=== PATIENT | female | born 1955 | race Caucasian/White ===

== ENCOUNTER 2020-09-07 07:11 | Outpatient (REF) | payer MEDICARE, SELFPAY | END 2020-09-07 07:12 | disposition home or self-care (01) | LOC: HO.LAB 07:11 | PROVIDERS: Visit Provider Internal Medicine | DX: Z20.828 Contact with and (suspected) exposure to other viral communicable diseases (principal) | CPT/HCPCS: 87635 ==

== ENCOUNTER 2020-09-17 12:29 | Outpatient (REF) | payer MEDICARE, SELFPAY ==
[2020-09-17 14:19] LABS: Alanine Aminotransferase 13 U/L (0-31); Anion Gap 12 (12-20); Aspartate Amino Transferase 14 U/L (5-31); Blood Urea Nitrogen 17 mg/dL (9-16); Calcium 8.6 mg/dL (8.4-10.2); Carbon Dioxide 29 mmol/L (22-29); Chloride 105 mmol/L (96-108); Cholesterol 187 mg/dL; Estimated Glomerular Filt Rate > 60; Glucose Fasting 91 mg/dL (60-99); HDL Cholesterol 54 mg/dL; LDL Cholesterol Calculated 118 mg/dl; Potassium 4.9 mmol/l (3.3-5.1); Sodium 141 mmol/L (135-145); Triglycerides 76 mg/dL
[2020-09-17 14:41] LABS: Vitamin D 25-OH Total 24.5 ng/mL (>30)
== END 2020-09-17 12:30 | disposition home or self-care (01) ==
LOC: HO.HMGCLDS 12:29
PROVIDERS: PCP Internal Medicine; Visit Provider Internal Medicine
DX: E78.5 Hyperlipidemia, unspecified (principal); R73.01 Impaired fasting glucose; Z78.0 Asymptomatic menopausal state
CPT/HCPCS: 80048; 80061; 82306; 84450; 84460

== ENCOUNTER 2020-10-18 06:07 | Outpatient (REF) | payer MEDICARE, SELFPAY | END 2020-10-18 06:08 | disposition home or self-care (01) | LOC: HO.LAB 06:07 | PROVIDERS: Visit Provider Internal Medicine | DX: Z20.828 Contact with and (suspected) exposure to other viral communicable diseases (principal) | CPT/HCPCS: C9803; U0003 ==

== ENCOUNTER 2020-11-03 06:34 | Outpatient (REF) | payer MEDICARE, SELFPAY | END 2020-11-03 06:35 | disposition home or self-care (01) | LOC: HO.LAB 06:34 | PROVIDERS: PCP Internal Medicine; Visit Provider Internal Medicine | DX: Z20.828 Contact with and (suspected) exposure to other viral communicable diseases (principal) | CPT/HCPCS: C9803; U0003 ==

== ENCOUNTER → 2020-11-08 13:00 | Outpatient (BNVA) | payer MEDICARE, SELFPAY | PROVIDERS: PCP Internal Medicine; Visit Provider Internal Medicine Cardiovascular Disease | DX: I10 Essential (primary) hypertension (principal) | CPT/HCPCS: 93005; 99212 ==

== ENCOUNTER 2020-12-02 10:37 | Outpatient (REF) | payer MEDICARE, SELFPAY | END 2020-12-02 10:38 | disposition home or self-care (01) | LOC: HO.LAB 10:37 | PROVIDERS: Visit Provider Nurse Practitioner Family | DX: J06.9 Acute upper respiratory infection, unspecified (principal); Z20.822 Contact with and (suspected) exposure to COVID-19 | CPT/HCPCS: 36415; U0003 ==

== ENCOUNTER 2021-04-12 11:03 | Outpatient (REF) | payer MEDICARE, SELFPAY ==
[2021-04-12 14:43] LABS: Alanine Aminotransferase 23 U/L (0-31); Anion Gap 13 (12-20); Aspartate Amino Transferase 16 U/L (5-31); Blood Urea Nitrogen 16 mg/dL (9-16); Calcium 9.1 mg/dL (8.4-10.2); Carbon Dioxide 27 mmol/L (22-29); Chloride 105 mmol/L (96-108); Cholesterol 186 mg/dL; Estimated Glomerular Filt Rate > 60; Glucose Fasting 101 mg/dL (60-99); HDL Cholesterol 52 mg/dL; LDL Cholesterol Calculated 117 mg/dl; Potassium 4.6 mmol/L (3.3-5.1); Sodium 140 mmol/L (135-145); Triglycerides 86 mg/dL
[2021-04-12 14:49] LABS: Vitamin D 25-OH Total 35.1 ng/mL (>30)
== END 2021-04-12 11:04 | disposition home or self-care (01) ==
LOC: HO.HMGCLDS 11:03
PROVIDERS: PCP Internal Medicine; Visit Provider Internal Medicine
DX: R73.01 Impaired fasting glucose (principal); E55.9 Vitamin D deficiency, unspecified; E66.01 Morbid (severe) obesity due to excess calories; E78.5 Hyperlipidemia, unspecified; I10 Essential (primary) hypertension; Z78.0 Asymptomatic menopausal state
CPT/HCPCS: 36415; 80048; 80061; 82306; 84450; 84460

== ENCOUNTER 2021-05-05 09:55 | Outpatient (REF) | payer MEDICARE, SELFPAY ==
--- NOTE | ~2021-05-05 | MM_ITS ---
EXAMINATION: MM SCREENING DIGITAL BREAST TOMOSYNTHESIS, BILATERAL CLINICAL INFORMATION: Screening. Asymptomatic. The lifetime risk of breast cancer based on the Tyrer-Cuzick Model is 5%. COMPARISON: Mammography: 09/26/2019, 07/29/2018, 06/05/2017 TECHNIQUE: Digital breast tomosynthesis is performed in both the craniocaudal and mediolateral oblique views along with computer-aided detection (CAD). Synthesized 2D images are generated from the tomosynthesis. FINDINGS: There are scattered areas of fibroglandular density (ACR BI-RADS breast composition Category b). Parenchymal pattern is similar to prior studies. There is no interval mass or architectural abnormality or abnormal calcifications. There is stable small lobulated asymmetry posterior outer right breast on CC view similar to prior studies. Linear stromal markings anterior upper outer left breast are also stable. The axilla and skin contours are unremarkable. No significant changes. MM/MM tomosynthesis screening BI IMPRESSION: No mammographic evidence of malignancy. ASSESSMENT: BI-RADS 2: Benign RECOMMENDATION: Routine annual mammography screening. This patient's information was entered into a reminder system with a target due date for their next mammogram.
== END 2021-05-05 09:56 | disposition home or self-care (01) ==
LOC: HO.MAMMO 09:55
PROVIDERS: Visit Provider Internal Medicine
DX: Z12.31 Encounter for screening mammogram for malignant neoplasm of breast (principal)
CPT/HCPCS: 77063; 77067

== ENCOUNTER 2021-09-29 11:48 | Outpatient (REF) | payer MEDICARE, SELFPAY ==
[2021-09-29 14:12] LABS: Estimated Average Glucose 105 mg/dL; Hemoglobin A1c % 5.3 %
[2021-09-29 14:17] LABS: Alanine Aminotransferase 17 U/L (0-31); Anion Gap 10 (12-20); Aspartate Amino Transferase 16 U/L (5-31); Blood Urea Nitrogen 14 mg/dL (9-16); Calcium 9.1 mg/dL (8.4-10.2); Carbon Dioxide 28 mmol/L (22-29); Chloride 104 mmol/L (96-108); Cholesterol 175 mg/dL; Estimated Glomerular Filt Rate > 60; Glucose Fasting 105 mg/dL (60-99); HDL Cholesterol 44 mg/dL; LDL Cholesterol Calculated 113 mg/dl; Potassium 4.6 mmol/L (3.3-5.1); Sodium 137 mmol/L (135-145); Triglycerides 92 mg/dL
[2021-09-29 14:38] LABS: Vitamin D 25-OH Total 26.9 ng/mL (>30)
== END 2021-09-29 11:49 | disposition home or self-care (01) ==
LOC: HO.HMGCX 11:48
PROVIDERS: PCP Internal Medicine; Visit Provider Internal Medicine
DX: E55.9 Vitamin D deficiency, unspecified (principal); E66.01 Morbid (severe) obesity due to excess calories; E78.5 Hyperlipidemia, unspecified; I10 Essential (primary) hypertension; R73.01 Impaired fasting glucose; Z78.0 Asymptomatic menopausal state
CPT/HCPCS: 36415; 80048; 80061; 82306; 83036; 84450; 84460

== ENCOUNTER → 2021-10-31 14:53 | Outpatient (BNVA) | payer MEDICARE, SELFPAY | PROVIDERS: PCP Internal Medicine; Referring Provider Internal Medicine; Visit Provider Internal Medicine Cardiovascular Disease | DX: I10 Essential (primary) hypertension (principal) | CPT/HCPCS: 93005; 99212 ==

== ENCOUNTER 2022-05-15 10:12 | Outpatient (REF) | payer MEDICARE, SELFPAY ==
[2022-05-15 12:32] LABS: Vitamin D 25-OH Total 35.7 ng/mL (>30)
[2022-05-15 12:34] LABS: Alanine Aminotransferase 17 U/L (0-31); Anion Gap 11 (12-20); Aspartate Amino Transferase 15 U/L (5-31); Blood Urea Nitrogen 18 mg/dL (9-16); Calcium 9.2 mg/dL (8.4-10.2); Carbon Dioxide 27 mmol/L (22-29); Chloride 108 mmol/L (96-108); Cholesterol 189 mg/dL; Estimated Glomerular Filt Rate > 60; Glucose Fasting 111 mg/dL (60-99); HDL Cholesterol 48 mg/dL; LDL Cholesterol Calculated 126 mg/dl; Potassium 4.7 mmol/L (3.3-5.1); Sodium 141 mmol/L (135-145); Triglycerides 75 mg/dL
== END 2022-05-15 10:13 | disposition home or self-care (01) ==
LOC: HO.HMGCLDS 10:12
PROVIDERS: PCP Internal Medicine; Visit Provider Internal Medicine
DX: E55.9 Vitamin D deficiency, unspecified (principal); E66.01 Morbid (severe) obesity due to excess calories; E78.5 Hyperlipidemia, unspecified; I10 Essential (primary) hypertension; R73.01 Impaired fasting glucose; Z78.0 Asymptomatic menopausal state
CPT/HCPCS: 36415; 80048; 80061; 82306; 84450; 84460

== ENCOUNTER 2022-05-30 15:22 | Outpatient (REF) | payer MEDICARE, SELFPAY ==
--- NOTE | ~2022-05-30 | MM_ITS ---
EXAMINATION: MM SCREENING DIGITAL BREAST TOMOSYNTHESIS, BILATERAL CLINICAL INFORMATION: Screening. Asymptomatic. The lifetime risk of breast cancer based on the Tyrer-Cuzick Model is 4%. COMPARISON: Mammography: 05/05/2021, 09/26/2019, 07/29/2018, 06/05/2017 TECHNIQUE: Digital breast tomosynthesis is performed in both the craniocaudal and mediolateral oblique views along with computer-aided detection (CAD). Synthesized 2D images are generated from the tomosynthesis. FINDINGS: There are scattered areas of fibroglandular density (ACR BI-RADS breast composition Category b). Parenchymal pattern is similar to prior studies. There is no significant mass or architectural abnormality or developing density. Smooth lobulated asymmetry posterior outer right breast is stable. There are also stable small smooth nodularity central right breast and retroareolar right breast. There are no abnormal calcifications. The axilla and skin contours are unremarkable. MM/MM tomosynthesis screening BI IMPRESSION: No significant changes from prior studies. ASSESSMENT: BI-RADS 2: Benign RECOMMENDATION: Routine annual mammography screening. This patient's information was entered into a reminder system with a target due date for their next mammogram.
== END 2022-05-30 15:23 | disposition home or self-care (01) ==
LOC: HO.MAMMO 15:22
PROVIDERS: Visit Provider Internal Medicine
DX: Z12.31 Encounter for screening mammogram for malignant neoplasm of breast (principal)
CPT/HCPCS: 77063; 77067

== ENCOUNTER 2022-06-20 13:51 | Outpatient (REF) | payer MEDICARE, SELFPAY ==
--- NOTE | ~2022-06-20 | US_ITS ---
EXAMINATION: US TARGETED RIGHT ARM ULTRASOUND CLINICAL INFORMATION: Lump, palpable and right upper arm. COMPARISON: None. TECHNIQUE: Targeted right upper arm ultrasound. FINDINGS: Targeted ultrasound evaluation to region of palpable lump as indicated by the patient was performed. No abnormal cystic or solid mass identified. No region of abnormal distal sound shadowing. No edematous change within the tissues is noted. US/US extremity nonvascular IMPRESSION: No ultrasound findings to correlate with question palpable lump right upper arm.
== END 2022-06-20 13:52 | disposition home or self-care (01) ==
LOC: HO.HMGCX 13:51
PROVIDERS: PCP Internal Medicine; Visit Provider Internal Medicine
DX: M79.89 Other specified soft tissue disorders (principal); R22.31 Localized swelling, mass and lump, right upper limb
CPT/HCPCS: 76882

== ENCOUNTER → 2022-07-31 10:03 | Outpatient (REF) | payer MEDICARE, SELFPAY | LOC: HO.SL 10:03 | PROVIDERS: PCP Internal Medicine; Visit Provider Psychiatry & Neurology Neurology | DX: G47.33 Obstructive sleep apnea (adult) (pediatric) (principal) | CPT/HCPCS: 95806 ==

== ENCOUNTER 2022-08-09 10:51 | Outpatient (REF) | payer MEDICARE, SELFPAY ==
[2022-08-09 14:19] LABS: Appearance Urine Turbid; Color Urine Yellow; Glucose Urine UA Negative (Negative); Leukocyte Esterase Urine Large (3+) (Negative); Nitrite Urine Negative (Negative); PH 5.5 (5.0-9.0); UMIC TRIGGER UACC YES; Urine Blood Large (3+) (Negative); Urine Ketones Negative (Negative); Urine Protein Trace mg/dL (Neg-Trace)
[2022-08-09 14:33] LABS: Bacteria Urine Trace (None Seen); Hyaline Casts Urine 0-2 /LPF (0-2); RBC Urine >20 /HPF (0-2); UACC Culture Trigger YES; WBC Urine >50 /HPF (0-5)
== END 2022-08-09 10:52 | disposition home or self-care (01) ==
LOC: HO.HMGCLDS 10:51
PROVIDERS: PCP Internal Medicine; Visit Provider Internal Medicine
DX: R30.0 Dysuria (principal)
CPT/HCPCS: 81001; 81003; 87086

== ENCOUNTER → 2022-11-01 14:57 | Outpatient (BNVA) | payer MEDICARE, SELFPAY | PROVIDERS: PCP Internal Medicine; Referring Provider Internal Medicine; Visit Provider Internal Medicine Cardiovascular Disease | DX: I10 Essential (primary) hypertension (principal); Z79.899 Other long term (current) drug therapy | CPT/HCPCS: 93005; 99212 ==

== ENCOUNTER 2023-01-11 11:56 | Outpatient (REF) | payer MEDICARE, SELFPAY ==
[2023-01-11 14:26] LABS: Appearance Urine Cloudy; Color Urine Yellow; Glucose Urine UA Negative (Negative); Leukocyte Esterase Urine Small (1+) (Negative); Nitrite Urine Negative (Negative); Specific Gravity - Urine 1.025 (1.005-1.025); UMIC TRIGGER UACC YES; Urine Blood Negative (Negative); Urine Ketones Negative (Negative); Urine Protein Negative (Neg-Trace)
[2023-01-11 14:36] LABS: Estimated Average Glucose 111 mg/dL; Hemoglobin A1c % 5.5 %
[2023-01-11 14:43] LABS: Bacteria Urine 1+ (None Seen); Hyaline Casts Urine 0-2 /LPF (0-2); RBC Urine >20 /HPF (0-2); UACC Culture Trigger YES
[2023-01-11 14:54] LABS: Alanine Aminotransferase 19 U/L (0-31); Anion Gap 12 (12-20); Aspartate Amino Transferase 16 U/L (5-31); Blood Urea Nitrogen 18 mg/dL (9-16); Calcium 9.1 mg/dL (8.4-10.2); Carbon Dioxide 29 mmol/L (22-29); Chloride 106 mmol/L (96-108); Cholesterol 194 mg/dL; Estimated Glomerular Filt Rate > 60; Glucose Fasting 106 mg/dL (60-99); HDL Cholesterol 49 mg/dL; LDL Cholesterol Calculated 121 mg/dl; Potassium 4.5 mmol/L (3.3-5.1); Sodium 142 mmol/L (135-145); Triglycerides 120 mg/dL
[2023-01-11 15:09] LABS: Vitamin D 25-OH Total 38.5 ng/mL (>30)
== END 2023-01-11 11:57 | disposition home or self-care (01) ==
LOC: HO.HMGCLDS 11:56
PROVIDERS: PCP Internal Medicine; Visit Provider Internal Medicine
DX: I10 Essential (primary) hypertension (principal); R73.01 Impaired fasting glucose; E78.5 Hyperlipidemia, unspecified; R30.0 Dysuria; N95.9 Unspecified menopausal and perimenopausal disorder
CPT/HCPCS: 36415; 80048; 80061; 81001; 82306; 83036; 84450; 84460; 87086

== ENCOUNTER 2023-06-05 14:52 | Outpatient (REF) | payer MEDICARE, SELFPAY ==
--- NOTE | ~2023-06-05 | MM_ITS ---
EXAMINATION: BONE DENSITOMETRY CLINICAL INDICATION: Menopause. COMPARISON: Baseline BD dated 08/27/2009. TECHNIQUE: Using a [employer] DXA System (software version: 13.1) manufactured by [employer], dual-energy x-ray absorptiometry was performed of the lumbar spine and left hip. The images are of good technical quality. Summary results are attached. FINDINGS: LEFT FEMUR, NECK: Current: BMD 0.821 g/cm2, Z-score -0.6, T-score -1.6, osteopenia. Baseline: BMD 1.036 g/cm2. LEFT FEMUR, TOTAL: Current: BMD 1.037 g/cm2, Z-score 0.9, T-score 0.2, normal, 8.5% decrease from baseline (<5% change is not significant). Baseline: BMD 1.133 g/cm2. AP SPINE L1-L4: Current: BMD 1.116 g/cm2, Z-score 0.0, T-score -0.5, normal, 3.8% decrease from baseline (<5% change is not significant). Baseline: BMD 1.160 g/cm2. IDENTIFIED RISK FACTORS: Menopause. HISTORY OF FRACTURE: None listed. MEDICATIONS: Multivitamin, vitamin D. MM/XR DEXA axial skeleton IMPRESSION: 1. DIAGNOSIS: Osteopenia based on the lowest T-score value of -1.6 in the femoral neck applying World Health Organization criteria. 2. 10-YEAR FRACTURE RISK PREDICTION, FRAX: Major osteoporotic fracture (clinical spine, forearm, hip or shoulder) 7.8%. Hip fracture 1.0%. 3. Treatment Recommendations: NOF guidelines recommend consideration for treatment in postmenopausal women and men age 50 and older presenting with the following: -A hip or vertebral (clinical or morphometric) fracture. -T-score less than or equal to -2.5 at the femoral neck or spine after appropriate evaluation to exclude secondary causes. -Low bone mass at the hip or spine and a 10-year fracture probability by FRAX of greater than or equal to 3% for hip fracture or greater than or equal to 20% for major osteoporotic fracture based on the [place] adapted WHO algorithm. 4. Other Recommendations: All treatment decisions require clinical judgment and consideration of individual patient factors, including patient preferences, comorbidities, previous drug use, risk factors not captured in the FRAX model (e.g. frailty, falls, vitamin D deficiency, increased bone turnover, interval significant decline in bone density) and possible under or overestimation of fracture risk by FRAX. Additional medical evaluation for secondary cause of low bone mineral density may be appropriate. FUTURE SCAN RECOMMENDATION: People with diagnosed cases of osteoporosis or at high risk for fracture should have regular bone mineral density tests. For patients eligible for Medicare, routine testing is allowed once every 2 years. The testing frequency can be increased to one year for patients who have rapidly progressing disease, those who are receiving or discontinuing medical therapy to restore bone mass, or have additional risk factors.
--- NOTE | ~2023-06-05 | MM_ITS ---
EXAMINATION: MM SCREENING DIGITAL BREAST TOMOSYNTHESIS, BILATERAL CLINICAL INFORMATION: Screening. Asymptomatic. The lifetime risk of breast cancer based on the Tyrer-Cuzick Model is 4%. COMPARISON: Mammography: This study is compared with prior exams dating back to 2018. TECHNIQUE: Digital breast tomosynthesis is performed in both the craniocaudal and mediolateral oblique views along with computer-aided detection (CAD). Synthesized 2D images are generated from the tomosynthesis. FINDINGS: There are scattered areas of fibroglandular density (ACR BI-RADS breast composition Category b). There are no significant masses, abnormal calcifications, or other abnormalities. MM/MM tomosynthesis screening BI IMPRESSION: No mammographic evidence of malignancy. ASSESSMENT: BI-RADS BI-RADS 1 - Negative RECOMMENDATION: Routine annual mammography screening. 1 year F/U This examination should not preclude the clinical evaluation of a suspicious palpable abnormality. This patient's information was entered into a reminder system with a target due date for their next mammogram.
== END 2023-06-05 14:53 | disposition home or self-care (01) ==
LOC: HO.MAMMO 14:52
PROVIDERS: PCP Internal Medicine; Visit Provider Internal Medicine
DX: Z12.31 Encounter for screening mammogram for malignant neoplasm of breast (principal); Z13.820 Encounter for screening for osteoporosis; Z78.0 Asymptomatic menopausal state
CPT/HCPCS: 77063; 77067; 77080

== ENCOUNTER → 2023-06-05 15:30 | Outpatient (BNV) | payer MEDICARE, SELFPAY | PROVIDERS: PCP Internal Medicine; Visit Provider Radiology Diagnostic Radiology | DX: Z12.31 Encounter for screening mammogram for malignant neoplasm of breast (principal) | CPT/HCPCS: 77063; 77067 ==

== ENCOUNTER 2023-07-26 08:13 | Outpatient (AMB) | payer MEDICARE, SELFPAY ==
--- NOTE | 2023-07-26 08:50 | MHC.OFFWIV ---
Intake Vital Signs 07/26/23 08:58 Height 5 ft 4 in Intake Visit Reasons: EST/UTI Intake Note: pt is here for c.o possible uti Patient Tobacco Use Status: Never used Tobacco Allergies No Known Allergies [No Known Allergies*] Allergy (Verified 07/26/23 08:59) Do you need a note to return to daycare/school/sports/work: Yes HPI HPI Comments History of Present Illness Details pt is here for c.o possible uti PFSH Medical History Allergic rhinitis Depression Dyslipidemia Essential hypertension GERD with esophagitis Impaired fasting glucose Menopause Mild intermittent asthma in adult without complication Morbid obesity Obstructive sleep apnea of adult Plantar fasciitis Vitamin D deficiency Surgical History No pertinent past surgical history Family History Father Lung cancer Unknown family medical history Mother HTN (hypertension) Hyperlipidemia Mental health disorder Brother Substance use disorder Sister Mental health disorder Son No problems noted. Son No problems noted. Social History Housing: House Alcohol intake: never Patient Tobacco Use Status: Never used Tobacco e-Cigarette/Vaping Use: Never Used service: No Current occupational status: unemployed Cognitive needs: No Hearing needs: No Vision needs: Yes Results AMB Urinalysis, Automated UA Leukoctes 500 Keira/uL Last Edit by Santiago Krueger CMA on 07/26/23 08:51 UA Nitrite Positive Last Edit by Santiago Krueger CMA on 07/26/23 08:51 UA Urobilinogen 8 mg/dL Last Edit by Santiago Krueger CMA on 07/26/23 08:51 UA Protein 15 mg/dL Last Edit by Santiago Krueger CMA on 07/26/23 08:51 UA pH 5.0 Last Edit by Santiago Krueger CMA on 07/26/23 08:51 UA Blood 0 Campos/uL Last Edit by Santiago Krueger CMA on 07/26/23 08:51 UA Specific [place] 1.025 Last Edit by Santiago Krueger CMA on 07/26/23 08:51 UA Ketone Positive Last Edit by Santiago Krueger CMA on 07/26/23 08:51 UA Bilirubin 4 mg/dL Last Edit by Santiago Krueger CMA on 07/26/23 08:51 UA Glucose 100 mg/dL Last Edit by Santiago Krueger CMA on 07/26/23 08:51 Results Reviewed Results Reviewed: Laboratory Last Values Urine pH (Auto) 5.0 07/26/23 08:50 Specific [place] (Auto) 1.025 07/26/23 08:50 Urine Protein (Auto) 15 mg/dL 07/26/23 08:50 Glucose (UA)(Auto) 100 mg/dL 07/26/23 08:50 Urine Ketones (Auto) Positive 07/26/23 08:50 Urine Blood (Auto) 0 Campos/uL 07/26/23 08:50 Urine Nitrite (Auto) Positive 07/26/23 08:50 Urine Bilirubin (Auto) 4 mg/dL 07/26/23 08:50 Urine Urobilinogen (Auto) 8 mg/dL 07/26/23 08:50 Leukocyte Esterase (Auto) 500 Keira/uL 07/26/23 08:50 Assessment & Plan Assessment & Plan (1) UTI (urinary tract infection): Code(s): N39.0 - Urinary tract infection, site not specified Plan patient left prior to assessment Orders: Orders AMB Urinalysis Automated Today Z13.9 - Encounter for screening, unspecified Coding Level of Care Code Left Without Being Seen Diagnoses UTI (urinary tract infection) N39.0
== END 2023-07-26 09:06 | disposition left against medical advice (07) ==
LOC: HO.HMGWI 08:13
PROVIDERS: PCP Internal Medicine
DX: N39.0 Urinary tract infection, site not specified (principal)
CPT/HCPCS: 81003

== ENCOUNTER 2023-12-11 08:14 | Outpatient (AMB) | payer MEDICARE, SELFPAY ==
[2023-12-11 08:20] VITALS: BP 134/90; PULSE 66; BMI 54.7
--- NOTE | 2023-12-11 08:20 | A.OFFVIS_ITS ---
Intake Vital Signs 12/11/23 08:20 Height 5 ft 4 in Weight 318 lb 12.615 oz BMI 54.7 BP 134/90 H Blood Pressure Location Rt brachial Position Sitting Pulse 66 Pulse Source Monitor Intake Visit Reasons: 1 yr fu (KM) Allergies No Known Allergies [No Known Allergies*] Allergy (Verified 12/11/23 08:23) Medication List - Last Reconciled 12/11/23 by Concha Pitts NOCTURNIST PHYSICIAN-C ascorbic acid (vitamin C) 500 mg PO DAILY atorvastatin 20 mg PO DAILY biotin 5000mg PO daily; cholecalciferol (vitamin D3) 100 mcg (2 x 50 mcg (2,000 unit)) PO DAILY citalopram 40 mg PO DAILY cyanocobalamin (vitamin B-12) 1,000 mcg PO DAILY docusate sodium 100 mg PO DAILY losartan 50 mg PO DAILY magnesium oxide 500 mg PO DAILY omega-3 fatty acids (Fish Oil Concentrate) 2,000 mg PO DAILY omeprazole 20 mg PO DAILY zinc acetate (Galzin) 50 mg PO DAILY HPI 1 yr fu (KM) HPI Details Yessy is a 68-year-old female past medical history of hypertension, hyperlipidemia, obesity, obstructive sleep apnea untreated, prior reports of chest discomfort who presents for follow-up. Today she reports that she has been doing generally well over the last year. She believe she has gained about 30 lb and is now working on weight loss. She has some mild shortness of breath with exertion. No shortness of breath at rest, no chest discomfort at rest or with activity. No heart palpitations, lightheadedness, presyncope, syncope, falls, PND, orthopnea or edema. Mostly sedentary. Takes meds as directed. [facility] Medical History Obstructive sleep apnea of adult Depression Plantar fasciitis GERD with esophagitis Mild intermittent asthma in adult without complication Allergic rhinitis Essential hypertension Impaired fasting glucose Dyslipidemia Morbid obesity Menopause Vitamin D deficiency Surgical History No pertinent past surgical history Family History Father Lung cancer Unknown family medical history Mother HTN (hypertension) Hyperlipidemia Mental health disorder Brother Substance use disorder Sister Mental health disorder Son No problems noted. Son No problems noted. Social History Housing: House Alcohol intake: never Patient Tobacco Use Status: Never used Tobacco e-Cigarette/Vaping Use: Never Used service: No Current occupational status: unemployed Cognitive needs: No Hearing needs: No Vision needs: Yes Review of Systems Const All systems reviewed & are unremarkable except as noted in HPI and below ENT Denies dizziness Card Denies chest pain, Denies chest pain at rest, Denies chest pain with activity, Denies rapid heart rate, Denies pedal edema, Denies edema, Denies leg edema, Denies lightheadedness, Denies palpitations, Denies dyspnea, Denies dyspnea on exertion and Denies orthopnea Resp Denies cough, Denies dyspnea and Denies dyspnea on exertion GI Denies hematochezia and Denies change in stool character Musc Denies abnormal gait, Denies limited range of motion, Denies muscle cramps, Denies muscle weakness, Denies numbness, Denies radiating pain into limb, Denies stiffness and Denies tingling Neuro Denies abnormal gait, Denies dizziness, Denies numbness and Denies tingling Endo Denies palpitations Physical Exam Vital Signs: Last Vital Signs Pulse 66 12/11/23 08:20 BP 134/90 H 12/11/23 08:20 BMI result Body Mass Index 54.7 Const General: cooperative, healthy appearing, comfortable and no acute distress Orientation/consciousness: patient oriented x3 Neck Neck: Yes normal visual inspection and Yes no JVD Resp Effort & Inspection: normal respiratory effort Auscultation: clear to auscultation bilaterally, no crackles, no rales, no rhonchi and no wheezes Cardio Jugular venous distension: no JVD Rate: regular rate Rhythm: regular rhythm Heart sounds: S1 normal heart sound present, S2 normal heart sound present, Murmur heart sound present and no rubs Neuro General: patient oriented x3 Extrem General: Yes normal to inspection and No no pedal edema Psych Appearance: grossly normal Mental Status: mental status grossly normal Speech and movement: Normal speech and movement present Office Procedures EKG Details: Today, read by me, normal sinus rhythm, no acute ST or T-wave abnormalities, QTC 394 milliseconds, rate 66 [id number], Complete Assessment & Plan Assessment & Plan (1) Essential hypertension: Code(s): I10 - Essential (primary) hypertension Plan: History of hypertension. Blood pressure mildly elevated today. Initially 134/90, recheck done by me . She tells me she has gained weight over the last year and is now actively working on weight loss. She is mostly sedentary. Reviewed low-salt diet, increasing physical activity and decreasing calorie intake. She is due for a visit with her PCP and plans to make an appointment. Will forward this note to her PCP. If blood pressure still elevated at next follow-up visit then losartan dose can be increased. At present can continue on losartan 50 mg daily. Labs done 12/2022 had shown creatinine 0.81, potassium 4.5. She is due for labs and again will obtain from her PCP. (2) Dyslipidemia: Code(s): E78.5 - Hyperlipidemia, unspecified Plan: History of hyperlipidemia. She has been on atorvastatin 20 mg daily. Labs done 01/11/2023 had shown LDL 121. [place] LDL goal less than 100 inpatient with no known history of CAD or diabetes. She is due for lipid profile. Lab orders are in the system. Patient reminded.. (3) Morbid obesity: Code(s): E66.01 - Morbid (severe) obesity due to excess calories Plan: Has gained weight over the last year. He is now working on weight loss. Suggested referral to the bariatric program, she is not interested at this time (4) Obstructive sleep apnea of adult: Comment: unable to tolerate CPAP Code(s): G47.33 - Obstructive sleep apnea (adult) (pediatric) Plan: Reported history of sleep apnea. Unable to tolerate CPAP (5) Murmur: Code(s): R01.1 - Cardiac murmur, unspecified Plan: Faint systolic murmur noted on examination. Last echocardiogram done 12/24/2018 showed EF 65-70%, normal RV, grade 1 diastolic dysfunction, aortic valve sclerosis. Will update echo to evaluate aortic valve and reassess EF. She does have some shortness of breath with activity which could be explained by her obesity. Plan Time spent on chart review, documentation, interview and assessment Orders: Orders CA echo transthoracic complete Today R01.1 - Cardiac murmur, unspecified Coding Level of Care Code Est Pt Level 4 (65550) Diagnoses Essential hypertension I10 Dyslipidemia E78.5 Morbid obesity E66.01 Obstructive sleep apnea of adult G47.33 Murmur R01.1 CPT Codes EKG - CPT: [id number], Complete ([id number]) Time Spent (min) 28
== END 2023-12-11 08:51 | disposition home or self-care (01) ==
PROVIDERS: PCP Internal Medicine; Visit Provider Nurse Practitioner Family
DX: I10 Essential (primary) hypertension (principal); E78.5 Hyperlipidemia, unspecified; E66.01 Morbid (severe) obesity due to excess calories; G47.33 Obstructive sleep apnea (adult) (pediatric); R01.1 Cardiac murmur, unspecified
CPT/HCPCS: 93010; 99214

== ENCOUNTER → 2023-12-11 08:14 | Outpatient (BNVA) | payer MEDICARE, SELFPAY | PROVIDERS: PCP Internal Medicine; Visit Provider Nurse Practitioner Family | DX: I10 Essential (primary) hypertension (principal); E78.5 Hyperlipidemia, unspecified; E66.01 Morbid (severe) obesity due to excess calories; Z68.43 Body mass index [BMI] 50.0-59.9, adult; G47.33 Obstructive sleep apnea (adult) (pediatric); R01.1 Cardiac murmur, unspecified; Z79.899 Other long term (current) drug therapy | CPT/HCPCS: 93005; 99212 ==

== ENCOUNTER → 2024-01-25 08:55 | Outpatient (REF) | payer MEDICARE, SELFPAY ==
--- NOTE | 2024-01-25 08:58 | CA_ITS ---
Transthoracic Echocardiogram Patient (Last, First, Middle): Yessy Dempsey J Gender: Female Date of : 1955 Age: 68 Procedure Date: 01/25/2024 Procedure Type: Transthoracic Echocardiogram Location: OP Height: 162.56 cm Weight: 140.62 kg BSA: 2.36 m2 Heart Rate: 59 bpm BP: 145 / 85 mmHg Fiber Glass Worker: ANTHONY Referring MD: Concha Pitts PICK UP TRUCK DRIVEREusebioC Symptoms: R01.1 - Cardiac murmur, unspecified Study Quality: Fair ECG Rhythm: Bradycardia Conclusions: - Normal left ventricular size and systolic function. There is mildly increased left ventricular wall thickness. The visually estimated ejection fraction is between 55-60%. - Normal right ventricular cavity size and systolic function. - There is mild aortic valve stenosis. Findings Left Ventricle Normal left ventricular size and systolic function. There is mildly increased left ventricular wall thickness. The visually estimated ejection fraction is between 55-60%. Abnormal diastolic function is noted. Spectral Doppler is indicative of an impaired relaxation filling pattern. E/E prime ratio is between 8 and 15 consistent with indeterminate filling pressures. Right Ventricle Normal right ventricular cavity size and systolic function. Atria The left atrium is likely dilated. The right atrium is normal in size. Aortic Valve There is a normal trileaflet aortic valve. There is mild calcification of the aortic valve. There is mild aortic valve stenosis. There is no aortic valve regurgitation. Mitral Valve The mitral valve appears normal. There is trace mitral valve regurgitation. There is no mitral valve stenosis. Pulmonic Valve The pulmonic valve is likely normal. Tricuspid Valve Normal tricuspid valve structure. There is no tricuspid valve regurgitation. Normal right atrial pressure. There is no evidence of pulmonary hypertension. Great Vessels There is mild dilatation of the ascending aorta measuring 3.40 cm. The visualized portions of the pulmonary artery and branches are normal. Venous The inferior vena cava is normal in size and collapses greater than 50% with inspiration. Pericardium/Pleural There is no evidence of pericardial effusion. Prior Study Comparison Changes noted compared to prior study dated: 12/24/2018. Mild aortic stenosis. Measurements 2D Linear Measurements IVSd: 1.08 0.6-0.9/0.6-1.0 cm LVIDd: 4.50 3.9-5.3/4.2-5.9 cm LVIDd Index: 1.91 2.4-3.2/2.2-3.1 cm/m2 LVIDs: 2.88 2.0-3.6 cm LVPWd: 0.92 0.7-1.1 cm LA Diam: 4.40 2.7-3.8/3.0-4.0 cm LAIDs Index: 1.86 1.5-2.3 cm/m2 LV Mass: 190.84 67-162/88-224 g LV Mass Index: 80.86 43-95/49-115 g/m2 LVOT Diam: 2.00 3.0+(-)1.3 cm 2D Systolic Function EF 4C: 65.90 >55% EF 2C: 65.20 >55% EF BiP: 65.40 >55% Mitral Valve MV Pk E: 1.02 MV PK A: 1.24 MV Decel Time: 216.00 E/A: 0.80 E'Lateral: 8.27 E'Medial: 7.62 E/E' Med: 13.40 E/E' Lat: 12.30 PHT: 63.00 MVA PHT: 3.49 Decel [place]: 4.73 Aortic Valve AoV Pk Hussain: 2.16 AoV Mn Hussain: 1.48 AoV VTI: 0.53 AoV Pk Grad: 19.00 Aov Mn Grad: 10.00 LACHELLE Cont.VTI: 2.43 LVOT LVOT Pk Hussain: 1.72 LVOT Mn Hussain: 1.20 LVOT VTI: 0.41 LVOT Pk Grad: 12.00 LVOT Mn Grad: 6.00 LVOT Diam: 2.00 LVOT Area: 3.14 Diastolic Function MV Pk E: 1.02 MV Pk A: 1.24 E/A: 0.80 E'Medial: 7.62 E/E' Med: 13.40 E' Laterial: 8.27 E/E' Lat: 12.30 Tricuspid Valve TR Pk Hussain: 2.17 TR Pk Grad: 19.00 RA Press: 3.00 RVSP: 22.00 Great Vessels Aorta Sinus of Valsalva: 3.00 2.0-3.5 cm Ao Asc: 3.40 2.1-3.4 cm Pulmonary Valve PV Pk Hussain: 0.91 Peak PV Grad: 3.00 Updated in Other Vendor System with Status of Final Noah Busch MD electronically signed on 01/26/2024 5:26:33 PM with status of Final
== END ==
LOC: HO.CARD 08:55
PROVIDERS: PCP Internal Medicine; Visit Provider Nurse Practitioner Family
DX: R01.1 Cardiac murmur, unspecified (principal); I10 Essential (primary) hypertension; R73.01 Impaired fasting glucose
CPT/HCPCS: 36415; 80048; 80061; 84450; 84460; 93306

== ENCOUNTER → 2024-01-25 08:58 | Outpatient (BNV) | payer MEDICARE, SELFPAY | PROVIDERS: PCP Internal Medicine; Visit Provider Internal Medicine Cardiovascular Disease | DX: I35.0 Nonrheumatic aortic (valve) stenosis (principal) | CPT/HCPCS: 93306 ==

== ENCOUNTER 2024-01-25 10:04 | Outpatient (REF) | payer MEDICARE, SELFPAY ==
[2024-01-25 14:04] LABS: Alanine Aminotransferase 17 U/L (0-31); Anion Gap 9 (12-20); Aspartate Amino Transferase 15 U/L (5-31); Blood Urea Nitrogen 18 mg/dL (9-16); Calcium 9.7 mg/dL (8.4-10.2); Carbon Dioxide 31 mmol/L (22-29); Chloride 107 mmol/L (96-108); Cholesterol 196 mg/dL (<200); Estimated Glomerular Filt Rate > 60; Glucose Fasting 107 mg/dL (60-99); HDL Cholesterol 51 mg/dL (>40); LDL Cholesterol Calculated 129 mg/dL (<100); Potassium 4.9 mmol/L (3.3-5.1); Sodium 142 mmol/L (135-145); Triglycerides 84 mg/dL (<150)
== END 2024-01-25 10:05 | disposition home or self-care (01) ==
LOC: HO.HMGCLDS 10:04
PROVIDERS: PCP Internal Medicine; Visit Provider Internal Medicine
DX: Z13.89 Encounter for screening for other disorder (principal)
CPT/HCPCS: 36415; 80048; 80061; 84450; 84460

== ENCOUNTER 2024-02-18 08:56 | Outpatient (AMB) | payer MEDICARE, SELFPAY ==
[2024-02-18 09:00] VITALS: BP 128/70; PULSE 64; O2SAT 96; BMI 55.1
--- NOTE | 2024-02-18 09:00 | AM.OFFVISMDC ---
Intake Vital Signs 02/18/24 09:00 Height 5 ft 4 in Weight 321 lb BMI 55.1 BP 128/70 Blood Pressure Location Lt radial Position Sitting Pulse 64 Pulse Source Pulse Oximeter Pulse Oximetry (%) 96 Oxygen Delivery Method Room Air Intake Visit Reasons: SWV G0439 Intake Note: Pt is here today for SWV: mammogram 06/05/23, bone density scan 06/05/23, colonoscopy 03/17/19 Allergies No Known Allergies [No Known Allergies*] Allergy (Verified 02/18/24 10:04) Medication List - Last Reconciled 02/18/24 by Divina Jaffe MD ascorbic acid (vitamin C) 500 mg PO DAILY atorvastatin 20 mg PO DAILY biotin 5000mg PO daily; cholecalciferol (vitamin D3) 100 mcg (2 x 50 mcg (2,000 unit)) PO DAILY citalopram 40 mg PO DAILY cyanocobalamin (vitamin B-12) 1,000 mcg PO DAILY docusate sodium 100 mg PO DAILY losartan 50 mg PO DAILY magnesium oxide 500 mg PO DAILY omega-3 fatty acids (Fish Oil Concentrate) 2,000 mg PO DAILY omeprazole 20 mg PO DAILY zinc acetate (Galzin) 50 mg PO DAILY HPI SWV G0439 HPI Details AWV ? 69 year old lady with history of hyperlipidemia, obstructive sleep apnea, morbid obesity, prediabetes, GERD with esophagitis, the depression, hypertension, presents for her ? Annual Wellness Visit, initial visit.? She is up-to-date with her screening mammogram done and bone density scan done 06/05/2023, the latter showing beginning osteopenia in left femoral neck, normal in lumbar spine and left femur. She had a screening colonoscopy done 03/17/[address] Will which showed presence of sigmoid diverticulosis and internal hemorrhoids, to be repeated again in 2028. Last Pap smear was done in 2018 which showed presence of atrophic vaginal mucosa negative for any intraepithelial lesion or malignancy, no further testing indicated. She is up-to-date with all her vaccinations except for RSV vaccine. Fasting lipids and fasting sugar were both checked 01/25/2024, with the latter showing prediabetes levels at 109 mg/dL. ? Medical / Social History Reviewed? Past Medical History ?Yes . ? [place] of Care / Care Team list updated ?Yes . ? Surgical/Hospitalization History ?Yes . ? Current Medications (including OTC and supplements) ?Yes . ? Family History ?Yes . ? Tobacco Control form ?Yes . ? AUDIT-C (Alcohol use) form ?Yes . ? Illicit drug use in Social History ?Yes . ? Current diagnosis of depression? ?Yes, , sees Dr. Sheila Alvarez ? Appropriate PHQ2/PHQ9 completed ?Yes . ? Data entered by ?[employer]ach and reviewed by provider ? Fall Risk ? Fall History? Have you had any falls with injury in the past year? ?No . ? Have you had two or more falls in the past year? ?No . ? Fall Risk Assessment: ?No falls in the past year . ? HRA filled out by the patient, reviewed by Provider and scanned. ? IPPE/AWV ? Balance? Romberg ?Yes . ? Tandem walk - unable to do ? Walk and Turn ?Yes . ? Rise from sit to stand ?Yes . ?Vision? Corrective lens ?Yes , already seen at [facility] ? Vision screen ? Up-to-date, ?Hearing? Whisper test ?pass . ?Written Plan?Completed. See Patient Documents-MOLST form completed on this visit, patient already had her healthcare proxy done, will provide a copy on next visit.? PFSH Medical History Obstructive sleep apnea of adult Depression Plantar fasciitis GERD with esophagitis Mild intermittent asthma in adult without complication Allergic rhinitis Essential hypertension Impaired fasting glucose Dyslipidemia Morbid obesity Menopause Vitamin D deficiency Surgical History No pertinent past surgical history Family History Father Lung cancer Unknown family medical history Mother HTN (hypertension) Hyperlipidemia Mental health disorder Brother Substance use disorder Sister Mental health disorder Son No problems noted. Son No problems noted. Social History Housing: House Alcohol intake: never Patient Tobacco Use Status: Never used Tobacco e-Cigarette/Vaping Use: Never Used service: No Current occupational status: unemployed Cognitive needs: No Hearing needs: No Vision needs: Yes Female Reproductive History Menstrual Menopause type: natural Questionnaire Medicare Wellness Checkup [age] What gender do you identify with?: female During the past 4 weeks, how much have you been bothered by emotional problems such as feeling anxious, depressed, irritable, sad or downhearted, and blue?: quite a bit During the past 4 weeks, has your physical & emotional health limited your social activities with family, friends, neighbors, or groups?: moderately During the past 4 weeks, how much bodily pain have you generally had?: very mild pain During the past 4 weeks, was someone available to help you if you needed & wanted help?: yes, as much as I wanted During the past 4 weeks, what was the hardest physical activity you could do for at least 2 minutes?: moderate Can you get to places out of walking distance without help? (For eg., can you travel alone on buses, taxis or drive your car?): Yes Can you go shopping for groceries or clothes without someone's help?: Yes Can you prepare your own meals?: Yes Can you do your housework without help?: Yes Because of any health problems, do you need the help of another person with your personal care needs such as eating, bathing, dressing or getting around the house?: No Can you handle your own money without help?: Yes During the past 4 weeks, how would you rate your health in general?: very good During the past 4 weeks how have things been going for you?: good & bad parts about equal Are you having difficulties driving your car?: no Do you always fasten your seat belt when you are in a car?: yes, usually During past 4 weeks, have you been bothered by the following: never: Falling or dizzy when standing up, Sexual problems?, Trouble eating well?, Teeth or denture problems?, Problems using the telephone? and Tiredness or fatigue? Have you fallen 2 or more times in the past year?: No Are you afraid of falling?: No Are you a smoker?: no During the past 4 weeks, how many drinks of wine, beer, or other alcoholic beverages did you have?: 1 drink or less per week Do you exercise for about 20 minutes 3 or more times a week?: no, I usually do not exercise this much Have you been given information to help with the following?: no: Hazards in your house that might hurt you? and no: Keeping track of your medications? How often do you have trouble taking medicines the way you have been told to take them?: I always take medicine as prescribed How confident are you that you can control & manage most of your health problems?: somewhat confident What is your race?: White Mini Mental State Exam (MMSE) Orientation What is the (year) (season) (date) (day) (month)?: year (2023), season (spring), date (02/18/24), day (sunday) and month (february) Where are we (state) (county) (town or city) (hospital) (floor)?: state ([place]), county ([place]), town or city ([place]) and hospital/clinic ([facility]) Score Score: 9 Activity of Daily Living Bathing - sponge bath, tub bath or shower: receives no assistance (gets in/out by self, if usual bathing means Dressing - getting clothes from closets & drawers, including inner/outer garments & fasteners.: gets clothes & gets completely dressed without help Toileting - going to the 'toilet room' for urine/bowel elimination & cleaning self/arranging clothes: goes to toilet room, cleans self, arranges clothes without help Transfer: moves in & out of bed and chair without help (may use support object) Continence: has occasional 'accidents' Feeding: feeds self without help Total Score: 0 Information obtained from: patient Using telephone: independent Traveling: independent Shopping: independent Preparing meals: independent Housework: independent Taking medicine: independent Managing money: independent PHQ-9 Over the last 2 weeks, how often have you been bothered by any of the following problems? 1. Little interest or pleasure in doing things: several days 2. Feeling down, depressed, or hopeless: several days 3. Trouble falling or staying asleep, or sleeping too much: several days 4. Feeling tired or having little energy: not at all 5. Poor appetite or overeating: more than half the days 6. Feeling bad about yourself - or that you are a failure or have let yourself or your family down: not at all 7. Trouble concentrating on things, such as reading the newspaper or watching television: several days 8. Moving or speaking so slowly that other people could have noticed. Or the opposite - being so fidgety or restless that you have been moving around a lot more than usual: not at all 9. Thoughts that you would be better off or of hurting yourself in some way: not at all Total score: 6 Depression Screening Interpretation: Positive (sees Dr Sheila Alvarez) Depression Screening Follow-up: Existing condition, In treatment and Community Mental Health Worker F/U Depression Screening Done: Yes 85525 - PHQ-9 Billing: Yes Source: Developed by Drs. Jason Gutierrez, Ty Schaefer and colleagues, with an educational rodrigue from [employer]. RAMANA-7 AMB Questionnaire RAMANA-7 Date RAMANA - 7 assessed: 02/18/24 Feeling nervous, anxious, or on edge: 1 = Several days Not being able to stop or control worryin = Several days Worrying too much about different things: 1 = Several days Trouble relaxin = Several days Being so restless that it is hard to sit still: 0 = Not at all Becoming easily annoyed or irritable: 0 = Not at all Feeling afraid as if something awful might happen: 1 = Several days Total RAMANA-7 score (0-4 normal; 5-9 mild; 10-14 moderate; 15-21 severe): 5 Source: Developed by Drs. Jason Gutierrez, Ty Schaefer and colleagues, with an educational rodrigue from [employer]. RAMANA-7 Assessment Billing RAMANA-7 Assessment Tool: RAMANA-7 Assessment 51700 Physical Exam Vital Signs: Last Vital Signs Pulse 64 02/18/24 09:00 BP 128/70 02/18/24 09:00 Pulse Ox 96 02/18/24 09:00 Oxygen Delivery Method Room Air 02/18/24 09:00 BMI result Body Mass Index 55.1 Immunizations pneumoc 20-jo ann conj-dip cr(PF) 0.5 mL IM syringe Performing Provider: Divina Jaffe MD [facility] Administered by: Shannan Jimenez CMA on 02/18/24 10:04 Dose Route Admin Location Dispensed Lot Number Expiration Date [facility] Transportation Planner 0.5 mL IM Left Deltoid 0.5 mL [id number] 02/18/24 4213-5949-84 Amanda Huff [employer] VIS Given Date VIS Provided VIS Publication Date 02/18/24 Single Vaccine 21 Eligibility Eligibility Date Funding Source Not VFC Eligible 02/18/24 Private Results Reviewed Results Reviewed: Name: Yessy Dempsey Age/Sex: 68/F : 1955 Unit#: [id number] Attend Dr: Divina Jaffe MD Re01/25/24 Status: DEP REF Location: [facility] Disch: SPEC : [id number] JOSR: 01/25/24-8 STATUS: COMP REQ : [id number] RECD: 01/25/24-[address]: Divina Jaffe MD COMP: 01/25/241404 ENTERED: 01/25/24-1006 [facility] [address]: ORDERED: Met Prof Fast, AST, ALT, Lipid Panel Test Result Flag Reference Sodium 142 135-145 mmol/L Potassium 4.9 3.3-5.1 mmol/L CL 107 96-108 mmol/L CO2 31 H 22-29 mmol/L Gap 9 L 12-20 BUN 18 H 9-16 mg/dL Creat 0.84 0.5-1.4 mg/dL EGFR > 60 NOTE: For -Iraqi individuals, multiply the result by 1.210. Chronic Kidney Disease: Estimated GFR < 60 mL/min/1.73m2 Severe Kidney Disease: Estimated GFR < 15 mL/min/1.73m2 FBS 107 H 60-99 mg/dL A fasting glucose from 100-125 mg/dl is considered impaired (pre-diabetes). CA 9.7 # 8.4-10.2 mg/dL AST (GOT) 15 5-31 U/L ALT (GPT) 17 0-31 U/L Triglyceride 84 <150 mg/dL Desirable Triglyceride: less than 150 mg/dL Borderline High Triglyceride 150-199 mg/dL High Triglyceride: 200-499 mg/dL Very High Triglyceride: greater than or equal to 5OO mg/dL Cholesterol 196 <200 mg/dL Desirable Cholesterol: less than 200 mg/dL Borderline High Cholesterol: 200-239 mg/dL High Cholesterol: greater than 239 mg/dL LDL Calculated 129 H <100 mg/dL Desirable LDL: less than 100 mg/dL Near Optimal/Above Optimal LDL: 110-129 mg/dL Borderline High LDL: 130-159 mg/dL High LDL: 160-189 mg/dL Very High LDL: greater than or equal to 190 mg/dL HDL 51 >40 mg/dL Desirable HDL: greater than 40 mg/dL Assessment & Plan Assessment & Plan (1) Encounter for initial annual wellness visit (AWV) in Medicare patient: Code(s): Z00.00 - Encounter for general adult medical examination without abnormal findings Plan: Medical wellness checklist reviewed, discussed with patient and updated. MOLST form completed today. Prevnar 20 given today. Up-to-date with all the rest of her vaccination (2) Essential hypertension: Code(s): I10 - Essential (primary) hypertension Plan: Blood pressure stable controlled, continue on losartan 50 mg daily (3) Dyslipidemia: Code(s): E78.5 - Hyperlipidemia, unspecified Plan: Currently on atorvastatin 20 mg daily, last fasting lipids are within normal limits (4) Depression: Comment: ff'd by Dr Prakash Code(s): F32.9 - Major depressive disorder, single episode, unspecified Qualifiers: Depression Type: major depressive disorder Major depression recurrence: recurrent Active/Remission status: remission status unspecified Qualified Code(s): F33.9 - Major depressive disorder, recurrent, unspecified Plan: Followed by psychiatry. Currently on citalopram 40 mg daily (5) GERD with esophagitis: Comment: EGD [place] [address] will Code(s): K21.00 - Gastro-esophageal reflux disease with esophagitis, without bleeding Qualifiers: Esophagitis bleeding: without hemorrhage Qualified Code(s): K21.00 - Gastro-esophageal reflux disease with esophagitis, without bleeding Plan: Continue with omeprazole 20 mg daily (6) Impaired fasting glucose: Code(s): R73.01 - Impaired fasting glucose Plan: Your fasting blood sugars elevated above 100 mg/dL. Impaired glucose metabolism increases your risk for developing diabetes mellitus type 2, as well as heart attack and stroke later on. Lifestyle changes at just weight loss, healthy eating habits, and regular exercise are important, and can prevent the progression to diabetes (7) Morbid obesity: Code(s): E66.01 - Morbid (severe) obesity due to excess calories Plan: Reinforced importance of following a healthy diet, getting regular exercise. (8) Obstructive sleep apnea of adult: Comment: unable to tolerate CPAP Code(s): G47.33 - Obstructive sleep apnea (adult) (pediatric) Plan: Patient has been diagnosed with sleep apnea but unable to tolerate CPAP, strongly advised to lose weight Orders: Orders Pneumococcal 20 Immunization Today Z23 - Encounter for immunization Quality Reporting (2019) Depression/Bipolar (159/160/161/177) PHQ-9: Total score: 6 Coding Level of Care Code Medicare First (G0438) Diagnoses Encounter for initial annual wellness visit (AWV) in Medicare patient Z00.00 Essential hypertension I10 Dyslipidemia E78.5 Recurrent major depressive disorder, remission status unspecified F33.9 Depression Type: major depressive disorder Major depression recurrence: recurrent Active/Remission status: remission status unspecified Gastroesophageal reflux disease with esophagitis without hemorrhage K21.00 Esophagitis bleeding: without hemorrhage Impaired fasting glucose R73.01 Morbid obesity E66.01 Obstructive sleep apnea of adult G47.33 CPT Codes Advance Care Planning - Time spent: 16-45 minutes ([id number]) Additional Codes RAMANA-7 Assessment Billing - RAMANA-7 Assessment Tool: RAMANA-7 Assessment 04338 ([id number]) Advance Care Planning Advance Care Planning discussion: Completed/Scanned Date of discussion: 02/18/24 Forms completed: Health Care Proxy (Already done, will provide a copy to put on medical rec) and MOLST Time spent: 16-45 minutes Actual minutes spent: 16
== END 2024-02-18 10:21 | disposition home or self-care (01) ==
PROVIDERS: PCP Internal Medicine; Visit Provider Internal Medicine
DX: Z00.00 Encounter for general adult medical examination without abnormal findings (principal); F33.9 Major depressive disorder, recurrent, unspecified; E66.01 Morbid (severe) obesity due to excess calories; Z23 Encounter for immunization; Z68.43 Body mass index [BMI] 50.0-59.9, adult; I10 Essential (primary) hypertension; E78.5 Hyperlipidemia, unspecified; K21.00 Gastro-esophageal reflux disease with esophagitis, without bleeding; R73.01 Impaired fasting glucose; G47.33 Obstructive sleep apnea (adult) (pediatric)
CPT/HCPCS: 90471; 90677; 99497; G0438

== ENCOUNTER 2024-03-22 11:35 | Outpatient (AMB) | payer MEDICARE, SELFPAY ==
[2024-03-22 11:53] VITALS: BP 130/80; PULSE 76; TEMP 36.8; O2SAT 97
--- NOTE | 2024-03-22 11:53 | AM.OFFWIN_ITS ---
Intake Vital Signs 03/22/24 11:53 Height 5 ft 4 in BP 130/80 Blood Pressure Location Rt brachial Position Sitting Pulse 76 Pulse Source Pulse Oximeter Temp 98.3 F Temp Source Oral Pulse Oximetry (%) 97 Intake Visit Reasons: EP blood blister/infection vaginal area Intake Note: pt is here for blood blisters and infection in vaginal area Patient Tobacco Use Status: Never used Tobacco Allergies No Known Allergies [No Known Allergies*] Allergy (Verified 03/22/24 12:19) Do you need a note to return to daycare/school/sports/work: No HPI HPI Comments History of Present Illness Details This is a 69-year-old female with a past medical history of hyperlipidemia, ARCHIE, GERD, hypertension and depression presenting for evaluation of a painful evolving lesion on her left labia. Patient states the lesion has been present for the past 1 week, was initially painful and becoming larger however started to bleed 2 days ago and decreased in size when palpated. Patient denies having any fevers, chills, abdominal pain, dysuria, urinary frequency or vaginal discharge and is not currently sexually active. Patient has not taken or applied any medication for treatment of this lesion. [facility] Medical History Obstructive sleep apnea of adult Depression Plantar fasciitis GERD with esophagitis Mild intermittent asthma in adult without complication Allergic rhinitis Essential hypertension Impaired fasting glucose Dyslipidemia Morbid obesity Menopause Vitamin D deficiency Surgical History No pertinent past surgical history Family History Father Lung cancer Unknown family medical history Mother HTN (hypertension) Hyperlipidemia Mental health disorder Brother Substance use disorder Sister Mental health disorder Son No problems noted. Son No problems noted. Social History Housing: House Alcohol intake: never Patient Tobacco Use Status: Never used Tobacco e-Cigarette/Vaping Use: Never Used service: No Current occupational status: unemployed Cognitive needs: No Hearing needs: No Vision needs: Yes Review of Systems Const All systems reviewed & are unremarkable except as noted in HPI and below Denies chills and Denies fever(s) GI Reports as per HPI, Reports no additional complaints and Denies abdominal pain Reports no additional complaints, Denies abnormal vaginal bleeding, Denies hematuria, Denies difficulty voiding, Reports genital lesions, Denies dysuria, Denies pelvic pain, Denies vaginal discharge, Denies vaginal dryness and Denies vaginal pruritus Musc Reports no additional complaints Psych Reports no additional complaints Physical Exam Const General: cooperative, comfortable, no acute distress and well developed Nutritional Appearance: obese Orientation/consciousness: patient oriented x3 Limitations: no limitations GI Palpation (GI): Soft to palpation, nontender, no guarding and not rigid Other: There is edema, excoriation and induration at the left Bartholins gland with minimal bloody discharge and no active fluctuance, purulence or drainage. General: Yes Bimanual renal exam normal bilaterally and Yes no CVA tenderness External Female Exam: external swelling, lesion (left Bartholin abscess) and No tender Back/Spine/Pelvis Back: no CVA tenderness Neuro General: patient oriented x3 Psych Appearance: grossly normal Mental Status: mental status grossly normal Insight: Good insight present (Psych) Judgement: Good judgement present (Psych) Assessment & Plan Assessment & Plan (1) Bartholin's gland abscess: Comment: Incision and drainage will be deferred at this time as there is no active fluctuance or surrounding erythema. Code(s): N75.1 - Abscess of Bartholin's gland Plan: Warm moist compresses 5 times daily, Bactrim b.i.d. x7 days. Patient is encouraged to follow up with her primary care provider in 10-14 days for a re- evaluation of this lesion. Medications: New sulfamethoxazole-trimethoprim 800-160 mg (Bactrim DS) 1 tab PO BID 14 tabs 0RF Coding Level of Care Code Est Pt Level 3 (93282) Diagnoses Bartholin's gland abscess N75.1 Time Spent (min) 25
== END 2024-03-22 12:44 | disposition home or self-care (01) ==
PROVIDERS: PCP Internal Medicine; Visit Provider Physician Assistant
DX: N75.1 Abscess of Bartholin's gland (principal)
CPT/HCPCS: 99213

== ENCOUNTER 2024-06-02 14:46 | Outpatient (AMB) | payer MEDICARE, SELFPAY ==
[2024-06-02 14:55] VITALS: BP 136/84; PULSE 73; TEMP 36.8; O2SAT 95; BMI 55.5
--- NOTE | 2024-06-02 14:55 | MHC.OFFWIV ---
Intake Vital Signs 06/02/24 14:55 Height 5 ft 4 in Weight 323 lb 2 oz BMI 55.5 BP 136/84 Blood Pressure Location Lt brachial Position Sitting Pulse 73 Pulse Source Pulse Oximeter Temp 98.2 F Temp Source Oral Pulse Oximetry (%) 95 Oxygen Delivery Method Room Air Intake Visit Reasons: EP UTI Patient Tobacco Use Status: Never used Tobacco Allergies No Known Allergies [No Known Allergies*] Allergy (Verified 06/02/24 14:58) Do you need a note to return to daycare/school/sports/work: No HPI HPI Comments History of Present Illness Details Patient presents to the walk-in today for sick visit Concern for UTI. For last 3-4 days has been suffering with urinary urgency, frequency and discomfort with urinating. Denies back pain or abdominal pain. Denies fevers, vaginal bleeding, nausea, vomiting, diarrhea PFSH Medical History Obstructive sleep apnea of adult Depression Plantar fasciitis GERD with esophagitis Mild intermittent asthma in adult without complication Allergic rhinitis Essential hypertension Impaired fasting glucose Dyslipidemia Morbid obesity Menopause Vitamin D deficiency Surgical History No pertinent past surgical history Family History Father Lung cancer Unknown family medical history Mother HTN (hypertension) Hyperlipidemia Mental health disorder Brother Substance use disorder Sister Mental health disorder Son No problems noted. Son No problems noted. Social History Housing: House Alcohol intake: never Patient Tobacco Use Status: Never used Tobacco e-Cigarette/Vaping Use: Never Used service: No Current occupational status: unemployed Cognitive needs: No Hearing needs: No Vision needs: Yes Review of Systems Const All systems reviewed & are unremarkable except as noted in HPI and below Physical Exam Vital Signs: Last Vital Signs Temp 98.2 F 06/02/24 14:55 Pulse 73 06/02/24 14:55 Pulse Ox 95 06/02/24 14:55 Oxygen Delivery Method Room Air 06/02/24 14:55 BMI result Body Mass Index 55.5 General: awake, alert, oriented. Answers questions appropriately. Fully engaged in examination. Skin: warm, dry, intact HEENT: Normocephalic. Hearing intact. Cardiac: External chest normal in appearance. Respiratory: No cough, audible wheezing or stridor. Abdomen: without gross distension. soft, nontender. no guarding. no CVA tenderness MS: No obvious swelling or deformities. Neurological: Oriented to person, place, time and situation. Thought process intact. No gait abnormalities appreciated. Psychiatric: Appropriate mood and affect. Good judgment and insight. Results Reviewed Results Reviewed: Urinalysis: 3+ leukocytes, positive nitrites Assessment & Plan Assessment & Plan (1) Urinary tract infection: Code(s): N39.0 - Urinary tract infection, site not specified Plan Take antibiotics and Pyridium as directed. Increase fluid intake. Return to clinic for new fever, back pain or if symptoms persist. Medications: New nitrofurantoin monohyd/m-cryst 100 mg (Macrobid) must administer with a meal/food 100 mg PO Q12H 5 days 10 caps 0RF phenazopyridine (Pyridium) 100 mg PO TID PRN 6 tabs 0RF pain Coding Level of Care Code Est Pt Level 3 (83715) Diagnoses Urinary tract infection N39.0
== END 2024-06-02 15:21 | disposition home or self-care (01) ==
PROVIDERS: PCP Internal Medicine; Visit Provider Registered Nurse Emergency
DX: N39.0 Urinary tract infection, site not specified (principal)
CPT/HCPCS: 99213

== ENCOUNTER 2024-06-16 14:43 | Outpatient (REF) | payer MEDICARE, SELFPAY ==
[2024-06-16 17:50] LABS: Appearance Urine Clear; Color Urine Orange; UMIC TRIGGER UACC YES; Urine Blood Negative (Negative)
[2024-06-16 18:16] LABS: Bacteria Urine 2+ (None Seen); Hyaline Casts Urine 0-2 /LPF (0-2); RBC Urine 0-2 /HPF (0-2); Squamous Epithelial Cell Urine 0-2 /HPF (0-2); UACC Culture Trigger YES
== END 2024-06-16 14:44 | disposition home or self-care (01) ==
LOC: HO.MAMMO 14:43
PROVIDERS: PCP Internal Medicine; Visit Provider Internal Medicine
DX: Z12.31 Encounter for screening mammogram for malignant neoplasm of breast (principal); N39.0 Urinary tract infection, site not specified
CPT/HCPCS: 77063; 77067; 81001; 87086

== ENCOUNTER → 2024-06-16 15:00 | Outpatient (BNV) | payer MEDICARE, SELFPAY | PROVIDERS: PCP Internal Medicine; Visit Provider Radiology Diagnostic Radiology | DX: Z12.31 Encounter for screening mammogram for malignant neoplasm of breast (principal) | CPT/HCPCS: 77063; 77067 ==

== ENCOUNTER 2024-06-30 08:58 | Outpatient (REF) | payer MEDICARE, SELFPAY ==
[2024-06-30 10:28] LABS: Appearance Urine Turbid; Color Urine Yellow; Glucose Urine UA Negative (Negative); Leukocyte Esterase Urine Large (3+) (Negative); Nitrite Urine Negative (Negative); UMIC TRIGGER UACC YES; Urine Blood Moderate (2+) (Negative); Urine Ketones Negative (Negative); Urine Protein Trace mg/dL (Neg-Trace)
[2024-06-30 10:52] LABS: UACC Culture Trigger YES; WBC Urine >50 /HPF (0-5)
[2024-06-30 10:53] LABS: Bacteria Urine 2+ (None Seen); Hyaline Casts Urine 0-2 /LPF (0-2)
== END 2024-06-30 08:59 | disposition home or self-care (01) ==
LOC: HO.HMGCLDS 08:58
PROVIDERS: PCP Internal Medicine; Visit Provider Internal Medicine
DX: R35.0 Frequency of micturition (principal); R30.0 Dysuria
CPT/HCPCS: 81001; 81003; 87086; 87088; 87186

== ENCOUNTER 2024-07-17 13:13 | Outpatient (AMB) | payer MEDICARE, SELFPAY ==
--- OUTSIDE RECORDS SUMMARY | 2024-07-17 13:15 | XMS_ITS | Patient Health Record ---
Author Organization [facility] Address [address] [place] [address] Care Team Providers Care Part Time Name Role Phone Alannah LUNDBERG, Divina Dowd Primary Care Provider Un available Black, Kimberly Unavailable [phone] PericaAndraesen Unavailable [phone] ALLERGIES No Known Allergies REASON FOR REFERRAL No Information MEDICATIONS Medication SIG (Take, Route, Frequency, Duration) Notes Start Date End Date Status Calcium 1 tab Oral for 14 days Not-Taking Zinc 50 MG 1 tablet Orally Once a day for 30 day(s) Active Fish Oil 1000 MG 1 capsule Orally Onc e a day for 30 day(s) Active Losartan Potassium 50 MG 1 tablet Orally Once a day for 30 day(s) Active Cozaar 50mg Not-Taki ng Magnesium 500 MG as directed Orally Active Citalopram & Diet Manage Prod 20mg Not-Taking Vitamin B12 Active Ciclopirox Olamine 0.77 % 1 application Externally Twice a day for 30 days 12/04/2019 Not-Taking Eye Drops Active Atorvastatin Calcium 20 MG as directed Orally Active Vitamin D3 50 MCG (1999 UT) as directed Orally Active Omeprazole 20 MG 1 capsule 30 minutes before morning meal Orally Once a day for 30 day(s) Active Biotin 5000 MCG 1 tablet Orally Once a day 11/05/2019 Active Docusate Sodium 100 MG 1 capsule as need ed Orally Once a day for 30 day(s) 11/05/2019 Active Vitamin C 1000 MG 1 tablet Orally Once a day for 30 day(s) Active Citalopram Hydrobromide 40 MG 0.5 tablet Orally Once a day for 30 day(s) Active Ipratropium [place] as needed Not-Taking IMMUNIZATIONS Vaccine Route Administration Date Status Comme nts COVID-19 Pfizer BioNTech Vaccine Unknown 02/24/2021 Administered Second Dose: 03/17/2021 SOCIAL HISTORY Tobacco Use: Social History Observation Description Date Details (start date - stop date) Former Smoker NA - NA Sex Assigned At : Social History Observation Description Sex Assigned At Unknown Tobacco Use/Smoking Question Answer Notes Are you a: former smoker Additional Findings: Tobacco Non-User Current no n-smoker Alcohol Screen Question Answer Notes Did you have a drink contain ing alcohol in the past year? Yes How often did you have a dri nk containing alcohol in the past year? Monthly or less (1 point) Points 1 Interpretation Negative Tobacco use other than smoking: Question Answer Notes Are you an other tobacco user? No PROBLEMS Problem Type ICD Code Onset Dates Problem Status W/U Status Risk SNOMED Code Notes Problem Non-pressure chronic ulcer of other part of right foot limited to breakdown of skin (L97.511) Active confirmed Non-pressur e ulcer lower limb (333700470) VITAL SIGNS Height 5ft 4 in in 01/16/2024 Weight 320 lbs 01/16/2024 BMI 54.92 kg/m2 01/16/2024 Encounters Encounter Location Date Provider Diagnosis [facility] [place] [address] [place] [address] 01/16/2024 Sara Perica Pain in left foot M79.672 ; Sprain of left foot, initial encounter S93.602A ; Bursitis of intermetatarsal bursa of left foot M77.52 and Metatarsalgia, left foot M77.42 ASSESSMENTS Encounter Date Diagnosis Assessment Notes Treatment Notes Treatment Clinical Notes 01/16/2024 Pain in left foot (ICD-10 - M79.672) 01/16/2024 Sprain of left foot, initial encounter (ICD-10 - S93.602A) 01/16/2024 Bursitis of intermetatarsal bursa of left foot (ICD-10 - M77.52) 01/16/2024 Metatarsalgia, left foot (ICD-10 - M77.42) PLAN OF TREATMENT Pending Test Test Name Order Date X ray : Foot, left 3V 01/16/2024 X ray : Foot, left 3V 08/16/2011 X ray : Foot, right 3V 10/31/2022 X ray : Foot, right 3V 08/16/2011 [id number] NAIL, 1-5 12/04/2019 Insurance Providers Payer Name Payer Address Payer Phone Subscriber Number Group Number Insured Name Patient Relationship to Insured Coverage Start Date Coverage End Date Medicare National [employer] [address] [place] [address] [id number] Yessy Dempsey Self - patient is the insured [employer] [address] [place] [address] [phone] [id number] Yessy Dempsey Self - patient is the insured MEDICAL (GENERAL) HISTORY Medical History History ICD Code measles hypertension chicken pox Cholesterol Anxiety Depression Mumps Psoriasis/eczema Psychiatric disorder Warts Arthritis Back,Hip,and Knee pain Numbness Reflux ( GERD) Stomach ulcer Surgical History Surgery Date(Month/Year) Hospitalization History Reason Date(Month/Year) bronchitis for a 5 day stay in [place], [place] 01/2012
--- OUTSIDE RECORDS SUMMARY | 2024-07-17 13:15 | XMS_ITS ---
Author Organization [facility] Address [address] [place] [phone] Care Team Providers Care Ux Designer Name Role Phone Alannah LUNDBERG, Divina Primary Care Provider Jason Lancaster Unavailable [phone] REASON FOR VISIT r/f request omeprazole Encounters Encounter Location Date Provider Diagnosis [facility] [address] [place] [phone] 01/31/2024 Jason Flaherty PLAN OF TREATMENT No Information
--- OUTSIDE RECORDS SUMMARY | 2024-07-17 13:15 | XMS_ITS ---
Author Organization [facility] Address [address] [place] [phone] Care Team Providers Care Propellant Charge Loader Name Role Phone Alannah LUNDBERG, Divina Primary Care Provider Jason Lancaster Unavailable [phone] REASON FOR VISIT 90 day supply of medicine MEDICATIONS Medication SIG (Take, Route, Fr equency, Duration) Notes Start Date End Date Status Omeprazole 20 MG TAKE 1 CAPSULE ONCE DAILY Orally Once a day for 90 days Active Encounters Encounter Location Date Provider Diagnosis [facility] [address] [place] [address] 01/31/2024 Jason Flaherty PLAN OF TREATMENT Medication Medication Name Sig Start Date Stop Date Notes Omeprazole 20 MG TAKE 1 CAPSULE ONCE DAILY Orally Once a day for 90 days
--- OUTSIDE RECORDS SUMMARY | 2024-07-17 13:15 | XMS_ITS ---
Author Organization [facility] Address [address] [place] [address] Care Team Providers Care Haulage Boss Name Role Phone Alannah LUNDBERG, Divina Dowd Primary Care Provider Un available Black, Kimberly Unavailable [phone] PericaSara Unavailable [phone] ALLERGIES No Known Allergies REASON FOR VISIT Pcp- 07/11, Foot pain MEDICATIONS Medication SIG (Take, Route, Frequency, Duration) Notes Start Date End Date Status Vitamin B12 Active Eye Drops Active Biotin 5000 MCG 1 tablet Orally Once a day 11/05/2019 Active Docusate Sodium 100 MG 1 capsule as need ed Orally Once a day for 30 day(s) 11/05/2019 Active Citalopram Hydrobromide 40 MG 0.5 tablet Orally Once a day for 30 day(s) Active Calcium 1 tab Oral for 14 days Not-Taking Cozaar 50mg Not-Taki ng Citalopram & Diet Manage Prod 20mg Not-Taking Vitamin C 1000 MG 1 tablet Orally Once a day for 30 day(s) Active Ipratropium [place] as needed Not-Taking Zinc 50 MG 1 tablet Orally Once a day for 30 day(s) Active Ciclopirox Olamine 0.77 % 1 application Externally Twice a day for 30 days 12/04/2019 Not-Taking Atorvastatin Calcium 20 MG as directed Orally Active Vitamin D3 50 MCG (2000 UT) as directed Orally Active Omeprazole 20 MG 1 capsule 30 minutes before morning meal Orally Once a day for 30 day(s) Active Fish Oil 1000 MG 1 capsule Orally Onc e a day for 30 day(s) Active Losartan Potassium 50 MG 1 tablet Orally Once a day for 30 day(s) Active Magnesium 500 MG as directed Orally Active SOCIAL HISTORY Tobacco Use: Social History Observation [...] Are you an other tobacco user? No VITAL SIGNS Height 5ft 4 in in 01/16/2024 Weight 320 lbs 01/16/2024 BMI 54.92 kg/m2 01/16/2024 Encounters Encounter Location Date Provider Diagnosis [facility] [place] [address] [place] [address] 01/16/2024 Sara Perica Pain in left foot [...] X ray : Foot, left 3V 01/16/2024 Next Appt Details Follow Up: prn, Reason: Progress Notes * Examination Category Sub-Category Detail Notes Neuroma Pain PALPATION: No interspace pa in noted on palpation, LEFT Neurological SENSORY: Neurological exa m reveals intact sensorium, pain sensation normal, vibration sensation intact, pinprick sensation is normal in the lower extremities, Pt denies, anesthesia, burning, paresthesia, tingling, B/L TINEL'S COMPRESSION: Negative tarsal shiva del, cristobal pedis, and medial calcaneal nerves, Left DEEP TENDON REFLEXES: Achilles, 2/4, B/L Dermatologic SKIN FINDINGS: Skin exam reveal s normal texture, elasticity, and turgor. There are no masses. The interspaces are clear Orthopedic MPJ PATHOLOGY: Pain, to plantar and lateral MPJ(s) , 5th , Pain on Metatarsal Palpation distal 1/3 shaft , 5th , LEFT MUSCLE STRENGTH: 5/5 all groups in a symmetrical fashion , B/L General Examination GENERAL APPEARANCE: Reveals a pleasant, alert, well- nourished, well-developed, well hydrated individual, who demonstrates proper attention to hygiene/body habitus, and is in no acute distress, Pt serves as own historian for office visit today ORIENTED: person, place, and t jessica V[facility] DP PULSES: 3/4, B/L PT PULSES: 3/4, B/L CAPILLARY FILL TIME: immediate, all digi ts, B/L SKIN TEMPERTURE GRADIENT OF THE LOWER EXTERMITIES: warm to cool, proximal to distal, B/L HAIR GROWTH/TEXTURE/ELASTICITY/TURGOR: n ormal, B/L EDEMA: absent, B/L PIGMENTATION: normal, B/L X-Rays - IMAGING REPORT Findings: normal b one and soft tissue density consistent for patients age and sex Fracture: Negative fractures i dentified Views: 3 views of Foot, AP, LAT, LO, LEFT Clinical Indication(s): Evaluate for Fra cture History and Physical Notes * HPI (History of Present Illness) Category Sub-Category Detail Notes Foot Pain Nature: aching , tendern ess Location: Outside, Forefoot, L EFT Duration: several weeks Onset: gradual , denies tra jann , unknown Course: worse Aggravated: standing , walking Treatments: rest/alter normal da bright activity , change in shoes
--- OUTSIDE RECORDS SUMMARY | 2024-07-17 13:16 | XMS_ITS | Patient Health Record ---
Author Organization [facility] Address [address] [place] [phone] Care Team Providers Care Global Cto Name Role Phone Alannah LUNDBERG, Divina Primary Care Provider Jason Lancaster Unavailable [phone] REASON FOR REFERRAL No Information MEDICATIONS Medication SIG (Take, Route, Frequency, Duration) Notes Start Date End Date Status Calcium + D3 600-200 MG-UNIT 1 tablet with a meal Orally Once a day for 30 day(s) Active Losartan Potassium 50 MG 1 tablet Orally Once a day for 30 day(s) Active Soothe 0.6-0.6 % 1 drop into affected eye as needed Ophthalmic prn Active Omeprazole 20 MG TAKE 1 CAPSULE ONCE DAILY Orally Once a day for 90 days Active Vitamin C 1000 MG 1 tablet Orally Once a day for 30 day(s) Active Ipratropium [place] HFA 17 MCG/ACT 2 puffs Inhalation prn Activ e Citalopram Hydrobromide 40 MG 0.5 tablet Orally Once a day Active Atorvastatin Calcium 10 MG 1 tablet Oral ly Once a day Active Fish Oil 1000 MG 1 capsule Orally Onc e a day for 30 day(s) Active Biotin 1000 MCG 1 tablet Orally Once a day Active Docusate Sodium 100 MG 1 capsule as need ed Orally Once a day Active Magnesium 100 MG 1 tablets with a emelia l Orally Once a day Active Zinc 50 MG 1 tablet Orally Once a day Active IMMUNIZATIONS Vaccine Route Administration Date Status Comme nts Influenza Unknown 08/27/2018 Administered Influenza Unknown 09/11/2018 Administered SOCIAL HISTORY Sex Assigned At : Social History Observation Description Sex Assigned At Unknown PROBLEMS Problem Type ICD Code Onset Dates Problem Status W/U Status Risk SNOMED Code Notes Problem Encounter for screening for malignant neoplasm of colon (Z12.11) Active confirmed 095421071 Problem Acute gastric ulcer without hemorrhage or perforation (K25.3) Active confirmed 01838419 Problem Gastroesophageal reflux disease, esophagitis presence not specified (K21.9) Active confirmed 417520983 Problem Erosive esophagitis (K22.10) Active confirmed 26046845 Problem Chest pain, unspecified type (R07.9) Active confirmed 80481634 Encounters Encounter Location Date Provider Diagnosis [facility] [address] [place] [phone] 01/31/2024 Jason Flaherty [facility] [address] [place] [phone] 01/31/2024 Jason Krystina [facility] [address] [place] [phone] 01/31/2024 Jason Flaherty PLAN OF TREATMENT Future Test Test Name Order Date UPPER GI ENDOSCOPY 12/04/2018 COLONOSCOPY 12/04/2018 Insurance Providers Payer Name Payer Address Payer Phone Subscriber Number Group Number Insured Name Patient Relationship to Insured Coverage Start Date Coverage End Date MEDICARE OF [place] [address] [place] [address] [id number] MEMO UREÑA Self - patient is the insured [employer] CLAIM[employer] [address] [place] [address] [id number] MEMO UREÑA Self - patient is the insured MEDICAL (GENERAL) HISTORY Medical History History ICD Code Colonoscopies 02-06-2000 and 03/2008 were both negative Anxiety HTN Elevated cholesterol Denies TX,DM,CVA,Lung disease,renal dise ase Having an ETT at [facility] [place] Sleep apnea--not using CPAP Pneumonia and bronchitis GERD-EGD in 02/2019--small hi atal hernia, small area of erosive esophagitis, small gastric ulcers, benign gastric polyps--- gastric biopsies were negative for H. pylori and there was no De La Paz's esophagus on esophageal biopsies--she was started on omeprazole at that time Negative screening colonoscopy in February 2019 Surgical History Surgery Date(Month/Year)
--- OUTSIDE RECORDS SUMMARY | 2024-07-17 13:16 | XMS_ITS ---
Author Organization [facility] Address [address] [place] [phone] Care Team Providers Care Wringer Operator Name Role Phone Alannah LUNDBERG, Divina Primary Care Provider Jason Lancaster Unavailable [phone] REASON FOR VISIT short term rx for Omeprazole MEDICATIONS Medication SIG (Take, Route, Fr equency, Duration) Notes Start Date End Date Status Omeprazole 20 MG TAKE 1 CAPSULE ONCE DAILY Orally Once a day for 14 days Active Encounters Encounter Location Date Provider Diagnosis [facility] [address] [place] [address] 01/31/2024 Jason Flaherty PLAN OF TREATMENT Medication Medication Name Sig Start Date Stop Date Notes Omeprazole 20 MG TAKE 1 CAPSULE ONCE DAILY Orally Once a day for 14 days
--- NOTE | 2024-07-17 13:44 | MHC.OFFWIV ---
Intake Vital Signs 07/17/24 13:50 Height 5 ft 4 in Weight 321 lb BMI 55.1 BP 124/80 Blood Pressure Location Rt brachial Position Sitting Pulse 80 Pulse Source Pulse Oximeter Pulse Oximetry (%) 97 Oxygen Delivery Method Room Air Intake Visit Reasons: EP UIT Intake Note: Patient here for discomfort when urinating, burning when urinating. Patient Tobacco Use Status: Never used Tobacco Allergies No Known Allergies [No Known Allergies*] Allergy (Verified 07/17/24 13:52) Do you need a note to return to daycare/school/sports/work: No HPI HPI Comments History of Present Illness Details Patient is a 69-year-old female complaining of a recurrent UTI. She states she has had 2 in the last few months and was treated and then told she was given the wrong number of days of treatment of the medication and she is upset about that because it was difficult to reach her PCP's office. She states she now has increased frequency and urgency and burning with urination but denies any fevers low back pain or blood in her urine. Records show she was prescribed nitrofurantoin 06/02/2024 for 5 days for UTI and cx grew e coli. She was then treated for a 2nd UTI on 06/30 and was given the same medication for 7 days for a UTI. [facility] Medical History Obstructive sleep apnea of adult Depression Plantar fasciitis GERD with esophagitis Mild intermittent asthma in adult without complication Allergic rhinitis Essential hypertension Impaired fasting glucose Dyslipidemia Morbid obesity Menopause Vitamin D deficiency Surgical History No pertinent past surgical history Family History Father Lung cancer Unknown family medical history Mother HTN (hypertension) Hyperlipidemia Mental health disorder Brother Substance use disorder Sister Mental health disorder Son No problems noted. Son No problems noted. Social History Housing: House Alcohol intake: never Patient Tobacco Use Status: Never used Tobacco e-Cigarette/Vaping Use: Never Used service: No Current occupational status: unemployed Cognitive needs: No Hearing needs: No Vision needs: Yes Review of Systems Const All systems reviewed & are unremarkable except as noted in HPI and below Physical Exam Vital Signs: Last Vital Signs Pulse 80 07/17/24 13:50 BP 124/80 07/17/24 13:50 Pulse Ox 97 07/17/24 13:50 Oxygen Delivery Method Room Air 07/17/24 13:50 BMI result Body Mass Index 55.1 Const General: cooperative, healthy appearing, comfortable, no acute distress and well developed Orientation/consciousness: patient oriented x3 Limitations: no limitations HEENT Head: Yes normal to inspection Ears: hearing grossly normal bilaterally General nose exam: Normal external nose present Face and sinus: Yes normal facial exam Eyes General: appearance normal, both eyes and all related structures Neck Neck: Yes normal visual inspection and Yes full ROM Resp Effort & Inspection: normal respiratory effort and able to speak in complete sentences GI Inspection: Yes normal to inspection Palpation (GI): Soft to palpation and nontender Skin General skin exam: no rashes or lesions noted Neuro General: patient oriented x3 Extrem General: Yes normal to inspection Results AMB Urinalysis, Automated UA Leukoctes 0 Keira/uL Last Edit by Anju Fernandes CCM on 07/17/24 13:58 UA Nitrite Negative Last Edit by Anju Fernandes [facility] on 07/17/24 13:58 UA Urobilinogen 0.2 mg/dL Last Edit by Anju Fernandes CCM on 07/17/24 13:58 UA Protein 0 mg/dL Last Edit by Anju Fernandes CCM on 07/17/24 13:58 UA pH 6.0 Last Edit by Anju Fernandes [facility] on 07/17/24 13:58 UA Blood 0 Campos/uL Last Edit by Anju Fernandes [facility] on 07/17/24 13:58 UA Specific [place] 1.015 Last Edit by Anju Fernandes CCM on 07/17/24 13:58 UA Ketone Negative Last Edit by Anju Fernandes CCM on 07/17/24 13:58 UA Bilirubin 0 mg/dL Last Edit by Anju Fernandes CCM on 07/17/24 13:58 UA Glucose 0 mg/dL Last Edit by Anju Fernandes [facility] on 07/17/24 13:58 Results Reviewed Results Reviewed: Laboratory Last Values Urine pH (Auto) 6.0 07/17/24 13:56 Specific [place] (Auto) 1.015 07/17/24 13:56 Urine Protein (Auto) 0 mg/dL 07/17/24 13:56 Glucose (UA)(Auto) 0 mg/dL 07/17/24 13:56 Urine Ketones (Auto) Negative 07/17/24 13:56 Urine Blood (Auto) 0 Campos/uL 07/17/24 13:56 Urine Nitrite (Auto) Negative 07/17/24 13:56 Urine Bilirubin (Auto) 0 mg/dL 07/17/24 13:56 Urine Urobilinogen (Auto) 0.2 mg/dL 07/17/24 13:56 Leukocyte Esterase (Auto) 0 Keira/uL 07/17/24 13:56 Assessment & Plan Assessment & Plan (1) Recurrent UTI: Code(s): N39.0 - Urinary tract infection, site not specified Plan Urinalysis negative for infection however we will send for culture as this is a recurrent UTI, the 3rd 1 in the last month. Sent Macrobid twice previously, we will send cefuroxime today. Gave red flag warning signs and when to go to the emergency department. Orders: Orders AMB Urinalysis Automated Today Z13.9 - Encounter for screening, unspecified Urine Culture Today N39.0 - Urinary tract infection, site not specified Medications: New cefuroxime axetil 500 mg PO Q12H 10 tabs 0RF Coding Level of Care Code Est Pt Level 4 (56451) Diagnoses Recurrent UTI N39.0
[2024-07-17 13:50] VITALS: BP 124/80; PULSE 80; O2SAT 97; BMI 55.1
== END 2024-07-17 14:28 | disposition home or self-care (01) ==
PROVIDERS: PCP Internal Medicine; Visit Provider Physician Assistant
DX: Z13.9 Encounter for screening, unspecified (principal); N39.0 Urinary tract infection, site not specified
CPT/HCPCS: 81003; 99214

== ENCOUNTER 2024-07-17 14:18 | Outpatient (REF) | payer MEDICARE, SELFPAY | END 2024-07-17 14:19 | disposition home or self-care (01) | LOC: HO.LAB 14:18 | PROVIDERS: Visit Provider Physician Assistant | DX: Z13.89 Encounter for screening for other disorder (principal) ==

== ENCOUNTER 2024-08-12 16:04 | Outpatient (REF) | payer MEDICARE, SELFPAY ==
[2024-08-12 17:08] LABS: Appearance Urine Clear; Color Urine Yellow; Glucose Urine UA Negative (Negative); Leukocyte Esterase Urine Moderate (2+) (Negative); Nitrite Urine Negative (Negative); PH 5.5 (5.0-9.0); Specific Gravity - Urine 1.025 (1.005-1.025); UMIC TRIGGER UACC YES; Urine Blood Negative (Negative); Urine Ketones Negative (Negative); Urine Protein Negative (Neg-Trace)
[2024-08-12 17:20] LABS: Bacteria Urine None Seen (None Seen); Hyaline Casts Urine 0-2 /LPF (0-2); RBC Urine 0-2 /HPF (0-2); Squamous Epithelial Cell Urine 0-2 /HPF (0-2); UACC Culture Trigger YES; WBC Urine >50 /HPF (0-5)
== END 2024-08-12 16:05 | disposition home or self-care (01) ==
LOC: HO.LAB 16:04
PROVIDERS: PCP Internal Medicine; Visit Provider Internal Medicine
DX: N39.0 Urinary tract infection, site not specified (principal)
CPT/HCPCS: 81001; 81003; 87086; 87088; 87186

== ENCOUNTER 2024-09-03 10:12 | Outpatient (AMB) | payer MEDICARE, SELFPAY ==
--- NOTE | 2024-09-03 10:18 | A.OFFPC_ITS ---
Vital Signs 09/03/24 10:21 Height 5 ft 4 in Weight 315 lb BMI 54.1 BP 120/60 Blood Pressure Location Lt brachial Position Sitting Pulse 64 Pulse Source Pulse Oximeter Pulse Oximetry (%) 97 Oxygen Delivery Method Room Air Intake Visit Reasons: 6m reschedule/recurring UTI issues wants ref. Intake Note: Patient is here to follow up on IFG, HTN, Dyslipidemia, recurring UTI issues wants referral. Coffee Blender Required: No Food Supervisor: Not Required per policy Accompanied by: Self / Same As Patient Allergies No Known Allergies [No Known Allergies*] Allergy (Verified 09/03/24 10:36) Medication List - Last Reconciled 09/03/24 by Divina Jaffe MD ascorbic acid (vitamin C) 500 mg PO DAILY atorvastatin 20 mg PO DAILY biotin 5000mg PO daily; cholecalciferol (vitamin D3) 100 mcg (2 x 50 mcg (2,000 unit)) PO DAILY citalopram 40 mg PO DAILY cyanocobalamin (vitamin B-12) 1,000 mcg PO DAILY docusate sodium 100 mg PO DAILY losartan 50 mg PO DAILY magnesium oxide 500 mg PO DAILY omega-3 fatty acids (Fish Oil Concentrate) 2,000 mg PO DAILY omeprazole 20 mg PO DAILY zinc acetate (Galzin) 50 mg PO DAILY Tobacco use date assessed: 09/03/24 Fall risk assessment: No Falls in past year Last assessed Fall Risk: 09/03/24 Dental Screening Dental Screen Date: 09/03/24 Did you have a dental visit in the last 12 months?: Yes Did you have a dental problem in the last 6 months where you did not have access to dental care?: No Was dental information given to patient?: Patient has dentist HPI 6m reschedule/recurring UTI issues wants ref. HPI Details 69 year old lady with history of hyperli pidemia, obstructive sleep apnea, morbid obesity, prediabetes, GERD with esophagitis, depression, and hypertension, here today for follow-up. She has been compliant with taking her medications, blood pressure today is within normal limits , controlled with losartan 50 mg daily.. She is due for a recheck on her lipids and fasting glucose. She also has been having frequent urinary tract infections and would like a referral to see a urologist. Has been having intermittent episodes of wheezing in the morning when she wakes up usually clears spontaneously and complains of intermittent coughing fits, which clears up when she takes a cough drop. [facility] Medical History (Updated 09/03/24 @ 10:46 by Divina Jaffe MD) Recurrent urinary tract infection SULLY (stress urinary incontinence, female) Obstructive sleep apnea of adult Depression Plantar fasciitis GERD with esophagitis Mild intermittent asthma in adult without complication Allergic rhinitis Essential hypertension Impaired fasting glucose Dyslipidemia Morbid obesity Menopause Vitamin D deficiency Surgical History No pertinent past surgical history Family History Father Lung cancer Unknown family medical history Mother HTN (hypertension) Hyperlipidemia Mental health disorder Brother Substance use disorder Sister Mental health disorder Son No problems noted. Son No problems noted. Social History Housing: House Alcohol intake: never Patient Tobacco Use Status: Never used Tobacco e-Cigarette/Vaping Use: Never Used Second Hand Smoke Exposure: No service: No Current occupational status: unemployed Cognitive needs: No Hearing needs: No Vision needs: Yes (Glasses) Questionnaire PHQ-9 Over the last 2 weeks, how often have you been bothered by any of the following problems? 1. Little interest or pleasure in doing things: several days 2. Feeling down, depressed, or hopeless: several days 3. Trouble falling or staying asleep, or sleeping too much: not at all 4. Feeling tired or having little energy: not at all 5. Poor appetite or overeating: more than half the days 6. Feeling bad about yourself - or that you are a failure or have let yourself or your family down: not at all 7. Trouble concentrating on things, such as reading the newspaper or watching television: not at all 8. Moving or speaking so slowly that other people could have noticed. Or the opposite - being so fidgety or restless that you have been moving around a lot more than usual: not at all 9. Thoughts that you would be better off or of hurting yourself in some way: not at all Total score: 4 Depression Screening Interpretation: Positive (Currently followed by Dr. Sheila redding) Depression Screening Follow-up: Existing condition, In treatment and Community Mental Health Worker F/U Depression Screening Done: Yes 53103 - PHQ-9 Billing: Yes Source: Developed by Drs. Jason Gutierrez, Ty Schaefer and colleagues, with an educational rodrigue from [employer]. Thrive Questionnaire Date Thrive assessed: 09/03/24 I am a: Patient What is your living situation today?: I have a steady place to live Within the past 12 months, did the food you bought not last and you didn't have the money to get more?: Never true Within the past 12 months, did you worry whether your food would run out before you got money to buy more?: Never true Do you have trouble paying for medicines?: No Do you have trouble getting transportation to medical appointments?: No Do you have trouble paying your heating and electricity bill?: No Do you have trouble taking care of your child, family member or friend?: No Do you have trouble with day-to-day activities such as bathing, preparing meals, shopping, managing finances, etc.?: No Are you interested in more education?: No Please select the resources that you would like help with: None Currently or been in a relationship where the following occur: No concerns reported THRIVE Score: 0 AUDIT C Alcohol Use Questionnaire (AUDIT-C) 1. How often do you have a drink containing alcohol?: Never 2. How many drinks containing alcohol do you have on a typical day when you are drinking?: 1 or 2 Total Score: 0 RAMANA-7 AMB Questionnaire RAMANA-7 Date RAMANA - 7 assessed: 09/03/24 Feeling nervous, anxious, or on edge: 0 = Not at all Not being able to stop or control worryin = Several days Worrying too much about different things: 1 = Several days Trouble relaxin = Several days Being so restless that it is hard to sit still: 0 = Not at all Becoming easily annoyed or irritable: 0 = Not at all Feeling afraid as if something awful might happen: 0 = Not at all Total RAMANA-7 score (0-4 normal; 5-9 mild; 10-14 moderate; 15-21 severe): 3 Source: Developed by Drs. Jason Gutierrez, Ty Schaefer and colleagues, with an educational rodrigue from [employer]. RAMANA-7 Assessment Billing RAMANA-7 Assessment Tool: RAMANA-7 Assessment 84365 (Followed by psychiatry) Review of Systems Const All systems reviewed & are unremarkable except as noted in HPI and below ENT Denies dizziness Card Denies chest pain, Denies chest pain at rest, Denies chest pain with activity, Denies rapid heart rate, Denies pedal edema, Denies edema, Denies leg edema, Denies lightheadedness, Denies palpitations, Denies dyspnea, Denies dyspnea on exertion and Denies orthopnea Resp Denies cough, Denies dyspnea and Denies dyspnea on exertion GI Denies hematochezia and Denies change in stool character Reports as per HPI Musc Denies abnormal gait, Denies limited range of motion, Denies muscle cramps, Denies muscle weakness, Denies numbness, Denies radiating pain into limb, Denies stiffness and Denies tingling Neuro Denies abnormal gait, Denies dizziness, Denies numbness and Denies tingling Psych Reports as per HPI Endo Denies palpitations Aller/Immun Reports as per HPI Physical exam (Primary Care) Vital Signs: Last Vital Signs Pulse 64 09/03/24 10:21 BP 120/60 09/03/24 10:21 Pulse Ox 97 09/03/24 10:21 Oxygen Delivery Method Room Air 09/03/24 10:21 BMI result Body Mass Index 54.1 BMI Assessment/Plan discussion: High (Has been compliant with her diet, but has not been able to exercise much lately) BMI High, discussed plan: other (Looking into getting in to weight watchers and hiring personalization specialist) Tobacco/Smoking Status: Tobacco use Status Tobacco use date assessed 09/03/24 09/03/24 10:32 Patient Tobacco Use Status Never used Tobacco 09/03/24 10:18 e-Cigarette/Vaping Use Never Used 09/03/24 10:18 PHQ-9: PHQ-9 Score PHQ-9: Total score 4 09/03/24 11:01 Depression Screening Interpretation: Positive (Currently followed by Dr. Sheila redding) Depression Screening Follow-up: Existing condition, In treatment and Community Mental Health Worker F/U Thrive Assessment: Date of Thrive Assessment Date Thrive assessed 09/03/24 09/03/24 10:32 Currently or been in a relationship where the following occur: No concerns reported Const Other: Alert oriented x3, no acute cardiorespiratory distress morbidly obese Orientation/consciousness: patient oriented x3 HENMT Ears: external ears normal, TM's normal bilaterally and EAC's normal General nose exam: Normal external nose present Face and sinus: Yes sinuses nontender and Yes face symmetric Mouth: Normal oral and palatal mucosa present, oropharynx normal and moist mucous membranes Neck Other: Supple, no lymphadenopathy, thyroid gland nonpalpable Resp Effort & Inspection: normal respiratory effort and able to speak in complete sentences Auscultation: clear to auscultation bilaterally Cardio Other: S1-S2 present regular rate and rhythm GI Inspection: Yes obesity Palpation (GI): Soft to palpation, nontender and no guarding Auscultation: normal bowel sounds Skin General skin exam: no rashes or lesions noted Neuro General: patient oriented x3, gait normal, moves all extremities, no focal motor deficits and CN's II-XI intact bilaterally Extrem General: Yes full ROM, Yes no joint enlargement, Yes no pedal edema and Yes normal gait Results AMB Hemoglobin A1c AMB Hemoglobin A1c 5.5 % Last Edit by JAH Moeller on 09/03/24 10:45 Results Reviewed Results Reviewed: Laboratory Last Values Hgb A1c (Clinic) 5.5 % (4.0-6.0) 09/03/24 10:17 Coding Level of Care Code Est Pt Level 4 (63109) Complex EM visit Add On G2211 Diagnoses Dyslipidemia E78.5 Impaired fasting glucose R73.01 Essential hypertension I10 SULLY (stress urinary incontinence, female) N39.3 Recurrent urinary tract infection N39.0 Additional Codes RAMANA-7 Assessment Billing - RAMANA-7 Assessment Tool: RAMANA-7 Assessment 23425 ([id number]) Assessment & Plan Assessment & Plan (1) Dyslipidemia: Code(s): E78.5 - Hyperlipidemia, unspecified Category: Medical Plan: Fasting lipid panel ordered with liver enzymes. Currently on Hood 3 fatty acid supplements and atorvastatin 20 mg daily reinforced importance of following healthy diet, low in cholesterol, high in fiber, and get regular exercise (2) Impaired fasting glucose: Code(s): R73.01 - Impaired fasting glucose Category: Medical Plan: Fasting blood sugar and hemoglobin A1c ordered today. Your previous fasting blood sugars were elevated above 100 mg/dL. Impaired glucose metabolism inc reases the risk for developing diabetes mellitus type 2, as well as heart attack and stroke later on. Lifestyle changes that promotes weight loss, healthy eating habits, and regular exercise are important, and can prevent the progression to diabetes (3) Essential hypertension: Code(s): I10 - Essential (primary) hypertension Category: Medical Plan: Blood pressure at goal of less than 130/80. Continue losartan 50 mg daily Reinforced importance of following a low sodium diet, getting regular exercise, and lowering stress levels. (4) SULLY (stress urinary incontinence, female): Code(s): N39.3 - Stress incontinence (female) (male) Category: Medical Plan: Urology consult ordered (5) Recurrent urinary tract infection: Code(s): N39.0 - Urinary tract infection, site not specified Category: Medical Plan: Urology consult ordered Orders: Orders Basic Metabolic Panel Fasting 09/03/24 E55.9 - Vitamin D deficiency, unspecified, E66.01 - Morbid (severe) obesity due to excess calories, E78.5 - Hyperlipidemia, unspecified, I10 - Essential (primary) hypertension, R73.01 - Impaired fasting glucose, Z78.0 - Asymptomatic menopausal state AMB Hemoglobin A1c 09/03/24 R73.01 - Impaired fasting glucose Alanine Aminotransferase 09/03/24 E55.9 - Vitamin D deficiency, unspecified, E66.01 - Morbid (severe) obesity due to excess calories, E78.5 - Hyperlipidemia, unspecified, I10 - Essential (primary) hypertension, R73.01 - Impaired fasting glucose, Z78.0 - Asymptomatic menopausal state Aspartate Amino Transferase 09/03/24 E55.9 - Vitamin D deficiency, unspecified, E66.01 - Morbid (severe) obesity due to excess calories, E78.5 - Hyperlipidemia, unspecified, I10 - Essential (primary) hypertension, R73.01 - Impaired fasting glucose, Z78.0 - Asymptomatic menopausal state Hemoglobin A1c 09/03/24 E55.9 - Vitamin D deficiency, unspecified, E66.01 - Morbid (severe) obesity due to excess calories, E78.5 - Hyperlipidemia, unspecified, I10 - Essential (primary) hypertension, R73.01 - Impaired fasting glucose, Z78.0 - Asymptomatic menopausal state Lipid Panel 09/03/24 E55.9 - Vitamin D deficiency, unspecified, E66.01 - Morbid (severe) obesity due to excess calories, E78.5 - Hyperlipidemia, unspecified, I10 - Essential (primary) hypertension, R73.01 - Impaired fasting glucose, Z78.0 - Asymptomatic menopausal state Vitamin D 25-OH Total 09/03/24 E55.9 - Vitamin D deficiency, unspecified, E66.01 - Morbid (severe) obesity due to excess calories, E78.5 - Hyperlipidemia, unspecified, I10 - Essential (primary) hypertension, R73.01 - Impaired fasting glucose, Z78.0 - Asymptomatic menopausal state Vitamin B12 and Folate 09/03/24 E55.9 - Vitamin D deficiency, unspecified, E66.01 - Morbid (severe) obesity due to excess calories, E78.5 - Hyperlipidemia, unspecified, I10 - Essential (primary) hypertension, R73.01 - Impaired fasting glucose, Z78.0 - Asymptomatic menopausal state Referrals Urology Referral N39.0 - Urinary tract infection, site not specified, N39.3 - Stress incontinence (female) (male)
[2024-09-03 10:21] VITALS: BP 120/60; PULSE 64; O2SAT 97; BMI 54.1
== END 2024-09-03 11:22 | disposition home or self-care (01) ==
PROVIDERS: PCP Internal Medicine; Visit Provider Internal Medicine
DX: E78.5 Hyperlipidemia, unspecified (principal); R73.01 Impaired fasting glucose; I10 Essential (primary) hypertension; N39.3 Stress incontinence (female) (male); N39.0 Urinary tract infection, site not specified

== ENCOUNTER → 2024-09-03 10:12 | Outpatient (BNVA) | payer MEDICARE, SELFPAY | PROVIDERS: PCP Internal Medicine; Visit Provider Internal Medicine | DX: N39.3 Stress incontinence (female) (male) (principal); N39.0 Urinary tract infection, site not specified | CPT/HCPCS: 83036; 96127; 99212 ==

== ENCOUNTER 2024-09-24 12:23 | Outpatient (AMB) | payer MEDICARE, SELFPAY ==
--- NOTE | 2024-09-24 13:29 | AM.OFFWIN_ITS ---
Intake Vital Signs 09/24/24 13:30 BP 116/80 Blood Pressure Location Lt brachial Position Sitting Pulse 78 Pulse Source Pulse Oximeter Temp 98.1 F Temp Source Oral Pulse Oximetry (%) 97 Oxygen Delivery Method Room Air Intake Visit Reasons: EP UTI? Intake Note: Patient here for frequent urination, bladder pressure that started about 1 week ago. Patient Tobacco Use Status: Never used Tobacco Allergies No Known Allergies [No Known Allergies*] Allergy (Verified 09/24/24 13:29) Medication List - Last Reconciled 09/24/24 by Bryanna Mathews MD ascorbic acid (vitamin C) 500 mg PO DAILY atorvastatin 20 mg PO DAILY biotin 5000mg PO daily; cholecalciferol (vitamin D3) 100 mcg (2 x 50 mcg (2,000 unit)) PO DAILY citalopram 40 mg PO DAILY cyanocobalamin (vitamin B-12) 1,000 mcg PO DAILY docusate sodium 100 mg PO DAILY losartan 50 mg PO DAILY magnesium oxide 500 mg PO DAILY omega-3 fatty acids (Fish Oil Concentrate) 2,000 mg PO DAILY omeprazole 20 mg PO DAILY zinc acetate (Galzin) 50 mg PO DAILY Do you need a note to return to daycare/school/sports/work: No HPI EP UTI? HPI Details Patient is a 69-year-old female who has been having recurrent UTIs And has appointment coming up with the urologist in 2 weeks Last UTI was July of this year, culture grew E coli Sensitive to Macrobid and Bactrim Patient is having suprapubic discomfort Review system reveals no nausea vomiting no back pain no fever no chills I am treating her with Macrobid for 10 days Follow-up with Urology We will send urine for culture [facility] Medical History (Updated 09/24/24 @ 13:40 by Bryanna Mathews MD) Recurrent urinary tract infection SULLY (stress urinary incontinence, female) Obstructive sleep apnea of adult Depression Plantar fasciitis GERD with esophagitis Mild intermittent asthma in adult without complication Allergic rhinitis Essential hypertension Impaired fasting glucose Dyslipidemia Morbid obesity Menopause Vitamin D deficiency Surgical History No pertinent past surgical history Family History Father Lung cancer Unknown family medical history Mother HTN (hypertension) Hyperlipidemia Mental health disorder Brother Substance use disorder Sister Mental health disorder Son No problems noted. Son No problems noted. Social History Housing: House Alcohol intake: never Patient Tobacco Use Status: Never used Tobacco e-Cigarette/Vaping Use: Never Used Second Hand Smoke Exposure: No service: No Current occupational status: unemployed Cognitive needs: No Hearing needs: No Vision needs: Yes (Glasses) Review of Systems Const All systems reviewed & are unremarkable except as noted in HPI and below Physical Exam Vital Signs: Last Vital Signs Temp 98.1 F 09/24/24 13:30 Pulse 78 09/24/24 13:30 BP 116/80 09/24/24 13:30 Pulse Ox 97 09/24/24 13:30 Oxygen Delivery Method Room Air 09/24/24 13:30 Const General: no acute distress Orientation/consciousness: patient oriented x3 Eyes General: appearance normal, both eyes and all related structures Resp Effort & Inspection: normal respiratory effort and able to speak in complete se ntences General: Yes no CVA tenderness Back/Spine/Pelvis Back: no CVA tenderness Neuro General: patient oriented x3 Psych Mental Status: mental status grossly normal Assessment & Plan Assessment & Plan (1) Acute cystitis without hematuria: Code(s): N30.00 - Acute cystitis without hematuria Plan Patient is a 69-year-old female who has been having recurrent UTIs And has appointment coming up with the urologist in 2 weeks Last UTI was July of this year, culture grew E coli Sensitive to Macrobid and Bactrim Patient is having suprapubic discomfort Review system reveals no nausea vomiting no back pain no fever no chills I am treating her with Macrobid for 10 days Follow-up with Urology We will send urine for culture Orders: Orders Urine Culture Today N30.00 - Acute cystitis without hematuria Medications: Changed From nitrofurantoin monohyd/m-cryst 100 mg must administer with a meal/food 100 mg PO Q12H 5 days 10 caps 0RF To nitrofurantoin monohyd/m-cryst 100 mg (Macrobid) must administer with a meal/food 100 mg PO Q12H 10 days 20 caps 0RF Coding Level of Care Code Est Pt Level 3 (80496) Diagnoses Acute cystitis without hematuria N30.00
[2024-09-24 13:30] VITALS: BP 116/80; PULSE 78; TEMP 36.7; O2SAT 97
== END 2024-09-24 13:43 | disposition home or self-care (01) ==
PROVIDERS: PCP Internal Medicine; Visit Provider Internal Medicine
DX: Z13.9 Encounter for screening, unspecified (principal); N30.00 Acute cystitis without hematuria

== ENCOUNTER 2024-09-24 12:23 | Outpatient (REF) | payer MEDICARE, SELFPAY | END 2024-09-24 12:24 | disposition home or self-care (01) | LOC: HO.LAB 12:23 | PROVIDERS: PCP Internal Medicine; Visit Provider Registered Nurse | DX: N30.00 Acute cystitis without hematuria (principal); B96.20 Unspecified Escherichia coli [E. coli] as the cause of diseases classified elsewhere | CPT/HCPCS: 81003; 87086; 87088; 87186; 99212 ==

== ENCOUNTER 2024-10-10 09:34 | Outpatient (AMB) | payer MEDICARE, SELFPAY ==
--- NOTE | 2024-10-10 02:03 | A.OFFVIS_ITS ---
Intake Visit Reasons: frequent UTI/ stress incontinence Intake Note: Patient is present for Frequent UTI/STRESS INCONTINENCE Urology Medication:VITAMIN B12 Antibiotic Allergy:NONE Blood Thinner:NONE TODAY'S PVR:0ML'S Outdoor Adventure Leader Required: No Allergies No Known Allergies [No Known Allergies*] Allergy (Verified 10/10/24 09:39) Medication List - Last Reconciled 10/10/24 by Asaf Hua MD ascorbic acid (vitamin C) 500 mg PO DAILY atorvastatin 20 mg PO DAILY biotin 5000mg PO daily; cholecalciferol (vitamin D3) 100 mcg (2 x 50 mcg (2,000 unit)) PO DAILY citalopram 40 mg PO DAILY cyanocobalamin (vitamin B-12) 1,000 mcg PO DAILY docusate sodium 100 mg PO DAILY losartan 50 mg PO DAILY magnesium oxide 500 mg PO DAILY nitrofurantoin monohyd/m-cryst 100 mg (Macrobid) 100 mg PO Q12H 10 days omega-3 fatty acids (Fish Oil Concentrate) 2,000 mg PO DAILY omeprazole 20 mg PO DAILY zinc acetate (Galzin) 50 mg PO DAILY HPI Comments Details: 10/10/24-- Yessy is a 69-year-old female who is here as a new patient evaluation for recurrent UTIs and urinary incontinence. Comorbidity-obesity. She states that she wears a pad daily. She states that she has had both problems for a few years. She denies blood in the urine. She states that her urine leakage is associated mostly with urgency occasionally if she coughs very hard she will also leak. She also complains of a vague pain over the lower abdomen, that is intermittent, but she feels seems to happen more at nighttime when she is laying down. I have reviewed recent urine cultures, 09/24/2024 and 08/13/2024-- E coli resistant to ampicillin, urine c/s's in chart. She completed nitrofurantoin a few days ago urinalysis today is negative for leukocytes negative for blood. Discussed evaluation with renal ultrasound and follow-up office cystoscopy pelv ic exam at that time. [facility] Medical History Recurrent urinary tract infection SULLY (stress urinary incontinence, female) Obstructive sleep apnea of adult Depression Plantar fasciitis GERD with esophagitis Mild intermittent asthma in adult without complication Allergic rhinitis Essential hypertension Impaired fasting glucose Dyslipidemia Morbid obesity Menopause Vitamin D deficiency Surgical History No pertinent past surgical history Family History Father Lung cancer Unknown family medical history Mother HTN (hypertension) Hyperlipidemia Mental health disorder Brother Substance use disorder Sister Mental health disorder Son No problems noted. Son No problems noted. Social History Housing: House Alcohol intake: never Patient Tobacco Use Status: Never used Tobacco e-Cigarette/Vaping Use: Never Used Second Hand Smoke Exposure: No service: No Current occupational status: unemployed Cognitive needs: No Hearing needs: No Vision needs: Yes (Glasses) Review of Systems Const All systems reviewed & are unremarkable except as noted in HPI and below Reports no additional complaints Eyes Reports no additional complaints ENT Reports no additional complaints Card Reports no additional complaints Resp Reports no additional complaints GI Reports no additional complaints Reports as per HPI Musc Reports no additional complaints Skin/Breast Reports system reviewed and no additional complaints, except as documented Neuro Reports no additional complaints Psych Reports no additional complaints Endo Reports no additional complaints Juan Francisco/Lymph Reports no additional complaints Aller/Immun Reports no additional complaints Physical Exam Const General: cooperative, healthy appearing and no acute distress Nutritional Appearance: overweight Orientation/consciousness: patient oriented x3 HEENT Head: Yes normal to inspection, Yes normocephalic and Yes atraumatic Eyes Conjunctivae: conjunctivae normal Neck Neck: Yes normal visual inspection and Yes trachea midline Chest Chest palpation & inspection: normal inspection of the chest Resp Effort & Inspection: normal respiratory effort Cardio Rate: regular rate GI Inspection: Yes normal to inspection Skin General skin exam: no rashes or lesions noted Neuro General: patient oriented x3 Psych Appearance: grossly normal Office Procedures Post Void Residual Post Residual Void Post Void Residual (PVR): 0 [id number] Void Residual by ultrasound Results AMB Urinalysis, Automated UA Leukoctes 0 Keira/uL Last Edit by KAYLA Sierra on 10/10/24 09:50 UA Nitrite Negative Last Edit by KAYLA Sierra on 10/10/24 09:50 UA Urobilinogen 0.2 mg/dL Last Edit by KAYLA Sierra on 10/10/24 09:5 0 UA Protein 0 mg/dL Last Edit by KAYLA Sierra on 10/10/24 09:50 UA pH 5.5 Last Edit by Wesley Gomes [facility] on 10/10/24 09:50 UA Blood 0 Campos/uL Last Edit by Wesley Gomes [facility] on 10/10/24 09:50 UA Specific [place] 1.025 Last Edit by Wesley Gomes [facility] on 10/10/24 09: 50 UA Ketone Negative Last Edit by Wesley Gomes [facility] on 10/10/24 09:50 UA Bilirubin 0 mg/dL Last Edit by Wesley Gomes [facility] on 10/10/24 09:50 UA Glucose 0 mg/dL Last Edit by Wesley Gomes [facility] on 10/10/24 09:50 Results Reviewed Results Reviewed: Laboratory Last Values Urine pH (Auto) 5.5 10/10/24 09:49 Specific [place] (Auto) 1.025 10/10/24 09:49 Urine Protein (Auto) 0 mg/dL 10/10/24 09:49 Glucose (UA)(Auto) 0 mg/dL 10/10/24 09:49 Urine Ketones (Auto) Negative 10/10/24 09:49 Urine Blood (Auto) 0 Campos/uL 10/10/24 09:49 Urine Nitrite (Auto) Negative 10/10/24 09:49 Urine Bilirubin (Auto) 0 mg/dL 10/10/24 09:49 Urine Urobilinogen (Auto) 0.2 mg/dL 10/10/24 09:49 Leukocyte Esterase (Auto) 0 Keira/uL 10/10/24 09:49 Collected: 09/24/24-1222 Status: COMP Req#: [id number] Received: 09/24/24 Source: [facility] Sp Desc: Clean Cat Subm Dr: Bryanna Mathews MD Ordered: Urine Culture Procedure Result Verified Urine Culture Final 09/26/24-9022 Organism 1 Escherichia coli Quant > 100,000 cfu/mL E coli M.I.C. RX --------- --- Ampicillin >=32 R Cefepime <=0.12 S Ceftriaxone <=0.25 S Ciprofloxacin <=0.06 S Gentamicin <=1 S Nitrofurantoin <=16 S Trimethoprim/Sulfamethoxazole <=20 S Collected: 08/12/24-UNK Status: COMP Req#: [id number] Received: 08/13/24 Source: [facility] Sp Desc: Subm Dr: Ángela Underwood PA-C Ordered: Urine Culture Procedure Result Verified Urine Culture Final 08/16/24 Organism 1 Escherichia coli Quant 10,000 to 50,000 cfu/mL E coli M.I.C. RX --------- --- Ampicillin >=32 R Cefazolin <=4 S Ceftriaxone <=0.25 S Ciprofloxacin <=0.25 S Gentamicin <=1 S Nitrofurantoin <=16 S Trimethoprim/Sulfamethoxazole <=20 S Assessment & Plan Assessment & Plan (1) Recurrent urinary tract infection: Code(s): N39.0 - Urinary tract infection, site not specified Category: Medical (2) SULLY (stress urinary incontinence, female): Code(s): N39.3 - Stress incontinence (female) (male) Category: Medical (3) Urinary urgency: Code(s): R39.15 - Urgency of urination Category: Medical (4) Mixed stress and urge urinary incontinence: Code(s): N39.46 - Mixed incontinence Category: Medical Plan Mixed urinary incontinence bothered more from urge symptoms. Wears a pad. Recurrent UTIs Plan kidney ultrasound follow-up office cystoscopy. Orders: Orders AMB Urinalysis Automated Today Z13.9 - Encounter for screening, unspecified US renal BI Today N39.0 - Urinary tract infection, site not specified, R39.15 - Urgency of urination Patient Instructions: The patient had an opportunity to ask questions regarding treatment plan. The patient expressed understanding and agreement with the above treatment plan. The patient is aware they should contact our office by phone for worsening of their current condition or the appearance of new symptoms. Compliance is encouraged with any medications and followup testing that is ordered. It is a privilege to be allowed the opportunity to participate in the urologic care of your patient. If you have any questions or concerns regarding treatment for the above conditions please do not hesitate to contact me. The office telephone contact is [phone]. This note is constructed in part using voice recognition software. While every effort has been made to ensure accuracy remarketing rep errors may have been included. Yours sincerely, Asaf Hua MD Coding Level of Care Code New Pt Level 4 (57569) Diagnoses Recurrent urinary tract infection N39.0 SULLY (stress urinary incontinence, female) N39.3 Urinary urgency R39.15 Mixed stress and urge urinary incontinence N39.46 CPT Codes Post Residual Void - PVR CPT Code: 45279-Fxzn Void Residual by ultrasound ([id number])
== END 2024-10-10 10:26 | disposition home or self-care (01) ==
PROVIDERS: PCP Internal Medicine; Visit Provider Urology
DX: N39.0 Urinary tract infection, site not specified (principal); N39.46 Mixed incontinence; Z13.9 Encounter for screening, unspecified
CPT/HCPCS: 99204

== ENCOUNTER → 2024-10-10 09:34 | Outpatient (BNVA) | payer MEDICARE, SELFPAY | PROVIDERS: PCP Internal Medicine; Visit Provider Urology | DX: N39.0 Urinary tract infection, site not specified (principal); N39.3 Stress incontinence (female) (male); N39.46 Mixed incontinence; R39.15 Urgency of urination | CPT/HCPCS: 51798; 81003; 99202 ==

== ENCOUNTER 2024-11-24 13:21 | Outpatient (REF) | payer MEDICARE, SELFPAY ==
--- NOTE | ~2024-11-24 | US_ITS ---
CLINICAL HISTORY: N39.0 - Urinary tract infection, site not specified US Renal Comparison: None Findings: Right kidney normal size and echotexture, 11.9 cm length. Left kidney normal size and echotexture, 11.9 cm length. No hydronephrosis of either kidney. Normal color Doppler. Minimal irregularity of the left renal contour. IMPRESSION: 1. No acute abnormality of the kidneys. This document has been electronically signed by: Fara Keller MD on 11/25/2024 16:00:50
== END 2024-11-24 13:22 | disposition home or self-care (01) ==
LOC: HO.US 13:21
PROVIDERS: PCP Internal Medicine; Visit Provider Urology
DX: N39.0 Urinary tract infection, site not specified (principal); R39.15 Urgency of urination
CPT/HCPCS: 76775

== ENCOUNTER → 2024-11-24 13:23 | Outpatient (BNV) | payer MEDICARE, SELFPAY | PROVIDERS: PCP Internal Medicine; Visit Provider Radiology Diagnostic Radiology | DX: N39.0 Urinary tract infection, site not specified (principal) | CPT/HCPCS: 76775 ==

== ENCOUNTER 2024-12-04 14:18 | Outpatient (REF) | payer MEDICARE, SELFPAY | END 2024-12-04 14:19 | disposition home or self-care (01) | LOC: HO.LNP 14:18 | PROVIDERS: PCP Internal Medicine; Visit Provider Urology | DX: N39.0 Urinary tract infection, site not specified (principal) | CPT/HCPCS: 87086 ==

== ENCOUNTER 2024-12-04 14:18 | Outpatient (AMB) | payer MEDICARE, SELFPAY ==
--- NOTE | 2024-12-04 01:03 | A.OFFVIS_ITS ---
Intake Visit Reasons: Cysto/ US-Set Intake Note: Patient is present for Cystoscopy/us Urology Medication:vitamin b12 Antibiotic Allergy:none Blood Thinner: Lot:[id number] Exp:09/22/27 Telecommunications Repairer Required: No Telecommunications Repairer Name: # [id number] Allergies No Known Allergies [No Known Allergies*] Allergy (Verified 12/04/24 14:27) HPI Comments Details: 12/04/24--Here for cysto. Renal US--11/24/24--no acute finding Cystoscopy findings: Moderate inflammatory changes consistent with cystitis, no suspicious bladder lesions visualized Pelvic exam- no prolapse, leakage with cough. Plan antibiotic suppressive therapy, cont kegels, vesicare 10 mg daily 10/10/24-- Yessy is a 69-year-old female who is here as a new patient evaluation for recurrent UTIs and urinary incontinence. Comorbidity-obesity. She states that she wears a pad daily. She states that she has had both problems for a few years. She denies blood in the urine. She states that her urine leakage is associated mostly with urgency occasionally if she coughs very hard she will also leak. She also complains of a vague pain over the lower abdomen, that is intermittent, but she feels seems to happen more at nighttime when she is laying down. I have reviewed recent urine cultures, 09/24/2024 and 08/13/2024-- E coli resistant to ampicillin, urine c/s's in chart. She completed nitrofurantoin a few days ago urinalysis today is negative for leukocytes negative for blood. Discussed evaluation with renal ultrasound and follow-up office cystoscopy pelvic exam at that time. [facility] Medical History Recurrent urinary tract infection SULLY (stress urinary incontinence, female) Obstructive sleep apnea of adult Depression Plantar fasciitis GERD with esophagitis Mild intermittent asthma in adult without complication Allergic rhinitis Essential hypertension Impaired fasting glucose Dyslipidemia Morbid obesity Menopause Vitamin D deficiency Surgical History No pertinent past surgical history Family History Father Lung cancer Unknown family medical history Mother HTN (hypertension) Hyperlipidemia Mental health disorder Brother Substance use disorder Sister Mental health disorder Son No problems noted. Son No problems noted. Social History Housing: House Alcohol intake: never Patient Tobacco Use Status: Never used Tobacco e-Cigarette/Vaping Use: Never Used Second Hand Smoke Exposure: No service: No Current occupational status: unemployed Cognitive needs: No Hearing needs: No Vision needs: Yes (Glasses) Review of Systems Const All systems reviewed & are unremarkable except as noted in HPI and below Reports no additional complaints Eyes Reports no additional complaints ENT Reports no additional complaints Card Reports no additional complaints Resp Reports no additional complaints GI Reports no additional complaints Reports as per HPI Musc Reports no additional complaints Skin/Breast Reports system reviewed and no additional complaints, except as documented Neuro Reports no additional complaints Psych Reports no additional complaints Endo Reports no additional complaints Juan Francisco/Lymph Reports no additional complaints Aller/Immun Reports no additional complaints Office Procedures Cystoscopy Consent Discussed risk and benefit or proposed procedure with the patient. Information consent for procedure given to the patient. Discussed technical aspects, risks, benefits and alternatives in full. Addressed all of the patient's questions and concerns regarding the procedure. The patient demonstrated knowledge and understanding. They wish to proceed with this procedure. Preparation The patient was prepped in the usual manner. A fiber heel piece shaper was present and in the room. Genitalia was prepped with betadine solution in a sterile manner. Lidocaine Jelly 2% was placed into the urethra and 16Fr flexible Olympus cystoscope was inserted into the meatus after adequate lubrication. Procedure Time out per protocol performed. Bladder Inspection Bladder Inspection: The bladder was inspected in its entirety with utilization retroflexion displaying: Tumor(s): no suspicious bladder lesions visualized Trabeculation: Mild Mucosal Erthema: Moderate inflammatory changes Orifices: normal shape and position Urethra: normal Cystoscopy findings: Moderate inflammatory changes consistent with cystitis, no suspicious bladder lesions visualized [id number] DISPOSABLE SCOPE URO-G FLEXIBLE SCOPE Procedure code (CPT) selection complete Office Meds lidocaine HCl 2 % mucosal jelly in applicator Performing Provider: Asaf Hua MD Performing [facility] Administered by: Asaf Hua MD on 12/04/24 15:12 Dose Route Admin Location Dispensed Lot Number Expiration Date NDC Social Psychologist 10 mL intra-urethral 10 mL naproxen 500 mg tablet Performing Provider: Asaf Hua MD Performing Location: [facility] Administered by: Asaf Hua MD on 12/04/24 15:12 Dose Route Admin Location Dispensed Lot Number Expiration Date NDC Social Psychologist 500 mg PO 500 tab ciprofloxacin HCl 500 mg tablet Performing Provider: Asaf Hua MD Performing Location: [facility] U[facility] Documented (not given) by: Asaf Hua MD on 12/04/24 15:12 Dose Route Admin Location Dispensed Lot Number Expiration Date NDC Social Psychologist 500 mg PO tab Results AMB Urinalysis, Automated UA Leukoctes 70 Keira/uL Last Edit by KAYLA Sierra on 12/04/24 14:34 UA Nitrite Negative Last Edit by Wesley Gomes CCM on 12/04/24 14:34 UA Urobilinogen 0.2 mg/dL Last Edit by KAYLA Sierra on 12/04/24 14:3 4 UA Protein 0 mg/dL Last Edit by Wesley Gomes CCM on 12/04/24 14:34 UA pH 6.0 Last Edit by KAYLA Sierra on 12/04/24 14:34 UA Blood 10 Campos/uL Last Edit by KAYLA Sierra on 12/04/24 14:34 UA Specific [place] 1.015 Last Edit by KAYLA Sierra on 12/04/24 14: 34 UA Ketone Negative Last Edit by Wesley Gomes CCM on 12/04/24 14:34 UA Bilirubin 0 mg/dL Last Edit by Wesley oGmes CCM on 12/04/24 14:34 UA Glucose 0 mg/dL Last Edit by Wesley Gomes CCM on 12/04/24 14:34 Results Reviewed Results Reviewed: Laboratory Last Values Urine pH (Auto) 6.0 12/04/24 14:34 Specific [place] (Auto) 1.015 12/04/24 14:34 Urine Protein (Auto) 0 mg/dL 12/04/24 14:34 Glucose (UA)(Auto) 0 mg/dL 12/04/24 14:34 Urine Ketones (Auto) Negative 12/04/24 14:34 Urine Blood (Auto) 10 Campos/uL 12/04/24 14:34 Urine Nitrite (Auto) Negative 12/04/24 14:34 Urine Bilirubin (Auto) 0 mg/dL 12/04/24 14:34 Urine Urobilinogen (Auto) 0.2 mg/dL 12/04/24 14:34 Leukocyte Esterase (Auto) 70 Keira/uL 12/04/24 14:34 Date of Service: 11/24/24 US Renal Comparison: None Findings: Right kidney normal size and echotexture, 11.9 cm length. Left kidney normal size and echotexture, 11.9 cm length. No hydronephrosis of either kidney. Normal color Doppler. Minimal irregularity of the left renal contour. IMPRESSION: 1. No acute abnormality of the kidneys. Collected: 09/24/243 Status: COMP Req#: [id number] Received: 09/24/24 Source: [facility] Sp Desc: Clean Cat Subm Dr: Bryanna Mathews MD Ordered: Urine Culture Procedure Result Verified Urine Culture Final 09/26/24 Organism 1 Escherichia coli Quant > 100,000 cfu/mL E coli M.I.C. RX --------- --- Ampicillin >=32 R Cefepime <=0.12 S Ceftriaxone <=0.25 S Ciprofloxacin <=0.06 S Gentamicin <=1 S Nitrofurantoin <=16 S Trimethoprim/Sulfamethoxazole <=20 S Collected: 08/12/24-UNK Status: COMP Req#: [id number] Received: 08/13/24 Source: [facility] Sp Desc: Subm Dr: Ángela Underwood PA-C Ordered: Urine Culture Procedure Result Verified Urine Culture Final 08/16/24 Organism 1 Escherichia coli Quant 10,000 to 50,000 cfu/mL E coli M.I.C. RX --------- --- Ampicillin >=32 R Cefazolin <=4 S Ceftriaxone <=0.25 S Ciprofloxacin <=0.25 S Gentamicin <=1 S Nitrofurantoin <=16 S Trimethoprim/Sulfamethoxazole <=20 S Assessment & Plan Assessment & Plan (1) Recurrent urinary tract infection: Code(s): N39.0 - Urinary tract infection, site not specified Category: Medical (2) SULLY (stress urinary incontinence, female): Code(s): N39.3 - Stress incontinence (female) (male) Category: Medical (3) Urinary urgency: Code(s): R39.15 - Urgency of urination Category: Medical (4) Mixed stress and urge urinary incontinence: Code(s): N39.46 - Mixed incontinence Category: Medical Plan Vesicare 10 mg daily Orders: Orders AMB Urinalysis Automated 12/04/24 Z13.9 - Encounter for screening, unspecified Urine Culture 12/04/24 N39.0 - Urinary tract infection, site not specified AMB Cystoscopy 12/04/24 N39.0 - Urinary tract infection, site not specified Medications: New lidocaine HCl 2% 10 mL intra-urethral ONCE 10 mL 0RF N39.0 - Urinary tract infection, site not specified ciprofloxacin HCl 500 mg PO ONCE 1 tab 0RF N39.0 - Urinary tract infection, site not specified cephalexin 250 mg PO DAILY 21 caps 0RF 21 days naproxen 500 mg PO ONCE 1 tab 0RF N39.0 - Urinary tract infection, site not specified solifenacin (Vesicare) 10 mg PO DAILY 30 tabs 3RF urinary urgency Patient Instructions: The patient had an opportunity to ask questions regarding treatment plan. The patient expressed understanding and agreement with the above treatment plan. The patient is aware they should contact our office by phone for worsening of their current condition or the appearance of new symptoms. Compliance is encouraged with any medications and followup testing that is ordered. It is a privilege to be allowed the opportunity to participate in the urologic care of your patient. If you have any questions or concerns regarding treatment for the above conditions please do not hesitate to contact me. The office telephone contact is [phone]. This note is constructed in part using voice recognition software. While every effort has been made to ensure accuracy astrophysics professor errors may have been included. Yours sincerely, Asaf Hua MD Coding Level of Care Code Est Pt Level 4 (78491) Diagnoses Recurrent urinary tract infection N39.0 SULLY (stress urinary incontinence, female) N39.3 Urinary urgency R39.15 Mixed stress and urge urinary incontinence N39.46 CPT Codes Cystoscopy - CPT: 59450-Csqeeluryi ([id number])
== END 2024-12-04 15:10 | disposition home or self-care (01) ==
PROVIDERS: PCP Internal Medicine; Visit Provider Urology
DX: N39.0 Urinary tract infection, site not specified (principal)
CPT/HCPCS: 52000; 99214; 99459

== ENCOUNTER 2025-02-18 08:40 | Outpatient (REF) | payer MEDICARE, SELFPAY ==
--- OUTSIDE RECORDS SUMMARY | 2025-02-18 09:08 | XMS_ITS | Encounter Summary ---
Author Organization [facility] Address [address] [place] [address] Care Team Providers Care Oil Gas And Pipe Tester Name Role Phone Tanna Oconnor MD Primary Care Provider Unavail able Reason for Visit * Reason Onset Date Comments Faxed Refill 02/06/2019 Encounter Details Date Type Department Care Team Description 02/06/2019 Refill Pulmonology - [address] [place] [id number] Fran Holder MD Faxed Refill Social History Tobacco Use Types Packs/Day Years Used Date Smoking Tobacco: Former Smokeless Tobacco: Never Comments:only smoked for 2 y ears Sex Assigned at Date Recorded Not on file documented as of this encounter Miscellaneous Notes * Telephone Encounter - Marissa Montenegro M.A. - 02/07/2019 4:47 PM EDT Double entry * Telephone Encounter - Ashleigh Taylor - 02/07/2019 8:55 AM EDT Fax received on 02/07/19 - Patient would like script to be: E-PRESCRIBED/FAXED TO PHARMACY WHEN WAS THE PATIENT'S LAST APPOINTMENT WITH THE PRESCRIBING PROVIDER? 10/18/18 Does patient have an upcoming appointment? Yes 02/14/19 (THE MEDICATION REQUESTED IS ON THE MED LIST ABOVE) All of the medications requested were on the CURRENT MEDS list Did you check the Pharmacy information above?: YES Patient wants: 90 -day supply Is this a mail order prescription request ? NO Patients current insurance carrier is: Payor: MEDICARE-G-cluster / Plan: MEDICARE-G-cluster / Product Type: MEDICARE [id number] documented in this encounter Plan of Treatment Not on file documented as of this encounter Visit Diagnoses Diagnosis Wheezing documented in this encounter Care Teams Oil Gas And Pipe Tester Relationship Specialty Start Date End Date Tanna Oconnor MD PCP - General Internal Medicine 11/01/18 documented as of this encounter
--- OUTSIDE RECORDS SUMMARY | 2025-02-18 09:08 | XMS_ITS | Encounter Summary ---
Author Organization [facility] Address [address] [place] [address] Care Team Providers Care Claim Attorney Name Role Phone Divina Jaffe Md, MD Primary Care Provider Unavailable Tanna Oconnor MD Primary Care Provider Unavail able Encounter Details Date Type Department Care Team Description 02/26/2018 Orders Only Pulmonology - [address] [place] [address] Fran Holder MD Morbid obesity with BMI of 50.0-59.9, adult (HCC) (Primary Dx); History of pneumonia; Simple chronic bronchitis (HCC) Social History Tobacco Use Types Packs/Day Years Used Date Smoking Tobacco: Former Smokeless Tobacco: Never Comments:only smoked for 2 y ears Sex Assigned at Date Recorded Not on file documented as of this encounter Plan of Treatment Scheduled Orders Name Type Priority Associated Diagnoses Orde r Schedule OXIMETRY,OVERNITE Pulmonology Routine Morbid obesity with BMI of 50.0-59.9, adult (HCC) History of pneumonia Simple chronic bronchitis (HCC) Expected: 02/26/2018, Expires: 02/26/2019 documented as of this encounter Visit Diagnoses Diagnosis Morbid obesity with BMI of 50.0-59.9, adult (HCC)- Primary History of pneumonia Personal history of pneumonia (recurrent) Simple chronic bronchitis (HCC) Simple chronic bronchitis documented in this encounter Care Teams Claim Attorney Relationship Specialty Start Date End Date Divina Jaffe MD, PCP - General Internal Medicine 12/18/17 1 01/01/18 Tanna Oconnor MD PCP - General Internal Medicine 11/01/18 documented as of this encounter
--- OUTSIDE RECORDS SUMMARY | 2025-02-18 09:08 | XMS_ITS | Encounter Summary ---
Author Organization [facility] Address [address] [place] [address] Care Team Providers Care Gambling Cashier Name Role Phone Divina Jaffe Md, MD Primary Care Provider Unavailable Tanna Oconnor MD Primary Care Provider Unavail able Encounter Details Date Type Department Care Team Description 03/05/2018 Transfer Records Medical Records [address] [place] [address] Abstract, Provider Social History Tobacco Use Types Packs/Day Years Used Date Smoking Tobacco: Former Smokeless Tobacco: Never Comments:only smoked for 2 y ears Sex Assigned at Date Recorded Not on file documented as of this encounter Plan of Treatment Not on file documented as of this encounter Visit Diagnoses Not on filedocumented in this encounter Care Teams Gambling Cashier Relationship Specialty Start Date End Date Divina Jaffe MD, PCP - General Internal Medicine 12/18/17 1 01/01/18 Tanna Oconnor MD PCP - General Internal Medicine 11/01/18 documented as of this encounter
--- OUTSIDE RECORDS SUMMARY | 2025-02-18 09:09 | XMS_ITS ---
Author Organization [facility] Address [address] [place] [phone] Care Team Providers Care Industrial Mechanic Name Role Phone Alannah LUNDBERG, Divina Primary Care Provider Jason Lancaster [phone] REASON FOR VISIT r/f request omeprazole Encounters Encounter Location Date Provider Diagnosis [facility] [address] [place] [phone] 01/31/2024 Jason Flaherty Plan Of Treatment No Information Progress Notes * MEMO UREÑADOB:[birth year] (68 yo F)Acc No.[id number]:01/31/2024 Patient:?MEMO UREÑA :1955???Age:68 Y???Sex:Female Address:[address] [place] [address] [place] [address] * true * Date:? Generated for Printi ng/Charli/eTransmitting on:?02/18/2025 09:09 AM EDT
--- OUTSIDE RECORDS SUMMARY | 2025-02-18 09:09 | XMS_ITS | Encounter Summary ---
Author Organization [facility] Address [address] [place] [address] Care Team Providers Care Hockey Instructor Name Role Phone Divina Jaffe Md, MD Primary Care Provider Unavailable Tanna Oconnor MD Primary Care Provider Unavail able Reason for Visit * Reason Onset Date Comments refill request 09/11/2018 Encounter Details Date Type Department Care Team Description 09/11/2018 Refill Pulmonology - [address] [place] [phone] Fran Holder MD refill request Social History Tobacco Use Types Packs/Day Years Used Date Smoking Tobacco: Former Smokeless Tobacco: Never Comments:only smoked for 2 y ears Sex Assigned at Date Recorded Not on file documented as of this encounter Miscellaneous Notes * Telephone Encounter - Dara Jurado - 09/11/2018 4:56 PM EDT Patient would like script to be: E-PRESCRIBED/FAXED TO PHARMACY WHEN WAS THE PATIENT'S LAST APPOINTMENT WITH THE PRESCRIBING PROVIDER? 07/19/2018 Does patient have an upcoming appointment? Yes 10/18/2018 (THE MEDICATION REQUESTED IS ON THE MED LIST ABOVE) All of the medications requested were on the CURRENT MEDS list Did you check the Pharmacy information above?: YES Patient wants: 90 -day supply Is this a mail order prescription request ? NO Patients current insurance carrier is: [place] / [place] / Product Type: MEDICARE [id number] documented in this encounter Plan of Treatment Not on file documented as of this encounter Visit Diagnoses Diagnosis Wheezing documented in this encounter Care Teams Hockey Instructor Relationship Specialty Start Date End Date Divina Jaffe MD, MD PCP - General Internal Medicine 12/18/17 1 01/01/18 Tanna Oconnor MD PCP - General Internal Medicine 11/01/18 documented as of this encounter
--- OUTSIDE RECORDS SUMMARY | 2025-02-18 09:09 | XMS_ITS | Encounter Summary ---
Author Organization [facility] Address [address] [place] [address] Care Team Providers Care Doctor Of Podiatry Name Role Phone Divina Jaffe Md, MD Primary Care Provider Unavailable Tanna Oconnor MD Primary Care Provider Unavail able Encounter Details Date Type Department Care Team Description 04/29/2018 Orders Only Pulmonology - [address] [place] [address] Vita Rasmussen NP Bronchopneumonia; Wheezing; Morbid obesity with BMI of 50.0-59.9, adult (HCC); Allergic rhinitis, unspecified chronicity, unspecified seasonality, unspecified trigger Social History Tobacco Use Types Packs/Day Years Used Date Smoking Tobacco: Former Smokeless Tobacco: Never Comments:only smoked for 2 y ears Sex Assigned at Date Recorded Not on file documented as of this encounter Plan of Treatment Not on file documented as of this encounter Procedures Procedure Name Priority Date/Time Associated Diagnosis Comments [facility] RADIOLOGIC EXAM CHEST 2 VIEWS STAT 04/03/2018 Bronchopneumonia Wheezing Morbid obesity with BMI of 50.0-59.9, adult (HCC) Allergic rhinitis, unspecified chronicity, unspecified seasonality, unspecified trigger documented in this encounter Results * RADIOLOGIC EXAM CHEST 2 VIEWS (04/03/2018) Vita Rasmussen NP RADIOLOGY documented in this encounter Visit Diagnoses Diagnosis Bronchopneumonia Bronchopneumonia, organism unspecified Wheezing Morbid obesity with BMI of 50.0-59.9, adult (HCC) Allergic rhinitis, unspecified chronicity, unspecified seasonality, unspecified trigger documented in this encounter Care Teams Doctor Of Podiatry Relationship Specialty Start Date End Date Divina Jaffe MD, MD PCP - General Internal Medicine 12/18/17 1 01/01/18 Tanna Oconnor MD PCP - General Internal Medicine 11/01/18 documented as of this encounter
--- OUTSIDE RECORDS SUMMARY | 2025-02-18 09:09 | XMS_ITS ---
Author Organization [facility] Address [address] [place] [address] Care Team Providers Care Concierge Manager Name Role Phone Alannah LUNDBERG, Divina Dowd Primary Care Provider Un available Black, Kimberly Unavailable [phone] PericaSara Unavailable [phone] Allergies No Known Allergies REASON FOR VISIT Pcp- 07/11, Foot pain Medications Medication SIG (Take, Route, Frequency, Duration) Notes [...] a day for 30 day(s) Active Ipratropium Tennyson as needed Not-Taking Zinc 50 MG 1 [...] Magnesium 500 MG as directed Orally Active Social History Tobacco Use: Social History Observation Description Date Details (start date - stop date) Former Smoker NA - NA Tobacco Use/Smoking Question Answer Notes Are you [...] Are you an other tobacco user? No Vital Signs Height 5ft 4 in in 01/16/2024 Weight 320 lbs 01/16/2024 BMI 54.92 kg/m2 01/16/2024 Encounters Encounter Location Date Provider Diagnosis [facility] [address] [address] 01/16/2024 Sara De La Cruz Pain in left foot M79.672 ; Sprain of left foot, initial encounter S93.602A ; Bursitis of intermetatarsal bursa of left foot M77.52 and Metatarsalgia, left foot M77.42 Assessments Encounter Date Diagnosis (ICD Code) Assessment Notes Treatment Notes Treatment Clinical Notes Section Notes 01/16/2024 Pain in left foot (ICD-10 - M79.672) 01/16/2024 Sprain of left foot, initial encounter (ICD-10 - S93.602A) 01/16/2024 Bursitis of intermetatarsal bursa of left foot (ICD-10 - M77.52) 01/16/2024 Metatarsalgia, left foot (ICD-10 - M77.42) Plan Of Treatment Pending Test Test Name Order Date X ray : Foot, left 3V 01/16/2024 Next Appt Details Follow Up: prn, Reason: Progress Notes * Yessy UREÑADOB:[birth year] (68 yo F)Acc No.[id number]:01/16/2024 Progress Note Patient:?Yessy Ureña Provider:?Sara De La Cruz DPM :1955???Age:68 Y???Sex:Female D ate:01/16/2024 Address:[address] [place] [address], [place], [id number] Pcp:Christian Lombardi Subjective: * Chief Complaints: * ???Pcp- 07/11Foot pain * HPI: ???Foot Pain:?Nature:?aching , tenderness.?Location:?Outside, Forefoot, LEFT.?Duration:?several weeks.?Onset:?gradual , denies trauma , unknown.?Course:?worse.?Aggrevated:?standing , walking.?Treatments:?rest/alter normal daily activity , change in shoes.? * ROS:?General/Constitutional:?Nausea?denies.?Vomiting?denies.?Hunger Thirst?denies.?Loss appetite?denies.?Chills?denies.?Fatigue?denies.?Fever?denies.?Night Sweats?denies.?Unexplained weight loss?denies.?Unexplained weight gain?denies.?HEENTM:?Dentures?denies.?Dizziness?denies.?Glasses/contacts?admits.?Retinopathy?de nies.?Blurred/double vision?denies.?TMJ?denies.?Discharge/drainage?denies.?Implants?denies.?Sore throat?denies.?Dental implants?denies.?Hard of hearing ?denies.?Difficulty chewing/swallowing/speaking?denies.?Nose bleeds?denies.?Sore mouth?denies.?Respiratory:?On Oxygen?denies.?Pneumonia/pleurisy?denies.?Bronchitis?denies.?Emphysema?denies.?C oughing?denies.?Cough blood?denies.?Shortness of breath?denies.?Wheezing?denies.?Cardiovascular:?Pacemaker?denies.?MVP?denies.?WPW?denies.?CHF?denies.?Heart attack?denies.?Septal defect?denies.?Rapid beat?denies.?Chest pain ?denies.?Atrial Fib.?denies.?Murmur/Palpitations?denies.?Gastrointestinal:?Hemorrhoids?denies.?Stomach/Abdominal pain?denies.?Dark blood stool?denies.?Irritable bowel ?denies.?Constipation?denies.?Diarrhea?denies.?Hematology:?Swelling?denies.?Clots?denies.?Varicose Veins?denies.?Bruising?denies.?Bleeding problem?denies.?Genitourinary:?Blood urine?denies.?Frequent/Painfu/urination/bladder control?denies.?Kidney stones?denies.?Infection (UTI)?denies.?Nephropathy?denies.?sex trans dis (STD)?denies.?Prostate?denies.?Musculoskeletal:?Hammertoes?denies.?Bunions?denies.?Back Pain?denies.?Muscle Cramps/ Resting?denies.?Muscle cramps / walking?denies.?Generalized aches and pains?admits.?Weakness?denies.?Integ.:?[place]?denies.?Scars?denies.?Corns/calluses?denies.?Ingrown nails?denies.?Painful nails?denies.?Open Sores?denies.?Rashes?denies.?Neurologic:?Difficulty sleeping?denies.?Brain disorder?denies.?Numbness?denies.?Balance trouble?denies.?Confusion?denies.?Fainting/blackouts?denies.?Tingling?denies.?Tr emors?denies.? * Medical History:? * Surgical History:?No Surgica l History documented. * Hospitalization/Major Diagno stic Procedure:?bronchitis for a 5 day stay in [facility] [place] 01/2012 * Family History:?Mother: dece ased, hypertension, diagnosed with Family history of arthritis.?Father: , poor circulation, diagnosed with Unspecified essential hypertension.?Paternal Grand Mother: arthritis, poor circulation.?Paternal Grand Father: cancer.?Maternal Grand Mother: cancer, diagnosed with Family history of arthritis.?Paternal aunt: cancer.?Siblings: diabetes, hypertension, foot problems, diagnosed with Diabetic - NIDDM.?2 son(s) . .? * Social History:?Tobacco Use:?Tobacco Use/Smoking?Are you a:?former smoker ?Additional Findings: Tobacco Non-User?Current non-smoker ?Tobacco use other than smoking?Are you an other tobacco user??No ???Drugs/Alcohol:?Drugs?Have you used drugs other than those for medical reasons in the past 12 months??No ?Alcohol Screen?Did you have a drink containing alcohol in the past year??Yes ?How often did you have a drink containing alcohol in the past year??Monthly or less (1 point) ?Points?1 ?Interpretation?Negative ???Miscellaneous:?Caffeine: yes, 3-5 cups per day. ?Children: yes, 2 children. ?no Exercise, swimming, volunter at [employer]. ?Marital status: . 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 * Medications:?TakingEye Drops Vitamin B12 Citalopram Hydrobromide 40 MG Tablet 0.5 tablet Orally Once a dayDocusate Sodium 100 MG Capsule 1 capsule as needed Orally Once a dayBiotin 5000 MCG Tablet 1 tablet Orally Once a dayMagnesium 500 MG Tablet as directed Orally Losartan Potassium 50 MG Tablet 1 tablet Orally Once a dayFish Oil 1000 MG Capsule 1 capsule Orally Once a dayZinc 50 MG Tablet 1 tablet Orally Once a dayOmeprazole 20 MG Capsule Delayed Release 1 capsule 30 minutes before morning meal Orally Once a dayVitamin D3 50 MCG (1999) Capsule as directed Orally Atorvastatin Calcium 20 MG Tablet as directed Orally Vitamin C 1000 MG Tablet 1 tablet Orally Once a dayTaking Eye Drops Taking Vitamin B12 Taking Citalopram Hydrobromide 40 MG Tablet 0.5 tablet Orally Once a dayTaking Docusate Sodium 100 MG Capsule 1 capsule as needed Orally Once a dayTaking Biotin 5000 MCG Tablet 1 tablet Orally Once a dayTaking Magnesium 500 MG Tablet as directed Orally Taking Losartan Potassium 50 MG Tablet 1 tablet Orally Once a dayTaking Fish Oil 1000 MG Capsule 1 capsule Orally Once a dayTaking Zinc 50 MG Tablet 1 tablet Orally Once a dayTaking Omeprazole 20 MG Capsule Delayed Release 1 capsule 30 minutes before morning meal Orally Once a dayTaking Vitamin D3 50 MCG (1999) Capsule as directed Orally Taking Atorvastatin Calcium 20 MG Tablet as directed Orally Taking Vitamin C 1000 MG Tablet 1 tablet Orally Once a dayNot-Taking/PRNCiclopirox Olamine 0.77 % Cream 1 application Externally Twice a dayIpratropium Tennyson as neededCalcium 1 tab Oral Citalopram & Diet Manage Prod 20mg Cozaar 50mg Medication List reviewed and reconciled with the patientNot- Taking/PRN Ciclopirox Olamine 0.77 % Cream 1 application Externally Twice a dayNot- Taking/PRN Ipratropium Tennyson as neededNot-Taking/PRN Calcium 1 tab Oral Not-Taking/PRN Citalopram & Diet Manage Prod 20mg Not-Taking/PRN Cozaar 50mg Medication List reviewed and reconciled with the patient * Allergies:?N.K.D.A.yes[Aller gies Verified] Objective: * Vitals:?Ht: 5ft 4 in, Wt:320 , BMI:54.92, Shoe size: 9.5, Ht-cm: 162.56 cm, Wt- k.15 kg. * Examination: ???General Examination: ?GENERAL APPEARANCE:?Reveals a pleasant, alert, well-nourished, well- developed, well hydrated individual, who demonstrates proper attention to hygiene/body habitus, and is in no acute distress, Pt serves as own?historian for office visit today.?ORIENTED:?person, place, and time.?Neurological: ?SENSORY:?Neurological exam reveals intact sensorium, pain sensation normal, vibration sensation intact, pinprick sensation is normal in the lower extremities, Pt denies, anesthesia, burning, paresthesia, tingling, B/L.?TINEL'S COMPRESSION:? Negative tarsal tunnel, cristobal pedis, and medial calcaneal nerves, Left.?DEEP TENDON REFLEXES:?Achilles, 2/4, B/L.?Vascular: ?DP PULSES:?3/4, B/L.?PT PULSES:?3/4, B/L.?CAPILLARY FILL TIME:?immediate, all digits, B/L.?SKIN TEMPERTURE GRADIENT OF THE LOWER EXTERMITIES:?warm to cool, proximal to distal, B/L.?HAIR GROWTH/TEXTURE/ELASTICITY/TURGOR:?normal, B/L.?PIGMENTATION:?normal, B/L.?EDEMA:?absent, B/L.?Dermatologic: ?SKIN FINDINGS:?Skin exam reveals normal texture, elasticity, and turgor. There are no masses. The interspaces are clear.?Orthopedic: ?MUSCLE STRENGTH:?5/5 all groups in a symmetrical fashion , B/L.?MPJ PATHOLOGY:?Pain, to plantar and lateral MPJ(s) , 5th , Pain on Metatarsal Palpation distal 1/3 shaft , 5th , LEFT.?X-Rays - IMAGING REPORT: ?Clinical Indication(s):? Evaluate for Fracture.?Views:? 3 views of Foot, AP, LAT, LO, LEFT.?Findings:?normal bone and soft tissue density consistent for patients age and sex.?Fracture:?Negative fractures identified.?Neuroma Pain: ?PALPATION:?No interspace pain noted on palpation, LEFT.? Assessment: * Assessment: 1.?Pain in left foot - M79.6 72?2.?Sprain of left foot, initial encounter - S93.602A (Primary), Acute problem, Uncomplicated (3)?3.?Bursitis of intermetatarsal bursa of left foot - M77.52?4.?Metatarsalgia, left foot - M77.42? Plan: * Treatment: * Procedure Codes:?01899 X-RAY EXAM OF LEFT FOOT 3V, Modifiers: 26 , LT * Preventive Medicine:? ??Counseling:?Discussion:?-13: Office or other outpatient visit for the evaluation and management of an established patient, which required a medically appropriate history and/or examination and LOW level of DECISION MAKING for: 1 STABLE ACUTE UNCOMPLICATED PROBLEM, 2 OR MORE MINOR PROBLEMS, OR 1 STABLE CHRONIC PROBLEM, THAT POSE(S) A LOW RISK FOR MORBIDITY/MORTALITY. The visit on the day of the encounter encompassed interpreting the data and educating the patient as to the nature of their condition, treatment options available according to their individual PMH, meds, allergies, and overall health/living conditions, as well as any potential risks or complications that may occur from a failure to adhere to, and participate in, the recommended course of therapy. The discussion included a complete verbal, and/or written explanation of the examination results, any x-rays taken, the proposed diagnosis, and outline of the treatment plan. A schedule for future care needs was also explained. The patient verbalized an understanding of the instructions at this time and agreed to be an active participant in their treatment. If the patient should think of any questions or concerns after the visit, I have encouraged the patient to call the office.?Metatarsalgea:?I explained to the patient the possible etiologies of their Metatarsalgea Foot pain, including foot type/shoegear/activity level/exercise routine and the risks/benefits of all the different treatment options for pain including: No treatment at all, Rest, Ice, NSAIDs(only if well tolerated after meals), New/supportive Shoegear, Strappings and Tapings, Foot/Ankle AFO Bracing, Stretching exercises, Deep Tissue Massage, Arch support/shoe inserts, Custom orthoses, Topical analgesics including Aspercream/Voltaren gel, Physical Therapy, Cortisone injection therapy, EPAT/ESWT. Advantages and disadvantages of each option were discussed and the patients questions re: shoegear, custom vs prefabricated inserts, activity level, PO vs Topical medications (and their respective potential complications/drug interactions/side effects), and consistency in home treatment regimens for optimal success were answered to their verbally confirmed satisfaction.?P.R.I.C.E.:?The patient was counseled on the use of P.R.I.C.E. and NSAIDS (if well tolerated) to aid in the recovery from their painful condition.?Shoe Gear Counseling:?The patient and I reviewed the types of shoes they should be wearing. My recommendation included obtaining a well-fitted shoe with a good supportive, non-foldable nor twistable sole, plenty of toe/room for the forefoot, and proper arch support. Based on todays examination, I recommended the patient look for new shoes, by having their feet professionally measured. We discussed that generally the best time of the day for a shoe fitting is the afternoon. Different shoes types and brands to best match the patients occupation and vocation were discussed. Specific brand selection will be up to the patient, their individual foot condition/deformities, and fit. The patient and I reviewed the standard new shoe break in period by wearing them for a few hours a day while checking for redness or sores as wear time is increased. The patient verbally confirmed to understanding the information discussed.?X-rays:?Discussed and reviewed the X-rays with the patient. We discussed how the findings relate to the patients symptoms/complaints. Answered any and all questions..? * Follow Up:?prn * Images: * Sign off status: Completed true * Provider:?Sara De La Cruz DPM Date:? Generated for Kb harris/Charli/eTransmitting on:?02/18/2025 09:09 AM EDT History and Physical Notes * HPI (History of Present Illness) Category Sub-Category Detail Notes Category Not es Foot Pain Nature: aching , tenderness Location: Outside, Forefoot, L EFT Duration: several weeks Onset: gradual , denies tra jann , unknown Course: worse Aggravated: standing , walking Treatments: rest/alter normal da bright activity , change in shoes Examination Category Sub-Category Detail Notes Category Not es Neuroma Pain PALPATION: No interspace pain noted on palpation, LEFT Neurological SENSORY: Neurological [...] person, place, and t jessica Vascular DP PULSES (B): 3/4, B/L PT PULSES (B): 3/4, B/L CAPILLARY FILL TIME: immediate, all digi ts, B/L TEMPERTURE GRADIENT (C): warm to cool, p roximal to distal, B/L TROPHIC CONDITION-TEXTURE/ELASTICITY/TURGOR/HAIR GROWTH (B): normal, B/L EDEMA (C): absent, B/L PIGMENTATION: normal, B/L X-Rays - IMAGING REPORT Findings: normal b one and soft tissue density consistent for patients age and sex Fracture: Negative fractures i dentified Views: 3 views of Foot, AP, LAT, LO, LEFT Clinical Indication(s): Evaluate for Fra cture
--- OUTSIDE RECORDS SUMMARY | 2025-02-18 09:09 | XMS_ITS | Encounter Summary ---
Author Organization [facility] Address [address] [place] [address] Care Team Providers Care Scissors Grinder Name Role Phone Divina Jaffe Md, MD Primary Care Provider Unavailable Tanna Oconnor MD Primary Care Provider Unavail able Encounter Details Date Type Department Care Team Description 07/06/2018 Pt. Non Urgent Medic al Question Pulmonology - [address] [place] [phone] Fran Holder MD Social History Tobacco Use Types Packs/Day Years Used Date Smoking Tobacco: Former Smokeless Tobacco: Never Comments:only smoked for 2 y ears Sex Assigned at Date Recorded Not on file documented as of this encounter Progress Notes * Hawa Arreaga M.A. - 07/08/2018 1:42 PM EDTFrom: Yessy Dempsey To: Fran Holder MD Sent: 07/06/2018 5:21 PM EDT Subject: reccommendation for a PCP Dear Dr. Ruff I know you have already given me a name. Of course, I misplaced it. Who would you recc. for a PCP for me? Thanks, and have a good one. Yessy Dempsey documented in this encounter Plan of Treatment Not on file documented as of this encounter Visit Diagnoses Not on filedocumented in this encounter Care Teams Scissors Grinder Relationship Specialty Start Date End Date Divina Jaffe MD, MD PCP - General Internal Medicine 12/18/17 1 01/01/18 Tanna Oconnor MD PCP - General Internal Medicine 11/01/18 documented as of this encounter
--- OUTSIDE RECORDS SUMMARY | 2025-02-18 09:09 | XMS_ITS ---
Author Organization [facility] Address [address] [place] [address] Care Team Providers Care Senior Major Gifts Officer Name Role Phone Alannah LUNDBERG, Divina Dowd Primary Care Provider Un available Black, Kimberly Unavailable [phone] Pericisrrael Sara Unavailable [phone] Allergies No Known Allergies REASON FOR VISIT Pcp- 09/11, Foot pain, Fungal Nails Medications Medication SIG (Take, Route, Frequency, Duration) Notes Start Date End Date Status Cozaar 50mg Not-Taki ng Citalopram & Diet Manage Prod 20mg Not-Taking Calcium 1 tab Oral for 14 days Not-Taking Ipratropium [place] as needed Not-Taking Ciclopirox Olamine 0.77 % 1 application Externally Twice a day for 30 days 12/04/2019 Not-Taking Vitamin D3 50 MCG (1999 [place]) as directed Orally Active Omeprazole 20 MG 1 capsule 30 minutes before morning meal Orally Once a day for 30 day(s) Active Zinc 50 MG 1 tablet Orally Once a day for 30 day(s) Active Vitamin C 1000 MG 1 tablet Orally Once a day for 30 day(s) Active Atorvastatin Calcium 20 MG as directed Orally Active Fish Oil 1000 MG 1 capsule Orally Onc e a day for 30 day(s) Active Losartan Potassium 50 MG 1 tablet Orally Once a day for 30 day(s) Active Magnesium 500 MG as directed Orally Active Biotin 5000 MCG 1 tablet Orally Once a day 11/05/2019 Active Docusate Sodium 100 MG 1 capsule as need ed Orally Once a day for 30 day(s) 11/05/2019 Active Citalopram Hydrobromide 40 MG 0.5 tablet Orally Once a day for 30 day(s) Active Vitamin B12 Active Eye Drops Active Social History Tobacco Use: Social History Observation Description Date Details (start date - stop date) Former Smoker NA - NA Tobacco use other than smoking: Question Answer Notes Are you an other tobacco user? No Tobacco Control (Standard) Question Answer Notes Tobacco use: Former smoker Additional Findings: Tobacco non-user Ex-cigaret te smoker AUDIT-C (Standard) Question Answer Notes Did you have a drink contain ing alcohol in the past year? Yes How often did you have six o r more drinks on one occasion in the past year? Never (0 point) How many drinks did you have on a typical day when you were drinking in the past year? 1 or 2 drinks (0 point) How often did you have a dri nk containing alcohol in the past year? Monthly or less (1 point) Points 1 Interpretation Negative Problems Problem Type SNOMED Code ICD Code Onset Dates Problem Status W/U Status Risk Notes Problem Osteoarthritis of midtarsal joint of left foot (5906412985048574 ) Osteoarthritis of midtarsal joint of left foot (M19.072) Active confirmed Problem Osteoarthritis of midtarsal joint of right foot (2328914229700082 ) Osteoarthritis of midtarsal joint of right foot (M19.071) Active confirmed Vital Signs Height 5ft 4in in 10/23/2024 Weight 315 lbs 10/23/2024 BMI 54.06 kg/m2 10/23/2024 Blood pressure systolic 120 mm Hg 10/23/20 24 Blood pressure diastolic 80 mm Hg 024 Encounters Encounter Location Date Provider Diagnosis [facility] [address] 10/23/2024 Sara Perica Pain in left foot M79.672 ; Osteoarthritis of midtarsal joint of left foot M19.072 ; Pain in left ankle and joints of left foot M25.572 ; Bursitis of left foot M77.52 ; Pain in right foot M79.671 ; Pain in right ankle and joints of right foot M25.571 ; Bursitis of right foot M77.51 ; Osteoarthritis of midtarsal joint of right foot M19.071 and Onychomycosis B35.1 Assessments Encounter Date Diagnosis (ICD Code) Assessment Notes Treatment Notes Treatment Clinical Notes Section Notes 10/23/2024 Pain in left foot (ICD-10 - M79.672) 10/23/2024 Osteoarthritis of midtarsal joint of left foot (ICD-10 - M19.072) 10/23/2024 Pain in left ankle and joints of left foot (ICD-10 - M25.572) 10/23/2024 Bursitis of left foot (ICD-10 - M77.52) 10/23/2024 Pain in right foot (ICD-10 - M79.671) 10/23/2024 Pain in right ankle and joints of right foot (ICD-10 - M25.571) 10/23/2024 Bursitis of right foot (ICD-10 - M77.51) 10/23/2024 Osteoarthritis of midtarsal joint of right foot (ICD-10 - M19.071) 10/23/2024 Onychomycosis (ICD-10 - B35.1) Plan Of Treatment Pending Test Test Name Order Date X ray : Foot, left 3V 10/23/2024 X ray : Foot, right 3V 10/23/2024 Next Appt Details Follow Up: prn, Reason: Progress Notes * Yessy UREÑA JDOB:[birth year] (69 yo F)Acc No.[id number]:10/23/2024 Progress Note Patient:?NIRANJAN Yessy Monte Provider:?Sara De La Cruz DPM :1955???Age:69 Y???Sex:Female D ate:10/23/2024 Address:[address] [place] [id number] Pcp:Christian Lombardi Subjective: * Chief Complaints: * ???Pcp- 09/11Foot painFungal Nails * HPI: ???Foot Pain:?Nature:?aching , stiffness , swelling , throbbing.?Location:?Midfoot, to Forefoot??B/L.?Duration:?several months.?Onset:?gradual, denies trauma.?Course:?worse.?Aggravated:?any pressure, standing, walking.?Treatments:?rest/alter normal daily activity.?Painful Nails:?Nature:?aching, tender, discolored, thick.?Course:?worse.?Aggravated by:?shoegear causing difficulty standing/walking.?Treatments:?none.? * ROS:?General/Constitutional:?Nausea?denies.?Vomiting?denies.?Hunger Thirst?denies.?Loss appetite?denies.?Chills?denies.?Fatigue?denies.?Fever?denies.?Night Sweats?denies.?Unexplained weight loss?denies.?Unexplained [...] trouble?denies.?Confusion?denies.?Fainting/blackouts?denies.?Tingling?denies.?Tr emors?denies.? * Medical History:? * Surgical History:?wisdom atilio th extraction colonoscopy * Hospitalization/Major Diagno stic Procedure:?bronchitis for a 5 day stay in [facility], [place] 01/2012 * Family History:?Mother: dece ased, hypertension, diagnosed with Family history of arthritis.?Father: , poor circulation, diagnosed with Unspecified essential hypertension.?Paternal Grand Mother: arthritis, poor circulation.?Paternal Grand Father: cancer.?Maternal Grand Mother: cancer, diagnosed with Family history of arthritis.?Paternal aunt: cancer.?Siblings: diabetes, hypertension, foot problems, diagnosed with Diabetic - NIDDM.?2 son(s) . .? * Social History:?Tobacco Use:?Tobacco use other than smoking?Are you an other tobacco user??No ?Tobacco Control (Standard)?Tobacco use:?Former smoker ?Additional Findings: Tobacco non-user?Ex-cigarette smoker ???Drugs/Alcohol:?Drugs?Have you used drugs other than those for medical reasons in the past 12 months??No ???Miscellaneous:?Caffeine: yes, 3-5 cups per day. ?Children: yes, 2 children. ?Exercise: yes, swimming, PT. ?Marital status: . 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 ???Drug/Alcohol:?AUDIT-C (Standard)?Did you have a drink containing alcohol in the past year??Yes ?How often did you have six or more drinks on one occasion in the past year??Never (0 point) ?How many drinks did you have on a typical day when you were drinking in the past year??1 or 2 drinks (0 point) ?How often did you have a drink containing alcohol in the past year??Monthly or less (1 point) ?Points?1 ?Interpretation?Negative * Medications:?TakingEye Drops Vitamin B12 Citalopram Hydrobromide 40 MG Tablet 0.5 tablet Orally Once a day Docusate Sodium 100 MG Capsule 1 capsule as needed Orally Once a day Biotin 5000 MCG Tablet 1 tablet Orally Once a day Magnesium 500 MG Tablet as directed Orally Losartan Potassium 50 MG Tablet 1 tablet Orally Once a day Fish Oil 1000 MG Capsule 1 capsule Orally Once a day Zinc 50 MG Tablet 1 tablet Orally Once a day Omeprazole 20 MG Capsule Delayed Release 1 capsule 30 minutes before morning meal Orally Once a day Vitamin D3 50 MCG (1999) Capsule as directed Orally Atorvastatin Calcium 20 MG Tablet as directed Orally Vitamin C 1000 MG Tablet 1 tablet Orally Once a day Taking Eye Drops Taking Vitamin B12 Taking Citalopram Hydrobromide 40 MG Tablet 0.5 tablet Orally Once a day Taking Docusate Sodium 100 MG Capsule 1 capsule as needed Orally Once a day Taking Biotin 5000 MCG Tablet 1 tablet Orally Once a day Taking Magnesium 500 MG Tablet as directed Orally Taking Losartan Potassium 50 MG Tablet 1 tablet Orally Once a day Taking Fish Oil 1000 MG Capsule 1 capsule Orally Once a day Taking Zinc 50 MG Tablet 1 tablet Orally Once a day Taking Omeprazole 20 MG Capsule Delayed Release 1 capsule 30 minutes before morning meal Orally Once a day Taking Vitamin D3 50 MCG (1999) Capsule as directed Orally Taking Atorvastatin Calcium 20 MG Tablet as directed Orally Taking Vitamin C 1000 MG Tablet 1 tablet Orally Once a day Not-Taking/PRNCiclopirox Olamine 0.77 % Cream 1 application Externally Twice a day Ipratropium [place] as needed Calcium 1 tab Oral Citalopram & Diet Manage Prod 20mg Cozaar 50mg Medication List reviewed and reconciled with the patientNot-Taking/PRN Ciclopirox Olamine 0.77 % Cream 1 application Externally Twice a day Not-Taking/PRN Ipratropium [place] as needed Not-Taking/PRN Calcium 1 tab Oral Not-Taking/PRN Citalopram & Diet Manage Prod 20mg Not-Taking/PRN Cozaar 50mg Medication List reviewed and reconciled with the patient * Allergies:?N.K.D.A.yes[Aller gies Verified] Objective: * Vitals:?Ht: 5ft 4in, Wt:315, BMI:54.06, Shoe size: 9W, BP:120/80mm Hg, Ht-cm: 162.56 cm, Wt-k.88 kg. * Examination: ???Orthopedic: ?MUSCLE STRENGTH:?5/5 all groups in a symmetrical fashion, B/L.?FOOT MORPHOLOGY:? Prominent, painful 1st Met-Cuneiform joint with inflammation, B/L.?FOOTWEAR:?worn, non-supportive, shoe gear properties exacerbate patients foot/toe deformity.?X-Rays - IMAGING REPORT: ?Clinical Indication(s):? Evaluate for Fracture, Evaluate Biomechanical Deformity.?Views:?3 views of Foot, AP, LAT, LO, B/L??Taken by trained?Podiatric Vehicle Service Agent (?MB).?Findings:?normal bone and soft tissue density consistent for patients age and sex, eburnation dorsal 1st MT/Cun. jt, dorsal degenerative changes of the tarsal joints.?Fracture:?Negative fractures identified.?Neurological: ?SENSORY:?Neurological exam reveals intact sensorium, pain sensation normal, vibration sensation intact, pinprick sensation is normal in the lower extremities, Pt denies, anesthesia, burning, paresthesia, tingling, B/L.?Nails: ?NAILS are:?Elongated, overgrown, dystrophic, lytic, greater than 3mm thick, discolored and friable with crumbly malodorous subungual debris, with pain on palpation, TA.?General Examination: ?GENERAL APPEARANCE:?Reveals a pleasant, alert, well nourished, well- developed, well hydrated individual, who demonstrates proper attention to hygiene/body habitus, and is in no acute distress, Pt serves as own historian for office visit today.?ORIENTED:?person, place, and time.?Vascular: ?DP PULSES(B):?3/4, B/L.?PT PULSES(B):?3/4, B/L.?CAPILLARY FILL TIME:?immediate, all digits, B/L.?TROPHIC CONDITION-TEXTURE/ELASTICITY/TURGOR/HAIR GROWTH(B):?normal, B/L.?TEMPERTURE GRADIENT(C):?normal, warm to cool, proximal to distal, B/L, B/L.? Assessment: * Assessment: 1.?Pain in left foot - M79.6 72???2.?Osteoarthritis of midtarsal joint of left foot - M19.072 (Primary)???3.?Pain in left ankle and joints of left foot - M25.572???4.?Bursitis of left foot - M77.52???5.?Pain in right foot - M79.671???6.?Pain in right ankle and joints of right foot - M25.571???7.?Bursitis of right foot - M77.51???8.?Osteoarthritis of midtarsal joint of right foot - M19.071???9.?Onychomycosis - B35.1??? Plan: * Treatment: 2.?Pain in right foot?Imaging: X ray : Foot, right 3V * Procedure Codes:?05524 X-RAY EXAM OF LEFT FOOT 3V, Modifiers: 26 , [id number] X-RAY EXAM OF RIGHT FOOT 3V, Modifiers: 26 , RT * Preventive Medicine:? ??Counseling:?Discussion:?-14: Office or other outpatient visit for the evaluation and management of an established patient, which required a medically appropriate history and/or examination and MODERATE level of DECISION MAKING for: 1 OR MORE CHRONIC PROBLEM(S) THATS WORSENING, 2 STABLE CHRONIC PROBLEMS, A NEWLY DIAGNOSED PROBLEM WITH UNCERTAIN PROGNOSIS, AN ACUTE COMPLICATED INJURY WITH MULTIPLE TREATMENT OPTIONS, OR AN ACUTE PROBLEM WITH ACCOMPANYING SYSTEMIC SYMPTOMS, THAT POSE(S) A MODERATE RISK OF MORBIDITY. THIS CONDITION MAY ALSO INCLUDE RX DRUG MANAGEMENT, OR A DECISON FOR MINOR SURGERY. The visit on the day of the [...] have encouraged the patient to call the office.?Arthritis:?The patient was counseled on the various etiologies for their Arthritis including genetic, history of injury or trauma, abnormal foot biomechanics leading to excessive joint wear, and use/overuse. We discussed the various treatment options from no treatment, to topical analgesics such as Biofreeze gel, Aspercream, Voltaren gel, Lidoderm patches, CBD oils, THC creams, and Custom-compounded topical cream preparations to natural oral products such as Glucosamine Sulfate/Chondroitin/MSM/Collegen to analgesic Tylenol, to anti-inflammatory medications such as Ibuprofen/Naproxen, and the use of oral steroids if needed. Cardiac, Kidney, and GI issues were discussed RE: potential complications of oral anti-inflammatories. We discussed several other treatment options consisting of accom shoes, supportive innersoles, AFO bracing/support, cortisone injection therapy, and surgical resection of the arthritic joint(s) or fusion reconstruction if necessary. We discussed the advantages and disadvantages of conservative (vs) surgical treamtents including pain relief, improved function/activities of daily life, return to exercise to failure, expense, systemic complications, infection, [id number], prolongued postop course. Patient questions re: the various treatment options available, their successes and potential failures, and terminologist effects were discussed and the answers were verbally confirmed understood.?Fungal Nail Counseling:?The patient was counseled on the diagnosis, potential etiologies (including, but not limited to, environmental factors, genetic, immune deficiency), and the multiple treatment options for Onychomycosis. We discussed the risks and benefits of each option from performing no treatment, to ultraviolet light shoe treatment, to laser nail treatment, to applying topical antifungals, to taking oral antifungal medication, to surgical removal of the involved nail(s) with or without performing a matricectomy, or any combination thereof. We discussed the advantages and disadvantages of each of possible treatment and importance for adherence to all the recommended therapies for optimum success. This includes the necessity for weekly emery board self nail home debridements, and control the nail and skin environment as much as possible by only using a fresh, dry pair of shoes/socks each day, as well as keeping the skin as dry as possible through the use of sprays/powders if necessary. The patient was instructed to discard the emery board after use to prevent reinfection of the involved nail(s). We discussed the mycological and visual clinical effectiveness of topical vs oral antifungal treatments as well as each ones potential side effects and/or any patient- specific medication interactions. We discussed the reasons behind the important requirement of regular liver function testing with oral antifungal therapy for safety. Patient questions regarding use, dosage, successful outcomes, blood tests, and possible pharmaceutical interactions were reviewed and the patient verbalized that all answers were clearly understood, The patient presently prefers topical treatment.?P.R.I.C.E.:?The patient was counseled on the use of [...] * Sign off status: Completed true * Provider:Johana De La Cruz, LUIS Date:?03/2024 Generated for Printi ng/Faxing/eTransmitting on:?02/18/2025 09:09 AM EDT History and Physical Notes * HPI (History of Present Illness) Category Sub-Category Detail Notes Category Not es Painful Nails Aggravated by: shoegear causing difficulty standing/walking Course: worse Nature: aching, tender, disc olored, thick Treatments: none Foot Pain Nature: aching , stiffness , swellin g , throbbing Location: Midfoot, to Forefoot B/L Duration: several months Onset: gradual, denies trau ma Course: worse Aggravated: any pressure, standi ng, walking Treatments: rest/alter normal da bright activity Examination Category Sub-Category Detail Notes Category Not es Neurological SENSORY: Neurological exa m reveals intact sensorium, pain sensation normal, vibration sensation intact, pinprick sensation is normal in the lower extremities, Pt denies, anesthesia, burning, paresthesia, tingling, B/L Orthopedic FOOT MORPHOLOGY: Prominent, pain ful 1st Met-Cuneiform joint with inflammation, B/L FOOTWEAR EVALUATION: worn, non-supportiv e, shoe gear properties exacerbate patients foot/toe deformity MUSCLE STRENGTH: 5/5 all groups in a symmetrical fashion, B/L General Examination GENERAL APPEARANCE: Reveals a pleasant, alert, well nourished, well-developed, well hydrated individual, who demonstrates proper attention to hygiene/body habitus, and is in no acute distress, Pt serves as own historian for office visit today ORIENTED: person, place, and t jessica Vascular DP PULSES (B): 3/4, B/L PT PULSES (B): 3/4, B/L CAPILLARY FILL TIME: immediate, all digi ts, B/L TEMPERTURE GRADIENT (C): normal, warm to cool, proximal to distal, B/L, B/L TROPHIC CONDITION-TEXTURE/ELASTICITY/TURGOR/HAIR GROWTH (B): normal, B/L Nails NAILS are: Elongated, overg rown, dystrophic, lytic, greater than 3mm thick, discolored and friable with crumbly malodorous subungual debris, with pain on palpation, TA X-Rays - IMAGING REPORT Findings: normal b one and soft tissue density consistent for patients age and sex, eburnation dorsal 1st MT/Cun. jt, dorsal degenerative changes of the tarsal joints Fracture: Negative fractures i dentified Views: 3 views of Foot, AP, LAT, LO, B/L Taken by trained Podiatric Vehicle Service Agent ( MB) Clinical Indication(s): Evaluate for Fra cture, Evaluate Biomechanical Deformity
--- OUTSIDE RECORDS SUMMARY | 2025-02-18 09:09 | XMS_ITS | Clinical Summary ---
Author Organization [employer] [facility] Address [address] [place] [address] Care Team Providers Care Inductor Tester Name Role Phone Tanna Oconnor MD Primary Care Provider Surgical History Surgery Date Site/Laterality Comments COLONOSCOPY PROCEDURE: HISTORICAL COLONOSCOPY Medical History Medical History Date Comments Allergic rhinitis 10/25/2017 DX:Allergic rh initis Anxiety 10/25/2017 DX:Anxiety; COMM ENT: Dr Agustin Alvarez Depression 10/25/2017 DX:Depression Hemorrhoids 10/25/2017 DX:Hemorrhoids HTN (hypertension) 10/25/2017 DX:HTN (hyper tension) Iron deficiency anemia 10/25/2017 DX:Iron d eficiency anemia Morbid obesity with BMI of 5 0.0-59.9, adult (CMS/HCC) 10/25/2017 DX:Morbid obesity with BMI o f 50.0-59.9, adult ([facility]) Plantar fasciitis 10/25/2017 DX:Plantar fas ciitis; COMMENT: Dr Goldstein Pure hypercholesterolemia 10/25/2017 DX:Pur e hypercholesterolemia History of pneumonia 02/14/2018 DX:History of pneumonia Asthma 02/14/2018 DX:Asthma Elevated rheumatoid factor 03/06/2018 DX:El evated rheumatoid factor; COMMENT: 80 02/20/2018 Eczema DX:Eczema Family History Medical History Relation Name Comments Eczema Brother asthma as a chi ld, chf, diabetes Lung cancer Father depression, smo ker Arthritis Mother Hypertension Mother Chol, Other: lung disease Paternal Grandfather Arthritis Sister 1 twin asthma Eczema Sister 1 twin Arthritis Sister 2 Stroke Sister 2 Relation Name Status Comments Brother Father Mother Paternal Grandfather Sister 1 twin Alive Sister 2 Alive Son 1 Alive Son 2 Alive Social History Tobacco Use Types Packs/Day Years Used Date Smoking Tobacco: Former Smokeless Tobacco: Never Comments Unknown Sex and Gender Information Value Date Recorded Sex Assigned at Not on file Legal Sex Female 8:40 AM EST Gender Identity Not on file Sexual Orientation Not on file Obstetrics History Plan of Treatment Health Maintenance Due Date Last Done Comments Breast Cancer Screening 1955 Pneumococcal Vaccine: 50+ Years (1 of 1 - PCV) 2003 Zoster Vaccines (1 of 2) 2003 COVID-19 Vaccine (1 - 2023-2 5 season) 2024 Influenza Vaccine (#1) 2024 DTaP,Tdap,and Td Vaccines (3 - Td or Tdap) 04/17/2026 04/17/2016, 04/20/2005 RSV Immunization Adult Patients (1 - 1-dose 75+ series) 02/10/2028 Hepatitis B Vaccines Completed 07/25/2016, 02/22/2016, 01/20/2016 HIB Vaccines Aged Out No longer eligi ble based on patient's age to complete this topic HPV Vaccines Aged Out No longer eligi ble based on patient's age to complete this topic Hepatitis A Vaccines Aged Out No long er eligible based on patient's age to complete this topic IPV Vaccines Aged Out No longer eligi ble based on patient's age to complete this topic MMR Vaccines Aged Out No longer eligi ble based on patient's age to complete this topic Meningococcal ACWY Vaccine Aged Out N o longer eligible based on patient's age to complete this topic Meningococcal B Vacine Aged Out No lo nger eligible based on patient's age to complete this topic RSV Immunization Patients Under 20 months Aged Out No longer eligible b ased on patient's age to complete this topic Varicella Vaccines Aged Out No longer eligible based on patient's age to complete this topic Care Teams Inductor Tester Relationship Specialty Start Date End Date Tanna Oconnor MD PCP - General Internal Medicine 11/01/18
--- OUTSIDE RECORDS SUMMARY | 2025-02-18 09:09 | XMS_ITS ---
Author Organization [facility] Address [address] [place] [phone] Care Team Providers Care Bus Company Manager Name Role Phone Alannah LUNDBERG, Divina Primary Care Provider Jason Lancaster [phone] REASON FOR VISIT Omeprazole Rx Medications Medication SIG (Take, Route, Fr equency, Duration) Notes Start Date End Date Status Omeprazole 20 MG TAKE 1 CAPSULE ONCE DAILY Orally Once a day for 90 days Active Encounters Encounter Location Date Provider Diagnosis [facility] [address] [place] [phone] 01/25/2025 Jason Flaherty Plan Of Treatment Medication Medication Name Sig Start Date Stop Date Notes Omeprazole 20 MG TAKE 1 CAPSULE ONCE DAILY Orally Once a day for 90 days Progress Notes * MEMO UREÑADOB:[birth year] (69 yo F)Acc No.[id number]:01/25/2025 Patient:?MEMO UREÑA :1955???Age:69 Y???Sex:Female Address:[address] [place] [address] [place] [address] * Refills? Refill Omeprazole Capsule Delayed Release, 20 MG, Orally, 90, TAKE 1 CAPSULE ONCE DAILY, Once a day, 90 days, Refills=3 * true * Date:? Generated for Kb harris/Charli/eTransmitting on:?02/18/2025 09:08 AM EDT
--- OUTSIDE RECORDS SUMMARY | 2025-02-18 09:09 | XMS_ITS | Data Portability ---
Author Organization [place] - [facility], [facility] Address [address] [place] [address] Care Team Providers Care Civil Geotechnical Engineer Name Role Phone HAL LION Primary Care Provider [phone] Assessment No assessment recorded. Plan of Treatment Reminders Order Date Submit Date Provider Last Modified By Organization Details Last Modified Time Details Appointments INJECTIO N ONLY 15 2024 11:00A M Justyna Noel, DATA COMMUNICATIONS ANALYST Not available Not available Not available Lab None recorded . Referral physical therapis t referral - katie knee o.a 2023 024 rmessenger Not available 09/10/2024 15:50:42 Procedures None recorded . Surgeries None recorded . Imaging XR, knee, 4 or more view - rm 112 katie knee 4v 2023 024 [facility]essenger [facility] [address] [facility], [facility] [address], [place], [address], 09/10/2024 15:50:42 Medication Orders None recorded . Patient TargetsNo targets recorded. Patient InstructionsNo instructions recorded. Reason for Referral Physical Therapist Referral for Pain of bilateral knee joints katie knee o.a Referring Physician: Justyna Noel, Orthopedic Surgery, Encounter Date: 08/25/2024 Results Created Date Observation Date Name Description Value Unit Range Abnormal Flag Note LastModifiedBy Organization Detail LastModifiedTime 08/25/2008/25/2024 XR, knee, 4 or more view [email or web address] ?Encry pted=s hAaTro YD8dLq bEUv6g %2BXZw aYqtaq 0bqfl% 2Fg9IQ a4ajBk vP9nXo QUaueC m3YtLR FvZlgJ JJ8mAn HZtai3 7p3209 AC0Kqa 36GU6a lKiQtr MwF INTERFACE [facility] [address], [place], [address], 08/25/2024 10:20:30 08/25/20 24 08/25/2024 XR, knee, 4 or more view [email or web address] ?Encry pted=s hAaTro YD8dLq bEUv6g %2BXZw aYqtaq 0bqfl% 2Fg9IQ a4ajBk vP9nXo QUaueC m3YtLR FvZlgJ JJ8mAn HZtai3 2n3394 AC0Kqa 36GU6a lKiQtr MwF INTERFACE [facility] [address], [place], [address], 08/25/2024 10:20:32 Result Notes None recorded. Procedures Surgical History Date Name Laterality Status Provider Name and Address Organization Details Recorded Time 5 Knee Kenalog 40 2cc Injection, Bilateral completed Justyna Carlosa, DATA COMMUNICATIONS ANALYST [address] [facility], [place], [address], [facility] 11/28/2024 11:43:47 4 Knee Kenalog 40 1cc Injection, Bilateral completed Justyna Drenga, DATA COMMUNICATIONS ANALYST [address], [place], [address], [facility] 08/25/2024 10:59:14 Imaging Results Imaging Date Name Status LastModified by Organiz ation Details LastModified Time 08/25/2024 XR, knee, 4 or more view completed INTERFACE [facility] [address], [place], [address], 08/25/2024 10:20:30 08/25/2024 XR, knee, 4 or more view completed INTERFACE [facility] [address], [place], [address], 08/25/2024 10:20:32 Procedure Notes None recorded. Medical Equipment None Reported. Allergies Allergen ID Allergen Name Allergen Category Reaction Reaction Severity Criticality Documentation Date Start Date Code Code System Note Provider Name and Address Organization Details Recorded Time 330673 Mosquito Eliminato r medicatio n Not available Not available Not available 08/25/2024 52095 UNK YOSELIN cox [facility] 10:06:12 Medications Name Sig Start Date Stop Date Status Note LastModified by Organization Details LastModified Time losartan 50 mg tablet TAKE 1 TABLET DAILY active Not Available Not Available No t Available atorvastatin 20 mg tablet TAKE 1 TABLET DAILY active Not Available Not Available No t Available citalopram 40 mg tablet TAKE 1 TABLET DAILY active Not Available Not Available No t Available tretinoin 0.025 % topical cream active Not Available Not Available Not Available sulfamethoxa zole 800 mg-trimethop rim 160 mg tablet TAKE 1 TABLET BY MOUTH TWICE DAILY active Not Available Not Available No t Available triamcinolon e acetonide 0.1 % topical cream active Not Available Not Available Not Available phenazopyrid ine 100 mg tablet TAKE 1 TABLET BY MOUTH 3 TIMES A DAY NEEDED FOR PAIN active Not Available Not Available No t Available omeprazole 20 mg capsule,kellie yed release TAKE 1 CAPSULE ONCE DAILY active Not Available Not Available N ot Available cefuroxime axetil 500 mg tablet TAKE 1 TABLET BY MOUTH EVERY 12 HOURS active Not Available Not Available No t Available nitrofuranto in monohydrate/ macrocrystal s 100 mg capsule TAKE 1 CAPSULE BY MOUTH EVERY 12 HOURS FOR 10 DAYS. MUST ADMINISTER WITH A MEAL/FOOD active Not Available Not Available No t Available cholecalcife rol (vitamin D3) 50 mcg (2,000 unit) capsule TAKE 2 CAPSULES BY MOUTH DAILY active Not Available Not Available Not Available Vitals Date Recorded Body height Body mass index (BMI) Body weight Provider Name and Address Organization Details Last Updated DateTime 08/25/2024 162.56 cm 54.1 kg/m2 746912.6 g YOSELIN BECERRA [facility] 08/25/2024 10:04:48 Date Recorded Body height Provider Name an d Address Organization Details Last Updated DateTime 11/28/2024 162[address] [place] [facility] 11/28/2024 11:05:46 Social History None recorded. Functional Status None recorded. Mental Status None recorded. Family History Nothing Reported. Medical History No medical history recorded. Gynecological HistoryNo gynecological history recorded. Obstetrics History GPAL:G 0 P 0 0 0 0 Past Encounters Encounter ID Performer Location Encounter Start Date Encounter Closed Date Diagnosis/Indication Diagnosis SNOMED-CT Code Diagnosis ICD10 Code Diagnosis Note [id number] Justyna Popestevenisrrael, DATA COMMUNICATIONS ANALYST [facility] [address] [place] [address] 08/25/2024 09:38:26 09/10/2024 15:50:42 Pain of bilateral knee joints 7660658622 12361 M25.561 Pain of le ft knee joint 5049747368 07827 M25.427 [id number] Justyna PopeRICHARD collins [place] - [facility] [address] [place] [address] 11/28/2024 10:59:08 12/12/2024 10:27:24 Health Concerns Section Related Observation LastModified by Organization Detai ls LastModified Time None Recorded Concern Status LastModified by Organization Details LastModified Time None Recorded Advance Directives Directive None Recorded Payers Encounter Date Sequence Insurance Name Policy Number Policy Heredia Covered Member ID Heredia Member ID Guarantor Name 08/25/2024 1 MEDICARE B-[place]: [employer] Yessy Dempsey [id number] Yessy Delgadillocker 08/25/2024 2 [place] [id number] Yessy Dempsey [id number] Yessy Dempsey 11/28/2024 1 MEDICARE B-CT: [employer] Yessy Bennetter [id number] Yessy Ke 11/28/2024 2 [place] [id number] Yessy Delgadillocker [id number] Yessy Ke Notes Date Note Type Note Provider Name and Address Organization Details Recorded Time 08/25/2024 text/html Jinny is a 69-year-old female who is here today for evaluation of her bilateral knees. She reports she has had bilateral knee pain for over 10 years right greater than left. She has not had any specific treatment to this point. She is seen today for further evaluation of the bilateral knees. Justyna Noel, RICHARD [address] [facility] [address], [place], [address], [facility] 08/25/2024 10:59:42 11/28/2024 text/html Jinny is here today for follow-up of her bilateral knees she has known degenerative joint disease. Justyna Noel, RICHARD [address] [facility] [address] [address], [place], [address], [facility] 11/28/2024 11:44:10 OBGyn Episode No OBEpisode recorded.
--- OUTSIDE RECORDS SUMMARY | 2025-02-18 09:09 | XMS_ITS | Patient Health Record ---
Author Organization [facility] Address [address] [place] [address] Care Team Providers Care Skating Rink Manager Name Role Phone Alannah LUNDBERG, Divina Primary Care Provider Jason Lancaster Unavailable [phone] Reason For Referral No Information Medications Medication SIG (Take, Route, Frequency, Duration) Notes Start Date End Date Status Calcium + D3 600-200 MG-UNIT 1 tablet with a meal Orally Once a day for 30 day(s) Active Losartan Potassium 50 MG 1 tablet Orally Once a day for 30 day(s) Active Soothe 0.6-0.6 % 1 drop into affected eye as needed Ophthalmic prn Active Vitamin C 1000 MG 1 tablet Orally Once a day for 30 day(s) Active Ipratropium [place] HFA 17 MCG/ACT 2 puffs Inhalation prn Activ e Citalopram Hydrobromide 40 MG 0.5 tablet Orally Once a day Active Atorvastatin Calcium 10 MG 1 tablet Oral ly Once a day Active Omeprazole 20 MG TAKE 1 CAPSULE ONCE DAILY Orally Once a day for 90 days Active Fish Oil 1000 MG 1 capsule [...] 1 tablet Orally Once a day Active Immunizations Vaccine Route Administration Date Status Comme nts Influenza Unknown 08/27/2018 Administered Influenza Unknown 09/11/2018 Administered Problems Problem Type SNOMED Code ICD Code Onset Dates Problem Status W/U Status Risk Notes Problem 640029893 Encounter for screening for malignant neoplasm of colon (Z12.11) Active confirmed Problem 03506404 Acute gastric ul cer without hemorrhage or perforation (K25.3) Active confirmed Problem 928252894 Gastroesophageal reflux disease, esophagitis presence not specified (K21.9) Active confirmed Problem 55128885 Erosive esophagi tis (K22.10) Active confirmed Problem 86598180 Chest pain, unspecified type (R07.9) Active confirmed Encounters Encounter Location Date Provider Diagnosis [facility] [address] [place] [address] 01/25/2025 Jason Flaherty Plan Of Treatment Future Test Test Name Order Date UPPER GI ENDOSCOPY 12/04/2018 COLONOSCOPY 12/04/2018 Insurance Providers Payer Name Payer Address Payer Phone Subscriber Number Group Number Insured Name Patient Relationship to Insured Coverage Start Date Coverage End Date MEDICARE OF [place] [address] [place] [address] [id number] MEMO UREÑA Self - patient is the insured MEDEX ATTN CLAIMS [address] [place] [address] [id number] MEMO UREÑA Self - patient is the insured Medical (General) History Medical History History ICD Code Colonoscopies 02-06-2000 and 03/2008 were both negative Anxiety HTN Elevated cholesterol Denies DC,DM,CVA,Lung disease,renal dise ase [place] [facility] [place] Sleep apnea--not using CPAP Pneumonia [...]
--- OUTSIDE RECORDS SUMMARY | 2025-02-18 09:09 | XMS_ITS | Encounter Summary ---
Author Organization [facility] Address [address] [place] [address] Care Team Providers Care Bridge Operator Name Role Phone Tanna Oconnor MD Primary Care Provider Unavail able Encounter Details Date Type Department Care Team Description 11/05/2018 Refill Pulmonology - [address] [place] [address] Fran Holder MD Social History Tobacco Use Types Packs/Day Years Used Date Smoking Tobacco: Former Smokeless Tobacco: Never Comments:only smoked for 2 y ears Sex Assigned at Date Recorded Not on file documented as of this encounter Miscellaneous Notes * Telephone Encounter - Hawa Arreaga M.A. - 11/06/2018 1:07 PM ESTFrom: Yessy Dempsey To: Fran Holder MD Sent: 11/05/2018 7:20 PM EST Subject: Medication Renewal Request Original authorizing provider: MD Yessy Taylor would like a refill of the following medications: azithromycin (ZITHROMAX) 250 MG tablet [Fran Holder MD] Preferred pharmacy: [id number] MARTÍNEZ Comment: documented in this encounter Plan of Treatment Not on file documented as of this encounter Visit Diagnoses Not on filedocumented in this encounter Care Teams Bridge Operator Relationship Specialty Start Date End Date Tanna Oconnor MD PCP - General Internal Medicine 11/01/18 documented as of this encounter
--- OUTSIDE RECORDS SUMMARY | 2025-02-18 09:09 | XMS_ITS ---
Author Organization [facility] Address [address] [place] [address] Care Team Providers Care Member Service Representative Name Role Phone Alannah LUNDBERG, Divina Primary Care Provider Jason Lancaster [phone] REASON FOR VISIT 90 day supply of medicine Medications Medication SIG (Take, Route, Fr equency, Duration) Notes Start Date End Date Status Omeprazole 20 MG TAKE 1 CAPSULE ONCE DAILY Orally Once a day for 90 days Active Encounters Encounter Location Date Provider Diagnosis [facility] [address] [place] [address] 01/31/2024 Jason Flaherty Plan Of Treatment Medication Medication Name Sig Start Date Stop Date Notes Omeprazole 20 MG TAKE 1 CAPSULE ONCE DAILY Orally Once a day for 90 days Progress Notes * MEMO UREÑADOB:[birth year] (68 yo F)Acc No.[id number]:01/31/2024 Patient:?MEMO UREÑA :1955???Age:68 Y???Sex:Female Address:[address] [place] [address] [place] [address] * Refills? Refill Omeprazole Capsule Delayed Release, 20 MG, Orally, 90, TAKE 1 CAPSULE ONCE DAILY, Once a day, 90 days, Refills=3 * true * Date:? Generated for Kb harris/Charli/eTransmitting on:?02/18/2025 09:08 AM EDT
--- OUTSIDE RECORDS SUMMARY | 2025-02-18 09:09 | XMS_ITS | Encounter Summary ---
Author Organization [facility] Address [address] [place] [address] Care Team Providers Care Collection Systems Administrator Name Role Phone Divina Jaffe Md, MD Primary Care Provider Unavailable Tanna Oconnor MD Primary Care Provider Unavail able Reason for Visit * Reason Onset Date Comments Testing 01/16/2018 Patient is sched uled at [facility] on January 28, 2018 @ 9:00 a.m. for her Methacholine Challenge test Encounter Details Date Type Department Care Team Description 01/16/2018 Telephone Pulmonology - [address] [place] [phone] Vita Rasmussen NP Testing (Patient is scheduled at [facility] on January 28, 2018 @ 9:00 a.m. for her Methacholine Challenge test) Social History Tobacco Use Types Packs/Day Years Used Date Smoking Tobacco: Former Smokeless Tobacco: Never Comments:only smoked for 2 y ears Sex Assigned at Date Recorded Not on file documented as of this encounter Plan of Treatment Not on file documented as of this encounter Visit Diagnoses Not on filedocumented in this encounter Care Teams Collection Systems Administrator Relationship Specialty Start Date End Date Divina Jaffe MD, MD PCP - General Internal Medicine 12/18/17 1 01/01/18 Tanna Oconnor MD PCP - General Internal Medicine 11/01/18 documented as of this encounter
--- OUTSIDE RECORDS SUMMARY | 2025-02-18 09:09 | XMS_ITS | Encounter Summary ---
Author Organization [employer] [facility] Address [address] [place] [address] Care Team Providers Care Fountain Attendant Name Role Phone Divina Jaffe Md, MD Primary Care Provider Unavailable Tanna Oconnor MD Primary Care Provider Unavail able Encounter Details Date Type Department Care Team Description 07/17/2018 Orders Only Medical Records [address] [place] [address] Fran Holder MD Social History Tobacco Use Types Packs/Day Years Used Date Smoking Tobacco: Former Smokeless Tobacco: Never Comments:only smoked for 2 y ears Sex Assigned at Date Recorded Not on file documented as of this encounter Plan of Treatment Not on file documented as of this encounter Procedures Procedure Name Priority Date/Time Associated Diagnosis Comments OUTSIDE SLEEP STUDY Routine 07/09/2018 documented in this encounter Results * OUTSIDE SLEEP STUDY (07/09/2018) Fran Holder MD PULMONOLOGY documented in this encounter Visit Diagnoses Not on filedocumented in this encounter Care Teams Fountain Attendant Relationship Specialty Start Date End Date Divina Jaffe MD, PCP - General Internal Medicine 12/18/17 1 01/01/18 Tanna Oconnor MD PCP - General Internal Medicine 11/01/18 documented as of this encounter
--- OUTSIDE RECORDS SUMMARY | 2025-02-18 09:09 | XMS_ITS | Encounter Summary ---
Author Organization [facility] Address [address] [place] [address] Care Team Providers Care Automobile Mechanic Helper Name Role Phone Divina Jaffe Md, MD Primary Care Provider Unavailable Tanna Oconnor MD Primary Care Provider Unavail able Encounter Details Date Type Department Care Team Description 12/24/2017 Release of Information Medical Records [address] [place] [id number] Abstract, Provider Social History Tobacco Use Types Packs/Day Years Used Date Smoking Tobacco: Former Smokeless Tobacco: Never Comments:only smoked for 2 y ears Sex Assigned at Date Recorded Not on file documented as of this encounter Plan of Treatment Not on file documented as of this encounter Visit Diagnoses Not on filedocumented in this encounter Care Teams Automobile Mechanic Helper Relationship Specialty Start Date End Date Divina Jaffe MD, PCP - General Internal Medicine 12/18/17 1 01/01/18 Tanna Oconnor MD PCP - General Internal Medicine 11/01/18 documented as of this encounter
--- OUTSIDE RECORDS SUMMARY | 2025-02-18 09:10 | XMS_ITS | Clinical Summary ---
Author Organization [facility] Address [address] [place] [address] Care Team Providers Care Anatomy And Physiology Instructor Name Role Phone Tanna Oconnor MD Primary Care Provider Unavail able Allergies No known active allergies Medications Medication Sig Dispensed Refills Start Date End Date Status atorvastatin (LIPITOR) 10 MG tablet Take 10 mg by mouth daily. 0 Active Docusate Calcium (STOOL SOFTENER OR) Take by mouth. 0 Active citalopram (CELEXA) 40 MG tablet Take 40 mg by mouth daily. 0 Active losartan (COZAAR) 50 MG tablet Take 50 mg by mouth daily. 0 Active CALCIUM ORIndications:Elevated rheumatoid factor,Chronic pain of both knees Take by mouth daily. 0 Active Boyce-3 Fatty Acids (FISH OIL) 500 MG CapIndications:Elevated rheumatoid factor,Chronic pain of both knees Take by mouth daily. 0 Active Zinc Sulfate (ZINC 15 OR) Take by mouth. 0 Active Probiotic Product (PROBIOTIC OR)Indications:Primary osteoarthritis of both knees Take by mouth daily. 0 Active CPAP Historical (HISTORICAL CPAP) Inhale into the lungs. [employer] pressure 4-16 0 Active Azelastine-Fluticasone 137-50 MCG/ACT Suspension by Nasal route. 0 Active Magnesium 100 MG Cap Take by mouth. 0 Active Ascorbic Acid (VITAMIN C) 1000 MG tablet Take 1,000 mg by mouth daily. 0 Active montelukast (SINGULAIR) 10 MG tabletIndications:Wheez ing Take 1 Tab by mouth at bedtime for 30 days. 90 Tab 3 02/06/2019 Active Active Problems Problem Noted Date Obstructive sleep apnea mild AHI 9 07/17 Overview: [facility] Home Polysomnogram: Date 07/09/2018; AHI 9, Unclassified apneas 1; Obstructive apneas 0; Central apneas 0; Mixed apneas 0; hypopneas 61; average oxygen saturation 94% (lowest 86% without saturations <88% for 5% or more of study) - Obstructive Sleep Apnea - mild; mostly hypopneas; without sleep related hypoventilation by 2018 home polysomnogram. Splenomegaly 04/30/2018 Skipped heart beats 04/30/2018 History of environmental allergies 04/30 Recurrent pneumonia 04/30/2018 Elevated rheumatoid factor 03/06/2018 Overview: 82 (02/20/2018) Normal Aug 2018 History of pneumonia 02/14/2018 Asthma 02/14/2018 HTN (hypertension) 10/25/2017 Plantar fasciitis 10/25/2017 Hemorrhoids 10/25/2017 Iron deficiency anemia 10/25/2017 Pure hypercholesterolemia 10/25/2017 Depression 10/25/2017 Anxiety 10/25/2017 Morbid obesity with BMI of 50.0-59.9, ad ult 10/25/2017 Allergic rhinitis 10/25/2017 Immunizations Name Administration Dates Next Due Hepatitis B > 19yrs 07/25/2016,02/22/2016,2015 Tdap 04/17/2016,04/20/2005 Family History Medical History Relation Name Comments Eczema Brother asthma as a chi ld, chf, diabetes CA Lung Father depression, smo ker Arthritis Mother Hypertension Mother Chol, lung disease Paternal Grandfather Arthritis Sister 1 [...] Assigned at Date Recorded Not on file Last Filed Vital Signs Vital Sign Reading Time Taken Comments Blood Pressure 118/72 02/14/2019 1:26 PM EDT Pulse 81 02/14/2019 1:26 PM EDT Temperature - - Respiratory Rate 16 02/14/2019 1:26 PM EDT Oxygen Saturation 96% 02/14/2019 1:26 PM EDT Inhaled Oxygen Concentration - - Weight 138.8 kg (306 lb) 02/14/2019 1:26 PM EDT Height 162.6 cm (5' 4 ) 11/27/2018 10:20 AM EST Body Mass Index 52.52 11/27/2018 10:20 AM EST Plan of Treatment Health Maintenance Due Date Last Done Comments Covid-19 Vaccine (#1) 1955 DEPRESSION SCREEN 1965 HEPATITIS C SCREENING 1971 CHOLESTEROL SCREENING 1973 COLON CANCER SCREENING 2003 SHINGLES VACCINE (1 of 2) 2003 MAMMOGRAM 04/27/2017 04/27/2016 (External Complet ion) BONE DENSITY SCREENING 2018 FALL RISK ASSESSMENT 2018 PNEUMOCOCCAL VACCINE (1 - PCV) 2018 BMI CHECK/ADVISE 11/19/2024 02/14/2019, , 11/27/2018, Additional history exists INFLUENZA (Season Ended) 2025 DTAP/TDAP/TD (3 - Td or Tdap) 04/17/2026 04/17/2016, 04/20/2005 Care Teams Anatomy And Physiology Instructor Relationship Specialty Start Date End Date Tanna Oconnor MD PCP - General Internal Medicine 11/01/18
--- OUTSIDE RECORDS SUMMARY | 2025-02-18 09:10 | XMS_ITS | Patient Health Record ---
Author Organization [facility] Address [address] [place] [address] Care Team Providers Care Success Coach Name Role Phone Alannah LUNDBERG, Divina Dowd Primary Care Provider Un available Black, Kimberly Unavailable [phone] Perica, Sara Unavailable [phone] Allergies No Known Allergies Reason For Referral No Information Medications Medication SIG (Take, Route, Frequency, Duration) Notes Start Date End Date Status Vitamin D3 50 MCG (1999) as directed Orally Active Omeprazole 20 MG [...] Citalopram & Diet Manage Prod 20mg Not-Taking Biotin 5000 MCG 1 tablet Orally Once a day 11/05/2019 Active Calcium 1 tab Oral for 14 days Not-Taking Docusate Sodium 100 MG 1 capsule as need ed Orally Once a day for 30 day(s) 11/05/2019 Active Ipratropium [place] as needed Not-Taking Citalopram Hydrobromide 40 MG 0.5 tablet Orally Once a day for 30 day(s) Active Ciclopirox Olamine 0.77 % 1 application Externally Twice a day for 30 days 12/04/2019 Not-Taking Vitamin B12 Active Vitamin C 1000 MG 1 tablet Orally Once a day for 30 day(s) Active Eye Drops Active Atorvastatin Calcium 20 MG as directed Orally Active Immunizations Vaccine Route Administration Date Status Comme nts COVID-19 Pfizer BioNTech Vaccine Unknown 02/24/2021 Administered Second Dose: 03/17/2021 Social History Tobacco Use: Social History Observation [...] Problem Status W/U Status Risk Notes Problem Non-pressure ulcer lower limb (811903322) Non-pressure chronic ulcer of other part of right foot limited to breakdown of skin (L97.511) Active confirmed Problem Osteoarthritis of midtarsal joint of left foot (1423137909231200 ) Osteoarthritis of midtarsal joint of left foot (M19.072) Active confirmed Problem Osteoarthritis of midtarsal joint of right foot (7429330341795980 ) Osteoarthritis of midtarsal joint of right foot (M19.071) Active confirmed Vital Signs Blood pressure diastolic 80 mm Hg 10/23/2024 Height 5ft 4in in 10/23/2024 Blood pressure systolic 120 mm Hg 10/23/2024 Weight 315 lbs 10/23/2024 BMI 54.06 kg/m2 10/23/2024 Encounters Encounter Location Date Provider Diagnosis [facility] [address] [place] [address] 10/23/2024 Sara De La Cruz Pain in left foot M79.672 ; Osteoarthritis [...] Date X ray : Foot, left 3V 08/16/2011 X ray : Foot, left 3V 01/16/2024 X ray : Foot, left 3V 10/23/2024 X ray : Foot, right 3V 10/23/2024 X ray : Foot, right 3V 08/16/2011 X ray : Foot, right 3V 10/31/2022 [id number] NAIL, 1-5 12/04/2019 Insurance Providers Payer Name Payer Address Payer Phone Subscriber Number Group Number Insured Name Patient Relationship to Insured Coverage Start Date Coverage End Date Medicare [facility] [address] [place] [address] [id number] Yessy Dempsey Self - patient is the insured [employer] [facility] [address] [place] [address] [id number] Yessy Dempsey Self - patient is the insured Medical (General) History Medical History History ICD Code measles hypertension chicken pox Cholesterol Anxiety Depression Mumps Psoriasis/eczema Psychiatric disorder Warts Arthritis Back,Hip,and Knee pain Numbness Reflux ( GERD) Stomach ulcer Surgical History Surgery Date(Month/Year) wisdom teeth extraction colonoscopy Hospitalization History Reason Date(Month/Year) bronchitis for a 5 day stay in [place], [place] 01/2012
[2025-02-18 10:41] LABS: Estimated Average Glucose 114 mg/dL; Hemoglobin A1C 136.7094 umol/L; Hemoglobin A1c % 5.6 % (<6.0); Total Hemoglobin (HGBA1C) 3657.3643 umol/L
[2025-02-18 11:25] LABS: Alanine Aminotransferase 20 U/L (0-31); Anion Gap 10 (12-20); Aspartate Amino Transferase 23 U/L (5-31); Blood Urea Nitrogen 19 mg/dL (9-16); Calcium 9.1 mg/dL (8.4-10.2); Carbon Dioxide 27 mmol/L (22-29); Chloride 109 mmol/L (96-108); Cholesterol 174 mg/dL (<200); Estimated Glomerular Filt Rate > 60; Glucose Fasting 123 mg/dL (60-99); HDL Cholesterol 53 mg/dL (>40); LDL Cholesterol Calculated 105 mg/dL (<100); Potassium 4.4 mmol/L (3.3-5.1); Sodium 142 mmol/L (135-145); Triglycerides 81 mg/dL (<150)
[2025-02-18 11:43] LABS: Vitamin D 25-OH Total 48.8 ng/mL (>30)
[2025-02-18 11:49] LABS: Folate 9.7 ng/mL (> or = 4.0); Vitamin B12 972 pg/mL (200-900)
== END 2025-02-18 08:41 | disposition home or self-care (01) ==
LOC: HO.HMGCLDS 08:40
PROVIDERS: PCP Internal Medicine; Visit Provider Internal Medicine
DX: Z00.00 Encounter for general adult medical examination without abnormal findings (principal); M85.852 Other specified disorders of bone density and structure, left thigh; I35.0 Nonrheumatic aortic (valve) stenosis; N39.46 Mixed incontinence; E66.01 Morbid (severe) obesity due to excess calories; K21.00 Gastro-esophageal reflux disease with esophagitis, without bleeding; F33.9 Major depressive disorder, recurrent, unspecified; E78.5 Hyperlipidemia, unspecified; I10 Essential (primary) hypertension; Z79.899 Other long term (current) drug therapy; Z71.89 Other specified counseling; R73.01 Impaired fasting glucose; E55.9 Vitamin D deficiency, unspecified; Z78.0 Asymptomatic menopausal state
CPT/HCPCS: 36415; 80048; 80061; 82306; 82607; 82746; 83036; 84450; 84460; 96127

== ENCOUNTER 2025-02-18 09:25 | Outpatient (AMB) | payer MEDICARE, SELFPAY ==
--- NOTE | 2025-02-18 09:28 | AM.OFFVISMDC ---
Intake Vital Signs 02/18/25 09:29 Height 5 ft 4 in Weight 327 lb BMI 56.1 BP 122/70 Blood Pressure Location Lt brachial Position Sitting Pulse 73 Pulse Source Pulse Oximeter Pulse Oximetry (%) 97 Oxygen Delivery Method Room Air Intake Visit Reasons: [facility] G0439 Bulker Required: No Accompanied by: Self / Same As Patient Allergies No Known Allergies [No Known Allergies*] Allergy (Verified 02/22/25 21:26) Medication List - Last Reconciled 02/22/25 by Divina Jaffe MD ascorbic acid (vitamin C) 500 mg PO DAILY atorvastatin 20 mg PO DAILY biotin 5000mg PO daily; bupropion HCl XL 300 mg PO DAILY cholecalciferol (vitamin D3) 100 mcg (2 x 50 mcg (2,000 unit)) PO DAILY citalopram 40 mg PO DAILY cyanocobalamin (vitamin B-12) 1,000 mcg PO DAILY docusate sodium 100 mg PO DAILY losartan 50 mg PO DAILY magnesium oxide 500 mg PO DAILY omega-3 fatty acids (Fish Oil Concentrate) 2,000 mg PO DAILY omeprazole 20 mg PO DAILY solifenacin (Vesicare) 10 mg PO DAILY Do you need a note to return to daycare/school/sports/work: No HPI V G0439 HPI Details SWV ? 70 year old lady with history of hyperlipidemia, obstructive sleep apnea, morbid obesity, prediabetes, GERD with esophagitis, depression, hypertension, presents for her subsequent? Annual Wellness Visit.? She is up-to-date with her screening mammogram done 01/25/2024 with normal findings, , and had her bone density scan done 06/05/2023 which showed beginning osteopenia in left femoral neck, normal in lumbar spine and left femur. She had a screening colonoscopy done 03/17/[address] Will which showed sigmoid diverticulosis and internal hemorrhoids, to be repeated again in 2028. Last Pap smear was done in 2017 which showed presence of atrophic vaginal mucosa negative for any intraepithelial lesion or malignancy, no further testing indicated. She is up-to-date with all her vaccinations. Fasting lipids were within normal limits on 01/25/2024, and fasting blood sugar was checked at 16:24 with a hemoglobin A1c at 5.5% and fasting glucose at 107 mg/dL. ? Medical / Social History Reviewed? Past Medical History ?Yes . ? [place] of Care / Care Team list updated ?Yes . ? Surgical/Hospitalization History ?Yes . ? Current Medications (including OTC and supplements) ?Yes . ? Family History ?Yes . ? Tobacco Control form ?Yes . ? AUDIT-C (Alcohol use) form ?Yes . ? Illicit drug use in Social History ?Yes . ? Current diagnosis of depression? ?Yes, , sees Dr. Sheila Alvarez ? Appropriate PHQ2/PHQ9 completed ?Yes . ? Data entered by ?[employer] and reviewed by provider ? Fall Risk ? Fall History? Have you had any falls with injury in the past year? ?No . ? Have you had two or more falls in the past year? ?No . ? Fall Risk Assessment: ?No falls in the past year . ? HRA filled out by the patient, reviewed by Provider and scanned. ? IPPE/AWV ? Balance? [place] ?negative ? Tandem walk - unable to do ? Walk and Turn ?Yes . ? Rise from sit to stand ?Yes . ?Vision? Corrective lens ?Yes , already seen at [facility] ? Vision screen ? Up-to-date, ?Hearing? Whisper test ?pass . ?Written Plan?Completed. See Patient Documents-MOLST and healthcare proxy form completed on today's visit [facility] Medical History (Updated 02/22/25 @ 21:36 by Divina Jaffe MD) Osteopenia of left femoral neck Recurrent urinary tract infection SULLY (stress urinary incontinence, female) Obstructive sleep apnea of adult Depression Plantar fasciitis GERD with esophagitis Mild intermittent asthma in adult without complication Allergic rhinitis Essential hypertension Impaired fasting glucose Dyslipidemia Morbid obesity Menopause Vitamin D deficiency Surgical History No pertinent past surgical history Family History Father Lung cancer Unknown family medical history Mother HTN (hypertension) Hyperlipidemia Mental health disorder Brother Substance use disorder Sister Mental health disorder Son No problems noted. Son No problems noted. Social History Housing: House Alcohol intake: never Patient Tobacco Use Status: Never used Tobacco e-Cigarette/Vaping Use: Never Used Second Hand Smoke Exposure: No service: No Current occupational status: unemployed Cognitive needs: No Hearing needs: No Vision needs: Yes (Glasses) Questionnaire Medicare Wellness Checkup [age] What gender do you identify with?: female During the past 4 weeks, how much have you been bothered by emotional problems such as feeling anxious, depressed, irritable, sad or downhearted, and blue?: slightly During the past 4 weeks, has your physical & emotional health limited your social activities with family, friends, neighbors, or groups?: moderately During the past 4 weeks, how much bodily pain have you generally had?: mild pain During the past 4 weeks, was someone available to help you if you needed & wanted help?: yes, as much as I wanted During the past 4 weeks, what was the hardest physical activity you could do for at least 2 minutes?: moderate Can you get to places out of walking distance without help? (For eg., can you travel alone on buses, taxis or drive your car?): Yes Can you go shopping for groceries or clothes without someone's help?: Yes Can you prepare your own meals?: Yes Can you do your housework without help?: Yes Because of any health problems, do you need the help of another person with your personal care needs such as eating, bathing, dressing or getting around the house?: No Can you handle your own money without help?: Yes During the past 4 weeks, how would you rate your health in general?: very good During the past 4 weeks how have things been going for you?: pretty well Are you having difficulties driving your car?: no Do you always fasten your seat belt when you are in a car?: yes, usually During past 4 weeks, have you been bothered by the following: never: Falling or dizzy when standing up, Sexual problems?, Trouble eating well?, Teeth or denture problems?, Problems using the telephone? and Tiredness or fatigue? Have you fallen 2 or more times in the past year?: No Are you afraid of falling?: No Are you a smoker?: no During the past 4 weeks, how many drinks of wine, beer, or other alcoholic beverages did you have?: no alcohol at all Do you exercise for about 20 minutes 3 or more times a week?: yes, most of the time Have you been given information to help with the following?: no: Hazards in your house that might hurt you? and no: Keeping track of your medications? How often do you have trouble taking medicines the way you have been told to take them?: I always take medicine as prescribed How confident are you that you can control & manage most of your health problems?: somewhat confident What is your race?: White Mini Mental State Exam (MMSE) Orientation What is the (year) (season) (date) (day) (month)?: year (2024), season (spring), date (02/18/25), day (sunday) and month (february) Where are we (state) (county) (town or city) (hospital) (floor)?: state ([place]), county ([place]), town or city ([place]) and hospital/clinic ([facility]) Score Score: 9 Activity of Daily Living Bathing - sponge bath, tub bath or shower: receives no assistance (gets in/out by self, if usual bathing means Dressing - getting clothes from closets & drawers, including inner/outer garments & fasteners.: gets clothes & gets completely dressed without help Toileting - going to the 'toilet room' for urine/bowel elimination & cleaning self/arranging clothes: goes to toilet room, cleans self, arranges clothes without help Transfer: moves in & out of bed and chair without help (may use support object) Continence: has occasional 'accidents' Feeding: feeds self without help Total Score: 0 Information obtained from: patient Using telephone: independent Traveling: independent Shopping: independent Preparing meals: independent Housework: independent Taking medicine: independent Managing money: independent PHQ-9 Over the last 2 weeks, how often have you been bothered by any of the following problems? 1. Little interest or pleasure in doing things: several days 2. Feeling down, depressed, or hopeless: not at all 3. Trouble falling or staying asleep, or sleeping too much: not at all 4. Feeling tired or having little energy: not at all 5. Poor appetite or overeating: nearly every day 6. Feeling bad about yourself - or that you are a failure or have let yourself or your family down: several days 7. Trouble concentrating on things, such as reading the newspaper or watching television: not at all 8. Moving or speaking so slowly that other people could have noticed. Or the opposite - being so fidgety or restless that you have been moving around a lot more than usual: not at all 9. Thoughts that you would be better off or of hurting yourself in some way: not at all Total score: 5 Depression Screening Interpretation: Negative Depression Screening Done: Yes 00236 - PHQ-9 Billing: Yes Source: Developed by Drs. Jason Gutierrez, Anny Jurado, Ty Lock and colleagues, with an educational rodrigue from [employer]. RAMANA-7 AMB Questionnaire RAMANA-7 Date RAMANA - 7 assessed: 02/18/25 Feeling nervous, anxious, or on edge: 0 = Not at all Not being able to stop or control worryin = Several days Worrying too much about different things: 1 = Several days Trouble relaxin = Several days Being so restless that it is hard to sit still: 0 = Not at all Becoming easily annoyed or irritable: 0 = Not at all Feeling afraid as if something awful might happen: 0 = Not at all Total RAMANA-7 score (0-4 normal; 5-9 mild; 10-14 moderate; 15-21 severe): 3 Source: Developed by Drs. Jason Gutierrez, Anny Jurado, Ty Lock and colleagues, with an educational rodrigue from [employer]. RAMANA-7 Assessment Billing RAMANA-7 Assessment Tool: RAMANA-7 Assessment 70133 (Followed by psychiatry) Physical Exam Vital Signs: Last Vital Signs Pulse 73 02/18/25 09:29 BP 122/70 02/18/25 09:29 Pulse Ox 97 02/18/25 09:29 Oxygen Delivery Method Room Air 02/18/25 09:29 BMI result Body Mass Index 56.1 Assessment & Plan Assessment & Plan (1) Osteopenia of left femoral neck: Code(s): M85.852 - Other specified disorders of bone density and structure, left thigh Plan: Currently taking vitamin-D 3 supplements and biwo-kes-fvmvkku calcium supplements (2) Aortic stenosis: Code(s): I35.0 - Nonrheumatic aortic (valve) stenosis Qualifiers: Cardiac valve disease etiology: nonrheumatic Qualified Code(s): I35.0 - Nonrheumatic aortic (valve) stenosis Plan: Mild aortic stenosis noted on last echocardiogram done in 2023, followed by cardiology with repeat echocardiogram done yearly (3) Mixed stress and urge urinary incontinence: Code(s): N39.46 - Mixed incontinence Plan: Currently on VESIcare 10 mg daily, followed by Urology (4) Morbid obesity: Code(s): E66.01 - Morbid (severe) obesity due to excess calories Plan: Weight loss recommended, patient not interested in pursuing bariatric surgery or taking medication to lose weight, patient states she will do it through healthy eating and regular exercise (5) GERD with esophagitis: Comment: EGD [place] [address] will Code(s): K21.00 - Gastro-esophageal reflux disease with esophagitis, without bleeding Qualifiers: Esophagitis bleeding: without hemorrhage Qualified Code(s): K21.00 - Gastro-esophageal reflux disease with esophagitis, without bleeding Plan: Currently on omeprazole 20 mg daily (6) Depression: Comment: ff'd by Dr Prakash Code(s): F32.9 - Major depressive disorder, single episode, unspecified Qualifiers: Depression Type: major depressive disorder Major depression recurrence: recurrent Active/Remission status: remission status unspecified Qualified Code(s): F33.9 - Major depressive disorder, recurrent, unspecified Plan: Followed by Dr. Sheila Prakash, currently on bupropion HCL XL 300 mg daily and citalopram 40 mg daily (7) Dyslipidemia: Code(s): E78.5 - Hyperlipidemia, unspecified Plan: On atorvastatin 21 mg daily (8) Essential hypertension: Code(s): I10 - Essential (primary) hypertension Plan: Blood pressure stable controlled on losartan 50 mg daily (9) Encounter for subsequent annual wellness visit (AWV) in Medicare patient: Code(s): Z00.00 - Encounter for general adult medical examination without abnormal findings Plan: Medical wellness checklist reviewed, discussed with patient and updated. Up-to-date with all screenings, up-to-date with all vaccinations, MOLST and healthcare proxy form completed today. Screening mammogram and bone density scan ordered (10) Advanced directives, counseling/discussion: Code(s): Z71.89 - Other specified counseling Plan: Initiated the conversation about Advanced Directives. Advanced Directives help patients prepare for current and future decisions about their medical treatment and place of care. Discussed with patient that it is a process where a patients current condition and prognosis are reviewed, their wishes for information regarding their illness are elicited, and likely medical dilemmas are presented and options discussed. MOLST and healthcare proxy form completed today. These forms can be amended as needed, reviewed yearly and make changes as needed Orders: Orders MM tomosynthesis screening BI 02/18/25 M85.852 - Other specified disorders of bone density and structure, left thigh, Z12.31 - Encounter for screening mammogram for malignant neoplasm of breast, Z78.0 - Asymptomatic menopausal state XR DEXA axial skeleton 02/18/25 M85.852 - Other specified disorders of bone density and structure, left thigh, Z12.31 - Encounter for screening mammogram for malignant neoplasm of breast, Z78.0 - Asymptomatic menopausal state Quality Reporting (2019) Depression/Bipolar (159/160/161/177) PHQ-9: Total score: 5 Coding Level of Care Code Medicare Subsequent (G0439) Diagnoses Osteopenia of left femoral neck M85.852 Nonrheumatic aortic valve stenosis I35.0 Cardiac valve disease etiology: nonrheumatic Mixed stress and urge urinary incontinence N39.46 Morbid obesity E66.01 Gastroesophageal reflux disease with esophagitis without hemorrhage K21.00 Esophagitis bleeding: without hemorrhage Recurrent major depressive disorder, remission status unspecified F33.9 Depression Type: major depressive disorder Major depression recurrence: recurrent Active/Remission status: remission status unspecified Dyslipidemia E78.5 Essential hypertension I10 Encounter for subsequent annual wellness visit (AWV) in Medicare patient Z00.00 Advanced directives, counseling/discussion Z71.89 CPT Codes Advance Care Planning - Time spent: 16-45 minutes ([id number]) Additional Codes RAMANA-7 Assessment Billing - RAMANA-7 Assessment Tool: RAMANA-7 Assessment 58910 ([id number]) PHQ-9 - 70880 - PHQ-9 Billing: Yes ([id number]) Advance Care Planning Advance Care Planning discussion: Completed/Scanned Date of discussion: 02/18/25 Who was present: Patient Forms completed: Health Care Proxy and MOLST Time spent: 16-45 minutes Actual minutes spent: 5
[2025-02-18 09:29] VITALS: BP 122/70; PULSE 73; O2SAT 97; BMI 56.1
--- OUTSIDE RECORDS SUMMARY | 2025-02-18 10:34 | XMS_ITS | Clinical Summary ---
Author Organization [facility] Address [address] [place] [address] Care Team Providers Care Assembler Liquid Center Name Role Phone Tanna Oconnor MD Primary [...] BMI o f 50.0-59.9, adult ([facility]) Plantar fasciitis 10/25/2017 DX:Plantar fas ciitis; COMMENT: [...] age to complete this topic Care Teams Assembler [employer] Relationship Specialty Start Date End Date Tanna Oconnor MD PCP - General Internal Medicine 11/01/18
== END 2025-02-18 10:24 | disposition home or self-care (01) ==
LOC: HO.HMCC 09:26
PROVIDERS: PCP Internal Medicine; Visit Provider Internal Medicine
DX: Z00.00 Encounter for general adult medical examination without abnormal findings (principal); E66.01 Morbid (severe) obesity due to excess calories; F33.9 Major depressive disorder, recurrent, unspecified; Z68.43 Body mass index [BMI] 50.0-59.9, adult; M85.852 Other specified disorders of bone density and structure, left thigh; I35.0 Nonrheumatic aortic (valve) stenosis; N39.46 Mixed incontinence; K21.00 Gastro-esophageal reflux disease with esophagitis, without bleeding; E78.5 Hyperlipidemia, unspecified; I10 Essential (primary) hypertension; Z71.89 Other specified counseling

== ENCOUNTER 2025-02-19 14:09 | Outpatient (AMB) | payer MEDICARE, SELFPAY ==
[2025-02-19 14:18] VITALS: BP 122/70; PULSE 70; BMI 56.4
--- NOTE | 2025-02-19 14:18 | MHC.OFFVIS ---
Vital Signs 02/19/25 14:18 Height 5 ft 4 in Weight 328 lb 7.82 oz BMI 56.4 BP 122/70 Blood Pressure Location Rt brachial Position Sitting Pulse 70 Pulse Source Monitor Intake Visit Reasons: r/s 12/08/24 1 yr followup w/ekg Performance Reporter Required: No Allergies No Known Allergies [No Known Allergies*] Allergy (Verified 02/19/25 14:23) Medication List - Last Reconciled 02/19/25 by KALIA Chi ascorbic acid (vitamin C) 500 mg PO DAILY atorvastatin 20 mg PO DAILY biotin 5000mg PO daily; bupropion HCl XL 300 mg PO DAILY cholecalciferol (vitamin D3) 100 mcg (2 x 50 mcg (2,000 unit)) PO DAILY citalopram 40 mg PO DAILY cyanocobalamin (vitamin B-12) 1,000 mcg PO DAILY docusate sodium 100 mg PO DAILY losartan 50 mg PO DAILY magnesium oxide 500 mg PO DAILY omega-3 fatty acids (Fish Oil Concentrate) 2,000 mg PO DAILY omeprazole 20 mg PO DAILY solifenacin (Vesicare) 10 mg PO DAILY HPI HPI r/s 12/08/24 1 yr followup w/ekg: Details: Yessy is a 70-year-old female with past medical history of hypertension, hyperlipidemia, morbid obesity, sleep apnea, mild aortic stenosis who presents for follow-up. Today she reports she has been doing well since her last visit November 2023. She has not been having any concerning chest discomfort at rest or during activity. She denies shortness of breath, PND, orthopnea or edema. No heart palpitations, lightheadedness, presyncope, syncope. She admits to being mostly sedentary. She will be undergoing a sleep study in the near future. In the past she was diagnosed with sleep apnea but was unable to wear a mask. She is now interested in re-evaluation. She tells me she naps for over an hour each day. Has issues with knee discomfort and recently had injections. Compliant with meds. [facility] Medical History Osteopenia of left femoral neck Recurrent urinary tract infection SULLY (stress urinary incontinence, female) Obstructive sleep apnea of adult Depression Plantar fasciitis GERD with esophagitis Mild intermittent asthma in adult without complication Allergic rhinitis Essential hypertension Impaired fasting glucose Dyslipidemia Morbid obesity Menopause Vitamin D deficiency Surgical History No pertinent past surgical history Family History Father Lung cancer Unknown family medical history Mother HTN (hypertension) Hyperlipidemia Mental health disorder Brother Substance use disorder Sister Mental health disorder Son No problems noted. Son No problems noted. Social History Housing: House Alcohol intake: never Patient Tobacco Use Status: Never used Tobacco e-Cigarette/Vaping Use: Never Used Second Hand Smoke Exposure: No service: No Current occupational status: unemployed Cognitive needs: No Hearing needs: No Vision needs: Yes (Glasses) Review of Systems Const Details: takes nap daily All systems reviewed & are unremarkable except as noted in HPI and below Reports fatigue ENT Denies dizziness Card Denies chest pain, Denies chest pain at rest, Denies chest pain with activity, Denies rapid heart rate, Denies pedal edema, Denies edema, Denies leg edema, Denies lightheadedness, Denies palpitations, Denies dyspnea, Denies dyspnea on exertion and Denies orthopnea Resp Denies cough, Denies dyspnea and Denies dyspnea on exertion GI Denies hematochezia and Denies change in stool character Musc Details: mild nonpitting lower leg swelling Denies abnormal gait, Denies limited range of motion, Denies muscle cramps, Denies muscle weakness, Denies numbness, Denies radiating pain into limb, Denies stiffness and Denies tingling Neuro Denies abnormal gait, Denies dizziness, Denies numbness and Denies tingling Endo Reports fatigue and Denies palpitations Physical Exam Vital Signs: Last Vital Signs Pulse 70 02/19/25 14:18 BP 122/70 02/19/25 14:18 BMI result Body Mass Index 56.4 Const General: cooperative, healthy appearing, comfortable and no acute distress Orientation/consciousness: patient oriented x3 Neck Neck: Yes normal visual inspection and Yes no JVD Resp Effort & Inspection: normal respiratory effort Auscultation: clear to auscultation bilaterally, no rales, no rhonchi and no wheezes Cardio Rate: regular rate Rhythm: regular rhythm Heart sounds: S1 normal heart sound present, S2 normal heart sound present, no gallops, no murmurs and no rubs Neuro General: patient oriented x3 Extrem General: Yes normal to inspection Psych Appearance: grossly normal Mental Status: mental status grossly normal Speech and movement: Normal speech and movement present Office Procedures EKG Details: Today, read by me, Normal sinus rhythm, rate 70, Qtc 403ms [id number], Complete Assessment & Plan Assessment & Plan (1) Aortic stenosis: Code(s): I35.0 - Nonrheumatic aortic (valve) stenosis Category: Medical Plan: Echocardiogram from 01/25/2024 shows EF 55-60%, normal RV, mild aortic stenosis. Slight murmur noted on examination. Continue atorvastatin. Repeat echocardiogram in 1 year. Cardiology follow-up in 1 year, sooner if needed. (2) Essential hypertension: Code(s): I10 - Essential (primary) hypertension Category: Medical Plan: [place] blood pressure goal less than 130/80. Well controlled at this time with use of losartan. Labs done 02/18/2025 shows potassium 4.4 and creatinine 0.79. Low-salt diet reviewed. No med changes made. (3) Dyslipidemia: Code(s): E78.5 - Hyperlipidemia, unspecified Category: Medical Plan: [place] LDL goal less than 100. Labs done 02/18/2025 shows LDL 105. She is on atorvastatin 20 mg daily. The benefits of weight loss and increasing physical activity reviewed. (4) Morbid obesity: Code(s): E66.01 - Morbid (severe) obesity due to excess calories Category: Medical Plan: As above (5) Obstructive sleep apnea of adult: Comment: unable to tolerate CPAP Code(s): G47.33 - Obstructive sleep apnea (adult) (pediatric) Category: Medical Plan: Being followed by her PCP. (6) Impaired fasting glucose: Code(s): R73.01 - Impaired fasting glucose Category: Medical Plan: Hemoglobin A1c goal less than 7. Followed by PCP. Plan Time spent on chart review, documentation, interview and assessment Orders: Orders CA echo transthoracic complete 02/08/26 I35.0 - Nonrheumatic aortic (valve) stenosis Coding Level of Care Code Est Pt Level 4 (29409) Complex EM visit Add On G2211 Diagnoses Aortic stenosis I35.0 Essential hypertension I10 Dyslipidemia E78.5 Morbid obesity E66.01 Obstructive sleep apnea of adult G47.33 Impaired fasting glucose R73.01 CPT Codes EKG - CPT: 98053-Nieibuiylpscxrhnm, Complete ([id number]) Time Spent (min) 32
--- OUTSIDE RECORDS SUMMARY | 2025-02-19 15:36 | XMS_ITS | Encounter Summary ---
Author Organization [facility] Address [address] [place] [address] Care Team Providers Care Territory Business Manager Name Role Phone Tanna Oconnor MD Primary Care Provider Unavail able Reason for Visit * Reason Onset Date Comments Faxed Refill 02/06/2019 Encounter Details Date Type Department Care Team Description 02/06/2019 Refill Pulmonology - [address] [place] [phone] Fran Holder MD Faxed Refill Social History [...] NO Patients current insurance carrier is: Payor: [employer] / Plan: [employer] / Product Type: MEDICARE [id number] documented in this encounter Plan of Treatment Not on file documented as of this encounter Visit Diagnoses Diagnosis Wheezing documented in this encounter Care Teams Territory Business Manager Relationship Specialty Start Date End Date Tanna Oconnor MD PCP - General Internal Medicine 11/01/18 documented as of this encounter
--- OUTSIDE RECORDS SUMMARY | 2025-02-19 15:36 | XMS_ITS ---
Author Organization [facility] Address [address] [place] [phone] Care Team Providers Care Pocket Grinder Operator Name Role Phone Alannah LUNDBERG, Divina Primary Care Provider Jason Lancaster [phone] REASON FOR VISIT 90 day supply of medicine Medications Medication SIG (Take, Route, Fr equency, Duration) Notes Start Date End Date Status Omeprazole 20 MG TAKE 1 CAPSULE ONCE DAILY Orally Once a day for 90 days Active Encounters Encounter Location Date Provider Diagnosis [facility] [address] [place] [phone] 01/31/2024 Jason Flaherty Plan Of Treatment Medication Medication Name Sig Start Date Stop Date Notes Omeprazole 20 MG TAKE 1 CAPSULE ONCE DAILY Orally Once a day for 90 days Progress Notes * MEMO UREÑADOB:[birth year] (68 yo F)Acc No.[id number]:01/31/2024 Patient:?MEMO UREÑA :1955???Age:68 Y???Sex:Female Address:[address] [place] [address] [place] [address] * Refills? Refill Omeprazole Capsule Delayed Release, 20 MG, Orally, 90, TAKE 1 CAPSULE ONCE DAILY, Once a day, 90 days, Refills=3 * true * Date:? Generated for Devyni steven/Charli/eTransmitting on:?02/19/2025 03:36 PM EDT
--- OUTSIDE RECORDS SUMMARY | 2025-02-19 15:36 | XMS_ITS | Encounter Summary ---
Author Organization [employer] [facility] Address [address] [place] [address] Care Team Providers Care Functional Skills Tutor Name Role Phone Divina Jaffe Md, MD Primary Care Provider Unavailable Tanna Oconnor MD Primary Care Provider Unavail able Encounter Details Date Type Department Care Team Description 03/05/2018 Transfer Records Medical Records [address] [place] [address] Abstract, Provider Social History Tobacco Use Types Packs/Day Years Used Date Smoking Tobacco: Former Smokeless Tobacco: Never Comments:only smoked for 2 y ears Sex Assigned at Date Recorded Not on file documented as of this encounter Plan of Treatment Not on file documented as of this encounter Visit Diagnoses Not on filedocumented in this encounter Care Teams Functional Skills Tutor Relationship Specialty Start Date End Date Divina Jaffe MD, PCP - General Internal Medicine 12/18/17 1 01/01/18 Tanna Oconnor MD PCP - General Internal Medicine 11/01/18 documented as of this encounter
--- OUTSIDE RECORDS SUMMARY | 2025-02-19 15:36 | XMS_ITS | Encounter Summary ---
Author Organization [email or web address] Address [address] [place] [address] Care Team Providers Care Irrigation System Installer Name Role Phone Divina Jaffe Md, MD Primary Care Provider Unavailable Tanna Oconnor MD Primary Care Provider Unavail able Encounter Details Date Type Department Care Team Description 02/26/2018 Orders Only Pulmonology - [address] [place] [address] Fran Holder MD Morbid obesity [...] bronchitis documented in this encounter Care Teams Irrigation System Installer Relationship Specialty Start Date End Date Divina Jaffe MD, PCP - General Internal Medicine 12/18/17 1 01/01/18 Tanna Oconnor MD PCP - General Internal Medicine 11/01/18 documented as of this encounter
--- OUTSIDE RECORDS SUMMARY | 2025-02-19 15:37 | XMS_ITS ---
Author Organization [facility] Address [address] [place] [phone] Care Team Providers Care Hydraulic Strainer Operator Name Role Phone Alannah LUNDBERG, Divina Primary Care Provider Jason Lancaster [phone] REASON FOR VISIT Omeprazole Rx Medications Medication SIG (Take, Route, Fr equency, Duration) Notes Start Date End Date Status Omeprazole 20 MG TAKE 1 CAPSULE ONCE DAILY Orally Once a day for 90 days Active Encounters Encounter Location Date Provider Diagnosis [facility] [address] [place] [phone] 01/25/2025 Jason Flaherty Plan Of Treatment Medication Medication Name Sig Start Date Stop Date Notes Omeprazole 20 MG TAKE 1 CAPSULE ONCE DAILY Orally Once a day for 90 days Progress Notes * MEMO UREÑADOB:[birth year] (69 yo F)Acc No.[id number]:01/25/2025 Patient:?MEMO UREÑA :1955???Age:69 Y???Sex:Female Address:[address] [place] [address] [place] [address] * Refills? Refill Omeprazole Capsule Delayed Release, 20 MG, Orally, 90, TAKE 1 CAPSULE ONCE DAILY, Once a day, 90 days, Refills=3 * true * Date:? Generated for Kb harris/Charli/eTransmitting on:?02/19/2025 03:36 PM EDT
--- OUTSIDE RECORDS SUMMARY | 2025-02-19 15:37 | XMS_ITS ---
Author Organization [facility] Address [address] [place] [address] Care Team Providers Care Phlebotomy Support Tech Name Role Phone Alannah LUNDBERG, Divina Dowd Primary Care Provider Un available Black, Kimberly Unavailable [phone] PericaSara Unavailable [phone] Allergies No Known Allergies REASON FOR VISIT [...] a day for 30 day(s) Active Ipratropium Cozad as needed Not-Taking Zinc 50 MG 1 [...] 01/16/2024 Encounters Encounter Location Date Provider Diagnosis [facility] [address] [address] 01/16/2024 Sara De La Cruz Pain in [...] * Yessy UREÑADOB:[birth year] (68 yo F)Acc No.[id number]:01/16/2024 Progress Note Patient:?Yessy Ureña Provider:?Sara De La Crzu DPM :1955???Age:68 Y???Sex:Female D ate:01/16/2024 Address:[address] [place] [address], [phone] Pcp:Christian Lombardi Subjective: * Chief Complaints: * [...] Procedure:?bronchitis for a 5 day stay in [facility] [place] 01/2012 * Family History:?Mother: dece ased, hypertension, [...] 2 children. ?no Exercise, swimming, volunter at [employer]. ?Marital status: . 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 * Medications:?TakingEye Drops Vitamin B12 Citalopram Hydrobromide [...] Cream 1 application Externally Twice a dayIpratropium Cozad as neededCalcium 1 tab Oral Citalopram & Diet Manage Prod 20mg Cozaar 50mg Medication List reviewed and reconciled with the patientNot- Taking/PRN Ciclopirox Olamine 0.77 % Cream 1 application Externally Twice a dayNot- Taking/PRN Ipratropium Cozad as neededNot-Taking/PRN Calcium 1 tab Oral Not-Taking/PRN [...] - M77.42? Plan: * Treatment: * Procedure Codes:?67705 X-RAY EXAM OF LEFT FOOT 3V, Modifiers: [...] off status: Completed true * Provider:?Sara De L aCruz DPM Date:? Generated for Kb harris/Charli/eTransmitting on:?02/19/2025 03:37 PM EDT History and Physical Notes * HPI [...]
--- OUTSIDE RECORDS SUMMARY | 2025-02-19 15:37 | XMS_ITS ---
Author Organization [facility] Address [address] [place] [address] Care Team Providers Care Toe Pounder Name Role Phone Alannah LUNDBERG, Divina Primary Care Provider Jason Lancaster [phone] REASON FOR VISIT r/f request omeprazole Encounters Encounter Location Date Provider Diagnosis [facility] [address] [place] [phone] 01/31/2024 Jason Flaherty Plan Of Treatment No Information Progress Notes * MEMO UREÑADOB:[birth year] (68 yo F)Acc No.[id number]:01/31/2024 Patient:?MEMO UREÑA :1955???Age:68 Y???Sex:Female Address:[address] [place] [address] [place] [address] * true * Date:? Generated for Printi steven/Charli/eTransmitting on:?02/19/2025 03:37 PM EDT
--- OUTSIDE RECORDS SUMMARY | 2025-02-19 15:37 | XMS_ITS | Patient Health Record ---
Author Organization [facility] Address [address] [address] Care Team Providers Care Motor Vehicle Clerk Name Role Phone Alannah LUNDBERG, Divina Dowd Primary Care Provider Un available Black, Kimberly Unavailable [phone] Perica, Sara Unavailable [phone] Allergies No Known Allergies Reason For Referral [...] day for 30 day(s) 11/05/2019 Active Ipratropium [place] as needed Not-Taking Citalopram Hydrobromide 40 MG [...] Risk Notes Problem Non-pressure ulcer lower limb (483572029) Non-pressure chronic ulcer of other part of right foot limited to breakdown of skin (L97.511) Active confirmed Problem Osteoarthritis of midtarsal joint of left foot (6046728261682452 ) Osteoarthritis of midtarsal joint of left foot (M19.072) Active confirmed Problem Osteoarthritis of midtarsal joint of right foot (8359674670391435 ) Osteoarthritis of midtarsal joint of right foot (M19.071) Active confirmed Vital Signs Blood pressure diastolic 80 mm Hg 10/23/2024 Height 5ft 4in in 10/23/2024 Blood pressure systolic 120 mm Hg 10/23/2024 Weight 315 lbs 10/23/2024 BMI 54.06 kg/m2 10/23/2024 Encounters Encounter Location Date Provider Diagnosis [facility] [address] [place] [address] 10/23/2024 Sara De La Cruz Pain in [...] X ray : Foot, right 3V 10/31/2022 [id number] NAIL, 1-5 12/04/2019 Insurance Providers Payer Name Payer Address Payer Phone Subscriber Number Group Number Insured Name Patient Relationship to Insured Coverage Start Date Coverage End Date Medicare [employer] [facility] [address] [place] [address] [id number] Yessy Dempsey Self - patient is the insured [employer] [facility] [address] [place] [address] [id number] Yessy Dempsey Self - patient is the insured Medical (General) History Medical History History ICD Code measles hypertension chicken pox Cholesterol Anxiety Depression Mumps Psoriasis/eczema Psychiatric disorder Warts Arthritis Back,Hip,and Knee pain Numbness Reflux ( GERD) Stomach ulcer Surgical History Surgery Date(Month/Year) wisdom teeth extraction colonoscopy Hospitalization History Reason Date(Month/Year) bronchitis for a 5 day stay in [place], [place] 01/2012
--- OUTSIDE RECORDS SUMMARY | 2025-02-19 15:37 | XMS_ITS | Encounter Summary ---
Author Organization [facility] Address [address] [place] [address] Care Team Providers Care Tar Heel Name Role Phone Divina Jaffe Md, MD Primary Care Provider Unavailable Tanna Oconnor MD Primary Care Provider Unavail able Encounter Details Date Type Department Care Team Description 12/24/2017 Release of Information Medical Records [address] [place] [id number] Abstract, Provider Social History Tobacco Use Types Packs/Day Years Used Date Smoking Tobacco: Former Smokeless Tobacco: Never Comments:only smoked for 2 y ears Sex Assigned at Date Recorded Not on file documented as of this encounter Plan of Treatment Not on file documented as of this encounter Visit Diagnoses Not on filedocumented in this encounter Care Teams [place] Relationship Specialty Start Date End Date Divina Jaffe MD, PCP - General Internal Medicine 12/18/17 1 01/01/18 Tanna Oconnor MD PCP - General Internal Medicine 11/01/18 documented as of this encounter
--- OUTSIDE RECORDS SUMMARY | 2025-02-19 15:37 | XMS_ITS | Clinical Summary ---
Author Organization [facility] Address [address] [place] [address] Care Team Providers Care Carton Repairer Name Role Phone Tanna Oconnor MD Primary Care Provider [phone] Surgical History Surgery Date Site/Laterality Comments COLONOSCOPY [...] obesity with BMI o f 50.0-59.9, adult ([facility]) Plantar fasciitis 10/25/2017 DX:Plantar fas ciitis; COMMENT: Dr Goldstien Pure hypercholesterolemia 10/25/2017 DX:Pur e hypercholesterolemia History [...] age to complete this topic Care Teams Carton Repairer Relationship Specialty Start Date End Date Tanna Oconnor MD PCP - General Internal Medicine 11/01/18
--- OUTSIDE RECORDS SUMMARY | 2025-02-19 15:37 | XMS_ITS | Encounter Summary ---
Author Organization [facility] Address [address] [place] [address] Care Team Providers Care Drafting Teacher Name Role Phone Divina Jaffe Md, MD Primary Care Provider Unavailable Tanna Oconnor MD Primary Care Provider Unavail able Reason for Visit * Reason Onset Date Comments Medication 08/13/2018 Encounter Details Date Type Department Care Team Description 08/13/2018 Telephone Pulmonology - [address] [place] [address] Fran Holder MD Medication Social History Tobacco Use Types Packs/Day Years Used Date Smoking Tobacco: Former Smokeless Tobacco: Never Comments:only smoked for 2 y ears Sex Assigned at Date Recorded Not on file documented as of this encounter Miscellaneous Notes * Telephone Encounter - Hawa Arreaga M.A. - 08/15/2018 3:50 PM EDT Called patient if she calls back please schedule nursing visit on a Sunday afternoon for EKG 2-3weeks from now. * Telephone Encounter - Ashleigh Taylor - 08/15/2018 12:06 PM EDT Patient returning call and can be reached at [phone] * Telephone Encounter - Hawa Arreaga M.A. - 08/14/2018 1:18 PM EDT Called patient lmom to call office. Needs nusring visit for EKG in 2-3 weeks. * Telephone Encounter - Fran Holder MD - 08/13/2018 5:05 PM EDT It is ok to use both. She will need to come in for an EKG. Have her come in in 2-3 weeks and check and check EKG then * Telephone Encounter - Hawa Arreaga M.A. - 08/13/2018 4:50 PM EDT Spoke to patient she said her other doctor renewed her citalopram but can cause arrythmia if used with azithromycin she wanted your thoughts on this. * Telephone Encounter - Ashleigh Taylor - 08/13/2018 3:46 PM EDT Patient is taking azithromycin and citalopram Information she is receiving is that these two medications are not compatible Asking to speak with provider documented in this encounter Plan of Treatment Not on file documented as of this encounter Visit Diagnoses Not on filedocumented in this encounter Care Teams Drafting Teacher Relationship Specialty Start Date End Date Divina Jaffe MD, MD PCP - General Internal Medicine 12/18/17 1 01/01/18 Tanna Oconnor MD PCP - General Internal Medicine 11/01/18 documented as of this encounter
--- OUTSIDE RECORDS SUMMARY | 2025-02-19 15:37 | XMS_ITS ---
Author Organization [facility] Address [address] [place] [address] Care Team Providers Care Legal Manager Name Role Phone Alannah LUNDBERG, Divina Dowd Primary Care Provider Un available Black, Kimberly Unavailable [phone] Pericisrrael Sara Unavailable [phone] Allergies No Known Allergies REASON FOR VISIT Pcp- 09/11, Foot pain, Fungal Nails Medications Medication SIG (Take, Route, Frequency, Duration) Notes Start Date End Date Status Cozaar 50mg Not-Taki ng Citalopram & Diet Manage Prod 20mg Not-Taking Calcium 1 tab Oral for 14 days Not-Taking Ipratropium [place] as needed Not-Taking Ciclopirox Olamine 0.77 % [...] Osteoarthritis of midtarsal joint of left foot (5553923159949040 ) Osteoarthritis of midtarsal joint of left foot (M19.072) Active confirmed Problem Osteoarthritis of midtarsal joint of right foot (9823817238925284 ) Osteoarthritis of midtarsal joint of right foot (M19.071) Active confirmed Vital Signs Height 5ft 4in in 10/23/2024 Weight 315 lbs 10/23/2024 BMI 54.06 kg/m2 10/23/2024 Blood pressure systolic 120 mm Hg 10/23/20 24 Blood pressure diastolic 80 mm Hg 024 Encounters Encounter Location Date Provider Diagnosis [facility] [address] 10/23/2024 Sara Perica Pain in left foot [...] Yessy UREÑA JDOB:[birth year] (69 yo F)Acc No.[id number]:10/23/2024 Progress Note Patient:?NIRANJAN Yessy Monte Provider:?Sara De La Cruz DPM :1955???Age:69 Y???Sex:Female D ate:10/23/2024 Address:[address] [place] [id number] Pcp:Christian Lombardi Subjective: * Chief Complaints: * [...] for a 5 day stay in [facility], [place] 01/2012 * Family History:?Mother: dece ased, hypertension, [...] swimming, PT. ?Marital status: . 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 ???Drug/Alcohol:?AUDIT-C (Standard)?Did you have a drink containing [...] 1 application Externally Twice a day Ipratropium [place] as needed Calcium 1 tab Oral Citalopram & Diet Manage Prod 20mg Cozaar 50mg Medication List reviewed and reconciled with the patientNot-Taking/PRN Ciclopirox Olamine 0.77 % Cream 1 application Externally Twice a day Not-Taking/PRN Ipratropium [place] as needed Not-Taking/PRN Calcium 1 tab Oral [...] Foot, AP, LAT, LO, B/L??Taken by trained?Podiatric Health Care Marketing Specialist (?MB).?Findings:?normal bone and soft tissue density consistent [...] ray : Foot, right 3V * Procedure Codes:?69484 X-RAY EXAM OF LEFT FOOT 3V, Modifiers: 26 , UC85235 X-RAY EXAM OF RIGHT FOOT 3V, Modifiers: [...] exercise to failure, expense, systemic complications, infection, [id number], prolongued postop course. Patient questions re: the various treatment options available, their successes and potential failures, and termite exterminator helper effects were discussed and the answers were [...] Completed true * Provider:Johana De La Cruz, CARLYLEM Date:?03/2024 Generated for Printi ng/Faxing/eTransmitting on:?02/19/2025 03:37 PM EDT History and Physical [...] LAT, LO, B/L Taken by trained Podiatric Health Care Marketing Specialist ( MB) Clinical Indication(s): Evaluate for Fra cture, Evaluate Biomechanical Deformity
--- OUTSIDE RECORDS SUMMARY | 2025-02-19 15:37 | XMS_ITS | Patient Health Record ---
Author Organization [facility] Address [address] [place] [address] Care Team Providers Care High School French Teacher Name Role Phone Alannah LUNDBERG, Divina Primary Care Provider Jason Lancaster Unavailable [phone] Reason For Referral No Information Medications Medication [...] a day for 30 day(s) Active Ipratropium [place] HFA 17 MCG/ACT 2 puffs Inhalation prn [...] Problem Status W/U Status Risk Notes Problem 919289355 Encounter for screening for malignant neoplasm of colon (Z12.11) Active confirmed Problem 78953831 Acute gastric ul cer without hemorrhage or perforation (K25.3) Active confirmed Problem 592618838 Gastroesophageal reflux disease, esophagitis presence not specified (K21.9) Active confirmed Problem 85539369 Erosive esophagi tis (K22.10) Active confirmed Problem 61120449 Chest pain, unspecified type (R07.9) Active confirmed Encounters Encounter Location Date Provider Diagnosis [facility] [address] [place] [address] 01/25/2025 Jason Flaherty Plan Of Treatment Future Test Test Name Order Date UPPER GI ENDOSCOPY 12/04/2018 COLONOSCOPY 12/04/2018 Insurance Providers Payer Name Payer Address Payer Phone Subscriber Number Group Number Insured Name Patient Relationship to Insured Coverage Start Date Coverage End Date MEDICARE OF [place] [address] [place] [address] [id number] MEMO UREÑA Self - patient is the insured MEDEX ATTN CLAIMS [address] [place] [phone] [id number] MEMO UREÑA Self - patient is the insured Medical (General) History Medical History History ICD Code Colonoscopies 02-06-2000 and 03/2008 were both negative Anxiety HTN Elevated cholesterol Denies CO,DM,CVA,Lung disease,renal dise ase [place] [facility] [place] Sleep apnea--not using CPAP Pneumonia [...]
== END 2025-02-19 14:49 | disposition home or self-care (01) ==
PROVIDERS: PCP Internal Medicine; Visit Provider Nurse Practitioner Family
DX: I35.0 Nonrheumatic aortic (valve) stenosis (principal); I10 Essential (primary) hypertension; E78.5 Hyperlipidemia, unspecified; E66.01 Morbid (severe) obesity due to excess calories; G47.33 Obstructive sleep apnea (adult) (pediatric); R73.01 Impaired fasting glucose
CPT/HCPCS: 93010; 99214; G2211

== ENCOUNTER → 2025-02-19 14:09 | Outpatient (BNVA) | payer MEDICARE, SELFPAY | PROVIDERS: PCP Internal Medicine; Visit Provider Nurse Practitioner Family | DX: I10 Essential (primary) hypertension (principal); I35.0 Nonrheumatic aortic (valve) stenosis; E78.5 Hyperlipidemia, unspecified; G47.33 Obstructive sleep apnea (adult) (pediatric); R73.01 Impaired fasting glucose; E66.01 Morbid (severe) obesity due to excess calories; Z68.43 Body mass index [BMI] 50.0-59.9, adult | CPT/HCPCS: 93005; 99212 ==

== ENCOUNTER 2025-03-09 14:57 | Outpatient (AMB) | payer MEDICARE, SELFPAY ==
--- OUTSIDE RECORDS SUMMARY | 2025-03-09 15:00 | XMS_ITS ---
Author Organization [facility] Address [address] [place] [address] Care Team Providers Care Executor Of Estate Name Role Phone Alannah LUNDBERG, Divina Primary Care Provider Jason Lancaster [phone] REASON FOR VISIT r/f request omeprazole Encounters Encounter Location Date Provider Diagnosis [facility] [address] [place] [address] 01/31/2024 Jason Flaherty Plan Of Treatment Next Appt Details Provider Name:Jason Flaherty , 03/27/2025 03:00:00 PM, [address], [address], [place], [address], Progress Notes * MEMO UREÑADOB:[birth year] (68 yo F)Acc No.[id number]:01/31/2024 Patient:?MEMO UREÑA :1955???Age:68 Y???Sex:Female Address:[address] [place] [address], [place] [address] * true * Date:? Generated for Printi ng/Faxing/eTransmitting on:?03/09/2025 02:59 PM EDT
--- OUTSIDE RECORDS SUMMARY | 2025-03-09 15:00 | XMS_ITS ---
Author Organization [facility] Address [address] [place] [address] Care Team Providers Care Gold Leaf Gilder Name Role Phone Alannah LUNDBERG, Divina Primary Care Provider Jason Lancaster [phone] REASON FOR VISIT 90 day supply of medicine Medications Medication SIG (Take, Route, Fr equency, Duration) Notes Start Date End Date Status Omeprazole 20 MG TAKE 1 CAPSULE ONCE DAILY Orally Once a day for 90 days Active Encounters Encounter Location Date Provider Diagnosis [facility] [address] [place] [address] 01/31/2024 Jason Flaherty Plan Of Treatment Medication Medication Name Sig Start Date Stop Date Notes Omeprazole 20 MG TAKE 1 CAPSULE ONCE DAILY Orally Once a day for 90 days Next Appt Details Provider Name:Jason Flaherty , 03/27/2025 03:00:00 PM, [address] [place] [address], [address], [place], [address], Progress Notes * MEMO UREÑADOB:[birth year] (68 yo F)Acc No.[id number]:01/31/2024 Patient:?MEMO UREÑA :1955???Age:68 Y???Sex:Female Address:[address] [place] [address] * Refills? Refill Omeprazole Capsule Delayed Release, 20 MG, Orally, 90, TAKE 1 CAPSULE ONCE DAILY, Once a day, 90 days, Refills=3 * true * Date:? Generated for Kb harris/Charli/Orionitting on:?03/09/2025 02:59 PM EDT
--- OUTSIDE RECORDS SUMMARY | 2025-03-09 15:00 | XMS_ITS ---
Author Organization [facility] Address [address] [place] [address] Care Team Providers Care Vocational Rehabilitation Counselor Name Role Phone Alannah LUNDBERG, Divina Dowd Primary Care Provider Un available Black, Kimberly Unavailable [phone] PericaSara Unavailable [phone] Allergies No Known Allergies REASON FOR VISIT [...] a day for 30 day(s) Active Ipratropium [place] as needed Not-Taking Zinc 50 MG 1 [...] 01/16/2024 Encounters Encounter Location Date Provider Diagnosis [facility] [address] [address] 01/16/2024 Sara De La Cruz Pain in [...] * Yessy UREÑADOB:[birth year] (68 yo F)Acc No.[id number]:01/16/2024 Progress Note Patient:?Yessy Ureña Provider:?Sara De La Cruz DPM :1955???Age:68 Y???Sex:Female D ate:01/16/2024 Address:[address] [place] [address], [place] Pcp:Christian Lombardi Subjective: * Chief Complaints: * [...] for a 5 day stay in [facility], [place] 01/2012 * Family History:?Mother: dece ased, hypertension, [...] 2 children. ?no Exercise, swimming, volunter at [employer]. ?Marital status: . 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 * Medications:?TakingEye Drops Vitamin B12 Citalopram [...] Cream 1 application Externally Twice a dayIpratropium [place] as neededCalcium 1 tab Oral Citalopram & Diet Manage Prod 20mg Cozaar 50mg Medication List reviewed and reconciled with the patientNot- Taking/PRN Ciclopirox Olamine 0.77 % Cream 1 application Externally Twice a dayNot- Taking/PRN Ipratropium [place] as neededNot-Taking/PRN Calcium 1 tab Oral Not-Taking/PRN [...] - M77.42? Plan: * Treatment: * Procedure Codes:?86252 X-RAY EXAM OF LEFT FOOT 3V, Modifiers: [...] Cruz DPM Date:? Generated for Kb harris/Charli/eTransmitting on:?03/09/2025 03:00 PM EDT History and Physical Notes * [...]
--- OUTSIDE RECORDS SUMMARY | 2025-03-09 15:01 | XMS_ITS ---
Author Organization [facility] Address [address] [place] [address] Care Team Providers Care Residential Property Manager Name Role Phone Alannah LUNDBERG, Divina Primary Care Provider Jason Lancaster [phone] REASON FOR VISIT Omeprazole Rx Medications Medication SIG (Take, Route, Fr equency, Duration) Notes Start Date End Date Status Omeprazole 20 MG TAKE 1 CAPSULE ONCE DAILY Orally Once a day for 90 days Active Encounters Encounter Location Date Provider Diagnosis [facility] [address] [address] 01/25/2025 Jason Flaherty Plan Of Treatment Medication Medication Name Sig Start Date Stop Date Notes Omeprazole 20 MG TAKE 1 CAPSULE ONCE DAILY Orally Once a day for 90 days Next Appt Details Provider Name:Jason Flaherty , 03/27/2025 03:00:00 PM, [address] [place] [address], Suite [facility], [place], [address], Progress Notes * MEMO UREÑADOB:[birth year] (69 yo F)Acc No.[id number]:01/25/2025 Patient:?MEMO UREÑA :1955???Age:69 Y???Sex:Female Address:[address] [place] [address] * Refills? Refill Omeprazole Capsule Delayed Release, 20 MG, Orally, 90, TAKE 1 CAPSULE ONCE DAILY, Once a day, 90 days, Refills=3 * true * Date:? Generated for Kb harris/Charli/Brittani on:?03/09/2025 03:00 PM EDT
--- OUTSIDE RECORDS SUMMARY | 2025-03-09 15:01 | XMS_ITS ---
Author Organization [facility] Address [address] [place] [address] Care Team Providers Care Derrick Boat Leverman Name Role Phone Alannah LUNDBERG, Divina Dowd Primary Care Provider Un available Black, Kimberly Unavailable [phone] Pericisrrael Sara Unavailable [phone] Allergies No Known Allergies REASON FOR VISIT Pcp- 09/11, Foot pain, Fungal Nails Medications Medication SIG (Take, Route, Frequency, Duration) Notes Start Date End Date Status Cozaar 50mg Not-Taki ng Citalopram & Diet Manage Prod 20mg Not-Taking Calcium 1 tab Oral for 14 days Not-Taking Ipratropium [place] as needed Not-Taking Ciclopirox Olamine 0.77 % [...] Osteoarthritis of midtarsal joint of left foot (6638727730237670 ) Osteoarthritis of midtarsal joint of left foot (M19.072) Active confirmed Problem Osteoarthritis of midtarsal joint of right foot (8864768844450618 ) Osteoarthritis of midtarsal joint of right foot (M19.071) Active confirmed Vital Signs Height 5ft 4in in 10/23/2024 Weight 315 lbs 10/23/2024 BMI 54.06 kg/m2 10/23/2024 Blood pressure systolic 120 mm Hg 10/23/20 24 Blood pressure diastolic 80 mm Hg 024 Encounters Encounter Location Date Provider Diagnosis [facility] [address] 10/23/2024 Sara Perica Pain in left foot [...] Yessy UREÑA JDOB:[birth year] (69 yo F)Acc No.[id number]:10/23/2024 Progress Note Patient:?NIRANJAN Yessy Monte Provider:?Sara De La Cruz DPM :1955???Age:69 Y???Sex:Female D ate:10/23/2024 Address:[address] [place] [address] Pcp:Christian Lombardi Subjective: * Chief Complaints: * [...] Procedure:?bronchitis for a 5 day stay in [facility], [place] 01/2012 * Family History:?Mother: dece ased, hypertension, [...] swimming, PT. ?Marital status: . 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 ???Drug/Alcohol:?AUDIT-C (Standard)?Did you have a drink [...] 1 application Externally Twice a day Ipratropium [place] as needed Calcium 1 tab Oral Citalopram & Diet Manage Prod 20mg Cozaar 50mg Medication List reviewed and reconciled with the patientNot-Taking/PRN Ciclopirox Olamine 0.77 % Cream 1 application Externally Twice a day Not-Taking/PRN Ipratropium [place] as needed Not-Taking/PRN Calcium 1 tab Oral [...] Foot, AP, LAT, LO, B/L??Taken by trained?Podiatric Principal Android Developer (?MB).?Findings:?normal bone and soft tissue density consistent [...] ray : Foot, right 3V * Procedure Codes:?51931 X-RAY EXAM OF LEFT FOOT 3V, Modifiers: 26 , TP37312 X-RAY EXAM OF RIGHT FOOT 3V, Modifiers: [...] exercise to failure, expense, systemic complications, infection, [id number], prolongued postop course. Patient questions re: the various treatment options available, their successes and potential failures, and mcc effects were discussed and the answers were [...] Cruz, CARLYLEM Date:?03/2024 Generated for Printi ng/Faxing/eTransmitting on:?03/09/2025 03:00 PM EDT History and Physical [...] LAT, LO, B/L Taken by trained Podiatric Principal Android Developer ( MB) Clinical Indication(s): Evaluate for Fra cture, Evaluate Biomechanical Deformity
--- OUTSIDE RECORDS SUMMARY | 2025-03-09 15:01 | XMS_ITS | Patient Health Record ---
Author Organization [facility] Address [address] [place] [address] Care Team Providers Care Bi Analyst Name Role Phone Alannah LUNDBERG, Divina Dowd Primary Care Provider Un available Black, Kimberly Unavailable [phone] Perica, Sara Unavailable [phone] Allergies No Known Allergies Reason For Referral [...] day for 30 day(s) 11/05/2019 Active Ipratropium [place] as needed Not-Taking Citalopram Hydrobromide 40 MG [...] Risk Notes Problem Non-pressure ulcer lower limb (843235088) Non-pressure chronic ulcer of other part of right foot limited to breakdown of skin (L97.511) Active confirmed Problem Osteoarthritis of midtarsal joint of left foot (0598654814150249 ) Osteoarthritis of midtarsal joint of left foot (M19.072) Active confirmed Problem Osteoarthritis of midtarsal joint of right foot (0636895413441981 ) Osteoarthritis of midtarsal joint of right foot (M19.071) Active confirmed Vital Signs Blood pressure diastolic 80 mm Hg 10/23/2024 Height 5ft 4in in 10/23/2024 Blood pressure systolic 120 mm Hg 10/23/2024 Weight 315 lbs 10/23/2024 BMI 54.06 kg/m2 10/23/2024 Encounters Encounter Location Date Provider Diagnosis [facility] [address] [place] [address] 10/23/2024 Sara De La Cruz Pain in [...] left 3V 10/23/2024 X ray : Foot, left 3V 01/16/2024 X ray : Foot, left 3V 08/16/2011 X ray : Foot, right 3V 08/16/2011 X ray : Foot, right 3V 10/23/2024 X ray : Foot, right 3V 10/31/2022 [id number] NAIL, 1-5 12/04/2019 Insurance Providers Payer Name Payer Address Payer Phone Subscriber Number Group Number Insured Name Patient Relationship to Insured Coverage Start Date Coverage End Date Medicare [facility] [address] [place] [address] [id number] Yessy Dempsey Self - patient is the insured Medex [facility] [address] [place] [address] [id number] Yessy Dempsey Self - patient is the insured Medical (General) History Medical History History ICD Code measles hypertension chicken pox Cholesterol Anxiety Depression Mumps Psoriasis/eczema Psychiatric disorder Warts Arthritis Back,Hip,and Knee pain Numbness Reflux ( GERD) Stomach ulcer Surgical History Surgery Date(Month/Year) wisdom teeth extraction colonoscopy Hospitalization History Reason Date(Month/Year) bronchitis for a 5 day stay in [place], [place] 01/2012
--- OUTSIDE RECORDS SUMMARY | 2025-03-09 15:01 | XMS_ITS | Clinical Summary ---
Author Organization [facility] Address [address] [place] [address] Care Team Providers Care Superintendent Generating Plant Name Role Phone Tanna Oconnor MD Primary Care Provider [phone] Surgical History Surgery Date Site/Laterality Comments COLONOSCOPY PROCEDURE: HISTORICAL COLONOSCOPY Medical History Medical History Date Comments Allergic rhinitis 10/25/2017 DX:Allergic rh initis Anxiety 10/25/2017 DX:Anxiety; COMM ENT: Dr Agustin Alvarez Depression 10/25/2017 DX:Depression Hemorrhoids 10/25/2017 DX:Hemorrhoids HTN (hypertension) 10/25/2017 DX:HTN (hyper tension) Iron deficiency anemia 10/25/2017 DX:Iron d eficiency anemia Morbid obesity with BMI of 5 0.0-59.9, adult (CMS/HCC V24, CMS/HCC V28) 10/25/2017 DX:Morbid obesity wit h BMI of 50.0-59.9, adult (HCC) Plantar fasciitis 10/25/2017 DX:Plantar fas ciitis; COMMENT: [...] - 2023-2 5 season) 2024 Influenza Vaccine (Season Ended) 2025 DTaP,Tdap,and Td Vaccines (3 - Td or [...] age to complete this topic Meningococcal B Vaccine Aged Out No l onger eligible based on patient's age to complete this topic RSV Immunization Patients Under 20 months Aged Out No longer eligible b ased on patient's age to complete this topic Varicella Vaccines Aged Out No longer eligible based on patient's age to complete this topic Care Teams Superintendent Generating Plant Relationship Specialty Start Date End Date Tanna Oconnor MD PCP - General Internal Medicine 11/01/18
--- NOTE | 2025-03-09 15:08 | AM.OFFWIN_ITS ---
Intake Vital Signs 03/09/25 15:11 Weight 332 lb BP 130/74 Blood Pressure Location Lt brachial Position Sitting Pulse 64 Pulse Source Pulse Oximeter Temp 98 F Temp Source Oral Pulse Oximetry (%) 98 Oxygen Delivery Method Room Air Intake Visit Reasons: EP Bronchitis? Intake Note: Patient here for deep cough and wheezing that has been present for a couple of weeks. Patient Tobacco Use Status: Never used Tobacco Allergies No Known Allergies [No Known Allergies*] Allergy (Verified 03/09/25 15:09) Do you need a note to return to daycare/school/sports/work: No HPI HPI Comments History of Present Illness Details History - The patient is a 70-year-old female pr esenting with a chronic cough and difficulty sleeping due to the cough. - The cough began a few weeks to a month ago, related to a sensation mikaela to a crumb in her throat, initially relieved by water or time but now occurring daily and lasting longer in recent weeks. - Symptoms include a need to sleep in an elevated position for relief and morning wheezing that resolves on sitting up. 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 - Despite previous smoking history x1 ye ar, she quit over sixty years ago. - Attempts to manage the cough with cold syrup and cough drops have provided limited benefit. - Upper endoscopy referral to Dr. Flaherty has not been scheduled. - symptom exacerbation when lying flat. - Denies shortness of breath, chest or h ead congestion, sinus pain, ear pain, fevers. Physical Exam General: Cooperative, healthy appearing, comfortable and no acute distress Orientation/consciousness: Patient oriented x3 Limitations: No limitations Head: Normal to inspection Ears: Hearing grossly normal bilaterally, external ears normal, fluid present right TM, left TM normal Nose: Normal external nose present, Normal nares present and No nasal discharge present Face and sinus: Normal facial exam and Yes sinuses nontender Mouth: Normal oral and palatal mucosa present and moist mucous membranes Throat: Yes tonsils normal, Yes uvula midline. Posterior oropharynx normal appearing Eyes: Appearance normal, both eyes and all related structures Neck: Normal visual inspection Respiratory: Clear to auscultation bilaterally. Normal respiratory effort, able to speak in complete sentences, no respiratory distress, not tachypneic, no tripod positioning and no use of accessory muscles Cardiovascular: Regular rate and rhythm. Normal S1 and S2 Skin: No rashes or lesions noted Neuro: Patient oriented x3 Extremities: Normal to inspection and Yes no clubbing, cyanosis or edema PFSH Medical History (Updated 03/09/25 @ 15:48 by Ángela Underwood PA-C) Osteopenia of left femoral neck Recurrent urinary tract infection SULLY (stress urinary incontinence, female) Obstructive sleep apnea of adult Depression Plantar fasciitis GERD with esophagitis Mild intermittent asthma in adult without complication Allergic rhinitis Essential hypertension Impaired fasting glucose Dyslipidemia Morbid obesity Menopause Vitamin D deficiency Surgical History No pertinent past surgical history Family History Father Lung cancer Unknown family medical history Mother HTN (hypertension) Hyperlipidemia Mental health disorder Brother Substance use disorder Sister Mental health disorder Son No problems noted. Son No problems noted. Social History Housing: House Alcohol intake: never Patient Tobacco Use Status: Never used Tobacco e-Cigarette/Vaping Use: Never Used Second Hand Smoke Exposure: No service: No Current occupational status: unemployed Cognitive needs: No Hearing needs: No Vision needs: Yes (Glasses) Review of Systems Const All systems reviewed & are unremarkable except as noted in HPI and below Physical Exam Vital Signs: Last Vital Signs Temp 98 F 03/09/25 15:11 Pulse 64 03/09/25 15:11 BP 130/74 03/09/25 15:11 Pulse Ox 98 03/09/25 15:11 Oxygen Delivery Method Room Air 03/09/25 15:11 Assessment & Plan Assessment & Plan (1) Cough: Code(s): R05.9 - Cough, unspecified Qualifiers: Cough type: subacute Qualified Code(s): R05.2 - Subacute cough Plan: VSS, pt well appearing and PE unremarkable. Unlikely URI, though considered and a chest x-ray will be conducted to rule out any acute pulmonary issues. The chronic cough is likely attributed to Gastroesophageal Reflux Disease GERD, exacerbated by lying flat. Due to the persistence and progression of symptoms, I recommend adding Pepcid famotidine to her regimen alongside her current omeprazole to better manage reflux. I have advised the patient to contact Dr. Flaherty regarding the potential need for a bronchoscopy and further evaluation of her esophagus via upper endoscopy to assess for reflux-related damage. The patient understands the management plan and the importance of follow-up care. Patient was informed and verbally consented to the use of an ambient scribe for clinic note documentation during this visit Orders: Orders XR chest 2V Today R05.9 - Cough, unspecified Coding Level of Care Code Est Pt Level 4 (63900) Diagnoses Subacute cough R05.2 Cough type: subacute
[2025-03-09 15:11] VITALS: BP 130/74; PULSE 64; TEMP 36.6; O2SAT 98
== END 2025-03-09 15:43 | disposition home or self-care (01) ==
PROVIDERS: PCP Internal Medicine; Visit Provider Physician Assistant
DX: R05.2 Subacute cough (principal)

== ENCOUNTER 2025-03-09 14:57 | Outpatient (REF) | payer MEDICARE, SELFPAY ==
--- NOTE | ~2025-03-09 | XR_ITS ---
CLINICAL HISTORY: R05.9 - Cough, unspecified Two views of the chest. Findings: Heart size is upper limits of normal. No consolidation or pleural effusion is seen. There is mild scarring or atelectasis in the left lung. Impression: No consolidation. This document has been electronically signed by: Mayur Mustafa MD on 03/09/2025 17:17:20
--- OUTSIDE RECORDS SUMMARY | 2025-03-09 15:41 | XMS_ITS | Encounter Summary ---
Author Organization [facility] Address [address] [place] [address] Care Team Providers Care Operator Ground Based Air Defence Name Role Phone Divina Jaffe Md, MD Primary Care Provider Unavailable Tanna Oconnor MD Primary Care Provider Unavail able Reason for Visit * Reason Onset Date Comments TEST RESULTS 04/04/2018 Encounter Details Date Type Department Care Team Description 04/04/2018 Telephone Pulmonology - [address] [place] [phone] Vita Rasmussen NP TEST RESULTS Social History Tobacco Use Types Packs/Day Years Used Date Smoking Tobacco: Former Smokeless Tobacco: Never Comments:only smoked for 2 y ears Sex Assigned at Date Recorded Not on file documented as of this encounter Miscellaneous Notes * Telephone Encounter - Vita Rasmussen NP - 04/04/2018 2:17 PM EDT I called and spoke directly to the patient Informed of Chest X-ray results showing no acute pulmonary disease Encouraged to notify our office or present to the emergency room should her symptoms not improve worsen or new or worsening symptoms develop * Telephone Encounter - Marcela De Souza - 04/04/2018 12:21 PM EDT Pt returned call. Please call her back she states a voicemail message can be left in unavailable. * Telephone Encounter - Vita Rasmussen NP - 04/04/2018 11:44 AM EDT I called at 11:44am on 04/04/2018 left message for patient to call back * Telephone Encounter - Diane Henao M.A. - 04/04/2018 9:55 AM EDT Results printed * Telephone Encounter - Alicia Molina - 04/04/2018 9:14 AM EDT Inform patient: ANY URGENT OR ABNORMAL RESULTS WIILL RESULT IN A CALL BACK TO THE PATIENT ANNIKA. Type of test: :chest Xray Date test was performed: 04/03/18 Where was the test performed: [address] [place] [address] Who ordered this test?: Vita Is the doctor here today?: YES Can the message wait until the doctor returns?: YES IF PATIENT'S PCP IS NOT IN INSTRUCT PATIENT THAT THEY WILL RECEIVE A CALL BACK WHEN THE PCP IS IN THE OFFICE NEXT. documented in this encounter Plan of Treatment Not on file documented as of this encounter Visit Diagnoses Not on filedocumented in this encounter Care Teams Operator Ground Based Air Defence Relationship Specialty Start Date End Date Divina Jaffe MD, MD PCP - General Internal Medicine 12/18/17 1 01/01/18 Tanna Oconnor MD PCP - General Internal Medicine 11/01/18 documented as of this encounter
--- OUTSIDE RECORDS SUMMARY | 2025-03-09 15:41 | XMS_ITS | Encounter Summary ---
Author Organization [facility] Address [address] [place] [address] Care Team Providers Care Finance Mgr Name Role Phone Tanna Oconnor MD Primary Care Provider Unavail able Reason for Visit * Reason Onset Date Comments Faxed Refill 02/06/2019 Encounter Details Date Type Department Care Team Description 02/06/2019 Refill Pulmonology - [address] [place] [phone] Fran Holder MD Faxed Refill Social History [...] NO Patients current insurance carrier is: Payor: MEDICARE-Kaai / Plan: MEDICARE-Kaai / Product Type: MEDICARE [id number] documented in this encounter Plan of Treatment Not on file documented as of this encounter Visit Diagnoses Diagnosis Wheezing documented in this encounter Care Teams Finance Mgr Relationship Specialty Start Date End Date Tanna Oconnor MD PCP - General Internal Medicine 11/01/18 documented as of this encounter
--- OUTSIDE RECORDS SUMMARY | 2025-03-09 15:41 | XMS_ITS | Patient Health Record ---
Author Organization [facility] Address [address] [place] [address] Care Team Providers Care Customer Service Advocate Name Role Phone Alannah LUNDBERG, Divina Primary Care Provider Jason Lancaster Unavailable [phone] Reason For Referral No Information Medications Medication [...] a day for 30 day(s) Active Ipratropium [place] HFA 17 MCG/ACT 2 puffs Inhalation prn [...] Problem Status W/U Status Risk Notes Problem 216267535 Encounter for screening for malignant neoplasm of colon (Z12.11) Active confirmed Problem 89506829 Acute gastric ul cer without hemorrhage or perforation (K25.3) Active confirmed Problem 742124214 Gastroesophageal reflux disease, esophagitis presence not specified (K21.9) Active confirmed Problem 69296692 Erosive esophagi tis (K22.10) Active confirmed Problem 08779259 Chest pain, unspecified type (R07.9) Active confirmed Encounters Encounter Location Date Provider Diagnosis [facility] [address] [place] [address] 01/25/2025 Jason Flaherty Plan Of Treatment Future Test Test Name Order Date UPPER GI ENDOSCOPY 12/04/2018 COLONOSCOPY 12/04/2018 Next Appt Details Provider Name:Jason Flaherty , 03/27/2025 03:00:00 PM, [address], [address], [place], [address], Insurance Providers Payer Name Payer Address Payer Phone Subscriber Number Group Number Insured Name Patient Relationship to Insured Coverage Start Date Coverage End Date MEDICARE OF [place] [address] [place] [address] [phone] [id number] MEMO UREÑA Self - patient is the insured MEDEX ATTN CLAIMS [address] [place] [address] [id number] MEMO UREÑA Self - patient is the insured Medical (General) History Medical History History ICD Code Colonoscopies 02-06-2000 and 03/2008 were both negative Anxiety HTN Elevated cholesterol Denies NE,DM,CVA,Lung disease,renal dise ase [place] [facility] Sleep apnea--not using CPAP Pneumonia [...]
--- OUTSIDE RECORDS SUMMARY | 2025-03-09 15:41 | XMS_ITS | Encounter Summary ---
Author Organization [facility] Address [address] [place] [address] Care Team Providers Care Mixer Operator Name Role Phone Divina Jaffe Md, MD Primary Care Provider Unavailable Tanna Oconnor MD Primary Care Provider Unavail able Reason for Visit * Reason Onset Date Comments Sleep Study 07/18/2018 please move up a ppt if able, tx Encounter Details Date Type Department Care Team Description 07/18/2018 Telephone Pulmonology - [address] [place] [address] Fran Holder MD Sleep Study (please move up appt if able, tx) Social History Tobacco Use Types Packs/Day Years Used Date Smoking Tobacco: Former Smokeless Tobacco: Never Comments:only smoked for 2 y ears Sex Assigned at Date Recorded Not on file documented as of this encounter Miscellaneous Notes * Telephone Encounter - Fran Holder MD - 07/18/2018 11:55 AM EDT ok * Telephone Encounter - Alicia Molina - 07/18/2018 11:45 AM EDT Pt said she cant come in today at 2:45 and I don't have anything other then that for awhile * Telephone Encounter - Hawa Arreaga M.A. - 07/18/2018 9:41 AM EDT Called patient.lmess to call office for sooner appt. * Telephone Encounter - Fran Holder MD - 07/18/2018 8:17 AM EDT ----- Message from OBINNA Awad sent at 07/17/2018 9:15 PM EDT ----- Mild ARCHIE. Patient of Dr Holder at [address]. Currently scheduled for FU 09/02/2018. Copy to ordering provider. -- PLEASE NOTE patient sent a Jawfish [employer]est message today inquiring about results. documented in this encounter Plan of Treatment Not on file documented as of this encounter Visit Diagnoses Not on filedocumented in this encounter Care Teams Mixer Operator Relationship Specialty Start Date End Date Divina Jaffe MD, MD PCP - General Internal Medicine 12/18/17 1 01/01/18 Tanna Oconnor MD PCP - General Internal Medicine 11/01/18 documented as of this encounter
--- OUTSIDE RECORDS SUMMARY | 2025-03-09 15:41 | XMS_ITS | Clinical Summary ---
Author Organization [facility] Address [address] [place] [address] Care Team Providers Care Acute Care Certified Nursing Assistant Name Role Phone Tanna Oconnor MD Primary [...] age to complete this topic Care Teams Acute Care Certified Nursing Assistant Relationship Specialty Start Date End Date Tanna Oconnor MD PCP - General Internal Medicine 11/01/18
--- OUTSIDE RECORDS SUMMARY | 2025-03-09 15:41 | XMS_ITS | Encounter Summary ---
Author Organization [facility] Address [address] [place] [address] Care Team Providers Care Shop Lead Name Role Phone Divina Jaffe Md, MD Primary Care Provider Unavailable Tanna Oconnor MD Primary Care Provider Unavail able Reason for Visit * Reason Onset Date Comments Medication 08/13/2018 Encounter Details Date Type Department Care Team Description 08/13/2018 Telephone Pulmonology - [address] [place] [address] Fran Holder MD Medication Social [...] returning call and can be reached at [phone] * Telephone Encounter - Hawa Arreaga M.A. [...] on filedocumented in this encounter Care Teams Shop Lead Relationship Specialty Start Date End Date Divina Jaffe MD, MD PCP - General Internal Medicine 12/18/17 1 01/01/18 Tanna Oconnor MD PCP - General Internal Medicine 11/01/18 documented as of this encounter
--- OUTSIDE RECORDS SUMMARY | 2025-03-09 15:42 | XMS_ITS | Data Portability ---
Author Organization [place] [facility] Address [address] [place] [address] Care Team Providers Care Health Education Coordinator Name Role Phone HAL LION Primary Care Provider Assessment No assessment recorded. Plan of Treatment Reminders Order Date Submit Date Provider Last Modified By Organization Details Last Modified Time Details Appointments NEW PATIENT 15 2024 01:45P M Ronnie Chan MD Not available Not available Not available POST OP 15 2024 01:00P M Justyna Noel CNP Not available Not available Not available Lab None recorded . Referral physical therapis t referral - katie knee o.a 2023 024 rmessenger Not available 09/10/2024 15:50:42 Procedures None recorded . Surgeries None recorded . Imaging XR, knee, 4 or more view - rm 112 katie knee 4v 2023 024 rmessenger [facility], [address] [facility] [address], [place], [address], 09/10/2024 15:50:42 Medication Orders None recorded . [...] a4ajBk vP9nXo QUaueC m3YtLR FvZlgJ JJ8mAn HZtai3 9y0810 AC0Kqa 36GU6a lKiQtr MwF INTERFACE [facility] [address], [place], [address], 08/25/2024 10:20:30 08/25/20 24 08/25/2024 XR, knee, 4 or more view http:/ [email or web address]:[email or web address] ?Encry pted=s hAaTro YD8dLq bEUv6g %2BXZw aYqtaq 0bqfl% 2Fg9IQ a4ajBk vP9nXo QUaueC m3YtLR FvZlgJ JJ8mAn HZtai3 9n9546 AC0Kqa 36GU6a lKiQtr MwF INTERFACE [facility] [address], [place], [address], 08/25/2024 10:20:32 Result Notes None recorded. Procedures Surgical History Date Name Laterality Status Provider Name and Address Organization Details Recorded Time 5 Knee Kenalog 40 2cc Injection, Bilateral completed Justyna Drenga, COOKER OPERATOR [address], [place], [address], [facility] 02/26/2025 10:38:07 5 Knee Kenalog 40 2cc Injection, Bilateral completed Justyna Drenga, COOKER OPERATOR [address], [place], [address], [place] [facility] 11/28/2024 11:43:47 4 Knee Kenalog 40 1cc Injection, Bilateral completed Justyna Drenga, COOKER OPERATOR [address], [place], [address], [facility] 08/25/2024 10:59:14 Imaging Results Imaging Date Name Status LastModified by Organiz ation Details LastModified Time 08/25/2024 XR, knee, 4 or more view completed INTERFACE [facility] [address], [place], [address], 08/25/2024 10:20:30 08/25/2024 XR, knee, 4 or more view completed INTERFACE [facility] [address], [place], [address], 08/25/2024 10:20:32 Procedure Notes None recorded. Medical Equipment None Reported. Allergies Allergen ID Allergen Name Allergen Category Reaction Reaction Severity Criticality Documentation Date Start Date Code Code System Note Provider Name and Address Organization Details Recorded Time 035390 Mosquito Eliminato r medicatio n Not available Not available Not available 08/25/2024 31420 UNK YOSELIN cox [place] - [facility] 10:06:12 Medications Name Sig Start Date Stop [...] Not Available Not Available No t Available cephalexin 250 mg capsule TAKE 1 CAPSULE BY MOUTH DAILY FOR 21 DAYS active Not Available Not Available Not Available tretinoin 0.025 % topical cream active [...] Not Available Not Available No t Available bupropion HCl XL 300 mg 24 hr tablet, extended release TAKE 1 TABLET BY MOUTH EVERY MORNING active Not Available Not Available No t Available bupropion HCl XL 150 mg 24 hr tablet, extended release TAKE 1 TABLET BY MOUTH EVERY MORNING active Not Available Not Available No t Available nitrofuranto in monohydrate/ macrocrystal s 100 mg capsule TAKE 1 CAPSULE BY MOUTH EVERY 12 HOURS FOR 10 DAYS. MUST ADMINISTER WITH A MEAL/FOOD active Not Available Not Available No t Available solifenacin 10 mg tablet TAKE 1 TABLET BY MOUTH DAILY FOR URINARY URGENCY active Not Available Not Available No t Available cholecalcife rol (vitamin D3) 50 mcg (2,000 unit) capsule TAKE 2 CAPSULES BY MOUTH EVERY DAY active Not Available Not Available No t Available Vitals Date Recorded Body height Body mass index (BMI) Body weight Provider Name and Address Organization Details Last Updated DateTime 08/25/2024 162.56 cm 54.1 kg/m2 009084.6 g YOSELIN BECERRA [facility] 08/25/2024 10:04:48 Date Recorded Body height Provider Name an d Address Organization Details Last Updated DateTime 11/28/2024 162.56 cm DELISA MARCELO [facility] 11/28/2024 11:05:46 Date Recorded Body height Body mass index (BMI) Body weight Provider Name and Address Organization Details Last Updated DateTime 02/26/2025 162.56 cm 54.4 kg/m2 100653.78 g KATHY CRUZ [facility] 02/26/2025 10:44:54 Social History None recorded. Functional Status None recorded. Mental Status None recorded. Family History Nothing Reported. Medical History No medical history recorded. Gynecological HistoryNo gynecological history recorded. Obstetrics History GPAL:G 0 P 0 0 0 0 Past Encounters Encounter ID Performer Location Encounter Start Date Encounter Closed Date Diagnosis/Indication Diagnosis SNOMED-CT Code Diagnosis ICD10 Code Diagnosis Note [id number] Justyna Noel CNP [facility] [address] [place] [address] 08/25/2024 09:38:26 09/10/2024 15:50:42 Pain of bilateral knee joints 0063597016 28579 M25.561 Pain of le ft knee joint 2574162811 96848 M25.898 [id number] Justyna Noel CNP [facility] [address] [place] [address] 11/28/2024 10:59:08 12/12/2024 10:27:24 [id number] Justyna Noel, RICHARD [facility] [address] [place] [address] 02/26/2025 10:37:53 02/26/2025 10:57:28 Health Concerns Section Related Observation LastModified by Organization Detai ls LastModified Time None Recorded Concern Status LastModified by Organization Details LastModified Time None Recorded Advance Directives Directive None Recorded Payers Encounter Date Sequence Insurance Name Policy Number Policy Heredia Covered Member ID Heredia Member ID Guarantor Name 08/25/2024 1 [place] [employer] Yessy J Ke [id number] Yessy Ke 08/25/2024 2 [place] [id number] Yessy Ke [id number] Yessy Ke 11/28/2024 1 [place] Yessy J Ke [id number] Yessy Ke 11/28/2024 2 [place] [id number] Yessy Ke [id number] Yessy Ke 02/26/2025 1 [place] Yessy J Ke [id number] Yessy Ke 02/26/2025 2 [place] [id number] Yessy Ke [id number] Yessy Ke Notes Date Note Type [...] evaluation of the bilateral knees. Justyna Noel, COOKER OPERATOR [address], [place], [address], [facility] 08/25/2024 10:59:42 11/28/2024 text/html Jinny is here today for follow-up of her bilateral knees she has known degenerative joint disease. Justyna Noel, COOKER OPERATOR [address] [facility] [address], [place], [address], [facility] 11/28/2024 11:44:10 02/26/2025 text/html Jinny is here today for follow-up of her bilateral knees she has known degenerative joint disease. Justyna Noel, COOKER OPERATOR [address] [facility] [address], [place], [address], [facility] 02/26/2025 10:57:27 OBGyn Episode No OBEpisode recorded.
--- OUTSIDE RECORDS SUMMARY | 2025-03-09 15:42 | XMS_ITS | Encounter Summary ---
Author Organization [facility] Address [address] [place] [address] Care Team Providers Care Assisted Living Assistant Name Role Phone Divina Jaffe Md, MD Primary Care Provider Unavailable Tanna Oconnor MD Primary Care Provider Unavail able Encounter Details Date Type Department Care Team Description 04/29/2018 Orders Only Pulmonology - [address] [place] [address] Vita Rasmussen NP Bronchopneumonia; Wheezing; [...] Procedure Name Priority Date/Time Associated Diagnosis Comments [facility] RADIOLOGIC EXAM CHEST 2 VIEWS STAT 04/03/2018 [...] trigger documented in this encounter Care Teams Assisted Living Assistant Relationship Specialty Start Date End Date Divina Jaffe MD, MD PCP - General Internal Medicine 12/18/17 1 01/01/18 Tanna Oconnor MD PCP - General Internal Medicine 11/01/18 documented as of this encounter
== END 2025-03-09 14:58 | disposition home or self-care (01) ==
LOC: HO.HMGCX 14:57
PROVIDERS: PCP Internal Medicine; Visit Provider Physician Assistant
DX: R05.2 Subacute cough (principal)
CPT/HCPCS: 71046; 99212

== ENCOUNTER → 2025-03-09 15:41 | Outpatient (BNV) | payer MEDICARE, SELFPAY | PROVIDERS: PCP Internal Medicine; Visit Provider Radiology Diagnostic Radiology | DX: R05.9 Cough, unspecified (principal) | CPT/HCPCS: 71046 ==

== ENCOUNTER 2025-03-22 14:04 | Outpatient (REF) | payer MEDICARE, SELFPAY ==
--- NOTE | ~2025-03-22 | MR_ITS ---
EXAMINATION: MR BRAIN WITHOUT CONTRAST CLINICAL INFORMATION: Cognitive changes. Headache. COMPARISON: None available. TECHNIQUE: MRI of the brain was obtained using routine sequences without contrast. FINDINGS: No restricted diffusion. No acute intracranial hemorrhage, mass effect, midline shift, hydrocephalus or herniation. Tse-white matter differentiation is normal. 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 Bilateral multifocal patchy and punctate deep periventricular white matter and subcortical white matter hyperintense T2 FLAIR signal. There is a subtle slightly asymmetric hyperintense T2 signal in the putamen. Prominence of the extra-axial CSF spaces cerebral sulci and ventricles involving mostly the frontal lobes. Flow-void signal within the main cerebral vessels is normal. Sellar/suprasellar region demonstrated no signal abnormality or masses. Craniocervical junction is intact and normal. MR/MR head/brain wo con IMPRESSION: No acute stroke/nonhemorrhagic ischemia. No acute intracranial hemorrhage. Atrophy, bifrontal lobe. White matter disease likely related to small vessel occlusive disease. Electronically signed by: Osiel Tobias MD 03/23/2025 12:06 PM EDT
== END 2025-03-22 14:05 | disposition home or self-care (01) ==
LOC: HO.MRI 14:04
PROVIDERS: Visit Provider Psychiatry & Neurology Psychiatry
DX: R51.9 Headache, unspecified (principal); F06.70 Mild neurocognitive disorder due to known physiological condition without behavioral disturbance
CPT/HCPCS: 70551

== ENCOUNTER → 2025-03-22 14:19 | Outpatient (BNV) | payer MEDICARE, SELFPAY | PROVIDERS: Visit Provider Radiology Diagnostic Radiology | DX: G31.89 Other specified degenerative diseases of nervous system (principal); R90.82 White matter disease, unspecified | CPT/HCPCS: 70551 ==

== ENCOUNTER → 2025-03-31 19:30 | Outpatient (BNV) | payer MEDICARE, SELFPAY | PROVIDERS: Visit Provider Internal Medicine | DX: G47.33 Obstructive sleep apnea (adult) (pediatric) (principal); R06.83 Snoring | CPT/HCPCS: 95810 ==

== ENCOUNTER → 2025-03-31 20:30 | Outpatient (REF) | payer MEDICARE, SELFPAY ==
--- OUTSIDE RECORDS SUMMARY | 2025-03-31 21:13 | XMS_ITS | Encounter Summary ---
Author Organization [facility] Address [address] [place] [address] Care Team Providers Care Meal Packer Name Role Phone Divina Jaffe Md, MD Primary Care Provider Unavailable Tanna Oconnor MD Primary Care Provider Unavail able Reason for Visit * Reason Onset Date Comments TEST RESULTS 04/04/2018 Encounter Details Date Type Department Care Team Description 04/04/2018 Telephone Pulmonology - [address] [place] [phone] Vita Rasmussen NP TEST RESULTS Social History [...] performed: 04/03/18 Where was the test performed: [address] [place] [address] Who ordered this test?: Vita Is the [...] on filedocumented in this encounter Care Teams Meal Packer Relationship Specialty Start Date End Date Divina Jaffe MD, MD PCP - General Internal Medicine 12/18/17 1 01/01/18 Tanna Oconnor MD PCP - General Internal Medicine 11/01/18 documented as of this encounter
--- OUTSIDE RECORDS SUMMARY | 2025-03-31 21:13 | XMS_ITS | Encounter Summary ---
Author Organization [facility] Address [address] [place] [address] Care Team Providers Care Bridge Manager Name Role Phone Divina Jaffe Md, MD Primary Care Provider Unavailable Tanna Oconnor MD Primary Care Provider Unavail able Reason for Visit * Reason Onset Date Comments Medication 08/13/2018 Encounter Details Date Type Department Care Team Description 08/13/2018 Telephone Pulmonology - [address] [place] [address] Fran Holder MD Medication Social [...] returning call and can be reached at [phone] * Telephone Encounter - Hawa Arreaga M.A. [...] filedocumented in this encounter Care Teams Bridge Manager Relationship Specialty Start Date End Date Divina Jaffe MD, MD PCP - General Internal Medicine 12/18/17 1 01/01/18 Tanna Oconnor MD PCP - General Internal Medicine 11/01/18 documented as of this encounter
--- OUTSIDE RECORDS SUMMARY | 2025-03-31 21:13 | XMS_ITS | Encounter Summary ---
Author Organization [facility] Address [address] [place] [address] Care Team Providers Care Technical Writer Name Role Phone Tanna Oconnor MD Primary Care Provider Unavail able Encounter Details Date Type Department Care Team Description 11/05/2018 Refill Pulmonology - [address] [place] [address] Fran Holder MD Social History [...] MG tablet [Fran Holder MD] Preferred pharmacy: [id number] MARTÍNEZ Comment: documented in this encounter Plan of Treatment Not on file documented as of this encounter Visit Diagnoses Not on filedocumented in this encounter Care Teams Technical Writer Relationship Specialty Start Date End Date Tanna Oconnor MD PCP - General Internal Medicine 11/01/18 documented as of this encounter
--- OUTSIDE RECORDS SUMMARY | 2025-03-31 21:13 | XMS_ITS | Clinical Summary ---
Author Organization [employer] [facility] Address [address] [place] [address] Care Team Providers Care Temper Mill Operator Name Role Phone Tanna Oconnor MD Primary Care Provider [phone] Surgical History Surgery Date Site/Laterality Comments COLONOSCOPY [...] age to complete this topic Care Teams Temper Mill Operator Relationship Specialty Start Date End Date Tanna Oconnor MD PCP - General Internal Medicine 11/01/18
--- OUTSIDE RECORDS SUMMARY | 2025-03-31 21:13 | XMS_ITS | Encounter Summary ---
Author Organization [facility] Address [address] [place] [address] Care Team Providers Care Drag Car Racer Name Role Phone Divina Jaffe Md, MD Primary Care Provider Unavailable Tanna Ocononr MD Primary Care Provider Unavail able Reason for Visit * Reason Onset Date Comments Testing 01/16/2018 Patient is sched uled at [facility] on January 28, 2018 @ 9:00 a.m. for her Methacholine Challenge test Encounter Details Date Type Department Care Team Description 01/16/2018 Telephone Pulmonology - [address] [place] [address] Vita Rasmussen NP Testing (Patient is scheduled at [facility] on January 28, 2018 @ 9:00 [...] on filedocumented in this encounter Care Teams Drag Car Racer Relationship Specialty Start Date End Date Divina Jaffe MD, MD PCP - General Internal Medicine 12/18/17 1 01/01/18 Tanna Oconnor MD PCP - General Internal Medicine 11/01/18 documented as of this encounter
--- OUTSIDE RECORDS SUMMARY | 2025-03-31 21:14 | XMS_ITS | Encounter Summary ---
Author Organization [facility] Address [address] [place] [address] Care Team Providers Care Home Health Nurse Name Role Phone Divina Jaffe Md, MD Primary Care Provider Unavailable Tanna Oconnor MD Primary Care Provider Unavail able Encounter Details Date Type Department Care Team Description 04/29/2018 Orders Only Pulmonology - [address] [place] [address] Vita Rasmussen NP Bronchopneumonia; Wheezing; [...] Procedure Name Priority Date/Time Associated Diagnosis Comments [facility] RADIOLOGIC EXAM CHEST 2 VIEWS STAT [...] trigger documented in this encounter Care Teams Home Health Nurse Relationship Specialty Start Date End Date Divina Jaffe MD, MD PCP - General Internal Medicine 12/18/17 1 01/01/18 Tanna Oconnor MD PCP - General Internal Medicine 11/01/18 documented as of this encounter
--- OUTSIDE RECORDS SUMMARY | 2025-03-31 21:14 | XMS_ITS ---
Author Organization [facility] Address [address] [place] [address] Care Team Providers Care Plastics Engineering Teacher Name Role Phone Alannah LUNDBERG, Divina Primary Care Provider Jason Lancaster [phone] REASON FOR VISIT gerd, food getting stuck, coughing Encounters Encounter Location Date Provider Diagnosis [facility] [address] [place] [address] 03/27/2025 Jason Flaherty Plan Of Treatment Next Appt Details Provider Name:Jason Flaherty , 06/25/2025 10:40:00 AM, [address], [address], [place], [address], Progress Notes * MEMO UREÑADOB:[birth year] (70 yo F)Acc No.[id number]:03/27/2025 Progress Notes Patient:?MEMO UREÑA Provider:?Jason Flaherty MD :1955???Age:70 Y???Sex:Female D ate:03/27/2025 Address:[address] [place] [address] Pcp:Divina Jaffe MD Subjective: * Chief Complaints: * ???1. Gerd, food getting radhika ck, coughing. * Medical History:? Objective: * Vitals:? Assessment: Plan: * Treatment: * * The named appointment provid er may or may not be the originator of this progress note, and it is not deemed complete until electronically signed by the appointment provider. Sign off status: Pending * Provider:?Jason Flaherty MD Date:? 025 Generated for Kb harris/Charli/Brittani on:?03/31/2025 09:13 PM EDT
--- OUTSIDE RECORDS SUMMARY | 2025-03-31 21:14 | XMS_ITS ---
Author Organization [facility] Address [address] [place] [address] Care Team Providers Care Cisco Certified Network Associate Name Role Phone Alannah LUNDBERG, Divina Primary Care Provider Jason Lancaster [phone] REASON FOR VISIT R/S OV Encounters Encounter Location Date Provider Diagnosis [facility] [address] [place] [address] 03/25/2025 Jason Flaherty Plan Of Treatment Next Appt Details Provider Name:Jason Flaherty , 06/25/2025 10:40:00 AM, [address], [address], [place], [address], Progress Notes * MEMO UREÑADOB:[birth year] (70 yo F)Acc No.[id number]:03/25/2025 Patient:?MEMO UREÑA :1955???Age:70 Y???Sex:Female Address:[address] [place] [address] [place] [address] * true * Date:? Generated for Printi ng/Faxing/eTransmitting on:?03/31/2025 09:14 PM EDT
--- OUTSIDE RECORDS SUMMARY | 2025-03-31 21:14 | XMS_ITS | Data Portability ---
Author Organization [place] - [facility] Address [address] [place] [address] Care Team Providers Care Band Builder Name Role Phone HAL LION Primary Care Provider [phone] Assessment No assessment recorded. Plan of Treatment Reminders Order Date Submit Date Provider Last Modified By Organization Details Last Modified Time Details Appointments INJECTIO N ONLY 15 2024 11:00A M Justyna Noel CNP Not available Not available Not available INJECTIO N ONLY 15 2024 11:00A M Livia Ocasio PA-C Not available Not available Not available NEW PROBLEM 2024 01:45P M Ronnie Chan MD Not available Not available Not available INJECTIO N ONLY 15 2024 11:00A M Justyna Noel DOCTOR OF PODIATRIC MEDICINE Not available Not available Not available POST OP 15 2024 01:00P M Justyna Noel DOCTOR OF PODIATRIC MEDICINE Not available Not available Not available Lab None recorded . Referral physical therapis t referral - katie knee o.a 2023 024 markenger Not available 09/10/2024 15:50:42 Procedures None recorded . Surgeries None recorded . Imaging XR, knee, 4 or more view - 112 katie knee 4v 2023 024 v[facility], [address], [address], [place], [address], 09/10/2024 15:50:42 Medication Orders None recorded . Patient TargetsNo targets recorded. Patient InstructionsNo instructions recorded. Reason for Referral Physical Therapist Referral for Pain of bilateral knee joints katie knee o.a Referring Physician: Justyna Noel, Orthopedic Surgery, Encounter Date: 08/25/2024 Results Created Date Observation Date Name Description Value Unit Range Abnormal Flag Note LastModifiedBy Organization Detail LastModifiedTime 08/25/20 24 08/25/2024 XR, knee, 4 or more view [email or web address] ?Encry pted=s hAaTro YD8dLq bEUv6g %2BXZw aYqtaq 0bqfl% 2Fg9IQ a4ajBk vP9nXo QUaueC m3YtLR FvZlgJ JJ8mAn HZtai3 9w8169 AC0Kqa 36GU6a lKiQtr MwF INTERFACE [facility] [address], [place], [address], 08/25/2024 10:20:30 08/25/20 24 08/25/2024 XR, knee, 4 or more view [email or web address] ?Encry pted=s hAaTro YD8dLq bEUv6g %2BXZw aYqtaq 0bqfl% 2Fg9IQ a4ajBk vP9nXo QUaueC m3YtLR FvZlgJ JJ8mAn HZtai3 5t2196 AC0Kqa 36GU6a lKiQtr MwF INTERFACE [facility] [address], [place], [address], 08/25/2024 10:20:32 Result Notes None recorded. Procedures Surgical History Date Name Laterality Status Provider Name and Address Organization Details Recorded Time 5 Knee Kenalog 40 2cc Injection, Bilateral completed Justyna Nikonga, DOCTOR OF PODIATRIC MEDICINE [address], [place], [address], [facility] 02/26/2025 10:38:07 5 Knee Kenalog 40 2cc Injection, Bilateral completed Justyna Drenga, DOCTOR OF PODIATRIC MEDICINE [address], [place], [address], [place] [facility] 11/28/2024 11:43:47 Knee Kenalog 40 1cc Injection, Bilateral completed Justyna Noel, DOCTOR OF PODIATRIC MEDICINE [address], [place], [address], [facility] 08/25/2024 10:59:14 Imaging Results Imaging Date Name Status LastModified by Organiz ation Details LastModified Time 08/25/2024 XR, knee, 4 or more view completed INTERFACE [facility] [address], [place], [address], 08/25/2024 10:20:30 08/25/2024 XR, knee, 4 or more view completed INTERFACE [facility] [address], [place], [address], 08/25/2024 10:20:32 Procedure Notes None recorded. Medical Equipment None Reported. Allergies Allergen ID Allergen Name Allergen Category Reaction Reaction Severity Criticality Documentation Date Start Date Code Code System Note Provider Name and Address Organization Details Recorded Time 770406 Mosquito Eliminato r medicatio n Not available Not available Not available 08/25/2024 49676 UNK YOSELIN cox, [facility] 4 10:06:12 Medications Name Sig Start Date Stop [...] Updated DateTime 08/25/2024 162.56 cm 54.1 kg/m2 532147.6 g YOSELIN BECERRA [facility] 08/25/2024 10:04:48 Date Recorded Body height Provider Name an d Address Organization Details Last Updated DateTime 11/28/2024 162.56 cm DELISA ROBERTSON [facility] 11/28/2024 11:05:46 Date Recorded Body height Body mass index (BMI) Body weight Provider Name and Address Organization Details Last Updated DateTime 02/26/2025 162.56 cm 54.4 kg/m2 908597.78 g KATHY CRUZ [facility] 02/26/2025 10:44:54 Social History None recorded. Functional Status None recorded. Mental Status None recorded. Family History Nothing Reported. Medical History No medical history recorded. Gynecological HistoryNo gynecological history recorded. Obstetrics History GPAL:G 0 P 0 0 0 0 Past Encounters Encounter ID Performer Location Encounter Start Date Encounter Closed Date Diagnosis/Indication Diagnosis SNOMED-CT Code Diagnosis ICD10 Code Diagnosis Note [id number] Justyna Noel, DOCTOR OF PODIATRIC MEDICINE [facility] [address] [place] [address] 08/25/2024 09:38:26 09/10/2024 15:50:42 Pain of bilateral knee joints 1350642081 74733 M25.561 Pain of le ft knee joint 9009977027 56834 M25.442 [id number] Justyna Noel, RICHARD [facility] [address] [place] [address] 11/28/2024 10:59:08 12/12/2024 10:27:24 [id number] Justyna Noel CNP [facility] [address] [place] [address] 02/26/2025 10:37:53 03/17/2025 15:00:50 Health Concerns Section Related Observation LastModified by Organization Detai ls LastModified Time None Recorded Concern Status LastModified by Organization Details LastModified Time None Recorded Advance Directives Directive None Recorded Payers Encounter Date Sequence Insurance Name Policy Number Policy Heredia Covered Member ID Heredia Member ID Guarantor Name 08/25/2024 1 [place] Yessy Dempsey [id number] Yessy Ke 08/25/2024 2 [place] [id number] Yessy Bennetter [id number] Yessy Ke 11/28/2024 1 [place] Yessy Delgadillocker [id number] Yessy Ke 11/28/2024 2 [place] [id number] Yessy Delgadillocker [id number] Yessy Ke 02/26/2025 1 [place] Yessy Delgadillocker [id number] Yessy Ke 02/26/2025 2 [place] [id number] Yessy Delgadillocker [id number] Yessy Ke Notes Date Note Type [...] the bilateral knees. Justyna Noel, RICHARD [address] [facility], [place], [address], [facility] 08/25/2024 10:59:42 11/28/2024 text/html Jinny is here today for follow-up of her bilateral knees she has known degenerative joint disease. Justyna Noel CNP [address], [place], [address], [facility] 11/28/2024 11:44:10 02/26/2025 text/html Jinny is here today for follow-up of her bilateral knees she has known degenerative joint disease. Justyna Noel, RICHARD [address], [place], [address], [facility] 02/26/2025 10:57:27 OBGyn Episode No OBEpisode recorded.
--- OUTSIDE RECORDS SUMMARY | 2025-03-31 21:14 | XMS_ITS ---
Author Organization [facility] Address [address] [place] [address] Care Team Providers Care School Psychologist Name Role Phone Alannah LUNDBERG, Divina Primary Care Provider Jason Lancaster [phone] REASON FOR VISIT r/s march 27 to april 17 Encounters Encounter Location Date Provider Diagnosis [facility] [address] [place] [address] 03/19/2025 Jason Flaherty Plan Of Treatment Next Appt Details Provider Name:Jason Flaherty , 06/25/2025 10:40:00 AM, [address] [place] [address], [address], [place], [address], Progress Notes * MEOM UREÑADOB:[birth year] (70 yo F)Acc No.[id number]:03/19/2025 Patient:?MEMO UREÑA :1955???Age:70 Y???Sex:Female Address:[address] [place] [address] [place] [address] * true * Date:? Generated for Printi ng/Favirginieg/eTransmitting on:?03/31/2025 09:14 PM EDT
--- OUTSIDE RECORDS SUMMARY | 2025-03-31 21:14 | XMS_ITS | Clinical Summary ---
Author Organization [facility] Address [address] [place] [address] Care Team Providers Care Canal Lock Tender Chief Operator Name Role Phone Tanna Oconnor MD [...] knees Take by mouth daily. 0 Active Carver-3 Fatty Acids (FISH OIL) 500 MG CapIndications:Elevated [...] sleep apnea mild AHI 9 07/17 Overview: [facility] Home Polysomnogram: Date 07/09/2018; AHI 9, Unclassified [...] or Tdap) 04/17/2026 04/17/2016, 04/20/2005 Care Teams Canal Lock Tender Chief Operator Relationship Specialty Start Date End Date Tanna Oconnor MD PCP - General Internal Medicine 11/01/18
--- OUTSIDE RECORDS SUMMARY | 2025-03-31 21:14 | XMS_ITS | Patient Health Record ---
Author Organization [facility] Address [address] [address] Care Team Providers Care Sign Builder Name Role Phone Alannah LUNDBERG, Divina Dowd Primary Care Provider Un available Black, Kimberly Unavailable [phone] Perica, Sara Unavailable [phone] Allergies No Known Allergies Reason For Referral [...] day for 30 day(s) 11/05/2019 Active Ipratropium [place] as needed Not-Taking Citalopram Hydrobromide 40 MG [...] Risk Notes Problem Non-pressure ulcer lower limb (164373631) Non-pressure chronic ulcer of other part of right foot limited to breakdown of skin (L97.511) Active confirmed Problem Osteoarthritis of midtarsal joint of left foot (0872669407867161 ) Osteoarthritis of midtarsal joint of left foot (M19.072) Active confirmed Problem Osteoarthritis of midtarsal joint of right foot (1225577321709318 ) Osteoarthritis of midtarsal joint of right foot (M19.071) Active confirmed Vital Signs Blood pressure diastolic 80 mm Hg 10/23/2024 Height 5ft 4in in 10/23/2024 Blood pressure systolic 120 mm Hg 10/23/2024 Weight 315 lbs 10/23/2024 BMI 54.06 kg/m2 10/23/2024 Encounters Encounter Location Date Provider Diagnosis [facility] [address] [place] [address] 10/23/2024 Sara De La Cruz Pain in [...] 10/23/2024 X ray : Foot, left 3V 08/16/2011 X ray : Foot, right 3V 10/31/2022 X ray : Foot, right 3V 08/16/2011 X ray : Foot, right 3V 10/23/2024 [id number] NAIL, 1-5 12/04/2019 Insurance Providers Payer Name Payer Address Payer Phone Subscriber Number Group Number Insured Name Patient Relationship to Insured Coverage Start Date Coverage End Date Medicare [facility] [address] [place] [address] [id number] Yessy Dempsey Self - patient is the insured Med[employer] [facility] [address] [place] [address] [id number] Yessy Dempsey Self - patient is the insured Medical (General) History Medical History History ICD Code measles hypertension chicken pox Cholesterol Anxiety Depression Mumps Psoriasis/eczema Psychiatric disorder Warts Arthritis Back,Hip,and Knee pain Numbness Reflux ( GERD) Stomach ulcer Surgical History Surgery Date(Month/Year) wisdom teeth extraction colonoscopy Hospitalization History Reason Date(Month/Year) bronchitis for a 5 day stay in [place], [place] 01/2012
--- OUTSIDE RECORDS SUMMARY | 2025-03-31 21:14 | XMS_ITS ---
Author Organization [facility] Address [address] [place] [address] Care Team Providers Care Accounts Receivable Collector Name Role Phone Alannah LUNDBERG, Divina Dowd Primary Care Provider Un available Black, Kimberly Unavailable [phone] PericaSara Unavailable [phone] Allergies No Known Allergies REASON FOR VISIT [...] a day for 30 day(s) Active Ipratropium [place] as needed Not-Taking Zinc 50 MG 1 [...] 01/16/2024 Encounters Encounter Location Date Provider Diagnosis [facility] [address] [address] 01/16/2024 Sara De La Cruz Pain in [...] * Yessy UREÑADOB:[birth year] (68 yo F)Acc No.[id number]:01/16/2024 Progress Note Patient:?Yessy Ureña Provider:?Sara De La Cruz DPM :1955???Age:68 Y???Sex:Female D ate:01/16/2024 Address:[address] [place] [address], [place], [place] Pcp:Christian Lombardi Subjective: * Chief Complaints: * [...] for a 5 day stay in [facility], [place] 01/2012 * Family History:?Mother: dece ased, hypertension, [...] 2 children. ?no Exercise, swimming, volunter at [employer]. ?Marital status: . 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 * Medications:?TakingEye Drops Vitamin B12 Citalopram [...] Cream 1 application Externally Twice a dayIpratropium [place]our[place] as neededCalcium 1 tab Oral Citalopram & Diet Manage Prod 20mg Cozaar 50mg Medication List reviewed and reconciled with the patientNot- Taking/PRN Ciclopirox Olamine 0.77 % Cream 1 application Externally Twice a dayNot- Taking/PRN Ipratropium Sour[place] as neededNot-Taking/PRN Calcium 1 tab Oral Not-Taking/PRN [...] - M77.42? Plan: * Treatment: * Procedure Codes:?62275 X-RAY EXAM OF LEFT FOOT 3V, Modifiers: [...] Cruz DPM Date:? Generated for Kb harris/Charli/eTransmitting on:?03/31/2025 09:13 PM EDT History and Physical Notes * [...]
--- OUTSIDE RECORDS SUMMARY | 2025-03-31 21:14 | XMS_ITS | Encounter Summary ---
Author Organization [facility] Address [address] [place] [address] Care Team Providers Care Cigarette Making Machine Operator Name Role Phone Divina Jaffe Md, MD Primary Care Provider Unavailable Tanna Oconnor MD Primary Care Provider Unavail able Encounter Details Date Type Department Care Team Description 07/06/2018 Pt. Non Urgent Medic al Question Pulmonology - [address] [place] [address] Fran Holder MD Social History Tobacco Use [...] on filedocumented in this encounter Care Teams Cigarette Making Machine Operator Relationship Specialty Start Date End Date Divina Jaffe MD, MD PCP - General Internal Medicine 12/18/17 1 01/01/18 Tanna Oconnor MD PCP - General Internal Medicine 11/01/18 documented as of this encounter
--- OUTSIDE RECORDS SUMMARY | 2025-03-31 21:14 | XMS_ITS ---
Author Organization [facility] Address [address] [place] [address] Care Team Providers Care Emergency Manager Name Role Phone Alannah LUNDBERG, Divina Dowd Primary Care Provider Un available Black, Kimberly Unavailable [phone] Pericisrrael Sara Unavailable [phone] Allergies No Known Allergies REASON FOR VISIT Pcp- 09/11, Foot pain, Fungal Nails Medications Medication SIG (Take, Route, Frequency, Duration) Notes Start Date End Date Status Cozaar 50mg Not-Taki ng Citalopram & Diet Manage Prod 20mg Not-Taking Calcium 1 tab Oral for 14 days Not-Taking Ipratropium [place] as needed Not-Taking Ciclopirox Olamine 0.77 % [...] Osteoarthritis of midtarsal joint of left foot (0740258177441880 ) Osteoarthritis of midtarsal joint of left foot (M19.072) Active confirmed Problem Osteoarthritis of midtarsal joint of right foot (9387951573692978 ) Osteoarthritis of midtarsal joint of right foot (M19.071) Active confirmed Vital Signs Height 5ft 4in in 10/23/2024 Weight 315 lbs 10/23/2024 BMI 54.06 kg/m2 10/23/2024 Blood pressure systolic 120 mm Hg 10/23/20 24 Blood pressure diastolic 80 mm Hg 024 Encounters Encounter Location Date Provider Diagnosis [facility] [address] 10/23/2024 Sara Perica Pain in left foot [...] Yessy UREÑA JDOB:[birth year] (69 yo F)Acc No.[id number]:10/23/2024 Progress Note Patient:?NIRANJAN Yessy Monte Provider:?Sara De La Cruz DPM :1955???Age:69 Y???Sex:Female D ate:10/23/2024 Address:[address] [place] [address] Pcp:Christian Lombardi Subjective: * Chief Complaints: * [...] a 5 day stay in [facility], [place] 01/2012 * Family History:?Mother: dece ased, [...] swimming, PT. ?Marital status: . 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 ???Drug/Alcohol:?AUDIT-C (Standard)?Did you have a drink [...] 1 application Externally Twice a day Ipratropium [place] as needed Calcium 1 tab Oral Citalopram & Diet Manage Prod 20mg Cozaar 50mg Medication List reviewed and reconciled with the patientNot-Taking/PRN Ciclopirox Olamine 0.77 % Cream 1 application Externally Twice a day Not-Taking/PRN Ipratropium [place] as needed Not-Taking/PRN Calcium 1 tab Oral [...] Foot, AP, LAT, LO, B/L??Taken by trained?Podiatric Cardiology Teacher (?MB).?Findings:?normal bone and soft tissue density consistent [...] ray : Foot, right 3V * Procedure Codes:?04200 X-RAY EXAM OF LEFT FOOT 3V, Modifiers: 26 , HF30957 X-RAY EXAM OF RIGHT FOOT 3V, Modifiers: [...] exercise to failure, expense, systemic complications, infection, [id number], prolongued postop course. Patient questions re: the various treatment options available, their successes and potential failures, and assisted effects were discussed and the answers were [...] Completed true * Provider:Johana De La Cruz, DPM Date:?03/2024 Generated for Printi ng/Faxing/eTransmitting on:?03/31/2025 09:14 PM EDT History and Physical Notes * [...] LAT, LO, B/L Taken by trained Podiatric Cardiology Teacher ( MB) Clinical Indication(s): Evaluate for Fra cture, Evaluate Biomechanical Deformity
--- OUTSIDE RECORDS SUMMARY | 2025-03-31 21:14 | XMS_ITS | Patient Health Record ---
Author Organization [facility] Address [address] [place] [address] Care Team Providers Care Province Archivist Name Role Phone Alannah LUNDBERG, Divina Primary Care Provider Jason Lancaster Unavailable [phone] Reason For Referral No Information Medications Medication [...] a day for 30 day(s) Active Ipratropium [place] HFA 17 MCG/ACT 2 puffs Inhalation prn [...] Problem Status W/U Status Risk Notes Problem 231116109 Encounter for screening for malignant neoplasm of colon (Z12.11) Active confirmed Problem 66463428 Acute gastric ul cer without hemorrhage or perforation (K25.3) Active confirmed Problem 961610076 Gastroesophageal reflux disease, esophagitis presence not specified (K21.9) Active confirmed Problem 87145174 Erosive esophagi tis (K22.10) Active confirmed Problem 45486610 Chest pain, unspecified type (R07.9) Active confirmed Encounters Encounter Location Date Provider Diagnosis [facility] [address] [place] [address] 01/25/2025 Jason Flaherty [facility] [address] [place] [address] 03/19/2025 Jason Flaherty [facility] [address] [place] [address] [place] [phone] 03/25/2025 Jason Flaherty Plan Of Treatment Future Test Test Name Order Date UPPER GI ENDOSCOPY 12/04/2018 COLONOSCOPY 12/04/2018 Next Appt Details Provider Name:Jason Flaherty , 06/25/2025 10:40:00 AM, [address] [place] [address], [address], [place], [address], Insurance Providers Payer Name Payer Address Payer Phone Subscriber Number Group Number Insured Name Patient Relationship to Insured Coverage Start Date Coverage End Date MEDICARE OF [place] [address] [place] [address] [id number] MEMO UREÑA Self - patient is the insured MEDEX ATTN CLAIMS [address] [place] [address] [id number] MEMO UREÑA Self - patient is the insured Medical (General) History Medical History History ICD Code Colonoscopies 02-06-2000 and 03/2008 were both negative Anxiety HTN Elevated cholesterol Denies SD,DM,CVA,Lung disease,renal dise ase Having an ETT at [facility] in 11/2017 Sleep apnea--not using CPAP Pneumonia [...]
== END ==
LOC: HO.SL 20:30
PROVIDERS: Visit Provider Psychiatry & Neurology Psychiatry
DX: G47.33 Obstructive sleep apnea (adult) (pediatric) (principal); R06.83 Snoring
CPT/HCPCS: 95810

== ENCOUNTER 2025-05-14 16:09 | Outpatient (AMB) | payer MEDICARE, SELFPAY ==
--- NOTE | 2025-05-14 16:12 | MHC.OFFVIS ---
Intake Visit Reasons: 14w/meds/ Urine inc./ Recurrent UTI Intake Note: Patient is present for 14w/meds/urine/recurrent UTI Urology Medication:Vitamin B12, Solifenacin Antibiotic Allergy:NONE Blood Thinner:NONE PVR:25ml Senior Network Architect Required: No Allergies No Known Allergies (No Known Allergies*) Allergy (Verified 05/14/25 16:14) Medication List - Last Reconciled 05/14/25 by Asaf Hua MD ascorbic acid (vitamin C) 500 mg PO DAILY atorvastatin 20 mg PO DAILY biotin 5000mg PO daily; bupropion HCl XL 300 mg PO DAILY cholecalciferol (vitamin D3) 100 mcg (2 x 50 mcg (2,000 unit)) PO DAILY citalopram 40 mg PO DAILY cyanocobalamin (vitamin B-12) 1,000 mcg PO DAILY docusate sodium 100 mg PO DAILY losartan 50 mg PO DAILY magnesium oxide 500 mg PO DAILY omega-3 fatty acids (Fish Oil Concentrate) 2,000 mg PO DAILY omeprazole 20 mg PO DAILY solifenacin (Vesicare) 10 mg PO DAILY HPI Comments Details: 05/14/25- History of Present Illness - The patient is a 70-year-old female presenting with urinary incontinence and recurrent urinary tract infections. - Urinary incontinence has been managed with Vesicare 10 mg daily, showing improvement in symptoms. - Recurrent urinary tract infections have been addressed with a suppressive course of Keflex 250 mg daily for 21 days. - Cystoscopy findings on December 04, 2024, indicated mild to moderate inflammatory changes consistent with cystitis. - Renal ultrasound on November 24, 2024, reported no acute findings, with kidneys within normal limits. - The patient notes significant improvement in bladder symptoms, with no infections for months and reduced urgency. Results - Cystoscopy on December 04, 2024: Mild to moderate inflammatory changes consistent with cystitis. - Renal ultrasound on November 24, 2024: No acute findings, kidneys within normal limits. 12/04/24--Here for cysto. Renal US--11/24/24--no acute finding Cystoscopy findings: Moderate inflammatory changes consistent with cystitis, no suspicious bladder lesions visualized Pelvic exam- no prolapse, leakage with cough. Plan antibiotic suppressive therapy, cont kegels, vesicare 10 mg daily 10/10/24-- Yessy is a 69-year-old female who is here as a new patient evaluation for recurrent UTIs and urinary incontinence. Comorbidity-obesity. She states that she wears a pad daily. She states that she has had both problems for a few years. She denies blood in the urine. She states that her urine leakage is associated mostly with urgency occasionally if she coughs very hard she will also leak. She also complains of a vague pain over the lower abdomen, that is intermittent, but she feels seems to happen more at nighttime when she is laying down. I have reviewed recent urine cultures, 09/24/2024 and 08/13/2024-- E coli resistant to ampicillin, urine c/s's in chart. She completed nitrofurantoin a few days ago urinalysis today is negative for leukocytes negative for blood. Discussed evaluation with renal ultrasound and follow-up office cystoscopy pelvic exam at that time. [facility] Medical History Osteopenia of left femoral neck Recurrent urinary tract infection SULLY (stress urinary incontinence, female) Obstructive sleep apnea of adult Depression Plantar fasciitis GERD with esophagitis Mild intermittent asthma in adult without complication Allergic rhinitis Essential hypertension Impaired fasting glucose Dyslipidemia Morbid obesity Menopause Vitamin D deficiency Surgical History No pertinent past surgical history Family History Father Lung cancer Unknown family medical history Mother HTN (hypertension) Hyperlipidemia Mental health disorder Brother Substance use disorder Sister Mental health disorder Son No problems noted. Son No problems noted. Social History Housing: House Alcohol intake: never Patient Tobacco Use Status: Never used Tobacco e-Cigarette/Vaping Use: Never Used Second Hand Smoke Exposure: No service: No Current occupational status: unemployed Cognitive needs: No Hearing needs: No Vision needs: Yes (Glasses) Review of Systems Const All systems reviewed & are unremarkable except as noted in HPI and below Reports no additional complaints Eyes Reports no additional complaints ENT Reports no additional complaints Card Reports no additional complaints Resp Reports no additional complaints GI Reports no additional complaints Reports as per HPI Musc Reports no additional complaints Skin/Breast Reports system reviewed and no additional complaints, except as documented Neuro Reports no additional complaints Psych Reports no additional complaints Endo Reports no additional complaints Juan Francisco/Lymph Reports no additional complaints Aller/Immun Reports no additional complaints Results Reviewed Results Reviewed: Date of Service: 11/24/24 US Renal Comparison: None Findings: Right kidney normal size and echotexture, 11.9 cm length. Left kidney normal size and echotexture, 11.9 cm length. No hydronephrosis of either kidney. Normal color Doppler. Minimal irregularity of the left renal contour. IMPRESSION: 1. No acute abnormality of the kidneys. Collected: 09/24/24 Status: COMP Req#: [id number] Received: 09/24/24 Source: [facility] Sp Desc: Clean Cat Subm Dr: Bryanna Mathews MD Ordered: Urine Culture Procedure Result Verified Urine Culture Final 09/26/24 Organism 1 Escherichia coli Quant > 100,000 cfu/mL E coli M.I.C. RX --------- --- Ampicillin >=32 R Cefepime <=0.12 S Ceftriaxone <=0.25 S Ciprofloxacin <=0.06 S Gentamicin <=1 S Nitrofurantoin <=16 S Trimethoprim/Sulfamethoxazole <=20 S Collected: 08/12/24-UNK Status: COMP Req#: [id number] Received: 08/13/24 Source: [facility] Sp Desc: Subm Dr: Ángela Underwood PA-C Ordered: Urine Culture Procedure Result Verified Urine Culture Final 08/16/24 Organism 1 Escherichia coli Quant 10,000 to 50,000 cfu/mL E coli M.I.C. RX --------- --- Ampicillin >=32 R Cefazolin <=4 S Ceftriaxone <=0.25 S Ciprofloxacin <=0.25 S Gentamicin <=1 S Nitrofurantoin <=16 S Trimethoprim/Sulfamethoxazole <=20 S Assessment & Plan Assessment & Plan (1) Recurrent urinary tract infection: Code(s): N39.0 - Urinary tract infection, site not specified Category: Medical (2) Urinary urgency: Code(s): R39.15 - Urgency of urination Category: Medical (3) Mixed stress and urge urinary incontinence: Code(s): N39.46 - Mixed incontinence Category: Medical Plan Plan - Continue Vesicare 10 mg daily for urinary incontinence management. - Follow-up in six months with a phone call to reassess urinary symptoms and medication efficacy. - Maintain hydration to support urinary health. Medications: Refilled solifenacin (Vesicare) 10 mg PO DAILY 90 tabs 3RF urinary urgency Patient Instructions: The patient had an opportunity to ask questions regarding treatment plan. The patient expressed understanding and agreement with the above treatment plan. The patient is aware they should contact our office by phone for worsening of their current condition or the appearance of new symptoms. Compliance is encouraged with any medications and followup testing that is ordered. It is a privilege to be allowed the opportunity to participate in the urologic care of your patient. If you have any questions or concerns regarding treatment for the above conditions please do not hesitate to contact me. The office telephone contact is [phone]. This note is constructed in part using voice recognition software. While every effort has been made to ensure accuracy global account executive errors may have been included. Yours sincerely, Asaf Hua MD Scribe Plan - Not visible on output: Patient was informed and verbally consented to the use of an ambient scribe for clinic note documentation during this visit. Coding Level of Care Code Est Pt Level 4 (57240) Diagnoses Recurrent urinary tract infection N39.0 Urinary urgency R39.15 Mixed stress and urge urinary incontinence N39.46
--- OUTSIDE RECORDS SUMMARY | 2025-05-14 19:41 | XMS_ITS | Patient Health Record ---
Author Organization [facility] Address [address] [place] [address] Care Team Providers Care Professor Of Early Childhood Education Name Role Phone Alannah LUNDBERG, Divina Primary Care Provider Jason Lancaster Unavailable [phone] Reason For Referral No Information Medications Medication [...] a day for 30 day(s) Active Ipratropium [place] HFA 17 MCG/ACT 2 puffs Inhalation prn [...] Problem Status W/U Status Risk Notes Problem 875989169 Encounter for screening for malignant neoplasm of colon (Z12.11) Active confirmed Problem 44007171 Acute gastric ul cer without hemorrhage or perforation (K25.3) Active confirmed Problem 062165108 Gastroesophageal reflux disease, esophagitis presence not specified (K21.9) Active confirmed Problem 29061054 Erosive esophagi tis (K22.10) Active confirmed Problem 20375721 Chest pain, unspecified type (R07.9) Active confirmed Encounters Encounter Location Date Provider Diagnosis [facility] [address] [facility] [address] [place] [address] 01/25/2025 Jason Flaherty [facility] [address] [facility] [address] [place] [address] 03/19/2025 Jason Flaherty [facility] [address] [place] [address] [place] [address] 03/25/2025 Jason Flaherty Plan Of Treatment Future Test Test Name Order Date UPPER GI ENDOSCOPY 12/04/2018 COLONOSCOPY 12/04/2018 Next Appt Details Provider Name:Jason Flaherty , 06/25/2025 10:40:00 AM, [address] [place] [address], [address], [place], [address], Insurance Providers Payer Name Payer Address Payer Phone Subscriber Number Group Number Insured Name Patient Relationship to Insured Coverage Start Date Coverage End Date MEDICARE OF [place] [address] [place] [address] [id number] MEMO UREÑA Self - patient is the insured MEDEX ATTN CLAIMS [address] [place] [address] [phone] [id number] MEMO UREÑA Self - patient is the insured Medical (General) History Medical History History ICD Code Colonoscopies 02-06-2000 and 03/2008 were both negative Anxiety HTN Elevated cholesterol Denies DC,DM,CVA,Lung disease,renal dise ase Having an ETT at [facility] in 11/2017 Sleep apnea--not [...]
== END 2025-05-14 16:39 | disposition home or self-care (01) ==
LOC: HO.HUSH 16:09
PROVIDERS: PCP Internal Medicine; Visit Provider Urology
DX: N39.0 Urinary tract infection, site not specified (principal); N39.46 Mixed incontinence
CPT/HCPCS: 99214

== ENCOUNTER → 2025-05-14 16:09 | Outpatient (BNVA) | payer MEDICARE, SELFPAY | PROVIDERS: PCP Internal Medicine; Visit Provider Urology | DX: N39.46 Mixed incontinence (principal) | CPT/HCPCS: 99212 ==

== ENCOUNTER 2025-06-03 14:47 | Outpatient (AMB) | payer MEDICARE, SELFPAY ==
--- OUTSIDE RECORDS SUMMARY | 2025-04-17 09:40 | XMS_ITS ---
Author Organization [facility] Address [address] [place] [address] Care Team Providers Care Heel Finisher Name Role Phone Alannah LUNDBERG, Divina Primary Care Provider Jason Lancaster [phone] REASON FOR VISIT gerd, food getting stuck, coughing Encounters Encounter Location Date Provider Diagnosis [facility] [address] [place] [address] 04/17/2025 Jason Flaherty Plan Of Treatment Next Appt Details Provider Name:Jason Flaherty , 06/25/2025 10:40:00 AM, [address] [facility], [address], [place], [address], Progress Notes * MEMO UREÑADOB:[birth year] (70 yo F)Acc No.[id number]:04/17/2025 Progress Notes Patient: Maria L BATRES MEMO Monte Provider: Speedy Flaherty MD :1955 A ge:70 Y S ex:Female Date:04/17/2025 Address:[address] [place] [address] [phone] Pcp:Divina Jaffe MD Subjective: * Chief Complaints: [...] * Provider: Speedy Flaherty MD Date: 0 04/17/2025 Generated for Kb harris/Charli/Brittani on: 0 06/03/2025 03:20 PM EDT
--- NOTE | 2025-06-03 14:54 | A.OFFVIS_ITS ---
Vital Signs 06/03/25 15:16 Height 5 ft 4 in Weight 330 lb BMI 56.6 Intake Visit Reasons: fu after sleep study Allergies No Known Allergies (No Known Allergies*) Allergy (Verified 05/14/25 16:14) Medication List - Last Reconciled 06/03/25 by Cassie Smith MD ascorbic acid (vitamin C) 500 mg PO DAILY atorvastatin 20 mg PO DAILY biotin 5000mg PO daily; bupropion HCl XL 300 mg PO DAILY cholecalciferol (vitamin D3) 100 mcg (2 x 50 mcg (2,000 unit)) PO DAILY citalopram 40 mg PO DAILY cyanocobalamin (vitamin B-12) 1,000 mcg PO DAILY losartan 50 mg PO DAILY magnesium oxide 500 mg PO DAILY omega-3 fatty acids (Fish Oil Concentrate) 2,000 mg PO DAILY omeprazole 20 mg PO DAILY solifenacin (Vesicare) 10 mg PO DAILY HPI Comments Details: This is a 70yr old woman with history of hypertension, hyperlipidemia, ADD anxiety and morbid obesity with BMI of 56, who comes in with cognitive issues with memory and processing speed and has been diagnosed with obstructive sleep apnea on 2 different studies in July 2022 and a follow-up sleep study on 03/31/2025 which showed an AH high of 20.4. The patient is currently not on CPAP therapy. She has had some cognitive testing which apparently shows some mild impairment. Three years ago she briefly used CPAP for a few days and then abandoned it. She mostly sleeps on her side or on her stomach. She also notes some cognitive decline with trouble finding names and some short-term memory problems. In the past she has had a patch of numbness in right lower lateral right thigh thought to be related to meralgia paresthetica. She also had Back issues that resolved with therapy. There was no fall or injury involved. [facility] Medical History Osteopenia of left femoral neck Recurrent urinary tract infection SULLY (stress urinary incontinence, female) Obstructive sleep apnea of adult Depression Plantar fasciitis GERD with esophagitis Mild intermittent asthma in adult without complication Allergic rhinitis Essential hypertension Impaired fasting glucose Dyslipidemia Morbid obesity Menopause Vitamin D deficiency Surgical History No pertinent past surgical history Family History Father Lung cancer Unknown family medical history Mother HTN (hypertension) Hyperlipidemia Mental health disorder Brother Substance use disorder Sister Mental health disorder Son No problems noted. Son No problems noted. Social History Housing: House Alcohol intake: never Patient Tobacco Use Status: Never used Tobacco e-Cigarette/Vaping Use: Never Used Second Hand Smoke Exposure: No service: No Current occupational status: unemployed Cognitive needs: No Hearing needs: No Vision needs: Yes (Glasses) Review of Systems Const Details: Sleep:? Difficulty getting to sleep?denies.? Difficulty maintaining sleep?admits .? Urge to move legs?denies.? Teeth grinding?denies.? Shouting or Kicking during sleep?denies.? Abnormal behavior during sleep?denies.? Excessive sleep?denies.? Snoring?admits.? Daytime sleepiness?denies.? ?? General/Constitutional:? Change in appetite?denies.? Chills?denies.? Fatigue?denies.? Fever?denies .? Weight gain?admits.? Weight loss?denies.? ?? Ophthalmologic:? Blurred vision?denies.? Diminished visual acuity?denies.? ?? ENT:? Stuffiness?admits.? Decreased hearing?admits.? Dry mouth?denies.? Ear pain?denies.? Nosebleed?denies.? Ringing in the ears?denies.? Sinus pain?denies .? Sore throat?denies.? Swollen glands?denies.? ?? Endocrine:? Cold intolerance?denies.? Excessive thirst?denies.? Frequent urination? denies.? Heat intolerance?denies.? ?? Respiratory:? Shortness of breath?denies.? Chest pain?denies.? Cough?denies.? ?? Breast:? Breast lump?denies.? Nipple discharge?denies.? ?? Cardiovascular:? Chest pain at rest?denies.? Chest pain with exertion?denies.? Claudication?denies.? Dizziness?denies.? Fluid accumulation in the legs?denies.? Irregular heartbeat?denies.? Palpitations?denies.? ?? Gastrointestinal:? Abdominal pain?denies.? Constipation?denies.? Diarrhea?denies.? Difficulty swallowing?denies.? Heartburn?denies.? Nausea?denies.? Rectal bleeding?denies.? ?? Hematology:? Easy bruising?denies.? Prolonged bleeding?denies.? ?? Genitourinary:? Frequent urination?denies.? Urgency?denies.? Incontinence?denies.? Erectile Dysfunction?denies.? ?? Musculoskeletal:? Neck pain?denies.? Back pain?admits.? Muscle aches?denies.? Painful joints?admits.? Sciatica?denies.? Weakness?denies.? ?? Podiatric:? Difficulty walking?denies.? Foot numbness?denies.? ?? Neurologic:? Difficulty swallowing?denies.? Balance difficulty?denies.? Coordination? normal.? Difficulty speaking?denies.? Dizziness?denies.? Fainting?denies.? Gait abnormality?denies.? Headache?admits.? Loss of strength?denies.? Loss of use of extremity?denies.? Low back pain?denies.? Memory loss?admits.? Seizures?denies.? Tics?denies.? Tingling/Numbness?Right thigh.? Transient loss of vision?denies.? Tremor?denies.? ?? Psychiatric:? Anxiety?admits.? Auditory/visual hallucinations?denies.? Delusions?denies .? Depressed mood?admits.? Stressors?denies.? Substance abuse?denies.? Suicidal thoughts?denies.? ?? Physical Exam Vital Signs: weight 320lbs, Height 64 inches Neuro Other: Neurological: ? Abnormal neurological findings:?Slight decreased sensation in the lower anterolateral right thigh.? Mental Status:?alert and oriented X 3,?Normal attention, orientation, memory and affect.? Cranial Nerves:?Pupils are equal, round and reactive to light. Fundoscopy shows normal disc bilaterally. External occular muscles are intact. Visual ruiz are full, no ptosis. Face is symmetrical, no facial weakness or droop. Facial sensations are normal. Tongue protrudes in midline. Palate elevates symmetrically. Shoulder shrugging is normal..? Motor Examination:?Normal muscle tone, bulk and strength,?No atrophy or fasciculations,?No drift of the extended upper extremities,?Deep tendon reflexes are 2+?,?Plantars are flexor?.? Straight Leg Raising:?90 degrees.? Sensory Exam:?Normal light touch, temperature, pinprick, vibration and joint-position sensations?,?Rhomberg sign is absent.? Coordination:?no ataxia,?no titubation,?iifhvf-da-qdkr, lzrx-gswy-jqez test and rapid alternating movements were normal.? Gait Exam:?Within normal limits.? Cerebellar Signs:?Sbedzx-kw-qfmq and fnnu-nt-yzhi is normal,?no dysdiadochokinesia?.? Extrapyramidal System:?No tremor, rigidity with normal facial expressions,?No bradykinesia, no bradyphrenia. Normal arm swing and posture. No propulsion or retropulsion.? Speech:?Normal,?no dysphasia or dysarthria..? Mini Mental Status Exam: ? Level of Consciousness:?Alert.? Orientation:?Knows correct year, month, date, day and season,?Knows correct city, county and state. Knows correct location and floor.? Registration:?Able to register 3 objects.? Attention:?Serial 7's performed accurately.? Recall:?Able to recall 3 out of 3 objects.? Language:?Normal spontaneous speech, fluency, repetition,naming, c omprehension, reading and writing.? Total Score ?30/30.? General Examination: ? GENERAL APPEARANCE:?normal,?in no acute distress.? HEAD:?normocephalic,?atraumatic.? EYES:?sclera non-icteric,?conjunctiva clear.? EARS:?auditory canal clear,?tympanic membrane intact, clear.? NOSE:?no lesions.? ORAL CAVITY:?gums normal,?mucosa moist,?no lesions.? THROAT:?clear.? NECK/THYROID:?no cervical lymphadenopathy,?thyroid normal,?neck supple, full range of motion,?no carotid bruit.? SKIN:?no rashes,?no significant birthmarks.? HEART:?S1, S2 normal,?no murmurs.? LUNGS:?clear anteriorly and posteriorly.? CHEST:?no gross rib deformity,?clear to auscultation.? BACK:?normal exam of spine.? EXTREMITIES:?no edema.? PERIPHERAL PULSES:?normal.? PSYCH:?alert, oriented,?cognitive function intact,?cooperative with exam.? Assessment & Plan Assessment & Plan (1) Obstructive sleep apnea of adult: Comment: Code(s): G47.33 - Obstructive sleep apnea (adult) (pediatric) Category: Medical (2) Memory changes: Code(s): R41.3 - Other amnesia Category: Medical Plan Start CPAP 15 cm pressure with autoPAP. Weight loss specialist Orders: Orders CPAP compliance review Today G47.33 - Obstructive sleep apnea (adult) (pediatric) Referrals Medical Weight Management Referral G47.33 - Obstructive sleep apnea (adult) (pediatric) Coding Level of Care Code New Pt Level 5 (97572) Diagnoses Obstructive sleep apnea of adult G47.33 Memory changes R41.3
[2025-06-03 15:16] VITALS: BMI 56.6
--- OUTSIDE RECORDS SUMMARY | 2025-06-03 15:21 | XMS_ITS | Clinical Summary ---
Author Organization [facility] Address [address] [place] [address] Care Team Providers Care Hot Header Operator Name Role Phone Tanna Oconnor MD [...] 2023-2 5 season) 2024 Influenza Vaccine (#1) 2025 DTaP,Tdap,and Td Vaccines (3 - Td [...] age to complete this topic Care Teams Hot Header Operator Relationship Specialty Start Date End Date Tanna Oconnor MD PCP - General Internal Medicine 11/01/18
--- OUTSIDE RECORDS SUMMARY | 2025-06-03 15:21 | XMS_ITS | Patient Health Record ---
Author Organization [facility] Address [address] [address] Care Team Providers Care Middle School Professional Name Role Phone Alannah LUNDBERG, Divina Dowd Primary Care Provider Un available Black, Kimberly Unavailable [phone] Perica Sara Unavailable [phone] Allergies No Known Allergies Reason For Referral No Information Medications Medication SIG (Take, Route, Frequency, Duration) Notes Start Date End Date Status Vitamin D3 50 MCG (1999) as directed Orally Active Omeprazole 20 MG 1 capsule 30 minutes before morning meal Orally Once a day; Duration: 30 day(s) Active Zinc 50 MG 1 tablet Orally Once a day; Duration: 30 day(s) Active Fish Oil 1000 MG 1 capsule Orally Onc e a day; Duration: 30 day(s) Active Losartan Potassium 50 MG 1 tablet Orally Once a day; Duration: 30 day(s) Active Cozaar 50mg Not-Taki ng Magnesium 500 MG as directed Orally Active Citalopram & Diet Manage Prod 20mg Not-Taking Biotin 5000 MCG 1 tablet Orally Once a day 11/05/2019 Active Calcium 1 tab Oral; Duration : 14 days Not-Taking Docusate Sodium 100 MG 1 capsule as need ed Orally Once a day; Duration: 30 day(s) 11/05/2019 Active Ipratropium [place] as needed Not-Taking Citalopram Hydrobromide 40 MG 0.5 tablet Orally Once a day; Duration: 30 day(s) Active Ciclopirox Olamine 0.77 % 1 application Externally Twice a day; Duration: 30 days 12/04/2019 Not-Taking Vitamin B12 Active Vitamin C 1000 MG 1 tablet Orally Once a day; Duration: 30 day(s) Active Eye Drops Active Atorvastatin [...] Status W/U Status Risk Notes Problem Non-pressure chronic ulcer of other part of right foot limited to breakdown of skin (L97.511) Active confirmed Problem Osteoarthritis of midtarsal joint of left foot (8541491842084898 ) Osteoarthritis of midtarsal joint of left foot (M19.072) Active confirmed Problem Osteoarthritis of midtarsal joint of right foot (7036335723850472 ) Osteoarthritis of midtarsal joint of right foot (M19.071) Active confirmed Vital Signs Blood pressure diastolic 80 mm Hg 10/23/2024 Height 5ft 4in in 10/23/2024 Blood pressure systolic 120 mm Hg 10/23/2024 Weight 315 lbs 10/23/2024 BMI 54.06 kg/m2 10/23/2024 Encounters Encounter Location Date Provider Diagnosis [facility] [address] [place] [address] 10/23/2024 Sara Pericisrrael Pain in left foot M79.672 ; Osteoarthritis [...] X ray : Foot, right 3V 10/31/2022 [id number] NAIL, 1-5 12/04/2019 Insurance Providers Payer Name Payer Address Payer Phone Subscriber Number Group Number Insured Name Patient Relationship to Insured Coverage Start Date Coverage End Date Medicare National [facility] [address] [place] [address] [id number] Yessy Dempsey Self - patient is the insured [facility] [address] [place] [address] [id number] Yessy Dempsey Self - patient is the insured Medical (General) History Medical History History ICD Code measles hypertension chicken pox Cholesterol Anxiety Depression Mumps Psoriasis/eczema Psychiatric disorder Warts Arthritis Back,Hip,and Knee pain Numbness Reflux ( GERD) Stomach ulcer Surgical History Surgery Date(Month/Year) wisdom teeth extraction colonoscopy Hospitalization History Reason Date(Month/Year) bronchitis for a 5 day stay in [place], [place] 01/2012
== END 2025-06-03 15:17 | disposition home or self-care (01) ==
LOC: HO.HSM 14:48
PROVIDERS: PCP Internal Medicine; Visit Provider Psychiatry & Neurology Neurology
DX: G47.33 Obstructive sleep apnea (adult) (pediatric) (principal); R41.3 Other amnesia
CPT/HCPCS: 99204

== ENCOUNTER → 2025-06-03 14:47 | Outpatient (BNVA) | payer MEDICARE, SELFPAY | PROVIDERS: PCP Internal Medicine; Visit Provider Psychiatry & Neurology Neurology | DX: G47.33 Obstructive sleep apnea (adult) (pediatric) (principal); R41.3 Other amnesia | CPT/HCPCS: 99202 ==

== ENCOUNTER 2025-06-30 13:23 | Outpatient (REF) | payer MEDICARE, SELFPAY ==
--- OUTSIDE RECORDS SUMMARY | 2025-04-17 09:40 | XMS_ITS ---
Author Organization [facility] Address [address] [place] [address] Care Team Providers Care Sand Slinger Name Role Phone Alannah LUNDBERG, Divina Primary Care Provider Jason Lancaster [phone] REASON FOR VISIT gerd, food getting stuck, coughing Encounters Encounter Location Date Provider Diagnosis [facility] [address] [place] [address] 04/17/2025 Jasno Flaherty Plan Of Treatment No Information Progress Notes * DAKOTA UREÑATAM MonteDOB:[birth year] (70 yo F)Acc No.[id number]:04/17/2025 Progress Notes Patient: MEMO ROJAS Provider: Speedy Flaherty MD :1955 A ge:70 Y S ex:Female Date:04/17/2025 Address:[address] [place] [address] Pcp:Divina Jaffe MD Subjective: * Chief Complaints: [...] MD Date: 0 04/17/2025 Generated for Kb harris/Charli/Binasmitting on: 0 06/30/2025 02:12 PM EDT
--- NOTE | ~2025-06-30 | MM_ITS ---
EXAMINATION: MM SCREENING DIGITAL BREAST TOMOSYNTHESIS, BILATERAL CLINICAL INFORMATION: Screening. Asymptomatic. COMPARISON: Comparison made to multiple prior, most recent June 16, 2024, and most remote September 26, 2019. TECHNIQUE: Digital breast tomosynthesis is performed in both the craniocaudal and mediolateral oblique views along with computer-aided detection (CAD). Synthesized 2D images are generated from the tomosynthesis. FINDINGS: BREAST COMPOSITION: There are scattered areas of fibroglandular density (ACR BI-RADS breast composition Category b). BILATERAL BREASTS: No significant masses, suspicious calcifications or other abnormalities are seen in either breast. MM/MM tomosynthesis screening BI IMPRESSION: BILATERAL BREASTS: Negative, no mammographic evidence of malignancy. Normal interval follow-up is recommended in 12 months. ASSESSMENT: BI-RADS 1 - Negative RECOMMENDATION: Routine annual mammography screening. FOLLOW-UP: 1 year F/U This examination should not preclude the clinical evaluation of a suspicious palpable abnormality. This patient's information was entered into a reminder system with a target due date for their next mammogram. Electronically signed by: Greg Villegas MD 07/06/2025 04:37 PM EDT
--- NOTE | ~2025-06-30 | MM_ITS ---
EXAMINATION: DXA BONE DENSITY AXIAL HISTORY: M78.0 MENOPAUSAL STATE TECHNIQUE: [employer] Dual energy absorptiometry (DEXA) of the lumbar spine, total left hip, and femoral neck was performed. COMPARISON: Comparison is made with the prior examination dated 06/05/2023. FINDINGS: The bone mineral density of the lumbar spine is 1.050 g/cm2, corresponding to a T-score of -1.0, and a Z-score of -0.5. This is indicative of normal bone mineral density. This represents a BMD change of -4.7% compared to the prior exam. This is statistically significant. The bone mineral density of the left total hip is 0.964 g/cm2, corresponding to a T-score of -0.3, and a Z-score of 0.4. This is indicative of normal bone mineral density. This represents a BMD change of -7.0% compared to the prior exam. This is statistically significant. The bone mineral density of the left femoral neck is 0.799 g/cm2, corresponding to a T-score of -1.7, and a Z-score of -0.7. This is indicative of osteopenia. This represents a BMD change of -2.7% compared to the prior exam. FRACTURE RISK: The FRAX index suggests a ten year probability of major osteoporotic fracture of 8.6%, and of hip fracture 1.4%. MM/XR DEXA axial skeleton IMPRESSION: Based on bone mineral density, and according to World Health Organization (WHO) criteria, the diagnosis is consistent with osteopenia. Statistically, 68% of repeat scans fall within 1 SD (+/- 0.010 g/cm2 for AP spine L1-L4) and 1 SD (+/- 0.012 g/cm2 for femur total) FRAX is a trademark of the [employer] [place] for Metabolic Bone Disease, a World Health Organization (WHO) Collaborating Center. Electronically signed by: Jason Sandoval MD 06/30/2025 02:28 PM EDT
--- OUTSIDE RECORDS SUMMARY | 2025-06-30 14:13 | XMS_ITS | Encounter Summary ---
Author Organization [facility] Address [address] [place] [address] Care Team Providers Care Plow Holder Name Role Phone Divina Jaffe Md, MD Primary Care Provider Unavailable Tanna Oconnor MD Primary Care Provider Unavail able Encounter Details Date Type Department Care Team Description 03/05/2018 Transfer Records Medical Records [address] [place] [address] Abstract, Provider Social History Tobacco Use Types Packs/Day Years Used Date Smoking Tobacco: Former Smokeless Tobacco: Never Comments:only smoked for 2 y ears Sex Assigned at Date Recorded Not on file documented as of this encounter Plan of Treatment Not on file documented as of this encounter Visit Diagnoses Not on filedocumented in this encounter Care Teams Plow Holder Relationship Specialty Start Date End Date Divina Jaffe MD, PCP - General Internal Medicine 12/18/17 1 01/01/18 Tanna Oconnor MD PCP - General Internal Medicine 11/01/18 documented as of this encounter
--- OUTSIDE RECORDS SUMMARY | 2025-06-30 14:13 | XMS_ITS | Clinical Summary ---
Author Organization [facility] Address [address] [place] [address] Care Team Providers Care Chlorine Plant Operator Name Role Phone Tanna Oconnor MD [...] Vaccine (1 - 2023-2 5 season) 2024 Depression Screening 11/19/2024 Influenza Vaccine (#1) 2025 DTaP,Tdap,and Td Vaccines [...] age to complete this topic Care Teams Chlorine Plant Operator Relationship Specialty Start Date End Date Tanna Oconnor MD PCP - General Internal Medicine 11/01/18
--- OUTSIDE RECORDS SUMMARY | 2025-06-30 14:13 | XMS_ITS | Patient Health Record ---
Author Organization [facility] Address [address] [place] [address] Care Team Providers Care Developmental Behavioral Physician Name Role Phone Alannah LUNDBERG, Divina Dowd Primary Care Provider Un available Black, Kimberly Unavailable [phone] Perica Sara Unavailable [phone] Allergies No Known Allergies Reason For Referral [...] day; Duration: 30 day(s) 11/05/2019 Active Ipratropium Mina as needed Not-Taking Citalopram Hydrobromide 40 MG [...] Osteoarthritis of midtarsal joint of left foot (3717745868762915 ) Osteoarthritis of midtarsal joint of left foot (M19.072) Active confirmed Problem Osteoarthritis of midtarsal joint of right foot (2609192522400586 ) Osteoarthritis of midtarsal joint of right foot (M19.071) Active confirmed Vital Signs Blood pressure diastolic 80 mm Hg 10/23/2024 Height 5ft 4in in 10/23/2024 Blood pressure systolic 120 mm Hg 10/23/2024 Weight 315 lbs 10/23/2024 BMI 54.06 kg/m2 10/23/2024 Encounters Encounter Location Date Provider Diagnosis [facility] [address] [place] [address] 10/23/2024 Sara Pericisrrael Pain in left foot [...] X ray : Foot, right 3V 10/31/2022 [id number] NAIL, 1-5 12/04/2019 Insurance Providers Payer Name Payer Address Payer Phone Subscriber Number Group Number Insured Name Patient Relationship to Insured Coverage Start Date Coverage End Date Medicare [facility] [address] [place] [address] [id number] Yessy Dempsey Self - patient is the insured [facility] [address] [place] [address] [id number] Yessy Dempsey Self - patient is the insured Medical (General) History Medical History History ICD Code measles hypertension chicken pox Cholesterol Anxiety Depression Mumps Psoriasis/eczema Psychiatric disorder Warts Arthritis Back,Hip,and Knee pain Numbness Reflux ( GERD) Stomach ulcer Surgical History Surgery Date(Month/Year) wisdom teeth extraction colonoscopy Hospitalization History Reason Date(Month/Year) bronchitis for a 5 day stay in [place], [place] 01/2012
== END 2025-06-30 13:24 | disposition home or self-care (01) ==
LOC: HO.MAMMO 13:23
PROVIDERS: PCP Internal Medicine; Visit Provider Internal Medicine
DX: Z12.31 Encounter for screening mammogram for malignant neoplasm of breast (principal); Z13.820 Encounter for screening for osteoporosis; Z78.0 Asymptomatic menopausal state; M85.852 Other specified disorders of bone density and structure, left thigh
CPT/HCPCS: 77063; 77067; 77080

== ENCOUNTER → 2025-06-30 14:00 | Outpatient (BNV) | payer MEDICARE, SELFPAY | PROVIDERS: PCP Internal Medicine; Visit Provider Radiology Diagnostic Radiology | DX: E28.39 Other primary ovarian failure (principal) | CPT/HCPCS: 77080 ==

== ENCOUNTER 2025-08-31 11:49 | Outpatient (AMB) | payer MEDICARE, SELFPAY ==
--- OUTSIDE RECORDS SUMMARY | 2025-08-31 11:52 | XMS_ITS | Patient Health Record ---
Author Organization [facility] Address [address] [place] [address] Care Team Providers Care Guest Services Name Role Phone Alannah LUNDBERG, Divina Dowd Primary Care Provider Un available Sara De La Cruz Unavailable [phone] Caleb Fuentes Unavailable Allergies No Known Allergies Reason For Referral No Information Medications Medication SIG (Take, Route, Frequency, Duration) Notes Start Date End Date Status Ipratropium [place] as needed Not-Taking Biotin 5000 MCG 1 tablet Orally Once a day 11/05/2019 Active Calcium 1 tab Oral; Duration : 14 days Not-Taking Donepezil HCl 5 MG 1 tablet at bedtime Orally Once a day Active Magnesium 500 MG as directed Orally Active Citalopram & Diet Manage Prod 20mg Not-Taking Probiotic Active Losartan Potassium 50 MG 1 tablet Orally Once a day; Duration: 30 day(s) Active Cozaar 50mg Not-Taki ng Eye Drops Not-Taking Atorvastatin Calcium 20 MG as directed Orally Active Vitamin B12 Active Vitamin C 1000 MG 1 tablet Orally Once a day; Duration: 30 day(s) Active Citalopram Hydrobromide 40 MG 0.5 tablet Orally Once a day; Duration: 30 day(s) Active Ciclopirox Olamine 0.77 % 1 application Externally Twice a day; Duration: 30 days 12/04/2019 Not-Taking Docusate Sodium 100 MG 1 capsule as need ed Orally Once a day; Duration: 30 day(s) 11/05/2019 Active Loratadine Active Fish Oil 1000 MG 1 capsule Orally Onc e a day; Duration: 30 day(s) Active Tretinoin 0.025 % 1 application in the evening to face Externally Once a day Active Zinc 50 MG 1 tablet Orally Once a day; Duration: 30 day(s) Not-Taking buPROPion HCl ER (XL) Active Omeprazole 20 MG 1 capsule 30 minutes before morning meal Orally Once a day; Duration: 30 day(s) Active Solifenacin Succinate Active Vitamin D3 50 MCG (1999 UT) as directed Orally Active Immunizations Vaccine Route Administration Date Status Comme nts Influenza Unknown 08/19/2024 Administered COVID-19 Pfizer BioNTech Vaccine Unknown 02/24/2021 Administered Second Dose: 03/17/2021 Social History Tobacco Use: Social History Observation Description Date Details (start date - stop date) Never Smoker NA - NA Tobacco Control (Standard) Question Answer Notes Tobacco use: Nonsmoker Additional Findings: Tobacco non-user Current no nsmoker AUDIT-C (Standard) Question Answer Notes Did you [...] Problem Status W/U Status Risk Notes Problem Peroneal tendinitis of left lower limb (81650348005552 7) Peroneal tendinitis of left lower extremity (M76.72) Active confirmed Problem Acquired cavus deformity of left foot (disorder) (95421111568708 07) Cavus deformity of left foot (Q66.72) Active confirmed Vital Signs Blood pressure diastolic 80 mm Hg 08/21/2025 Height 5ft4in in 08/21/2025 Blood pressure systolic 120 mm Hg 08/21/2025 Weight 316 lbs 08/21/2025 BMI 54.24 kg/m2 08/21/2025 Encounters Encounter Location Date Provider Diagnosis [facility] [address] 10/23/2024 Sara Perica Pain in left foot [...] of right foot M19.071 and Onychomycosis B35.[address] [facility] [address] [address] 08/21/2025 Religionja Vailles Pain in left foot M79.672 ; Peroneal tendinitis of left lower extremity M76.72 and Cavus deformity of left foot Q66.72 Assessments Encounter Date Diagnosis (ICD Code) Assessment Notes Treatment Notes Treatment Clinical Notes Section Notes 10/23/2024 Pain in left foot (ICD-10 - M79.672) 10/23/2024 Osteoarthritis of midtarsal joint of left foot (ICD-10 - M19.072) 08/21/2025 Pain in left foot (ICD-10 - M79.672) 08/21/2025 Peroneal tendinitis of left lower extremity (ICD-10 - M76.72) 08/21/2025 Cavus deformity of left foot (ICD-10 - Q66.72) 10/23/2024 Pain in left ankle and joints [...] 10/23/2024 X ray : Foot, left 3V 08/21/2025 X ray : Foot, right 3V 10/23/2024 X ray : Foot, right 3V 08/16/2011 X ray : Foot, right 3V 10/31/2022 [id number] NAIL, 1-5 12/04/2019 Next Appt Details Provider Name:Caleb Fuentes, 10/28/2025 02:30:00 PM, [address] [place] [address], [place], [address], Insurance Providers Payer Name Payer Address Payer Phone Subscriber Number Group Number Insured Name Patient Relationship to Insured Coverage Start Date Coverage End Date Medicare [facility] [employer] [address] [facility] [place] [address] [id number] Yessy Dempsey Self - patient is the insured [employer] [address] [place] [address] [phone] [id number] Yessy Dempsey Self - patient is the insured Medical (General) History Medical History History ICD Code measles hypertension chicken pox Cholesterol Anxiety Depression Mumps Psoriasis/eczema Psychiatric disorder Warts Arthritis Back,Hip,and Knee pain Numbness Reflux ( GERD) Stomach ulcer Surgical History Surgery Date(Month/Year) wisdom teeth extraction colonoscopy Hospitalization History Reason Date(Month/Year) bronchitis for a 5 day stay in [place], [place] 01/2012
--- OUTSIDE RECORDS SUMMARY | 2025-08-31 11:52 | XMS_ITS | Clinical Summary ---
Author Organization [employer] [facility] Address [address] [place] [address] Care Team Providers Care Ledger Poster Name Role Phone Tanna Oconnor MD Primary [...] 2003 Zoster Vaccines (1 of 2) 2003 Depression Screening 11/19/2024 COVID-19 Vaccine (1 - 2023-2 5 season) 2025 Influenza Vaccine (#1) 2025 DTaP,Tdap,and Td Vaccines [...] age to complete this topic Care Teams Ledger Poster Relationship Specialty Start Date End Date Tanna Oconnor MD PCP - General Internal Medicine 11/01/18
[2025-08-31 12:07] VITALS: BP 140/84; PULSE 68; RESP 16; TEMP 36.7; O2SAT 96; BMI 54.9
--- NOTE | 2025-08-31 12:07 | MHC.PC.OV ---
Vital Signs 08/31/25 12:07 Height 5 ft 4 in Weight 320 lb BMI 54.9 BP 140/84 H Blood Pressure Location Rt radial Position Sitting Respiration 16 Pulse 68 Pulse Source Pulse Oximeter Temp 98.0 F Temp Source Oral Pulse Oximetry (%) 96 Oxygen Delivery Method Room Air Intake Visit Reasons: 6 months f/up Intake Note: Pt is here today for her 6mo. 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 Required: No Allergies No Known Allergies (No Known Allergies*) Allergy (Verified 08/31/25 12:20) Medication List - Last Reconciled 08/31/25 by Divina Jaffe MD ascorbic acid (vitamin C) 500 mg PO DAILY atorvastatin 20 mg PO DAILY biotin 5000mg PO daily; bupropion HCl XL 300 mg PO DAILY cholecalciferol (vitamin D3) 100 mcg (2 x 50 mcg (2,000 unit)) PO DAILY citalopram 40 mg PO DAILY cyanocobalamin (vitamin B-12) 1,000 mcg PO DAILY diclofenac sodium 1% (Arthritis Pain (diclofenac)) 2 grams topical QID donepezil 5 mg PO BEDTIME L.acid,james,rham-B.bifid,long 3 billion cell (Digestive Probiotic) caps PO loratadine 10 mg PO DAILY losartan 50 mg PO DAILY magnesium oxide 500 mg PO DAILY omega-3 fatty acids (Fish Oil Concentrate) 2,000 mg PO DAILY omeprazole 20 mg PO DAILY solifenacin (Vesicare) 10 mg PO DAILY tretinoin 0.025% appl topical DAILY Tobacco use date assessed: 08/31/25 Fall risk assessment: 1 Fall in past year Last assessed Fall Risk: 08/31/25 Dental Screening Dental Screen Date: 08/31/25 Did you have a dental visit in the last 12 months?: Yes Did you have a dental problem in the last 6 months where you did not have access to dental care?: Yes Was dental information given to patient?: Patient has dentist HPI 6 months f/up HPI Details The patient is a 70-year-old female past medical history significant for hypertension, obstructive sleep apnea, and gastroesophageal reflux disease today for. Hypertension has been noted with a recent reading of 140/84 mmHg, although the patient reports that it has not been consistently high in other settings. The patient engages in regular swimming as a form of exercise, feels well with no complaints of chest pain, headache or lightheadedness The patient has been diagnosed with obstructive sleep apnea, confirmed by a sleep study conducted in March. Despite the diagnosis, she has not yet received her CPAP machine due to delays with the supplier, [facility]. The patient reports daytime sleepiness and non-restorative sleep. Gastroesophageal reflux disease is a persistent issue for the patient, with symptoms not fully controlled by omeprazole 20 mg daily. She experiences frequent heartburn and has been advised to contact her scoop driver for further evaluation, her previous EGD showed presence of GERD with esophagitis. The patient has a history of mild neurocognitive disorder and depression, for which she is currently taking citalopram and duloxetine. She reports some improvement in memory retrieval but continues to experience cognitive fogginess, possibly exacerbated by sleep apnea. Vitamin B12 levels are elevated, vitamin B12 supplements for which she was advised to discontinue for now [facility] Medical History (Updated 08/31/25 @ 12:54 by Divina Jaffe MD) Obstructive sleep apnea Mild cognitive impairment Heartburn symptom Osteopenia of left femoral neck Recurrent urinary tract infection SULLY (stress urinary incontinence, female) Obstructive sleep apnea of adult Depression Plantar fasciitis GERD with esophagitis Mild intermittent asthma in adult without complication Allergic rhinitis Essential hypertension Impaired fasting glucose Dyslipidemia Morbid obesity Menopause Vitamin D deficiency Surgical History No pertinent past surgical history Family History Father Lung cancer Unknown family medical history Mother HTN (hypertension) Hyperlipidemia Mental health disorder Brother Substance use disorder Sister Mental health disorder Son No problems noted. Son No problems noted. Social History Housing: House Alcohol intake: never Patient Tobacco Use Status: Never used Tobacco e-Cigarette/Vaping Use: Never Used Second Hand Smoke Exposure: No service: No Current occupational status: unemployed Cognitive needs: No Hearing needs: No Vision needs: Yes (Glasses) Questionnaire PHQ-9 Over the last 2 weeks, how often have you been bothered by any of the following problems? Depression Screening Interpretation: Positive (Currently followed by Dr. Sheila redding) Depression Screening Follow-up: Existing condition, In treatment and Community Mental Health Worker F/U Depression Screening Done: Yes Source: Developed by Drs. Jason Gutierrez, Anny Jurado, Ty Lock and colleagues, with an educational rodrigue from [employer]. Thrive Questionnaire Date Thrive assessed: 08/31/25 I am a: Patient What is your living situation today?: I have a steady place to live Within the past 12 months, did the food you bought not last and you didn't have the money to get more?: Never true Within the past 12 months, did you worry whether your food would run out before you got money to buy more?: Never true Do you have trouble paying for medicines?: No Do you have trouble getting transportation to medical appointments?: No Do you have trouble paying your heating and electricity bill?: No Do you have trouble taking care of your child, family member or friend?: No Do you have trouble with day-to-day activities such as bathing, preparing meals, shopping, managing finances, etc.?: No Are you currently unemployed and looking for a job?: No Are you interested in more education?: No Please select the resources that you would like help with: None Currently or been in a relationship where the following occur: No concerns reported THRIVE Score: 0 AUDIT C Alcohol Use Questionnaire (AUDIT-C) 1. How often do you have a drink containing alcohol?: Monthly or less 2. How many drinks containing alcohol do you have on a typical day when you are drinking?: 1 or 2 3. How often do you have six or more drinks on one occasion?: Never Total Score: 1 RAMANA-7 AMB Questionnaire RAMANA-7 Date RAMANA - 7 assessed: 02/18/25 Feeling nervous, anxious, or on edge: 1 = Several days Not being able to stop or control worryin = Several days Worrying too much about different things: 1 = Several days Trouble relaxin = Several days Being so restless that it is hard to sit still: 0 = Not at all Becoming easily annoyed or irritable: 0 = Not at all Feeling afraid as if something awful might happen: 0 = Not at all Total RAMANA-7 score (0-4 normal; 5-9 mild; 10-14 moderate; 15-21 severe): 4 Source: Developed by Anny Nair Kurt Kroenke and colleagues, with an educational rodrigue from [employer]. Review of Systems Const Reports as per HPI, Reports daytime sleepiness, Reports fatigue, Denies fever(s), Denies headache(s), Reports snoring, Denies weakness and Reports weight gain Eyes Denies change in vision ENT Denies dizziness, Denies headache(s), Denies nasal congestion and Denies nasal discharge Card Denies chest pain, Denies lightheadedness, Denies palpitations and Denies dyspnea Resp Denies chest congestion, Denies cough, Denies dyspnea, Reports snoring and Denies wheezing GI Denies abdominal pain, Denies change in bowel habits and Denies heartburn Denies hematuria, Denies urinary frequency, Denies dysuria and Denies urinary urgency Musc Reports arthralgias Neuro Denies dizziness, Denies headache(s) and Denies weakness Endo Reports fatigue, Denies polydipsia, Denies polyuria and Denies palpitations Juan Francisco/Lymph Denies easy bruising Aller/Immun Denies seasonal rhinorrhea and Denies wheezing Physical exam (Primary Care) Vital Signs: Last Vital Signs Temp 98.0 F 08/31/25 12:07 Pulse 68 08/31/25 12:07 Resp 16 08/31/25 12:07 BP 140/84 H 08/31/25 12:07 Pulse Ox 96 08/31/25 12:07 Oxygen Delivery Method Room Air 08/31/25 12:07 BMI result Body Mass Index 54.9 BMI Assessment/Plan discussion: High (Has been compliant with her diet, but has not been able to exercise much lately) BMI High, discussed plan: other (Looking into getting in to weight watchers and hiring personal lines account executive) Tobacco/Smoking Status: Tobacco use Status Tobacco use date assessed 08/31/25 08/31/25 12:09 Patient Tobacco Use Status Never used Tobacco 08/31/25 12:07 e-Cigarette/Vaping Use Never Used 08/31/25 12:07 Depression Screening Interpretation: Positive (Currently followed by Dr. Sheila redding) Depression Screening Follow-up: Existing condition, In treatment and Community Mental Health Worker F/U Thrive Assessment: Date of Thrive Assessment Date Thrive assessed 08/31/25 08/31/25 12:07 Currently or been in a relationship where the following occur: No concerns reported Const Other: Alert oriented x3, no acute cardiorespiratory distress morbidly obese Nutritional Appearance: obese Orientation/consciousness: patient oriented x3 HENMT Ears: external ears normal General nose exam: Normal external nose present Mouth: Normal oral and palatal mucosa present and moist mucous membranes Eyes General: appearance normal, both eyes and all related structures Neck Other: Supple, no lymphadenopathy, thyroid gland nonpalpable Resp Effort & Inspection: normal respiratory effort and able to speak in complete sentences Auscultation: clear to auscultation bilaterally Cardio Other: S1-S2 present regular rate and rhythm Skin General skin exam: no rashes or lesions noted Neuro General: patient oriented x3, gait normal, moves all extremities, no focal motor deficits and CN's II-XI intact bilaterally Extrem General: Yes full ROM, Yes no joint enlargement, Yes no pedal edema and Yes normal gait Coding Level of Care Code Est Pt Level 4 (21392) Complex EM visit Add On G2211 Diagnoses Morbid obesity E66.01 Dyslipidemia E78.5 Impaired fasting glucose R73.01 Essential hypertension I10 Osteopenia of left femoral neck M85.852 Heartburn symptom R12 Mild cognitive impairment G31.84 Obstructive sleep apnea G47.33 Assessment & Plan Assessment & Plan (1) Morbid obesity: Code(s): E66.01 - Morbid (severe) obesity due to excess calories Category: Medical (2) Dyslipidemia: Code(s): E78.5 - Hyperlipidemia, unspecified Category: Medical (3) Impaired fasting glucose: Code(s): R73.01 - Impaired fasting glucose Category: Medical (4) Essential hypertension: Code(s): I10 - Essential (primary) hypertension Category: Medical (5) Osteopenia of left femoral neck: Code(s): M85.852 - Other specified disorders of bone density and structure, left thigh Category: Medical (6) Heartburn symptom: Code(s): R12 - Heartburn Category: Medical (7) Mild cognitive impairment: Code(s): G31.84 - Mild cognitive impairment of uncertain or unknown etiology Category: Medical (8) Obstructive sleep apnea: Code(s): G47.33 - Obstructive sleep apnea (adult) (pediatric) Category: Medical Plan 1. Hypertension The patient's blood pressure was noted to be elevated at 140/84 mmHg during this visit. It is recommended to monitor blood pressure regularly and consider lifestyle modifications, including diet and exercise, to manage hypertension effectively. 2. Obstructive Sleep Apnea The patient has been diagnosed with obstructive sleep apnea but has not received her CPAP machine due to supplier delays. It is crucial to follow up with [facility] to expedite the delivery of the CPAP machine to improve sleep quality and cognitive function. 3. Gastroesophageal Reflux Disease The patient continues to experience reflux symptoms despite taking omeprazole. It is advised to consult with her scoop driver to reassess her treatment plan and consider alternative therapies if necessary. 4. Mild Neurocognitive Disorder and Depression The patient is on citalopram and duloxetine for depression and cognitive impairment. Continued monitoring of her cognitive function and mood is recommended, with adjustments to her medication regimen as needed. Neurology consult ordered 5. Vitamin B12 Excess The patient has elevated B12 levels and should discontinue B12 supplementation. Monitoring of B12 levels in future blood tests is advised. 7. Preventative Care The patient is advised to receive vaccinations for COVID-19, flu, and pneumonia, ensuring they are not administered simultaneously to avoid adverse reactions. Patient was informed and verbally consented to the use of an ambient scribe for clinic note documentation during this visit. Orders: Orders Lipid Panel 08/31/25 E55.9 - Vitamin D deficiency, unspecified, E66.01 - Morbid (severe) obesity due to excess calories, E78.5 - Hyperlipidemia, unspecified, I10 - Essential (primary) hypertension, M85.852 - Other specified disorders of bone density and structure, left thigh, R73.01 - Impaired fasting glucose Alanine Aminotransferase 08/31/25 E55.9 - Vitamin D deficiency, unspecified, E66.01 - Morbid (severe) obesity due to excess calories, E78.5 - Hyperlipidemia, unspecified, I10 - Essential (primary) hypertension, M85.852 - Other specified disorders of bone density and structure, left thigh, R73.01 - Impaired fasting glucose Aspartate Amino Transferase 08/31/25 E55.9 - Vitamin D deficiency, unspecified, E66.01 - Morbid (severe) obesity due to excess calories, E78.5 - Hyperlipidemia, unspecified, I10 - Essential (primary) hypertension, M85.852 - Other specified disorders of bone density and structure, left thigh, R73.01 - Impaired fasting glucose Basic Metabolic Panel Fasting 08/31/25 E55.9 - Vitamin D deficiency, unspecified, E66.01 - Morbid (severe) obesity due to excess calories, E78.5 - Hyperlipidemia, unspecified, I10 - Essential (primary) hypertension, M85.852 - Other specified disorders of bone density and structure, left thigh, R73.01 - Impaired fasting glucose Vitamin D 25-OH Total 08/31/25 E55.9 - Vitamin D deficiency, unspecified, E66.01 - Morbid (severe) obesity due to excess calories, E78.5 - Hyperlipidemia, unspecified, I10 - Essential (primary) hypertension, M85.852 - Other specified disorders of bone density and structure, left thigh, R73.01 - Impaired fasting glucose Hemoglobin A1c 08/31/25 E55.9 - Vitamin D deficiency, unspecified, E66.01 - Morbid (severe) obesity due to excess calories, E78.5 - Hyperlipidemia, unspecified, I10 - Essential (primary) hypertension, M85.852 - Other specified disorders of bone density and structure, left thigh, R73.01 - Impaired fasting glucose Referrals Neurology Referral G31.84 - Mild cognitive impairment of uncertain or unknown etiology, G47.33 - Obstructive sleep apnea (adult) (pediatric)
== END 2025-08-31 13:07 | disposition home or self-care (01) ==
LOC: HO.HMCC 11:49
PROVIDERS: PCP Internal Medicine; Visit Provider Internal Medicine
DX: E78.5 Hyperlipidemia, unspecified (principal); E66.01 Morbid (severe) obesity due to excess calories; Z68.43 Body mass index [BMI] 50.0-59.9, adult; R73.01 Impaired fasting glucose; I10 Essential (primary) hypertension; M85.852 Other specified disorders of bone density and structure, left thigh; R12 Heartburn; G31.84 Mild cognitive impairment of uncertain or unknown etiology; G47.33 Obstructive sleep apnea (adult) (pediatric)

== ENCOUNTER → 2025-08-31 11:49 | Outpatient (BNVA) | payer MEDICARE, SELFPAY | PROVIDERS: PCP Internal Medicine; Visit Provider Internal Medicine | DX: I10 Essential (primary) hypertension (principal); G47.33 Obstructive sleep apnea (adult) (pediatric); K21.9 Gastro-esophageal reflux disease without esophagitis; F32.A Depression, unspecified; E66.01 Morbid (severe) obesity due to excess calories; E78.5 Hyperlipidemia, unspecified; R73.01 Impaired fasting glucose; M85.852 Other specified disorders of bone density and structure, left thigh; R12 Heartburn; G31.84 Mild cognitive impairment of uncertain or unknown etiology; R79.89 Other specified abnormal findings of blood chemistry | CPT/HCPCS: 99212 ==

== ENCOUNTER 2025-09-09 07:19 | Outpatient (REF) | payer MEDICARE, SELFPAY ==
--- OUTSIDE RECORDS SUMMARY | 2025-03-27 11:00 | XMS_ITS ---
Author Organization [facility] Address [address] [place] [address] Care Team Providers Care Canceling And Cutting Control Clerk Name Role Phone Alannah LUNDBERG, Divina Primary Care Provider Jason Lancaster [phone] REASON FOR VISIT gerd, food getting stuck, coughing Encounters Encounter Location Date Provider Diagnosis [facility] [address] [place] [address] 03/27/2025 Jason Flaherty Plan Of Treatment No Information Progress Notes * DAKOTA UREÑATAM MonteDOB:[birth year] (70 yo F)Acc No.[id number]:03/27/2025 Progress Notes Patient: MEMO ROJAS Provider: Speedy Flaherty MD :1955 A ge:70 Y S ex:Female Date:03/27/2025 Address:[address] [place] [address] Pcp:Divina Jaffe MD Subjective: * Chief Complaints: * 1 . Gerd, food getting stuck, coughing. * Medical History: Objective: * Vitals: Assessment: Plan: * Treatment: * * The named appointment provid er may or may not be the originator of this progress note, and it is not deemed complete until electronically signed by the appointment provider. Sign off status: Pending * Provider: Speedy Flaherty MD Date: 0 03/27/2025 Generated for Kb harris/Charli/eTransmitting on: 1 07:23 AM EDT
--- OUTSIDE RECORDS SUMMARY | 2025-04-17 09:40 | XMS_ITS ---
Author Organization [facility] Address [address] [place] [address] Care Team Providers Care Customer Support Professional Name Role Phone Alannah LUNDBERG, Divina Primary Care Provider Jason Lancaster [phone] REASON FOR VISIT gerd, food getting stuck, coughing Encounters Encounter Location Date Provider Diagnosis [facility] [address] [place] [address] 04/17/2025 Jason Flaherty Plan Of Treatment No Information Progress Notes * NIRANJAN MEMO MonteDOB:[birth year] (70 yo F)Acc No.[id number]:04/17/2025 Progress Notes Patient: MEMO ROJAS Provider: Speedy Flaherty MD :1955 A ge:70 Y S ex:Female Date:04/17/2025 Address:[address] [place] [address] Pcp:Divina Jaffe MD Subjective: * Chief Complaints: [...] MD Date: 0 04/17/2025 Generated for Kb harris/Charli/eTransmitting on: 1 07:23 AM EDT
--- OUTSIDE RECORDS SUMMARY | 2025-09-09 07:23 | XMS_ITS | Patient Health Record ---
Author Organization [facility] Address [address] [place] [id number] Care Team Providers Care Tube Balancer Name Role Phone Alannah LUNDBERG, Divina Primary Care Provider Jason Lancaster Unavailable [phone] Allergies No Known Allergies Reason For Referral No Information Medications Medication SIG (Take, Route, Frequency, Duration) Notes Start Date End Date Status Vitamin D-3 25 MCG (1000 UT) 1 capsule Orally Once a day Active Ipratropium [place] HFA 17 MCG/ACT 2 puffs Inhalation prn Activ e Citalopram Hydrobromide 40 MG 0.5 tablet Orally Once a day Active Magnesium 250 MG 1 capsule Orally Onc e a day Active Omeprazole 20 MG TAKE 1 CAPSULE ONCE DAILY Orally Once a day; Duration: 90 days Active Atorvastatin Calcium 20 MG 1 tablet Oral ly Once a day Active Soothe 0.6-0.6 % 1 drop into affected eye as needed Ophthalmic prn Active Biotin 1000 MCG 1 tablet Orally Once a day Active Docusate Sodium 100 MG 1 capsule as need ed Orally Once a day Active Losartan Potassium 50 MG 1 tablet Orally Once a day; Duration: 30 day(s) Active Vitamin C 1000 MG 1 tablet Orally Once a day; Duration: 30 day(s) Active Probiotic 250 MG as directed Orally Active Fish Oil 1000 MG 1 capsule Orally Onc e a day; Duration: 30 day(s) Active Loratadine 10 MG 1 tablet Orally Once a day Active Solifenacin Succinate 10 MG 1 tablet Ora lly Once a day Active buPROPion HBr ER 348 MG 1 tablet in the morning Orally Once a day Active Immunizations Vaccine Route Administration Date Status Comme nts Influenza Unknown 08/27/2018 Administered Influenza Unknown 09/11/2018 Administered Influenza Unknown 09/09/2024 Administered Problems Problem Type SNOMED Code ICD Code Onset Dates Problem Status W/U Status Risk Notes Problem Screening for malignant neoplasm of colon (261999471) Encounter for screening for malignant neoplasm of colon (Z12.11) Active confirmed Problem Acute gastric ulcer without hemorrhage, without perforation AND without obstruction (15347564) Acute gastric ulcer without hemorrhage or perforation (K25.3) Active confirmed Problem Gastroesophageal reflux disease (201492879) Gastroesophageal reflux disease, esophagitis presence not specified (K21.9) Active confirmed Problem Erosive esophagitis (70563305) Erosive esophagitis (K22.10) Active confirmed Problem Chest pain (80100938) Chest pain, unspecified type (R07.9) Active confirmed Vital Signs Temperature 96.9 degrees Fahrenheit 06/25/2025 Blood pressure diastolic 01 mm Hg 06/25/2025 Height 64 in 06/25/2025 Blood pressure systolic 001 mm Hg 06/25/2025 Weight 321.2 lbs 06/25/2025 BMI 55.13 kg/m2 06/25/2025 Encounters Encounter Location Date Provider Diagnosis [facility] [address] [place] [phone] 06/25/2025 Jason Flaherty Gastroesophageal ref lux disease, esophagitis presence not specified K21.9 and Encounter for screening for malignant neoplasm of colon Z12.11 [facility] [address] [place] [phone] 09/08/2025 Jason Flaherty [facility] [address] [place] [phone] 01/25/2025 Jason Flaherty [facility] [address] [place] [id number] 03/19/2025 Jason Flaherty [facility] [address] [place] [phone] 03/25/2025 Jason Flaherty [facility] [address] [place] [phone] 05/27/2025 Jason Flaherty Assessments Encounter Date Diagnosis (ICD Code) Assessment Notes Treatment Notes Treatment Clinical Notes Section Notes 06/25/2025 Gastroesophageal reflux disease, esophagitis presence not specified (ICD-10 - K21.9) Use omeprazole daily or as needed. Let me know if things worsen. Overall, Memo appears well. She does not appear to be having any significant GI symptoms at this time in regard to the previous history of reflux and ulcers. It does appear that having resumed her omeprazole and eliminating certain foods has helped her upper GI symptoms improve again. I advised her that based on the endoscopy findings in 2019 and her current clinical history with improvement on her omeprazole I do not think a repeat endoscopy is currently needed. We did review that she could continue omeprazole daily long-term or simply use it when her symptoms flareup. I did advise her that if things were to change with worsening reflux and/or dysphagia despite omeprazole she should contact me for reevaluation. I did advise her to continue to watch her diet carefully, particular in regard to the types of food, amounts of food, and the need to obviously lose weight. We did review that she will be due for a follow-up screening colonoscopy in 2028. If things otherwise remain well she will see me in the interim as needed. She was comfortable with this plan. Thank you again for allowing me to participate in Memo's care. I shall continue to keep you advised of her progress. 06/25/2025 Encounter for screening for malignant neoplasm of colon (ICD-10 - Z12.11) Repeat colonoscopy in 2028 Overall, Memo appears well. She does not appear to be having any significant GI symptoms at this time in regard to the previous history of reflux and ulcers. It does appear that having resumed her omeprazole and eliminating certain foods has helped her upper GI symptoms improve again. I advised her that based on the endoscopy findings in 2019 and her current clinical history with improvement on her omeprazole I do not think a repeat endoscopy is currently needed. We did review that she could continue omeprazole daily long-term or simply use it when her symptoms flareup. I did advise her that if things were to change with worsening reflux and/or dysphagia despite omeprazole she should contact me for reevaluation. I did advise her to continue to watch her diet carefully, particular in regard to the types of food, amounts of food, and the need to obviously lose weight. We did review that she will be due for a follow-up screening colonoscopy in 2028. If things otherwise remain well she will see me in the interim as needed. She was comfortable with this plan. Thank you again for allowing me to participate in Memo's care. I shall continue to keep you advised of her progress. Plan Of Treatment Future Test Test Name Order Date UPPER GI ENDOSCOPY 12/04/2018 COLONOSCOPY 12/04/2018 Insurance Providers Payer Name Payer Address Payer Phone Subscriber Number Group Number Insured Name Patient Relationship to Insured Coverage Start Date Coverage End Date MEDICARE OF [place] [address] [facility] [place] [address] [id number] MEMO UREÑA Self - patient is the insured [employer] ATT[employer] CLAIMS [address] [place] [address] [phone] [id number] NIRANJANDAKOTA REISTTA Self - patient is the insured Medical (General) History Medical History History ICD Code Colonoscopies 02-06-2000 and 03/2008 were both negative Anxiety HTN Elevated cholesterol Denies [place],DM,CVA,Lung disease,renal dise ase Having an ETT at [facility] in 11/2017 Sleep apnea- not using CPAP Pneumonia and bronchitis GERD-EGD in 02/2019- small hi atal hernia, small area of erosive esophagitis, small gastric ulcers, benign gastric polyps- - gastric biopsies were negative for H. pylori and there was no De La Paz's esophagus on esophageal biopsies- she was started on omeprazole at that time Negative screening colonoscopy in February 2019 Surgical History Surgery Date(Month/Year)
--- OUTSIDE RECORDS SUMMARY | 2025-09-09 07:23 | XMS_ITS | Patient Health Record ---
Author Organization [facility] Address [address] [address] Care Team Providers Care Job Captain Name Role Phone Alannah LUNDBERG, Divina Dowd Primary Care Provider Un available Sara De La Cruz Unavailable [phone] Caleb Fuentes Unavailable Allergies No Known Allergies Reason For Referral No Information Medications Medication SIG (Take, Route, Frequency, Duration) Notes Start Date End Date Status Ipratropium Griffin as needed Not-Taking Biotin 5000 MCG 1 [...] Problem Peroneal tendinitis of left lower limb (98359554110638 7) Peroneal tendinitis of left lower extremity (M76.72) Active confirmed Problem Acquired cavus deformity of left foot (disorder) (77484104424074 07) Cavus deformity of left foot (Q66.72) Active confirmed Vital Signs Blood pressure diastolic 80 mm Hg 08/21/2025 Height 5ft4in in 08/21/2025 Blood pressure systolic 120 mm Hg 08/21/2025 Weight 316 lbs 08/21/2025 BMI 54.24 kg/m2 08/21/2025 Encounters Encounter Location Date Provider Diagnosis [facility] [phone] 10/23/2024 Sara Perica Pain in left foot [...] of right foot M19.071 and Onychomycosis B35.[address] [facility] [address] [phone] 08/21/2025 Sabianistja Vailles Pain in left foot M79.672 ; [...] X ray : Foot, right 3V 10/31/2022 [id number] NAIL, 1-5 12/04/2019 Next Appt Details Provider Name:Caleb Fuentes, 10/28/2025 02:30:00 PM, [address] [place] [address], [place], [address], Insurance Providers Payer Name Payer Address Payer Phone Subscriber Number Group Number Insured Name Patient Relationship to Insured Coverage Start Date Coverage End Date Medicare National [facility] [employer] [address] [place] [address] [id number] Yessy Dempsey Self - patient is the insured [employer] Blue [employer] [address] [place] [address] [id number] Yessy Dempsey Self - patient is the insured Medical (General) History Medical History History ICD Code measles hypertension chicken pox Cholesterol Anxiety Depression Mumps Psoriasis/eczema Psychiatric disorder Warts Arthritis Back,Hip,and Knee pain Numbness Reflux ( GERD) Stomach ulcer Surgical History Surgery Date(Month/Year) wisdom teeth extraction colonoscopy Hospitalization History Reason Date(Month/Year) bronchitis for a 5 day stay in [place], [place] 01/2012
--- OUTSIDE RECORDS SUMMARY | 2025-09-09 07:23 | XMS_ITS | Clinical Summary ---
Author Organization [facility] Address [address] [place] [address] Care Team Providers Care Fitness Teacher Name Role Phone Tanna Oconnor MD Primary [...] age to complete this topic Care Teams Fitness Teacher Relationship Specialty Start Date End Date Tanna Oconnor MD PCP - General Internal Medicine 11/01/18
[2025-09-09 11:07] LABS: Alanine Aminotransferase 18 U/L (0-31); Anion Gap 12 (12-20); Aspartate Amino Transferase 19 U/L (5-31); Blood Urea Nitrogen 18 mg/dL (9-16); Calcium 9.4 mg/dL (8.4-10.2); Carbon Dioxide 29 mmol/L (22-29); Chloride 108 mmol/L (96-108); Cholesterol 174 mg/dL (<200); Estimated Glomerular Filt Rate > 60; HDL Cholesterol 47 mg/dL (>40); Potassium 4.6 mmol/L (3.3-5.1); Sodium 144 mmol/L (135-145); Triglycerides 84 mg/dL (<150)
== END 2025-09-09 07:20 | disposition home or self-care (01) ==
LOC: HO.HMGCLDS 07:19
PROVIDERS: PCP Internal Medicine; Visit Provider Internal Medicine
DX: G47.33 Obstructive sleep apnea (adult) (pediatric) (principal); G31.84 Mild cognitive impairment of uncertain or unknown etiology; K21.9 Gastro-esophageal reflux disease without esophagitis; I10 Essential (primary) hypertension; E78.5 Hyperlipidemia, unspecified; R73.01 Impaired fasting glucose; M85.852 Other specified disorders of bone density and structure, left thigh; E66.01 Morbid (severe) obesity due to excess calories; E55.9 Vitamin D deficiency, unspecified; M25.561 Pain in right knee; M25.562 Pain in left knee; G89.29 Other chronic pain; F33.9 Major depressive disorder, recurrent, unspecified; Z68.43 Body mass index [BMI] 50.0-59.9, adult; Z79.899 Other long term (current) drug therapy
CPT/HCPCS: 36415; 80048; 80061; 82306; 83036; 84450; 84460; 99202

== ENCOUNTER 2025-09-09 12:55 | Outpatient (AMB) | payer MEDICARE, SELFPAY ==
[2025-09-09 12:59] VITALS: BP 146/88; PULSE 57; O2SAT 98; BMI 55.2
--- NOTE | 2025-09-09 12:59 | A.OFFVIS_ITS ---
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 Witnessed snoring/apnea/gaping. Goes to bed 12am wakes up at 7am. wakes up about 3times. no headaches. Naps around 1.5 hrs. PSG done back in march. Patient was suppost to get CPAP through [employer] but still does not have machine. She is working with [facility] as a DME. Also, looking to take over memory medications. Accompanied by: Self / Same As Patient Allergies No Known Allergies (No Known Allergies*) Allergy (Verified 09/09/25 13:03) HPI Comments Details: 70 year old female is a new patient referral from Dr. Souza's office for an e valuation of ARCHIE and MCI. 03/2025 PSG c/w with severe archie, she has 52 hypopneas and 7 apneas, for a total AHI of 59/hr, REM AHI is 20/hr. Oxygen desaturation is not significant and primary limb movements. Poor sleep efficacy of 47%, and REM of 3.7%. Will start cpap at [id number] and monitor for compliance. She goes to bed at midnight most nights and has multiple night time arousals. She snores, gasps for air and has witnessed apneas. She denies morning headaches and bruxism. 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 She recently under went a Neuro-cognitive evaluation testing, which reveals evidence of depression and mild cognitive impairment. She says her memory is poor, she forgets names and misplaces articles. She gets lost while driving and problem solving skills are challenging for her. She has trouble focusing on tasks and gets distracted. She forgets days of the week. She is taking citalopram 40mg and Buproprion 300mg po daily for bouts of depression worse in the winter months. She thinks her mood is better manged since starting Buproprion in May 2025. Dr. Alvarez is the psychiatry and she would like to have a adaptive physical educator to work with during her journey of medical weight management, as she needs to lose weight in order to have her bilateral TKR. She is motivated and swims 3 x a week, for 20- 30 min. She is being treated with conservative measures, pain meds, bracing, steroid injections. She wakes up at night due to GERD and would like to increase this medication today to reduce symptoms of acid reflux. [facility] Medical History Obstructive sleep apnea Mild cognitive impairment Heartburn symptom Osteopenia of left femoral neck Recurrent urinary tract infection SULLY (stress urinary incontinence, female) Obstructive sleep apnea of adult Depression Plantar fasciitis GERD with esophagitis Mild intermittent asthma in adult without complication Allergic rhinitis Essential hypertension Impaired fasting glucose Dyslipidemia Morbid obesity Menopause Vitamin D deficiency Surgical History History of endoscopy Hx of colonoscopy Family History Father Lung cancer Unknown family medical history Mother HTN (hypertension) Hyperlipidemia Mental health disorder Brother Substance use disorder Sister Mental health disorder Son No problems noted. Son No problems noted. Social History Housing: House Alcohol intake: former Patient Tobacco Use Status: Former Tobacco user e-Cigarette/Vaping Use: Never Used Second Hand Smoke Exposure: No service: No Current occupational status: unemployed Cognitive needs: No Hearing needs: No Vision needs: Yes (Glasses) Physical Exam Vital Signs: Last Vital Signs Pulse 57 09/09/25 12:59 BP 146/88 H 09/09/25 12:59 Pulse Ox 98 09/09/25 12:59 Oxygen Delivery Method Room Air 09/09/25 12:59 BMI result Body Mass Index 55.2 BMI is 55.2 Const General: cooperative and no acute distress Nutritional Appearance: obese Orientation/consciousness: patient oriented x3 HEENT Face and sinus: Yes face symmetric Teeth and gingiva: other (mallampti score is 4) Eyes Pupils: Equal, round and reactive pupils present Neck Neck: Yes full ROM Resp Effort & Inspection: normal respiratory effort and able to speak in complete sentences Neuro Other: meralgia paresthetica mild upper ext tremor r. side General: patient oriented x3 and moves all extremities Cranial nerves: Yes Equal, round and reactive pupils present, Yes Normal accommodation reflex present, Yes Normal facial strength present, Yes Midline tongue present, Yes Ability to bilaterally rotate head present and Yes Ability to bilaterally elevate shoulders present Cognition (Neuro): normal cognition Gait exam (Neuro): Normal gait present Motor exam (neuro): 5/5 motor strength present throughout and Normal motor muscle tone present throughout Psych Appearance: grossly normal Speech and movement: Normal speech and movement present Thought process: Normal thought process present Thought content: Normal thought content present Results Reviewed Results Reviewed: 03/2025 MRI Reviewed with patient MR/MR head/brain wo con IMPRESSION: No acute stroke/nonhemorrhagic ischemia. No acute intracranial hemorrhage. Atrophy, bifrontal lobe. White matter disease likely related to small vessel occlusive disease. 03/2025 PSG reviewed with pt AHI c/w 52 hypopneas and 7 apneas total 59/hr with PLMD. Reviewed wtih pt today. Assessment & Plan Assessment & Plan (1) Obstructive sleep apnea: Code(s): G47.33 - Obstructive sleep apnea (adult) (pediatric) Category: Medical (2) Mild cognitive impairment: Code(s): G31.84 - Mild cognitive impairment of uncertain or unknown etiology Category: Medical (3) Morbid obesity: Code(s): E66.01 - Morbid (severe) obesity due to excess calories Category: Medical (4) Excessive daytime sleepiness: Code(s): G47.19 - Other hypersomnia Category: Medical (5) GERD with apnea: Code(s): K21.9 - Gastro-esophageal reflux disease without esophagitis; R06.81 - Apnea, not elsewhere classified Category: Medical (6) Bilateral knee pain: Code(s): M25.561 - Pain in right knee; M25.562 - Pain in left knee Category: Medical Qualifiers: Chronicity: chronic Qualified Code(s): M25.561 - Pain in right knee; M25.562 - Pain in left knee; G89.29 - Other chronic pain Plan ARCHIE severe with total AHI of 59/ 7 apneas and 52 hypopneas, montes start her on cpap therapy [id number] and f/u for compliance. Excessive daytime sleepiness will r/o deificencies with labs. Chronic Bilateral knee pain will start her on Physical therapy. MCI -Neurocognitive Testing with results of depression/ MCI / Continue Donepezil 5mg po daily. Will start her on Cerefolin for Brain health, take 1 tablet daily at bedtime, the cost is $45 per month and [employer] will call with instructions for this supplement Rx as insurance will not cover this medication. 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 Discussed risk factors and the importance of optimization of health with good blood pressure management, reducing stressors, reduction of BMI and weight loss. Social activities, and meaningful engagement, with friends weekly at dinners, zoroastrian, start reading for 15min daily, start jigsaw puzzles daily, or word puzzles, learn a new activity and exercise the brain it too is a muscle which needs stimulation. Continue to swim 20-30 min daily manage blood pressure. Continue [place] 3s, in your diet, [place], frances seeds flax seeds, Avocados, clean sources of fats in high nutritient dense diets and avoid empty carbs, or sugars. BMI is elevated to 55.2 today and she is working with weight managment to reduce weight, surgical TKR contingent up weight reduction. Anxiety with Depression continue Buproprion 300mg po daily and citalopram 40mg po daily. GERD will increase Omeprazole 20mg po to 20mg po BID Labs reviewed with pt. B12 was high in February 2025, will hold B12 1000mcg and will evaluate her levels with new labs then start her on cerefolin 1 tablet daily at bedtime for brain health. F/U in 3 months. Orders: Orders Ferritin Today F33.9 - Major depressive disorder, recurrent, unspecified, G47.19 - Other hypersomnia Methylmalonic Acid Today F33.9 - Major depressive disorder, recurrent, unspecified, G47.19 - Other hypersomnia, G47.9 - Sleep disorder, unspecified, R53.83 - Other fatigue Vitamin B12 and Folate Today F33.9 - Major depressive disorder, recurrent, unspecified, G47.19 - Other hypersomnia PT Evaluation and Treatment Today M25.561 - Pain in right knee, M25.562 - Pain in left knee Homocysteine Today F33.9 - Major depressive disorder, recurrent, unspecified, G47.19 - Other hypersomnia, G47.9 - Sleep disorder, unspecified, R53.83 - Other fatigue Vitamin B6 Today F33.9 - Major depressive disorder, recurrent, unspecified, G47.19 - Other hypersomnia Medications: New zepyofhenr-npvnhte-K-mefolate 600-2-6 mg (Cerefolin Brain [employer]) take one tablet daily at bedtime. 1 tab PO BEDTIME 90 tabs 2RF 3 months MDD 1 tablet G31.84 - Mild cognitive impairment of uncertain or unknown etiology Changed From magnesium oxide 500 mg PO DAILY G31.84 - Mild cognitive impairment of uncertain or unknown etiology, G47.33 - Obstructive sleep apnea (adult) (pediatric) To magnesium oxide 500 mg (2 x 250 mg magnesium) PO DAILY 180 tabs 3RF sleep difficulties 3 months MDD 500mg G31.84 - Mild cognitive impairment of uncertain or unknown etiology, G47.33 - Obstructive sleep apnea (adult) (pediatric) From omeprazole 20 mg PO DAILY K21.9 - Gastro-esophageal reflux disease without esophagitis, R06.81 - Apnea, not elsewhere classified To omeprazole 20 mg PO BID 60 caps 0RF acid reflux 1 month MDD 40mg K21.9 - Gastro-esophageal reflux disease without esophagitis, R06.81 - Apnea, not elsewhere classified Patient Instructions: Please complete the following fasting labs to rule out deficiencies. CBC/CMP/ B12/ Vit D/ TSH/ Homocysteine and MMA/ Ferritin. Sleep Hygiene provided: set a scheduled bedtime and wake time to help regulate the circadian rhythm and balance the release of pituitary hormones. Sleep in a dark room, temperatures below 68 degrees, and no devices n bed. Limit caffein ated products 6 hours prior to bed, and limit fluids 2-4 hours prior to bed. Gentle night yoga, diffusing essential oils, and playing soft music can be relaxing. If you do not hear form [facility] for your cpap machine and supply order, within 2 weeks, please reach out to our office [phone] or the [facility] office for cpap poultry picking machine tender appt. Patient Education: I spent 75 min during this visit to explain the pathophysiology of ARCHIE/ Vs Central Apnea VS Hypopnea with pt, reviewed MRI and explained the importance of BP management, weight reduction and strategies to optimize good brain health and nutrition. Importance of Cerefolin in Brain Health. Daily need for exercise and a good diet to improve quality of sleep. Coding Level of Care Code New Pt Level 4 (18126) Complex EM visit Add On G2211 Diagnoses Obstructive sleep apnea G47.33 Mild cognitive impairment G31.84 Morbid obesity E66.01 Excessive daytime sleepiness G47.19 GERD with apnea K21.9; R06.81 Chronic pain of both knees M25.561; M25.562; G89.29 Chronicity: chronic Time Spent (min) 75 Sleep Questionnaire Difficulty falling asleep: No Difficulty staying asleep?: Yes Number of arousals: 3 Snoring: Yes Witnessed apneas: Yes Gasping arousals: Yes Nocturia: No GERD: Yes Vivid dreams: Yes Acting out dreams: No Abnormal behavior in sleep: No Abnormal movements in sleep: Yes Morning headaches: No Excessive daytime sleepiness: Yes Daytime naps: Yes Restless legs: Yes Hallucinations: No Sleep paralysis: No Drop attacks: No Sleep Study: Yes CPAP: No
--- OUTSIDE RECORDS SUMMARY | 2025-09-09 18:05 | XMS_ITS | Encounter Summary ---
Author Organization [facility] Address [address] [place] [address] Care Team Providers Care Flatbed Stitcher Name Role Phone Divina Jaffe Md, MD Primary Care Provider Unavailable Tanna Oconnor MD Primary Care Provider Unavail able Encounter Details Date Type Department Care Team Description 07/17/2018 Orders Only Medical Records [address] [place] [address] Frna Holder MD Social History Tobacco Use Types [...] on filedocumented in this encounter Care Teams Flatbed Stitcher Relationship Specialty Start Date End Date Divina Jaffe MD, PCP - General Internal Medicine 12/18/17 1 01/01/18 Tanna Oconnor MD PCP - General Internal Medicine 11/01/18 documented as of this encounter
--- OUTSIDE RECORDS SUMMARY | 2025-09-09 18:05 | XMS_ITS | Encounter Summary ---
Author Organization [facility] Address [address] [place] [address] Care Team Providers Care Respiratory Care Practitioner Name Role Phone Divina Jaffe Md, MD Primary Care Provider Unavailable Tanna Oconnor MD Primary Care Provider Unavail able Encounter Details Date Type Department Care Team Description 12/24/2017 Release of Information Medical Records [address] [place] [id number] Abstract, Provider Social History Tobacco Use Types Packs/Day Years Used Date Smoking Tobacco: Former Smokeless Tobacco: Never Comments:only smoked for 2 y ears Sex Assigned at Date Recorded Not on file documented as of this encounter Plan of Treatment Not on file documented as of this encounter Visit Diagnoses Not on filedocumented in this encounter Care Teams Respiratory Care Practitioner Relationship Specialty Start Date End Date Divina Jaffe MD, PCP - General Internal Medicine 12/18/17 1 01/01/18 Tanna Oconnor MD PCP - General Internal Medicine 11/01/18 documented as of this encounter
--- OUTSIDE RECORDS SUMMARY | 2025-09-09 18:05 | XMS_ITS | Clinical Summary ---
Author Organization [facility] Address [address] [place] [address] Care Team Providers Care Relocation Services Specialist Name Role Phone Tanna Oconnor MD Primary [...] knees Take by mouth daily. 0 Active [place]-3 Fatty Acids (FISH OIL) 500 MG CapIndications:Elevated [...] sleep apnea mild AHI 9 07/17 Overview: [facility] Home Polysomnogram: Date 07/09/2018; AHI 9, [...] 02/14/2019, , 11/27/2018, Additional history exists INFLUENZA (#1) 2025 DTAP/TDAP/TD (3 - Td or Tdap) 04/17/2026 04/17/2016, 04/20/2005 Care Teams Relocation Services Specialist Relationship Specialty Start Date End Date Tanna Oconnor MD PCP - General Internal Medicine 11/01/18
--- OUTSIDE RECORDS SUMMARY | 2025-09-09 18:05 | XMS_ITS | Encounter Summary ---
Author Organization [facility] Address [address] [place] [address] Care Team Providers Care Global Director Air And Climate Change Name Role Phone Divina Jaffe Md, MD Primary Care Provider Unavailable Tanna Oconnor MD Primary Care Provider Unavail able Reason for Visit * Reason Onset Date Comments Sleep Study 07/18/2018 please move up a ppt if able, tx Encounter Details Date Type Department Care Team Description 07/18/2018 Telephone Pulmonology - [address] [place] [phone] Fran Holder MD Sleep Study (please [...] provider. -- PLEASE NOTE patient sent a [employer]ur[employer] message today inquiring about results. documented in this encounter Plan of Treatment Not on file documented as of this encounter Visit Diagnoses Not on filedocumented in this encounter Care Teams Global Director Air And Climate Change Relationship Specialty Start Date End Date Divina Jaffe MD, MD PCP - General Internal Medicine 12/18/17 1 01/01/18 Tanna Oconnor MD PCP - General Internal Medicine 11/01/18 documented as of this encounter
--- OUTSIDE RECORDS SUMMARY | 2025-09-09 18:05 | XMS_ITS | Encounter Summary ---
Author Organization [facility] Address [address] [place] [address] Care Team Providers Care Inspector Precision Assembly Name Role Phone Divina Jaffe Md, MD Primary Care Provider Unavailable Tanna Oconnor MD Primary Care Provider Unavail able Reason for Visit * Reason Onset Date Comments refill request 09/11/2018 Encounter Details Date Type Department Care Team Description 09/11/2018 Refill Pulmonology - [address] [place] [phone] Fran Holder MD refill request Social History [...] / Plan: [place] / Product Type: MEDICARE [id number] documented in this encounter Plan of Treatment Not on file documented as of this encounter Visit Diagnoses Diagnosis Wheezing documented in this encounter Care Teams Inspector Precision Assembly Relationship Specialty Start Date End Date Divina Jaffe MD, MD PCP - General Internal Medicine 12/18/17 1 01/01/18 Tanna Oconnor MD PCP - General Internal Medicine 11/01/18 documented as of this encounter
--- OUTSIDE RECORDS SUMMARY | 2025-09-09 18:05 | XMS_ITS | Clinical Summary ---
Author Organization [employer] [facility] Address [address] [place] [address] Care Team Providers Care Tester Food Products Name Role Phone Tanna Oconnor MD Primary Care Provider [phone] Surgical History Surgery Date Site/Laterality Comments COLONOSCOPY [...] age to complete this topic Care Teams Tester Food Products Relationship Specialty Start Date End Date Tanna Oconnor MD PCP - General Internal Medicine 11/01/18
--- OUTSIDE RECORDS SUMMARY | 2025-09-09 18:05 | XMS_ITS | Encounter Summary ---
Author Organization [facility] Address [address] [place] [address] Care Team Providers Care Roll Dough Divider Name Role Phone Tanna Oconnor MD Primary Care Provider Unavail able Reason for Visit * Reason Onset Date Comments Faxed Refill 02/06/2019 Encounter Details Date Type Department Care Team Description 02/06/2019 Refill Pulmonology - [address] [place] [phone] Fran Holder MD Faxed Refill Social History [...] NO Patients current insurance carrier is: Payor: MEDICARE-LensAR / Plan: MEDICARE-LensAR / Product Type: MEDICARE [id number] documented in this encounter Plan of Treatment Not on file documented as of this encounter Visit Diagnoses Diagnosis Wheezing documented in this encounter Care Teams Roll Dough Divider Relationship Specialty Start Date End Date Tanna Oconnor MD PCP - General Internal Medicine 11/01/18 documented as of this encounter
--- OUTSIDE RECORDS SUMMARY | 2025-09-09 18:05 | XMS_ITS | Encounter Summary ---
Author Organization [facility] Address [address] [place] [address] Care Team Providers Care Fiber Technologist Name Role Phone Tanna Oconnor MD Primary Care Provider Unavail able Encounter Details Date Type Department Care Team Description 11/05/2018 Refill Pulmonology - [address] [place] [phone] Fran Holder MD Social History [...] MG tablet [Fran Holder MD] Preferred pharmacy: [id number] MARTÍNEZ Comment: documented in this encounter Plan of Treatment Not on file documented as of this encounter Visit Diagnoses Not on filedocumented in this encounter Care Teams Fiber Technologist Relationship Specialty Start Date End Date Tanna Oconnor MD PCP - General Internal Medicine 11/01/18 documented as of this encounter
--- OUTSIDE RECORDS SUMMARY | 2025-09-09 18:05 | XMS_ITS | Encounter Summary ---
Author Organization [facility] Address [address] [place] [address] Care Team Providers Care Projection Printer Name Role Phone Divina Jaffe Md, MD Primary Care Provider Unavailable Tanna Oconnor MD Primary Care Provider Unavail able Encounter Details Date Type Department Care Team Description 03/05/2018 Transfer Records Medical Records [address] [place] [address] Abstract, Provider Social History Tobacco Use Types Packs/Day Years Used Date Smoking Tobacco: Former Smokeless Tobacco: Never Comments:only smoked for 2 y ears Sex Assigned at Date Recorded Not on file documented as of this encounter Plan of Treatment Not on file documented as of this encounter Visit Diagnoses Not on filedocumented in this encounter Care Teams Projection Printer Relationship Specialty Start Date End Date Divina Jaffe MD, PCP - General Internal Medicine 12/18/17 1 01/01/18 Tanna Oconnor MD PCP - General Internal Medicine 11/01/18 documented as of this encounter
--- OUTSIDE RECORDS SUMMARY | 2025-09-09 18:05 | XMS_ITS | Encounter Summary ---
Author Organization [facility] Address [address] [place] [address] Care Team Providers Care Central Supply Nurse Name Role Phone Divina Jaffe Md, MD Primary Care Provider Unavailable Tanna Oconnor MD Primary Care Provider Unavail able Encounter Details Date Type Department Care Team Description 07/06/2018 Pt. Non Urgent Medic al Question Pulmonology - [address] [place] [phone] Fran Holder MD Social History Tobacco Use [...] on filedocumented in this encounter Care Teams Central Supply Nurse Relationship Specialty Start Date End Date Divina Jaffe MD, MD PCP - General Internal Medicine 12/18/17 1 01/01/18 Tanna Oconnor MD PCP - General Internal Medicine 11/01/18 documented as of this encounter
--- OUTSIDE RECORDS SUMMARY | 2025-09-09 18:05 | XMS_ITS | Encounter Summary ---
Author Organization [facility] Address [address] [place] [address] Care Team Providers Care Retail Specialist Name Role Phone Divina Jaffe Md, MD Primary Care Provider Unavailable Tanna Oconnor MD Primary Care Provider Unavail able Reason for Visit * Reason Onset Date Comments Medication 08/13/2018 Encounter Details Date Type Department Care Team Description 08/13/2018 Telephone Pulmonology - [address] [place] [phone] Fran Holder MD Medication Social [...] returning call and can be reached at [phone] * Telephone Encounter - Hawa Arreaga M.A. [...] on filedocumented in this encounter Care Teams Retail Specialist Relationship Specialty Start Date End Date Divina Jaffe MD, MD PCP - General Internal Medicine 12/18/17 1 01/01/18 Tanna Oconnor MD PCP - General Internal Medicine 11/01/18 documented as of this encounter
--- OUTSIDE RECORDS SUMMARY | 2025-09-09 18:05 | XMS_ITS | Encounter Summary ---
Author Organization [facility] Address [address] [place] [address] Care Team Providers Care Business Trainer Name Role Phone Tanna Oconnor MD Primary Care Provider Unavail able Encounter Details Date Type Department Care Team Description 12/10/2018 Orders Only Medical Records [address] [place] [address] Abstract, Provider Social History Tobacco Use Types Packs/Day Years Used Date Smoking Tobacco: Former Smokeless Tobacco: Never Comments:only smoked for 2 y ears Sex Assigned at Date Recorded Not on file documented as of this encounter Plan of Treatment Not on file documented as of this encounter Procedures Procedure Name Priority Date/Time Associated Diagnosis Comments OUTSIDE EKG Routine 08/22/2018 OUTSIDE EKG Routine 07/29/2018 documented in this encounter Results * OUTSIDE EKG (08/22/2018) Provider Abstract CARDIOLOGY * OUTSIDE EKG (07/29/2018) Provider Abstract CARDIOLOGY documented in this encounter Visit Diagnoses Not on filedocumented in this encounter Care Teams Business Trainer Relationship Specialty Start Date End Date Tanna Oconnor MD PCP - General Internal Medicine 11/01/18 documented as of this encounter
== END 2025-09-09 14:10 | disposition home or self-care (01) ==
LOC: HO.HSMC 12:56
PROVIDERS: PCP Internal Medicine; Visit Provider Physician Assistant Medical
DX: G47.33 Obstructive sleep apnea (adult) (pediatric) (principal); G31.84 Mild cognitive impairment of uncertain or unknown etiology; E66.01 Morbid (severe) obesity due to excess calories; G47.19 Other hypersomnia; K21.9 Gastro-esophageal reflux disease without esophagitis; R06.81 Apnea, not elsewhere classified; M25.561 Pain in right knee; M25.562 Pain in left knee; G89.29 Other chronic pain
CPT/HCPCS: 99204; G2211

== ENCOUNTER 2025-10-12 10:59 | Outpatient (AMB) | payer MEDICARE, SELFPAY ==
[2025-10-12 11:30] VITALS: BP 130/88; PULSE 59; RESP 16; TEMP 36.7; O2SAT 98; BMI 54.0
--- NOTE | 2025-10-12 11:30 | MHC.PC.OV ---
Vital Signs 10/12/25 11:30 Height 5 ft 3.5 in Weight 310 lb BMI 54.0 BP 130/88 Blood Pressure Location Lt brachial Position Sitting Respiration 16 Pulse 59 Pulse Source Pulse Oximeter Temp 98.1 F Temp Source Oral Pulse Oximetry (%) 98 Oxygen Delivery Method Room Air Intake Visit Reasons: 1 month f/up Intake Note: Pt is here today for her 1mo. f/u Licensed And Certified Midwife Required: No Allergies No Known Allergies (No Known Allergies*) Allergy (Verified 10/12/25 11:52) Medication List - Last Reconciled 10/12/25 by Divina Jaffe MD [id number]-qjuffcf-T-mefolate 600-2-6 mg (Kazaanafolin [employer]) 1 tab PO BEDTIME 3 months MDD 1 tablet ascorbic acid (vitamin C) 500 mg PO DAILY atorvastatin 20 mg PO DAILY biotin 5000mg PO daily; bupropion HCl XL 300 mg PO DAILY cholecalciferol (vitamin D3) 100 mcg (2 x 50 mcg (2,000 unit)) PO DAILY citalopram 40 mg PO DAILY cyanocobalamin (vitamin B-12) 1,000 mcg PO DAILY diclofenac sodium 1% (Arthritis Pain (diclofenac)) 2 grams topical QID donepezil 5 mg PO BEDTIME L.acid,james,rham-B.bifid,long 3 billion cell (Digestive Probiotic) caps PO loratadine 10 mg PO DAILY losartan 50 mg PO DAILY magnesium oxide 500 mg (2 x 250 mg magnesium) PO DAILY 3 months MDD 500mg omega-3 fatty acids (Fish Oil Concentrate) 2,000 mg PO DAILY omeprazole 20 mg PO BID 1 month MDD 40mg solifenacin (Vesicare) 10 mg PO DAILY tretinoin 0.025% appl topical DAILY Tobacco use date assessed: 10/12/25 Fall risk assessment: No Falls in past year Last assessed Fall Risk: 10/12/25 Dental Screening Dental Screen Date: 10/12/25 Did you have a dental visit in the last 12 months?: Yes Did you have a dental problem in the last 6 months where you did not have access to dental care?: No Was dental information given to patient?: Patient has dentist HPI 1 month f/up HPI Details The patient is a 70 year old individual presenting for a follow-up visit A neurologist previously noted small changes on the patient's brain MRI and recommended controlling cholesterol, blood pressure, and blood sugar, as well as using a CPAP machine. The patient takes donepezil for memory. Regarding sleep apnea, the patient has been waiting for a CPAP machine since March and has an appointment for a fitting today. The sleep doctor previously advised the patient to hold off on taking vitamin B12 due to high levels. Past blood work from August 2022 indicated no diabetes but a slow metabolism. Cholesterol was within normal limits. The patient takes atorvastatin for hyperlipidemia. The patient reports losing 2 pounds per week for the last four weeks The patient is prescribed citalopram by a psychiatrist, Dr. Sheila Alvarez. Vaccination history is up-to-date for pneumonia, shingles, and RSV. The last COVID-19 vaccine was about a year ago, and the patient has not yet received this season's flu shot. Dietary habits include attempts to follow a Mediterranean diet with fish, vegetables, and fruit. The patient has a scheduled appointment for a colonoscopy and upper endoscopy. [facility] Medical History (Updated 10/12/25 @ 12:08 by Divina Jaffe MD) Obstructive sleep apnea Mild cognitive impairment Heartburn symptom Osteopenia of left femoral neck Recurrent urinary tract infection SULLY (stress urinary incontinence, female) Obstructive sleep apnea of adult Depression Plantar fasciitis GERD with esophagitis Mild intermittent asthma in adult without complication Allergic rhinitis Essential hypertension Impaired fasting glucose Dyslipidemia Morbid obesity Menopause Vitamin D deficiency Surgical History History of endoscopy Hx of colonoscopy Family History Father Lung cancer Unknown family medical history Mother HTN (hypertension) Hyperlipidemia Mental health disorder Brother Substance use disorder Sister Mental health disorder Son No problems noted. Son No problems noted. Social History Housing: House Alcohol intake: former Patient Tobacco Use Status: Former Tobacco user e-Cigarette/Vaping Use: Never Used Second Hand Smoke Exposure: No service: No Current occupational status: unemployed Cognitive needs: No Hearing needs: No Vision needs: Yes (Glasses) Questionnaire Thrive Questionnaire Date Thrive assessed: 08/31/25 I am a: Patient What is your living situation today?: I have a steady place to live Within the past 12 months, did the food you bought not last and you didn't have the money to get more?: Never true Within the past 12 months, did you worry whether your food would run out before you got money to buy more?: Never true Do you have trouble paying for medicines?: No Do you have trouble getting transportation to medical appointments?: No Do you have trouble paying your heating and electricity bill?: No Do you have trouble taking care of your child, family member or friend?: No Do you have trouble with day-to-day activities such as bathing, preparing meals, shopping, managing finances, etc.?: No Are you currently unemployed and looking for a job?: No Are you interested in more education?: No Please select the resources that you would like help with: None Currently or been in a relationship where the following occur: No concerns reported THRIVE Score: 0 RAMANA-7 AMB Questionnaire RAMANA-7 Date RAMANA - 7 assessed: 02/18/25 Source: Developed by Drs. Jason Gutierrez, Anny Jurado, Ty Lock and colleagues, with an educational rodrigue from [employer]. Review of Systems Const All systems reviewed & are unremarkable except as noted in HPI and below Physical exam (Primary Care) Vital Signs: Last Vital Signs Temp 98.1 F 10/12/25 11:30 Pulse 59 10/12/25 11:30 Resp 16 10/12/25 11:30 BP 130/88 10/12/25 11:30 Pulse Ox 98 10/12/25 11:30 Oxygen Delivery Method Room Air 10/12/25 11:30 BMI result Body Mass Index 54.0 Tobacco/Smoking Status: Tobacco use Status Tobacco use date assessed 10/12/25 10/12/25 11:43 Patient Tobacco Use Status Former Tobacco user 10/12/25 11:31 e-Cigarette/Vaping Use Never Used 10/12/25 11:31 Thrive Assessment: Date of Thrive Assessment Date Thrive assessed 08/31/25 10/12/25 11:31 Currently or been in a relationship where the following occur: No concerns reported Const Other: Alert oriented x3, no acute cardiorespiratory distress morbidly obese HENMT Ears: external ears normal General nose exam: Normal external nose present Mouth: Normal oral and palatal mucosa present and moist mucous membranes Eyes General: appearance normal, both eyes and all related structures Neck Other: Supple, no lymphadenopathy, thyroid gland nonpalpable Resp Effort & Inspection: normal respiratory effort and able to speak in complete sentences Auscultation: clear to auscultation bilaterally Cardio Other: S1-S2 present regular rate and rhythm GI Palpation (GI): Soft to palpation, nontender, no guarding and no masses General: Yes no CVA tenderness Back/Spine/Pelvis Back: no CVA tenderness and No back tenderness Skin General skin exam: no rashes or lesions noted Neuro General: gait normal, moves all extremities, no focal motor deficits and CN's II-XI intact bilaterally Extrem General: Yes full ROM, Yes no joint enlargement, Yes no pedal edema and Yes normal gait Coding Level of Care Code Est Pt Level 4 (34386) Diagnoses Mild cognitive impairment G31.84 Obstructive sleep apnea of adult G47.33 Dyslipidemia E78.5 Essential hypertension I10 Morbid obesity E66.01 Assessment & Plan Assessment & Plan (1) Mild cognitive impairment: Code(s): G31.84 - Mild cognitive impairment of uncertain or unknown etiology Category: Medical (2) Obstructive sleep apnea of adult: Comment: Code(s): G47.33 - Obstructive sleep apnea (adult) (pediatric) Category: Medical (3) Dyslipidemia: Code(s): E78.5 - Hyperlipidemia, unspecified Category: Medical (4) Essential hypertension: Code(s): I10 - Essential (primary) hypertension Category: Medical (5) Morbid obesity: Code(s): E66.01 - Morbid (severe) obesity due to excess calories Category: Medical Plan 1. Cognitive Impairment The patient has known minor changes on a brain MRI per a neurology consultation and is managed with donepezil. The plan is to continue the current medication and emphasize control of vascular risk factors, including blood pressure and cholesterol, and ensure adequate treatment of sleep apnea as recommended by the neurologist. 2. Sleep Apnea The patient has a significant delay in obtaining a CPAP machine and is scheduled for a fitting today. The importance of a proper mask fit was discussed to ensure effectiveness. The plan is to await reports from the sleep clinic and for the patient to initiate CPAP therapy. 3. Hyperlipidemia Condition is managed with atorvastatin. The plan is to continue atorvastatin and reinforce lifestyle modifications, including diet and exercise. 4. Hypertension Blood pressure is improved at 138/x mmHg, likely secondary to recent weight loss. The plan is to continue monitoring and encourage a healthy diet and continued weight management. 5. Morbid obesity The patient has demonstrated positive results with a loss of 8 pounds over the past month through portion control. The plan is to encourage these efforts. Dietary counseling was provided, including eating a light dinner and avoiding acidic foods at night to prevent acid reflux. The patient is stable on citalopram, which is prescribed by a psychiatrist. The plan is to continue the current medication and follow up with the psychiatrist as needed. Reminded to get flu and COVID booster Has appointment for colonoscopy and upper endoscopy Continuing vitamin D 2000 units daily through the winter. Continuing to hold vitamin B12 supplementation per the sleep doctor's recommendation. Patient was informed and verbally consented to the use of an ambient scribe for clinic note documentation during this visit.
--- OUTSIDE RECORDS SUMMARY | 2025-10-12 14:08 | XMS_ITS | Clinical Summary ---
Author Organization [facility] [facility] [facility] Address [address] [place] [address] Care Team Providers Care Employee Relations Consultant Name Role Phone Tanna Oconnor MD Primary [...] on file Obstetrics History Plan of Treatment Upcoming Encounters Date Type Department Care Team (Late st Contact Info) Description 11/03/2025 3:30 PM EST Consult Bariatric Surgery - [place] [address] [place] [phone] Isabel Matthews MD [address] [place] [address] Health Maintenance Due Date Last Done Comments Breast Cancer Screening 1955 Colorectal Cancer Screening: Colonoscopy 1955 Pneumococcal Vaccine: 50+ Years (1 of 2 - PCV) 02/10/1972 RSV Immunization Adult Patients (1 - Risk 50-74 years 1-dose series) 2003 Zoster Vaccines (1 of 2) 2003 Depression Screening 11/19/2024 COVID-19 Vaccine (1 - 2024-2 6 season) 2025 Influenza Vaccine (#1) 2025 Cholesterol Screening (Lipid Panel) 09/30/2025 Falls Risk Assessment 09/30/2025 Hepatitis C Screening 09/30/2025 Hypertension/CHF/CAD Annual BMP Blood Test 09/30/2025 Medicare Annual Wellness Visit 09/30/2025 Osteoporosis Screening (Bone Density Screening) 09/30/2025 Social Influencers of Health Screening 09/30/2025 DTaP,Tdap,and Td Vaccines (3 - Td or Tdap) 04/17/2026 04/17/2016, 04/20/2005 Hepatitis B Vaccines Completed 07/25/2016, 02/22/2016, 01/20/2016 [...] on patient's age to complete this topic Insurance MEDICARE BLUE CROSS - [place] MEDICARE ADVANTAGE Care Teams Employee Relations Consultant Relationship Specialty Start Date End Date Tanna Oconnor MD [address] [place] [phone] PCP - General Internal Medicine 09/30/25
== END 2025-10-12 12:17 | disposition home or self-care (01) ==
LOC: HO.HMCC 11:01
PROVIDERS: PCP Internal Medicine; Visit Provider Internal Medicine
DX: G31.84 Mild cognitive impairment of uncertain or unknown etiology (principal); I10 Essential (primary) hypertension; E66.01 Morbid (severe) obesity due to excess calories; Z68.43 Body mass index [BMI] 50.0-59.9, adult; G47.33 Obstructive sleep apnea (adult) (pediatric); E78.5 Hyperlipidemia, unspecified

== ENCOUNTER → 2025-10-12 10:59 | Outpatient (BNVA) | payer MEDICARE, SELFPAY | PROVIDERS: PCP Internal Medicine; Visit Provider Internal Medicine | DX: G31.84 Mild cognitive impairment of uncertain or unknown etiology (principal); G47.33 Obstructive sleep apnea (adult) (pediatric); E78.5 Hyperlipidemia, unspecified; I10 Essential (primary) hypertension; E66.01 Morbid (severe) obesity due to excess calories; Z68.43 Body mass index [BMI] 50.0-59.9, adult; Z71.3 Dietary counseling and surveillance | CPT/HCPCS: 99212 ==